=== PATIENT | female | born 1960 | race Caucasian/White ===

== ENCOUNTER → 2018-02-13 15:47 | Outpatient (CLI) | payer OTHER, SELFPAY ==
--- NOTE | 2018-02-13 15:49 | BI_ITS ---
MAMMOGRAPHY - BILATERAL SCREENING REASON FOR EXAM: Female, 57 years old. Routine annual screening examination. PERTINENT HISTORY: Non-contributory. TECHNIQUE: Digital bilateral breast emeka (3D mammographic acquisition) in the CC and MLO projections. 2-D mediolateral oblique (MLO) and craniocaudad (CC) views of both breasts were obtained. CAD: Full Field Digital Mammography with Computer Added Detection was performed. COMPARISON: Comparison is made with prior study dated November 03, 2015 and October 27, 2014. FINDINGS: Breast Composition: The breasts are heterogeneously dense, which may obscure small masses. There are no dominant masses or suspicious calcifications. No other significant abnormalities are identified. There has been no significant change since the prior study. BI/SCREENING MAMM (CAD), BILAT IMPRESSION: Stable bilateral screening mammogram. Yearly follow-up mammogram recommended. (A) ASSESSMENT CATEGORY: BIRADS Category 1: Negative. A letter regarding these results will be sent to the patient by the facility within 30 days. Approximately 10% of breast cancers are not detected by mammography. A normal mammogram should not delay biopsy of a clinically suspicious abnormality. [id number] Electronically Signed: Kevin Dacosta MD at 8:13 EDT Tel [phone], Service support ,
== END ==
PROVIDERS: Family Provider Family Medicine; PCP Family Medicine; Visit Provider Nurse Practitioner Family
DX: Z12.31 Encounter for screening mammogram for malignant neoplasm of breast (principal)
CPT/HCPCS: 77063; 77067

== ENCOUNTER → 2019-02-22 | Outpatient (CLI) | payer OTHER, SELFPAY ==
--- NOTE | 2019-02-22 16:36 | BI_ITS ---
MAMMOGRAPHY - BILATERAL SCREENING REASON FOR EXAM: Female, 58 years old. Routine annual screening examination. PERTINENT HISTORY: Non-contributory. TECHNIQUE: Digital bilateral breast alice (3D mammographic acquisition) in the CC and MLO projections. 2-D mediolateral oblique (MLO) and craniocaudad (CC) views of both breasts were obtained. CAD: Full Field Digital Mammography with Computer Added Detection was performed. COMPARISON: Comparison is made with prior study dated February 13, 2018 and November 03, 2015. FINDINGS: Breast Composition: The breasts are heterogeneously dense, which may obscure small masses. There are no dominant masses or suspicious calcifications. No other significant abnormalities are identified. There has been no significant change since the prior study. BI/SCREEN MAMM (CAD) W/ALICE BILAT IMPRESSION: Stable bilateral screening mammogram. Yearly follow-up mammogram recommended. (A) ASSESSMENT CATEGORY: BIRADS Category 1: Negative. A letter regarding these results will be sent to the patient by the facility within 30 days. Approximately 10% of breast cancers are not detected by mammography. A normal mammogram should not delay biopsy of a clinically suspicious abnormality. [id number] Electronically Signed: Kevin Dacosta, at 8:42 EDT , Service support ,
== END | disposition home or self-care (01) ==
LOC: OPBI 02-23 07:27
PROVIDERS: Family Provider Family Medicine; PCP Family Medicine; Referring Provider Nurse Practitioner Family; Visit Provider Nurse Practitioner Family
DX: Z12.31 Encounter for screening mammogram for malignant neoplasm of breast (principal)
CPT/HCPCS: 77063; 77067

== ENCOUNTER 2019-12-12 14:12 | Emergency (ER) | payer BC, SELFPAY ==
[2019-12-12 14:14] VITALS: BP 130/86; PULSE 70; RESP 15; TEMP 36.6; O2SAT 98; BMI 21.9
--- NOTE | 2019-12-12 14:28 | CT_ITS ---
STUDY: CT ABDOMEN AND PELVIS WITHOUT CONTRAST REASON FOR EXAM: Female, 59 years old. Right flank pain RADIATION DOSAGE (If Supplied By Facility): CTDIvol = ( 6.24 ) mGy, DLP = ( 263.34 ) mGycm TECHNIQUE: Transaxial images were obtained from the dome of the diaphragm to the symphysis pubis without oral contrast, and without intravenous contrast. Sagittal and coronal images were reconstructed. Individualized dose optimization techniques were used for this CT. COMPARISON: None. FINDINGS: Evaluation of the abdominal viscera is limited in the absence of intravenous contrast. The visualized lung bases are clear. The visualized portions of the heart and pericardium are within normal limits. There are no calcified gallstones present. There is a 5.4 x 5.3 x 4.0 cm cyst in the left lobe of the liver. This is a benign lesion and no further follow-up is recommended. The liver otherwise demonstrates an unremarkable unenhanced appearance. The spleen is normal in size. The pancreas demonstrates an unremarkable unenhanced appearance. The adrenal glands are within normal limits. There is a 5 mm stone at the right ureterovesicular junction with mild right hydroureteronephrosis. There are no additional renal or ureteral stones. There is no left hydronephrosis. Normal visualized stomach. There is no bowel obstruction or inflammation. The appendix is visualized and appears normal. The aorta is normal in caliber. There is no abdominal or pelvic free air, free fluid, fluid collection or lymphadenopathy. There are no destructive osseous lesions. CT/Abdomen/Pelvis without Cont IMPRESSION: 5 mm stone at the right ureterovesicular junction with mild right hydroureteronephrosis. Electronically Signed: Kranthi Almaguer, at 15:01 EDT Tel , Service support ,
[2019-12-12] MEDS: Ondansetron 4 MG/2 ML Vial IV (14:35)
[2019-12-12] MEDS: 0.9% Normal Saline 1,000 ML 125 ML IV (14:35)
[2019-12-12] MEDS: Ketorolac 30 MG/ML Syringe 15 MG IV (14:36)
[2019-12-12] MEDS: HYDROmorphone 1 MG/ML Syringe IV ×2 (14:39→15:44)
[2019-12-12 14:40] LABS: Bacteria 0 SEEN /hpf (None Seen); White Blood Cells 0 SEEN /hpf (0-5)
[2019-12-12 14:43] LABS: Absolute Lymphocyte Count 2.53 X10^3/uL (0.83-4.51); Absolute Neutrophil Count 3.7 X10^3/uL (2.0-7.7); Basophil# 0.04 X10^3/uL; Basophil% 0.5 % (0-1); Eosinophil# 0.55 X10^3/uL; Eosinophils% 7.3 % (0-5); Hematocrit 40.6 % (37-47); Hemoglobin 13.5 g/dL (12.0-15.0); Lymphocyte # 2.53 X10^3/ul (4.0); Lymphocyte % 33.7 % (19-41); Mean Corp Hgb Conc 33.3 g/dL (32-36); Mean Corpuscular Volume 93.3 fL (81-99); Mean Platelet Vol. 9.9 fl (6.2-12.0); Monocyte# 0.68 X10^3/uL; Monocyte% 9.1 % (0-10); NRBC Flagged by Analyzer 0 % (0-5); Neutrophil # 3.68 X10^3/uL (2.7-7.7); Neutrophil % 49.1 % (47-70); Platelet Count 254 K/mm3 (150-450); RBC Distribution Width CV 12.6 % (11.6-14.6); RBC Distribution Width SD 43.5 fl (35.1-43.9); Red Blood Count 4.35 M/mm3 (4.2-5.4); White Blood Count 7.5 K/mm3 (4.4-11.0)
[2019-12-12 14:55] LABS: Anion Gap 7 (5-15); BUN 22 mg/dL (7-18); BUN/Creat Ratio 17.3 RATIO (10-20); Calcium,Total 9.7 mg/dL (8.5-10.1); Chloride 110 mmol/L (98-107); Creatinine, Serum 1.27 mg/dL (0.55-1.02); EST Glomerular Filtration Rate 46 mL/min (>60); Est Glom Filt Rate - Afr Amer 56 mL/min (>60); Glucose 123 mg/dL (74-106); Potassium 3.5 mmol/L (3.5-5.1); Sodium Level 144 mmol/L (136-145)
[2019-12-12 15:11] LABS: Color, Urine Yellow (Yellow); Glucose, Dipstick Normal (Normal); Ketone-Dipstick 5 mg/dl (Negative); Leukocyte Esterase-Dipstick Negative /ul (Negative); Nitrite-Dipstick Negative (Negative); Occult Blood-Urine 250 /ul (Negative); Protein-Dipstick 30 mg/dl (Negative); Urine Bilirubin Dipstick Negative (Negative); Urine Clarity Sl. Cloudy (Clear); Urine Urobilinogen Normal (Normal)
[2019-12-12 15:16] LABS: Red Blood Cells-Urine 10-25 SEEN /hpf (0-5)
[2019-12-12 15:17] LABS: Mucous, Urine 1+ /hpf (<or=2+); Squamous Epithelial Cells - UA 0-5 SEEN /hpf (5-10)
--- NOTE | 2019-12-12 15:35 | ED.VISSUMM ---
- ER Visit Summary Date of Service: 12/12/19 Chief Complaint: [Right flank pain History of present illness: The patient is a 59-year-old female presents the emergency department complaint of right-sided flank pain that started suddenly about an hour prior to arrival in the emergency department. Patient rates the pain is a 10 out of 10. She is had nausea with it. No vomiting. Patient has a sensation like she needs to urinate but only getting small amounts of urine out. She denies any fevers. She is never had pain like this before. Patient has history of hypothyroidism and GERD.] Physical Examination: [HEENT-PERRLA, EOMI. Cranial nerves II through XII grossly intact. TMs clear. Mucous membranes moist. No adenopathy. She is slightly diaphoretic. Cardiovascular-regular rate and rhythm without murmur or ectopy Lungs-clear to auscultation, chest wall stable without crepitus or subcu emphysema Abdomen-normoactive bowel sounds, soft. Patient has tenderness palpation over right lower quadrant with some guarding. Patient has CVA tenderness on the right. There is no rebound, rigidity, or frail signs. Extremities-intact ?4, normal range of motion, normal pulses, atraumatic] Test Results: [CBC with differential obtained was normal. Chemistries unremarkable. Urinalysis showed 10-25 RBCs without signs of infection. CT flank showed a 5 mm stone at the right UVJ with mild hydro-.] Emergency Department Course and Treatment: [On arrival patient had an IV line established. She was medicated with Dilaudid, Zofran, and Toradol and had good pain relief with that. Patient's pain started to come back a little bit prior to discharge although when I tell her she told me it was a 2 out of 10. She was given a second dose of Dilaudid. Case was discussed with urology who asked that they call the office tomorrow to be seen tomorrow.] Treatment Plan: [She will be given urine strainers as well as a prescription for [employer] and naproxen. Patient will follow-up with urology tomorrow. Patient advised to return if worsening pain, fever, vomiting, or condition should worsen anyway.] Disposition: [Discharged home in stable condition] Impression: [Urolithiasis with colic] This note was generated with MedyMatchation software. It may contain incorrect words, spelling, and punctuation that were not noted in review of the chart prior to signing ED Disposition - Plan for ED Patient: Referrals: Miles Amato MD [Primary Care Provider] -
--- NOTE | 2019-12-12 15:38 | ED.DEP ---
ED Disposition - Plan for ED Patient: Instructions: ED Renal Stone w Colic Prescriptions: Naproxen [Naprosyn] 500 mg PO BID PRN #20 tab Prescription Printed Hydrocodone Bitart/Apap 5-325 [[place] 5MG-325MG] 1 tab PO Q4H PRN PRN 2 Days #14 tab PRN Reason: Pain Prescription Printed Ondansetron [Zofran Odt] 4 mg PO Q8H PRN PRN #10 tab PRN Reason: Nausea Prescription Printed Referrals: Miles Amato MD [Primary Care Provider] - Jp Hardy MD [STAFF PHYSICIAN] - 1 Day
[2019-12-12 16:05] VITALS: BP 141/77; PULSE 63; RESP 16; O2SAT 99
== END 2019-12-12 16:12 | disposition home or self-care (01) ==
LOC: ED 14:55
PROVIDERS: Emergency Provider Emergency Medicine; PCP Family Medicine
DX: N13.2 Hydronephrosis with renal and ureteral calculous obstruction (principal); E03.9 Hypothyroidism, unspecified; K21.9 Gastro-esophageal reflux disease without esophagitis; Z79.899 Other long term (current) drug therapy; Z72.0 Tobacco use
CPT/HCPCS: 74176; 80048; 81001; 85025; 96361; 96374; 96375; 96376; 99284; J7030; A4216; J2405

== ENCOUNTER 2019-12-15 12:13 | Day surgery (SDC) | payer BC, SELFPAY ==
[2019-12-15] MEDS: Lactated Ringers 1,000 ML 100 ML IV (12:35)
[2019-12-15 12:39] VITALS: BP 141/86; PULSE 63; RESP 15; TEMP 36.5; O2SAT 99; BMI 22.9
--- NOTE | 2019-12-15 12:52 | PCM.HP.STD ---
Problem List (1) Right ureteral calculus Status: Acute History of Present Illness Date of Admission: 12/15/19 Chief Complaint: Right ureteral obstructing calculi The patient is a 59 year old female who presents with an obstructing stone in the distal right ureter today we plan to proceed with treatment of the stone Past Medical History Allergies No Known Allergies Allergy (Verified 12/15/19 12:37) Home Medications: Ambulatory Orders Medication Instructions Recorded Levothyroxine [Synthroid] 88 mcg PO DAILY 04/05/16 Naproxen [Naprosyn] 500 mg PO BID PRN #20 tab 12/12/19 Ondansetron [Zofran Odt] 4 mg PO Q8H PRN PRN #10 tab 12/12/19 Cholecalciferol (VIT D3) [Vitamin 1,000 unit PO DAILY 12/14/19 D] Surgical History: no surgical history Smoking Status: Current every day smoker Tobacco Use: Cigarettes Review of Systems Constitutional: Denies: Chills, Fever, Weight Change HEENT: Denies: Head Aches, Sinus Congestion, Sinus Drainage Cardiovascular: Denies: Chest Pain, Palpitations Respiratory: Denies: Cough, Shortness of breath at rest, Sputum production Gastrointestinal: Denies: Abdominal Pain, Nausea, Vomiting Genitourinary: Denies: Dysuria Musculoskeletal: Denies: Joint Pain, Joint Tenderness Skin: Denies: Rash, Wounds Neurological: Denies: Numbness, Tingling, Focal weakness Psychiatric: Denies: Anxiety, Depression, Homicidal Ideations, Suicidal Ideations Hematologic/ Lymphatic: Denies: Easy Bruising, Easy Bleeding VTE Information - Inpt Only VTE Present on Admission: No VTE Mechan Device Prophylaxis: SCD's Patient Problems: Active and Suspected Problems Right ureteral calculus (Acute) - Physical Exam Vitals/I&O's: Vital Signs Temp Pulse Resp BP Pulse Ox 97.7 F L 63 15 141/86 H 99 12/15/19 12:39 12/15/19 12:39 12/15/19 12:39 12/15/19 12:39 12/15/19 12:39 Oxygen Delivery Method Room Air Weight: 60.7 kg Body Mass Index (BMI) 22.9 General: Alert, Oriented x3, Cooperative HEENT: Atraumatic, PERRLA, EOMI, Normocephalic Neck: Supple, No JVD, Negative Carotid Bruits Lungs: Clear to auscultation, Normal air movement Cardiovascular: Regular rate, No murmurs Abdomen: Bowel Sounds Present, Soft, Non Tender Extremities: No edema, Capillary Refill Less than 3 Seconds Skin: No rashes, No breakdown Musculoskeletal: No Tenderness to Palpation of Joints or Extremities Neurological: Cranial nerves II-XII grossly intact Psych/Mental Status: Normal Affect, Appropriate Laboratory Results 12/14/19 17:00: COVID-19 (RADHA) Negative Current Medications Lactated Ringer's () 1,000 mls @ 100 mls/hr IV .Q10H MARIE Last Admin: 12/15/19 12:35 Dose: 100 mls/hr Documented by: Assessment/Plan All Active Problems Right ureteral calculus (Acute) Plan for right ureteroscopy laser and stent.
--- NOTE | 2019-12-15 12:57 | DCINST_ITS ---
Discharge Diet: Light diet - advance as tolerated Discharge Activity: Return to Normal Activity, May not drive while taking narcotic pain medications. Call your doctor if your incision/area has: Sudden Increased Bleeding Call your doctor if you observe: Fever of 101 or Higher Suture Line Care: Avoid Pulling/Pushing, Avoid Pinching/Bending Allergies/Adverse Reactions: Allergies No Known Allergies Allergy (Verified 12/15/19 12:37) Medications to take at Discharge Levothyroxine [Synthroid] 88 mcg PO DAILY 04/05/16 Naproxen [Naprosyn] 500 mg PO BID PRN #20 tab 12/12/19 Ondansetron [Zofran Odt] 4 mg PO Q8H PRN PRN #10 tab 12/12/19 Cholecalciferol (VIT D3) [Vitamin D] 1,000 unit PO DAILY 12/14/19 Hydrocodone/Acetaminophen [[place] 5-325 Tablet] 1 each PO Q4H PRN PRN 5 Days #20 tablet 12/15/19 Smz/Tmp Ds [Bactrim Ds] 1 tab PO BID #14 tab 12/15/19 The following prescriptions were given: Smz/Tmp Ds [Bactrim Ds] 1 tab PO BID #14 tab [facility] Status: [facility] Hydrocodone/Acetaminophen [[place] 5-325 Tablet] 1 each PO Q4H PRN PRN 5 Days #20 tablet PRN Reason: Pain Score 1-10/10 Transmission Status: Sent to [facility] Primary Care Physician: Miles Amato MD [Primary Care Provider] - Test Results: Test results from this visit will be discussed in further detail at your follow- up appointment, if applicable. Please Follow Up With: Jp Hardy MD When: please call to make an appointment.
--- NOTE | 2019-12-15 13:20 | PCM.OPRPT ---
Problem List (1) Right ureteral calculus Status: Acute Report of Operation Date of Procedure: 12/15/19 Pre-Operative Diagnosis: Right ureteral calculi obstructing Post-Operative Diagnosis: Same Surgery/Procedure Performed:: Balloon dilation of the right ureter right ureteroscopy laser lithotripsy of stone and stent placement Description of Surgical Findings:: 59-year-old female taken back to the operating room after smooth induction of general anesthesia she was placed in dorsolithotomy position, the urethrovaginal area prepped and draped in usual sterile fashion, went into the bladder with a 21 Romansh rigid cystourethroscope, identified the right ureteral orifice cannulated with a wire advanced a wire past the stone I then advanced a balloon dilator just up to the stone but not beyond it balloon dilated the distal ureter with a 12 Romansh 10 cm balloon dilator, I then left the wire in place and next a wire went in with a offset Olympus SlimLine ureteroscope was able to get into the ureter and encountered the stone I then used a 200 ?m laser fiber and lasered the stone little tiny pieces. All the pieces then flushed into the bladder I then backloaded the stent over the wire and then advanced a stent up into the kidney once a stent was good position and pulled the wire of the kidney coiled in the kidney bladder good position left the string on the stent, and the patient anesthetic was reversed bladder was drained and will see her next week for stent removal. Drains: stent - Admit VTE Documentation VTE Present on Admission: No VTE Mechan Device Prophylaxis: SCD's
[2019-12-15 13:29] VITALS: BP 119/73; BP 141/86; PULSE 65; RESP 16; TEMP 36.6; O2SAT 97
[2019-12-15 13:44] VITALS: BP 139/65; BP 141/86; PULSE 61; RESP 17; O2SAT 97
[2019-12-15 13:57] VITALS: BP 141/86; BP 144/78; PULSE 50; RESP 16; TEMP 36.3; O2SAT 100
[2019-12-15] MEDS: Ketorolac 30 MG/ML Syringe IV (13:59)
[2019-12-15 14:55] VITALS: BP 141/77; BP 141/86; PULSE 53; RESP 16; TEMP 36.6; O2SAT 98
== END 2019-12-15 15:04 | disposition home or self-care (01) ==
LOC: SDC 12:14 → AC 12:16
PROVIDERS: Anesthesiology; PCP Family Medicine; Referring Provider Urology; Visit Provider Urology
PROC: 0TJ98ZZ Inspection of Ureter, Via Natural or Artificial Opening Endoscopic (ICD-10-PCS; CPT 52352; principal; 2019-12-15 14:15)
DX: N20.1 Calculus of ureter (principal); F17.210 Nicotine dependence, cigarettes, uncomplicated; E06.9 Thyroiditis, unspecified; Z11.59 Encounter for screening for other viral diseases; Z79.899 Other long term (current) drug therapy
CPT/HCPCS: 00918; 52356; 87635; G2023; J7120; C2617; J2405; U0003

== ENCOUNTER → 2024-02-04 | Outpatient (CLI) | payer BC, SELFPAY ==
[2024-02-04 08:58] LABS: Absolute Lymphocyte Count 1.47 X10^3/uL (0.83-4.51); Absolute Neutrophil Count 3.2 X10^3/uL (2.0-7.7); Basophil# 0.06 X10^3/uL; Basophil% 1.1 % (0-1); Eosinophils% 5.4 % (0-5); Hematocrit 42.6 % (37-47); Hemoglobin 14.7 g/dL (12.0-15.0); Lymphocyte # 1.47 X10^3/ul (0.83-4.51); Lymphocyte % 26.5 % (19-41); Mean Corp Hgb Conc 34.5 g/dL (32-36); Mean Corpuscular Hgb 32.2 pg (27.0-32.0); Mean Corpuscular Volume 93.4 fL (81-99); Mean Platelet Vol. 10.4 fl (6.2-12.0); NRBC Flagged by Analyzer 0 % (0-5); Neutrophil # 3.21 X10^3/uL (2.7-7.7); Neutrophil % 57.8 % (47-70); Platelet Count 298 K/mm3 (150-450); RBC Distribution Width SD 44.8 fl (35.1-43.9); Red Blood Count 4.56 M/mm3 (4.2-5.4); White Blood Count 5.6 K/mm3 (4.4-11.0)
[2024-02-04 09:39] LABS: ALB/GLOB Ratio 1.2 RATIO (0.9-2.4); AST(SGOT) 13 U/L (15-37); Alanine Aminotransfer ALT/SGPT 16 U/L (13-56); Alkaline Phosphatase 81 U/L (45-117); Anion Gap 7 (5-15); BUN 16 mg/dL (7-18); BUN/Creat Ratio 15.8 RATIO (10-20); Chloride 107 mmol/L (98-107); Creatinine, Serum 1.01 mg/dL (0.55-1.02); EST Glomerular Filtration Rate 59 mL/min (>60); Est Glom Filt Rate - Afr Amer 71 mL/min (>60); Globulin 3.4 g/dL (2.2-4.2); Glucose 102 mg/dL (74-106); Protein, Total 7.4 g/dL (6.4-8.2); Sodium Level 141 mmol/L (136-145)
== END | disposition home or self-care (01) ==
LOC: LAB 08:19
PROVIDERS: PCP Family Medicine; Referring Provider Student in an Organized Health Care Education/Training Program; Visit Provider Student in an Organized Health Care Education/Training Program
DX: K21.9 Gastro-esophageal reflux disease without esophagitis (principal); K76.89 Other specified diseases of liver
CPT/HCPCS: 36415; 80053; 85025

== ENCOUNTER → 2024-02-16 | Outpatient (CLI) | payer BC, SELFPAY ==
--- NOTE | 2024-02-16 07:51 | US_ITS ---
STUDY: ABDOMINAL ULTRASOUND - RIGHT UPPER QUADRANT REASON FOR VISIT: Female, 63 years old liver cyst TECHNIQUE: Ultrasound evaluation of the right upper quadrant was performed with real-time and static bowman-scale imaging. TECHNICAL QUALITY: Adequate. COMPARISON: None. FINDINGS: Liver: The liver measures 16.5 cm. There is normal echogenicity of the liver. The bile ducts are within normal limits. There is hepatic color flow. The direction of portal flow is hepatopetal. Multiple hepatic cysts are seen. The largest cyst is in the left lobe and measures 5.2 cm x 4.7 cm x 3.6 cm. Gallbladder: Normal distended gallbladder. The gallbladder wall measures 1.6 mm. There is a negative sonographic Loyola''s sign. There is no pericholecystic fluid. There are no gallstones. Common Bile Duct (C.B.D.): The common bile duct measures 3 mm. Pancreas: Normal size of the head, body and tail of the pancreas. There is increased echogenicity of the pancreas. There is no demonstrated pancreatic mass or cyst. Right Kidney: Normal size of the right kidney. The right kidney measures 9.5 cm x 4.7 cm x 3.5 cm. Normal renal cortex. The right cortex measures 1.0 cm. There is no demonstrated renal mass or cyst. There is no right hydronephrosis. Possible 2 cm x 2.2 cm x 1.3 cm right adrenal adenoma. US/Liver IMPRESSION: Multiple hepatic cysts. The largest cyst measures 5.2 cm x 4.7 cm x 3.6 cm. This is in the left lobe of the liver. Electronically Signed: Kevin Dacosta MD at 13:31 EDT ,
== END | disposition home or self-care (01) ==
LOC: US 07:48
PROVIDERS: PCP Family Medicine; Referring Provider Student in an Organized Health Care Education/Training Program; Visit Provider Student in an Organized Health Care Education/Training Program
DX: K76.89 Other specified diseases of liver (principal)
CPT/HCPCS: 76705

== ENCOUNTER 2024-03-08 05:25 | Day surgery (SDC) | payer BC, SELFPAY ==
[2024-03-08] VITALS (9 sets, daily range): BP systolic 65–130; BP diastolic 43–96; PULSE 74–86; RESP 14–18; TEMP 36.3–36.5; O2SAT 97–100; BMI 21.8
--- NOTE | 2024-03-08 06:30 | IMM_PTH ---
PATIENT: NASIM RODARTE LOC: EN U#:[id number] AGE/SX: 63/F ROOM: RE03/08/[address]: Dr. Vicente Lomas DO : 1960 BED: DIS: 03/08/2024 SPEC #: [id number] RECD: 03/08/24 13:51 STATUS: VERONICA REQ #: [id number] JOSE: 03/08/24 06:[address]: Vicente Lomas DEPT: IMMUNOHISTOCHEMISTRY RECD BY: Rickey Montoya ENTERED: 03/08/24 13:52 SP TYPE: IMMUNO OTHR DR: Dr. Miles Amato MD Tissues: A - Gastric mucous membrane Procedures: H Pylori (initial) PHYSICIAN & INSTITUTION [place] [id number] SPECIMEN INFORMATION: Tissue Source: A- Antrum biopsy Clinical Info: GERD Specimen Number: [id number] CPT code: 42722 METHODOLOGY: Deparaffinized sections of prefer/formalin-fixed tissue or PAP/DQ stained slides are incubated with monoclonal/polyclonal antibodies/oligonucleotide probes. Localization is made via biotin free immunoperoxidase method. Appropriate controls are performed and reacted as expected. Results on target cell population are indicated in the following table: RESULTS: ANTIBODY / CLONE RESULT Block A H Pylori (polyclonal) negative These tests were developed and their performance characteristics determined by [facility]. They may not have been cleared or approved by the U.S. Food and Drug Administration. The FDA has determined that such clearance or approval is not necessary. The above immunohistochemical/dualISH markers are ordered and reviewed by the Pathologist. INTERPRETATION: A. Antrum, biopsy: Negative for Helicobacter pylori organisms. AM 03/09/2024
--- NOTE | 2024-03-08 06:30 | EGD_PTH ---
PATIENT: NASIM RODARTE LOC: EN U#:[id number] AGE/SX: 63/F ROOM: RE03/08/[address]: Dr. Vicente Lomas DO : 1960 BED: DIS: 03/08/2024 SPEC #: [id number] RECD: 03/08/24 11:33 STATUS: VERONICA REAliyah #: [id number] JOSE: 03/08/24 06:[address]: Vicente Lomas DEPT: SURGICAL PATHOLOGY RECD BY: Zunilda Zhong ENTERED: 03/08/24 13:25 SP TYPE: EGD BIOPSY OT DR: Dr. Miles Amato MD Tissues: A - Gastric mucous membrane B - Duodenum, NOS C - Esophagus, NOS D - Sigmoid colon biopsy Procedures: Special Stain Group I Surgery Specimen Level IV Alcian Blue/PAS (control) HEADER OPERATION: Colonoscopy, EGD PRE-OP DIAGNOSIS: GERD TISSUE SUBMITTED: A- Antrum biopsy, B- Duodenal biopsy, C- Distal esophagus biopsy,D- Sigmoid colon polyp biopsy MICROSCOPIC DIAGNOSIS A. Gastric antrum, biopsy: Chronic gastritis. See comment. B. Duodenum, biopsy: No pathologic change. C. Distal esophagus, biopsy: Gastroesophageal junctional mucosa with mild chronic inflammation. Focal changes of reflux. 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 No evidence of dysplasia. See comment. D. Sigmoid colon polyp, biopsy: Polypoid lymphocytic colitis with hyperplastic change. . 03/09/2024 COMMENT A. The results of immunohistochemistry for Helicobacter pylori will be reported separately ([id number]). C. Alcian blue/PAS stain with matched control is used in the evaluation of the specimen. MICROSCOPIC DESCRIPTION Slides are reviewed. GROSS DESCRIPTION A. Received in fixative is one container labeled with the patient's name and designated Antrum biopsy. The specimen consists of two irregular fragments of light laurent soft tissue that in aggregate measure 0.6 x 0.3 x 0.1 cm. The specimen is totally submitted in one cassette. B. Received in fixative is one container labeled with the patient's name and designated Duodenal biopsy. The specimen consists of two irregular fragments of light laurent soft tissue that in aggregate measure 0.6 x 0.3 x 0.1 cm. The specimen is totally submitted in one cassette. C. Received in fixative is one container labeled with the patient's name and designated Distal esophagus biopsy. The specimen consists of multiple irregular fragments of light laurent soft tissue that in aggregate measure 1.0 x 0.4 x 0.1 cm. The specimen is totally submitted in one cassette. D. Received in fixative is one container labeled with the patient's name and designated Sigmoid colon polyp biopsy. The specimen consists of two irregular fragments of light laurent soft tissue that measures 0.5 x 0.3 x 0.1 cm. The specimen is totally submitted in one cassette. SJ 03/08/2024 TC:3 CPT:42160h6,51028
--- NOTE | 2024-03-08 06:36 | PRE.ANES_ITS ---
ASA Classification* ASA Classification ASA Classification: 2 Assessment & Plan Anesthesia* Anesthesia Assessment Anesthesia Assessment: Discussed sedation and/or anesthesia options, risks, benefits, and alternatives with patient/parents/legal guardian/POA. Questions invited. The patient/parents/legal guardian/POA seems to understand and agrees to proceed with anesthesia plan. Reviewed the physical assessment, medical history, allergy history and patient home medications list prior to surgery/procedure/anesthetic and documented any changes. Performed airway and anesthesia risk assessments. Anesthesia Type Anesthesia Type: MAC Anesthesia Focused Assessment* Temperature: 97.7 F Pulse Rate: 86 Blood Pressure: 130/96 Respiratory Rate: 18 Pulse Ox: 100 Airway Assessment Mouth opens: >3 cm Mallampati Score: II Focused Labs Anesthesia Preop lab: CBC WBC 5.6 K/mm3 (4.4-11.0) 02/04/24 08:26 RBC 4.56 M/mm3 (4.2-5.4) 02/04/24 08:26 Hgb 14.7 g/dL (12.0-15.0) 02/04/24 08:26 Hct 42.6 % (37-47) 02/04/24 08:26 Plt Count 298 K/mm3 (150-450) 02/04/24 08:26 CHEMISTRY Potassium 4.0 mmol/L (3.5-5.1) 02/04/24 08:26 Sodium 141 mmol/L (136-145) 02/04/24 08:26 BUN 16 mg/dL (7-18) 02/04/24 08:26 Creatinine 1.01 mg/dL (0.55-1.02) 02/04/24 08:26 Glucose 102 mg/dL (74-106) 02/04/24 08:26 TSH 11.70 uIU/mL (0.358-3.74) H 04/09/16 08:18 COAG Pre-Assessment Diagnosis/Proposed Procedure Planned Operative Procedure(s): EGD/CSCOPE Anesthesia History 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 When Was Last Pacemaker Check QUESTION #4 FULL TEXT: You/Your Family Experience fever (hyperthermia) with Anesthesia Last Oral Intake Last Oral intake: Last Oral Intake NPO since 04:05 03/08/24 05:54 Meds taken in AM with sips of water? Meds patient instructed to take am of surgery PONV PONV - enginehouse brakeman: PONV - enginehouse brakeman Female Yes 03/05/24 14:56 HX of Motion Sickness Yes 03/05/24 14:56 HX of N/V After Surgery No 03/05/24 14:56 Non-Smoker No 03/05/24 14:56 Duration of Surgery greater No 03/05/24 14:56 than 60 minutes Number of Risk Factors 2 03/05/24 14:56 PONV Score Moderate Risk 03/05/24 14:56 Height & Weight Height & Weight: Anesthesia: Height & Weight Height 5 ft 6 in 03/08/24 05:54 Weight: 61.4 kg 03/08/24 05:54 Body Mass Index (BMI) 21.8 03/08/24 05:54 Respiratory Assessment Respiratory Assessment - enginehouse brakeman: Respiratory Tract Infection Hx - enginehouse brakeman Hx Respiratory Tract Infection No 03/05/24 14:56 STOP Sleep Apnea STOP Sleep Apnea - enginehouse brakeman: STOP Sleep Apnea - enginehouse brakeman Hx Hypertension No 03/05/24 14:56 Hx Sleep Apnea No 03/05/24 14:56 CPAP BIPAP Do you snore loudly (louder No 03/05/24 14:56 than talking or can be heard Do you often feel tired/ Yes 03/05/24 14:56 fatigued/ sleepy during daytime? Has anyone observed you stop No 03/05/24 14:56 breathing during sleep? STOP Results Negative 03/05/24 14:56 QUESTION #5 FULL TEXT : Do you snore loudly (louder than talking or can be heard through closed doors)? 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 Specify any problems Hx of Preganancy in last 3 No 03/05/24 14:56 Months Nurse Filling Out Transfusion DSCHRIBER 03/05/24 14:56 & Questions: Date: 03/05/24 03/05/24 14:56 Time: 14:58 03/05/24 14:56 Patient unable to answer at this time (ie. confused, unrespo /Reproduction History /Reproductive History - enginehouse brakeman: /Reproductive Hx- enginehouse brakeman Hx Now No 03/05/24 14:56 Gestational Age (in weeks): EDC: Hx Hx Para Hx Section SAB No 03/05/24 14:56 PFSH Medical History (Updated 03/05/24 @ 15:03 by Sheila Villareal) Wears glasses Wears dentures Post-menopausal Thyroid disease History of diverticulitis Heartburn Shortness of breath on exertion Smoker History of edema Hx of fracture of leg Adrenal nodule Osteoporosis without pathological fracture GERD (gastroesophageal reflux disease) Hepatic cyst Home Medications ?Medication ?Instructions ?Recorded ?Last Taken ?Type cholecalciferol (vitamin D3) 25 1,000 unit PO DAILY 12/14/19 03/03/24 History mcg (1,000 unit) tablet clobetasol 0.05 % topical cream 1 applic topical DAILY PRN HANDS 08/01/23 Unknown History levothyroxine 100 mcg capsule 100 mcg PO DAILY 08/01/23 03/08/24 History omega-3 fatty acids 1,000 mg 1,000 mg PO QDAY 02/04/24 03/03/24 History capsule Allergy/AdvReac Type Severity Reaction Status Date / Time alendronate sodium (From AdvReac Intermediate Other Verified 03/08/24 05:52 Fosamax) Surgical History (Updated 03/05/24 @ 15:03 by Sheila Villareal) Hx of colonoscopy History of lithotripsy Social History Smoking Status: Current every day smoker tobacco type: cigarettes alcohol intake: never substance use type: does not use Review of Systems (Anesthesia) ROS Narrative System reviewed and no additional complaints, except as documented.
--- NOTE | 2024-03-08 06:41 | CON.PCM.GI_ITS ---
HPI Consult Data Date of Consult: 03/08/24 HPI Narrative Reason for Consultation: Heartburn HPI Narrative: NASIM RODARTE, is a 63 F who presents to the office today for establishment with [facility]. She has a medical hx of GERD, hepatic cyst, and nephrolithiasis. She was referred here by her primary care provider for the hepatic cyst which she has had since about 2011. She tells me she has had multiple images of the liver since then but no further work up. About 6 months ago she had RUQ pain that was constant and would not go away. It did however go away eventually without any treatment. She denied any other symptoms at that time. Our records show a CT from 2019 that showed the hepatic cyst and noted it was benign and no further work up was needed. She mentions she has some heartburn but nothing that she is not able to manage. She has been taking apple cider vinegar pills for this and she feels this is helpful. She denies dysphagia but she does note a 'weird' feeling in her esophagus and upper back after swallowing. She has never had an EGD. She has smoked cigarettes for years and is currently trying to quit. She has a family history of colon cancer. She has had multiple colonoscopies in the past with [facility] with polyps. Last one was few years ago. She has occasional constipation and diarrhea but nothing she is unable to manage. CT abdomen/pelvis 12.12.19; There is a 5.4 x 5.3 x 4.0 cm cyst in the left lobe o f the liver. This is a benign lesion and no further follow-up is recommended. The liver otherwise demonstrates an unremarkable unenhanced appearance Exam Const General: cooperative and comfortable Nutritional Appearance: average body habitus and well nourished [facility] Head: normal to inspection Ears: hearing grossly normal bilaterally Nose: external nose normal Face and sinus: normal facial exam Eyes General: appearance normal, both eyes and all related structures Neck Neck: normal visual inspection Chest Chest palpation & inspection: normal inspection of the chest Resp Effort & Inspection: normal respiratory effort and able to speak in complete sentences Cardio Palpation: normal PMI GI Inspection: normal to inspection Palpation: no hepatosplenomegaly Skin General: no rashes or lesions noted Neuro General: patient alert Extrem General: normal to inspection Psych Affect: normal affect Assessment and Plan Assessment and Plan (1) GERD (gastroesophageal reflux disease): Status: Acute Plan: Patient is here today for establishment with [facility]. She has a history of a hepatic cyst found in 2011. She has not had a liver biopsy but CT from 2019 noted that it was benign and needed no further work up. She went through a period of time 6 months ago with RUQ pain that eventually subsided. Since she was having pain she wanted to get the cyst looked at again. We will order liver US to monitor it and consider liver biopsy if indicated. Her liver enzymes have all been wnl according to our records. I will order CMP and CBC today to check in. She has a hx of GERD and discomfort in her upper back after swallowing. She denies taking medications for this besides apple cider vinegar pills. She denies ever having an EGD however she has had multiple colonoscopies as her father had colon cancer. SHe has had polyps in the past and last one was a few years ago at [facility]. I recommended she have an EGD since she is having these esophageal symptoms and a hx of smoking. I suggested she also get a colonoscopy then since she will be due for one soon as well. She is willing to do this she is just concerned insurance will not cover it -I ordered liver US -CBC and CMP -Scheduled for EGD and colonoscopy -She will f/u in 3 months (2) Hepatic cyst: Status: Acute Orders: Orders CBC W/Diff, Automated Today K21.9 - Gastro-esophageal reflux disease without esophagitis, K76.89 - Other specified diseases of liver Comprehensive Metabolic Profil Today K21.9 - Gastro-esophageal reflux disease without esophagitis, K76.89 - Other specified diseases of liver Liver Today K76.89 - Other specified diseases of liver I have examined the patient and the H&P has been reviewed. There are no clinical changes since date of exam. [facility] Medical History (Updated 03/05/24 @ 15:03 by Sheila Villareal) Wears glasses Wears dentures Post-menopausal Thyroid disease History of diverticulitis Heartburn Shortness of breath on exertion Smoker History of edema Hx of fracture of leg Adrenal nodule Osteoporosis without pathological fracture GERD (gastroesophageal reflux disease) Hepatic cyst Home Medications ?Medication ?Instructions ?Recorded ?Last Taken ?Type cholecalciferol (vitamin D3) 25 1,000 unit PO DAILY 12/14/19 03/03/24 History mcg (1,000 unit) tablet clobetasol 0.05 % topical cream 1 applic topical DAILY PRN HANDS 08/01/23 Unknown History levothyroxine 100 mcg capsule 100 mcg PO DAILY 08/01/23 03/08/24 History omega-3 fatty acids 1,000 mg 1,000 mg PO QDAY 02/04/24 03/03/24 History capsule Allergy/AdvReac Type Severity Reaction Status Date / Time alendronate sodium (From AdvReac Intermediate Other Verified 03/08/24 05:52 Fosamax) Surgical History (Updated 03/05/24 @ 15:03 by Sheila Villareal) Hx of colonoscopy History of lithotripsy Social History Smoking Status: Current every day smoker tobacco type: cigarettes alcohol intake: never substance use type: does not use
--- NOTE | 2024-03-08 07:17 | OP.EGD_ITS ---
Patient Name: Clarissa Mckeon Procedure Date: 03/08/2024 6:27 AM Date of : 1960 Age: 63 Procedure: Upper GI endoscopy Indications: Heartburn, Suspected esophageal reflux Providers: Vicente Lomas DO Medicines: Monitored Anesthesia Care Patient Profile: This is a 63 year old female. Refer to note in patient chart for documentation of history and physical. Patient has symptoms of chronic heartburn. Complications: No immediate complications. Procedure: Pre-Anesthesia Assessment: - Prior to the procedure, a History and Physical was performed, and patient medications and allergies were reviewed. The patient is competent. The risks and benefits of the procedure and the sedation options and risks were discussed with the patient. All questions were answered and informed consent was obtained. Patient identification and proposed procedure were verified by the physician in the pre-procedure area. Mental Status Examination: alert and oriented. Airway Examination: normal oropharyngeal airway and neck mobility. Respiratory Examination: clear to auscultation. CV Examination: normal. Prophylactic Antibiotics: The patient does not require prophylactic antibiotics. Prior Anticoagulants: The patient has taken no anticoagulant or antiplatelet agents except for NSAID medication. ASA Grade Assessment: II - A patient with mild systemic disease. After reviewing the risks and benefits, the patient was deemed in satisfactory condition to undergo the procedure. The anesthesia plan was to use monitored anesthesia care (MAC). Immediately prior to administration of medications, the patient was re-assessed for adequacy to receive sedatives. The heart rate, respiratory rate, oxygen saturations, blood pressure, adequacy of pulmonary ventilation, and response to care were monitored throughout the procedure. The physical status of the patient was re-assessed after the procedure. After obtaining informed consent, the endoscope was passed under direct vision. Throughout the procedure, the patient's blood pressure, pulse, and oxygen saturations were monitored continuously. The Colonoscope was introduced through the mouth, and advanced to the second part of duodenum. The upper GI endoscopy was accomplished without difficulty. The patient tolerated the procedure well. Scope In: 6:51:21 AM Scope Out: 6:55:53 AM Total Procedure Duration Time 0 hours 4 minutes 32 seconds Findings: There were esophageal mucosal changes suspicious for short-segment Cabral's esophagus present in the lower third of the esophagus. The maximum longitudinal extent of these mucosal changes was 2 cm in length. Mucosa was biopsied with a cold forceps for histology in a targeted manner at intervals of 1 cm in the lower third of the esophagus. One specimen bottle was sent to pathology. Verification of patient identification for the specimen was done. Estimated blood loss was minimal. LA Grade B (one or more mucosal breaks greater than 5 mm, not extending between the tops of two mucosal folds) esophagitis with no bleeding was found 35 to 38 cm from the incisors. A hiatal hernia was present. Bilious fluid was found in the gastric body. Patchy moderate inflammation characterized by erosions and erythema was found in the gastric antrum. Biopsies were taken with a cold forceps for histology. Verification of patient identification for the specimen was done. Estimated blood loss was minimal. Biopsies were taken with a cold forceps for Helicobacter pylori testing. Verification of patient identification for the specimen was done. Estimated blood loss was minimal. Patchy mild inflammation characterized by congestion (edema) and erythema was found in the duodenal bulb and in the first portion of the duodenum. Biopsies were taken with a cold forceps for histology. Verification of patient identification for the specimen was done. Estimated blood loss was minimal. Impression: - Esophageal mucosal changes suspicious for short-segment Cabral's esophagus. Biopsied. - LA Grade B reflux esophagitis with no bleeding. - Hiatal hernia. - Bilious gastric fluid. - Chronic gastritis. Biopsied. - Chronic duodenitis. Biopsied. Recommendation: - Discharge patient to home. - Resume previous diet. - Use Protonix (pantoprazole) 40 mg PO BID for 3 months. - Continue present medications. Procedure Code(s): --- Professional --- 43266, Esophagogastroduodenoscopy, flexible, transoral; with biopsy, single or multiple CPT copyright 2021 [employer]. All rights reserved. The codes documented in this report are preliminary and upon data coder operator review may be revised to meet current compliance requirements. Vicente Lomas DO 03/08/2024 7:16:01 AM This report has been signed electronically. Number of Addenda: 0 Note Initiated On: 03/08/2024 6:27 AM
--- NOTE | 2024-03-08 07:17 | OP.CCLET_ITS ---
03/08/2024 Miles Amato [address] [place] [address] Re : Upper GI endoscopy procedure for Clarissa Mckeon Dear Dr. Amato This procedure was performed on Friday, March 08, 2024. My impressions and recommendations are as follows: Impressions : - Esophageal mucosal changes suspicious for short-segment Cabral's esophagus. Biopsied. - LA Grade B reflux esophagitis with no bleeding. - Hiatal hernia. - Bilious gastric fluid. - Chronic gastritis. Biopsied. - Chronic duodenitis. Biopsied. Recommendations : - Discharge patient to home. - Resume previous diet. - Use Protonix (pantoprazole) 40 mg PO BID for 3 months. - Continue present medications. My findings are described in the full procedure note, which is enclosed. If I can be of further assistance, please feel free to contact me at . Sincerely, Vicente Lomas, 03/08/2024 7:16:01 AM This report has been signed electronically.
--- NOTE | 2024-03-08 07:18 | OP.CCLET_ITS ---
03/08/2024 Miles Amato [address] [place] [address] Re : Colonoscopy procedure for Clarissa Mckeon Dear Dr. Amato This procedure was performed on Friday, March 08, 2024. My impressions and recommendations are as follows: Impressions : - One 3 mm polyp in the sigmoid colon, removed with a jumbo cold forceps. Resected and retrieved. - Diverticulosis in the recto-sigmoid colon, in the sigmoid colon and in the descending colon. - The examination was otherwise normal on direct and retroflexion views. Recommendations : - Discharge patient to home. - Resume previous diet. - Continue present medications. - Await pathology results. - Repeat colonoscopy in 5 years for surveillance. My findings are described in the full procedure note, which is enclosed. If I can be of further assistance, please feel free to contact me at . Sincerely, Vicente Lomas, 03/08/2024 7:17:56 AM This report has been signed electronically.
--- NOTE | 2024-03-08 07:18 | OP.COLON_ITS ---
Patient Name: Clarissa Mckeon Procedure Date: 03/08/2024 6:56 AM Date of : 1960 Age: 63 Procedure: Colonoscopy Indications: Screening for colorectal malignant neoplasm Providers: Vicente Lomas DO Medicines: Monitored Anesthesia Care Patient Profile: This is a 63 year old female. Refer to note in patient chart for documentation of history and physical. Patient has symptoms of chronic heartburn. Last Colonoscopy: 10 years ago. Complications: No immediate complications. Procedure: Pre-Anesthesia Assessment: - Prior to the procedure, a History and Physical was performed, and patient medications and allergies were reviewed. The patient is competent. The risks and benefits of the procedure and the sedation options and risks were discussed with the patient. All questions were answered and informed consent was obtained. Patient identification and proposed procedure were verified by the physician in the pre-procedure area. Mental Status Examination: alert and oriented. Airway Examination: normal oropharyngeal airway and neck mobility. Respiratory Examination: clear to auscultation. CV Examination: normal. Prophylactic Antibiotics: The patient does not require prophylactic antibiotics. Prior Anticoagulants: The patient has taken no anticoagulant or antiplatelet agents except for NSAID medication. ASA Grade Assessment: II - A patient with mild systemic disease. After reviewing the risks and benefits, the patient was deemed in satisfactory condition to undergo the procedure. The anesthesia plan was to use monitored anesthesia care (MAC). Immediately prior to administration of medications, the patient was re-assessed for adequacy to receive sedatives. The heart rate, respiratory rate, oxygen saturations, blood pressure, adequacy of pulmonary ventilation, and response to care were monitored throughout the procedure. The physical status of the patient was re-assessed after the procedure. After I obtained informed consent, the scope was passed under direct vision. Throughout the procedure, the patient's blood pressure, pulse, and oxygen saturations were monitored continuously. The Colonoscope was introduced through the anus and advanced to the cecum, identified by appendiceal orifice and ileocecal valve. The colonoscopy was performed without difficulty. The patient tolerated the procedure well. The quality of the bowel preparation was adequate. The ileocecal valve, appendiceal orifice, and rectum were photographed. Scope In: 6:58:57 AM Scope Withdrawal Time 0 hours 6 minutes 46 seconds Scope Out: 7:10:03 AM Total Procedure Duration Time 0 hours 11 minutes 6 seconds Findings: The perianal and digital rectal examinations were normal. A 3 mm polyp was found in the sigmoid colon. The polyp was sessile. The polyp was removed with a jumbo cold forceps. Resection and retrieval were complete. Verification of patient identification for the specimen was done. Estimated blood loss was minimal. Multiple small and large-mouthed diverticula were found in the recto-sigmoid colon, sigmoid colon and descending colon. The exam was otherwise without abnormality on direct and retroflexion views. Impression: - One 3 mm polyp in the sigmoid colon, removed with a jumbo cold forceps. Resected and retrieved. - Diverticulosis in the recto-sigmoid colon, in the sigmoid colon and in the descending colon. - The examination was otherwise normal on direct and retroflexion views. Recommendation: - Discharge patient to home. - Resume previous diet. - Continue present medications. - Await pathology results. - Repeat colonoscopy in 5 years for surveillance. Procedure Code(s): --- Professional --- 29667, Colonoscopy, flexible; with biopsy, single or multiple CPT copyright 2021 [employer]. All rights reserved. The codes documented in this report are preliminary and upon school resource officer review may be revised to meet current compliance requirements. Vicente Lomas DO 03/08/2024 7:17:56 AM This report has been signed electronically. Number of Addenda: 0 Note Initiated On: 03/08/2024 6:56 AM
--- NOTE | 2024-03-08 07:20 | PCM.POST.ANE ---
Anesthesia: Postop Eval I Current Vital Signs Temperature: 97.3 F Pulse Rate: 82 Blood Pressure: 65/43 Respiratory Rate: 14 Pulse Ox: 98 Oxygen Delivery Method: Room Air Assessment Airway patent: Yes Spontaneous unlabored respirations: Yes Mental status: Awake and Calm nausea: No Vomiting: No Anesthesia Complication: No Fluid Hydration Crystalloid volume administer (ml): 30 Total IV fluid infused: 30 Progress Note Anesthesia document: Postop Eval 1 completed: Yes
--- NOTE | 2024-03-08 07:51 | PCM.POSTANE2 ---
Anesthesia Postop Eval I Sum Postop Eval Completion status Anesthesia document: Postop Eval 1 completed: Yes Anesthesia Postop Eval I Summary Anesthesia Postop Eval I Summary: Anesthesia Postop Eval I: Assessment Summary Airway patent Yes 03/08/24 07:21 [email or web address] Spontaneous unlabored Yes 03/08/24 07:21 [email or web address] respirations Mental status Awake,Calm 03/08/24 07:21 [email or web address] nausea No 03/08/24 07:21 [email or web address] Vomiting No 03/08/24 07:21 [email or web address] Anesthesia Postop Eval I: Fluid Summary Crystalloid volume administer 30 03/08/24 07:21 [email or web address] (ml) Colloids volume administered ( ml) Blood Product volume administered (ml) Total IV fluid infused 30 03/08/24 07:21 [email or web address] Anesthesia Postop Eval I: Summary Notes Anesthesia Complication No 03/08/24 07:21 [email or web address] Anesthesia Complication Comment: Post-operative progress note Anesthesia: Postop Eval II Evaluation Mental status: Awake Pain Level: 0 nausea: No Vomiting: No
== END 2024-03-08 07:50 | disposition home or self-care (01) ==
LOC: EN 05:27 → AC 05:27
PROVIDERS: PCP Family Medicine; Referring Provider Family Medicine; Visit Provider Internal Medicine Gastroenterology
PROC: 0DJD8ZZ Inspection of Lower Intestinal Tract, Via Natural or Artificial Opening Endoscopic (ICD-10-PCS; CPT 45378; principal; 2024-03-08 06:25)
DX: Z12.11 Encounter for screening for malignant neoplasm of colon (principal); K52.832 Lymphocytic colitis; K57.30 Diverticulosis of large intestine without perforation or abscess without bleeding; K21.00 Gastro-esophageal reflux disease with esophagitis, without bleeding; K29.50 Unspecified chronic gastritis without bleeding; K29.80 Duodenitis without bleeding; K22.70 Barrett's esophagus without dysplasia; K44.9 Diaphragmatic hernia without obstruction or gangrene; K76.89 Other specified diseases of liver; E07.9 Disorder of thyroid, unspecified; F17.210 Nicotine dependence, cigarettes, uncomplicated; Z79.890 Hormone replacement therapy; Z80.0 Family history of malignant neoplasm of digestive organs
CPT/HCPCS: 45380; 43239; 88305; 88312; 88342; A4216; J2405

== ENCOUNTER 2025-04-07 05:17 | Day surgery (SDC) | payer BC, SELFPAY ==
[2025-04-07] VITALS (11 sets, daily range): BP systolic 76–147; BP diastolic 52–82; PULSE 53–74; RESP 16; TEMP 36.2–36.6; O2SAT 95–100; BMI 23.1
--- OUTSIDE RECORDS SUMMARY | 2025-04-07 05:20 | XMS RPT_ITS | CCD ---
Author Organization [facility] Care Team Providers Care Degreasing Wheel Operator Name Role Phone Jamie Mckeon Unavailable Olga Amato MD Primary Care Provider Olga Amato MD Primary Care Provider Olga Amato MD Primary Care Provider Olga Amato MD Primary Care Provider ERICH MICHAEL Attending Unavailable ERICH MICHAEL Admitting Unavailable OLGA AMATO Primary Care Unavailable Olga Amato MD Primary Care Provider Daveyhorenita ACTIVITIES LEADER.Debby BENSON Unavailable Don ACTIVITIES LEADER.Mateo BENSON Unavailable KONSTANTIN SUERO Attending Unavailable OLGA AMATO Primary Care Unavailable KONSTANTIN SUERO Attending Unavailable OLGA AMATO Primary Care Unavailable T[place]hof ACTIVITIES LEADER.Debby BENSON Unavailable Dr. Olga Amato MD Primary Care Provider Dr. Olga Amato MD Referring Provider Bia Saucedo Attending Provider SALENA DIAZ Referring Unavailable OLGA AMATO Primary Care Unavailable MARISA SPENCER Referring Unavailable OLGA AMATO Primary Care Unavailable MARISA SPENCER Referring Unavailable OLGA AMATO Primary Care Unavailable KONSTANTIN SUREO Referring Unavailable OLGA AMATO Primary Care Unavailable OLGA AMATO Primary Care Unavailable PAPA US Attending Unavailable SALENA DIAZ Attending Unavailable OLGA AMATO Primary Care Unavailable SALENA DIAZ Referring Unavailable OLGA AMATO Primary Care Unavailable SALENA DIAZ Attending Unavailable OLGA AMATO Primary Care Unavailable Bia Flynn Attending Unavailable Olga Amato Referring Unavailable Olga Amato Primary Care Unavailable Bia Flynn Attending Unavailable Olga Amato Referring Unavailable Olga Amato Primary Care Unavailable Olga Amato Primary Care Unavailable Bia Flynn Attending Unavailable Olga Amato Referring Unavailable CesiliaVicente Attending Unavailable Emily DIMENSIONAL INSPECTORSalena Referring Unavailable Emily DIMENSIONAL INSPECTOR, Salena Primary Care Unavailable Allergies Allergy Classification Reported Allergen(s) Allergy Type Date of Onset Reaction(s) Facility Alendronate (2 sources) Alendronate Drug Allergy 12-08-2017 Intolerance [facility] (20 sources) Alendronate; Translations: [ALENDRONATE SODIUM] Drug Allergy 12-08-2017 Intolerance [facility] Comment on above: HEARTBURN (1 source) Alendronate Drug Allergy 04-06-2025 [facility] Repository Medications Current Medications Medication Drug Class(es) Dates Sig (Normalized) Sig (Original) carbamide peroxide 65 mg/ml otic solution (14 sources) Start: 11-12-2023 End: 11-11-2024 carbamide peroxide (DEBROX) 6.5 % otic solution Indications: Bilateral impacted cerumen Use 5 Drops in both ears two times a day. 15 mL 2 11/12/2023 11/11/2024 Active cholecalciferol 0.025 mg oral tablet (1 source) Vitamin D Start: 12-14-2019 take 1 tablet by mouth once daily Cholecalciferol (Vitamin D3) 1,000 UNIT tablet Active 1000 U PO DAILY December 14, 2019 12:00am CHOLECALCIFEROL, VITAMIN D3, ORAL (20 sources) CHOLECALCIFEROL, VITAMIN D3, ORAL Take by mouth. Taking daily. Pt unsure of dosage. Active CHOLECALCIFEROL, VITAMIN D3, ORAL Take by mouth. Taking daily. Pt unsure of dosage. 0 Active Comment on above: Take by mouth. Takin g daily. Pt unsure of dosage. clobetasol propionate 0.5 mg/ml topical cream (20 sources) Corticosteroid Start: 08-01-2023 Clobetasol 0.05 % cream Active 1 NMA TOPICAL DAILY as needed for HANDS August 01, 2023 1:00am Start: 11-21-2015 End: 11-11-2024 clobetasol (TEMOVATE) 0.05 % cream Indications: Contact dermatitis due to other chemical product, unspecified contact dermatitis type Apply 1 application to affected area two times a day. Apply to hands 60 g 5 11/12/2023 10/25/2024 Discontinued (Other) Comment on above: Apply 1 application to affected area twice daily. losartan potassium 25 mg oral tablet (3 sources) Angiotensin 2 Receptor Geetha Start: 5 take 1 tablet by mouth once daily losartan (COZAAR) 25 mg tablet Take 1 tablet by mouth once daily. 90 tablet 1 11/23/2024 Active [place]-3 Fatty Acids 1,000 mg capsule (1 source) Start: 4 take 1 capsule by mouth once daily [place]-3 Fatty Acids 1,000 mg capsule Active 1000 mg PO daily February 04, 2024 12:00am pantoprazole 40 mg delayed release oral tablet (7 sources) Proton Pump Inhibitor Start: take 1 tablet by mouth every twelve hours pantopraz[address] DR (PROTONIX) 40 mg tablet Take 1 tablet by mouth every 12 hours. 08/25/2024 Active Start: 03-08-2024 End: 05-04-2024 take 1 tablet by mouth twice daily Pantoprazole 40 mg tablet,delayed release (DR/EC) Active 40 mg PO TWICE A DAY 180 90 1 May 04, 2024 9:27am levothyroxine sodium 0.1 mg oral tablet (20 sources) l-Thyroxine Start: 01-17-2025 take 1 tablet by mouth once daily for thyroid dysfunction levothyroxine (LEVOXYL) 100 mcg tablet Indications: Acquired hypothyroidism Take 1 tablet by mouth once daily. Skip one day weekly. Take on empty stomach. For Thyroid. 30 tablet 11 01/17/2025 Active Start: 08-01-2023 take 1 capsule by [facility] once daily Levothyroxine 100 mcg capsule Active 100 ug PO DAILY August 01, 2023 1:00am Start: 03-25-2022 End: 01-16-2025 take 1 tablet by mouth once daily for thyroid dysfunction levothyroxine (LEVOXYL) 100 mcg tablet Indications: Acquired hypothyroidism Take 1 tablet by mouth once daily. Skip one day weekly. Take on empty stomach. For Thyroid. 30 tablet 11 01/27/2024 01/16/2025 Discontinued Start: 05-29-2021 End: 10-29-2021 take 1 tablet by mouth once daily for thyroid dysfunction levothyroxine (LEVOXYL) 100 mcg tablet Indications: Acquired hypothyroidism Take 1 tablet by mouth once daily. Skip one day weekly. Take on empty stomach. For Thyroid. 30 tablet 3 10/29/2021 Active Start: 04-05-2016 End: 08-01-2023 Levothyroxine 75 MCG tablet Discontinued 88 ug PO DAILY April 05, 2016 1:00am August 01, 2023 1:51pm Start: 04-03-2016 LEVOTHYROXINE SODIUM 75 MCG TABS LEVOTHYROXINE SODIUM [id number] Jamie Mckeon Comment on above: Take 1 tablet by carley th once daily. Skip one day weekly. Take on empty stomach. For Thyroid. Take 1 tablet by carley th once daily. One day a week; take only 1/2 pill. Take on empty stomach. For Thyroid. Completed/Discontinued Medications Medication Drug Class(es) Dates Sig (Normalized) Sig (Original) acetaminophen 325 mg / HYDROcodone bitartrate 5 mg oral tablet (2 sources) Opioid Agonist Start: 12-15-2019 End: 12-20-2019 Hydrocodone-Acetami nophen 1 EACH tablet Discontinued 1 NMA PO EVERY 4 HOURS NEEDED as needed for Pain Score 1-10/10 20 5 0 December 15, 2019 December 19, 2019 12:00am December 20, 2019 12:02am Personal history of urinary calculi Start: 12-12-2019 End: 12-14-2019 Hydrocodone-Acetaminophen 1 TABLET tablet Discontinued 1 {tbl} PO EVERY 4 HOURS NEEDED as needed for Pain 14 2 0 December 12, 2019 December 13, 2019 12:00am December 14, 2019 12:02am benzonatate 200 mg oral capsule (1 source) Non-narcotic Antitussive Start: 05-12-2023 End: 02-04-2024 take 1 capsule by mouth three times daily as needed for cough Benzonatate 200 mg capsule Discontinued 200 mg PO THREE TIMES A DAY as needed for cough 14 0 May 12, 2023 1:00am February 04, 2024 7:44am dexamethasone 1 mg oral tablet (2 sources) Corticosteroid Start: 07-15-2024 End: 07-15-2024 take 1 tablet by mouth once in the evening dexAMETHasone (DECADRON) 1 mg tablet Indications: Adrenal adenoma, unspecified laterality Take 1 tablet by mouth one time only for 1 dose. Take one tablet at 10 pm the evening prior to blood work. Get blood work first thing the next morning. 1 tablet 07/15/2024 07/15/2024 Start: 07-24-2022 End: 07-24-2022 take 1 tablet by mouth once dexAMETHasone (DECADRON) 1 mg tablet Indications: Adrenal adenoma, unspecified laterality Take 1 tablet by mouth one time only for 1 dose. 1 tablet 0 07/24/2022 07/24/2022 Comment on above: Take 1 tablet by carley th one time only for 1 dose. Glucosam-Sod Chondro-Vit C-Prema tablet (1 source) Start: 08-01-2023 End: 03-05-2024 Glucosam-Sod Chondro-Vit C-Prema tablet Discontinued {tbl} PO August 01, 2023 1:00am March 05, 2024 2:56pm glucosamine/chondroitn /Na/C/Se (JOINT FORMULA ORAL) (20 sources) End: 10-25-2024 glucosamine/chondroitn/Na/ C/Se (JOINT FORMULA ORAL) Take by mouth. 10/25/2024 Discontinued (Other) glucosamine/yon droitn/Na/C/Se (JOINT FORMULA ORAL) Take by mouth. Active glucosamine/yon droitn/Na/C/Se (JOINT FORMULA ORAL) Take by mouth. 0 Active Comment on above: Take by mouth. iv contrast (will be provided with radiology test) (16 sources) Start: 07-01-2023 End: 10-25-2024 iv contrast (will be provide d with radiology test) CT adrenal WO/W Inject, intravenously, once for 1 dose.No IV access, insert saline lock prior to the beginning of sedation, infusion, injection of imaging exam. Discontinue saline lock post exam. If Pt. has a central line or IVAD, may access for administration according to line specific nursing protocol. Once exam is complete flush line and de-access according to line specific nursing protocol in the CT contrast administration guidelines link. 1 Each 07/01/2023 10/25/2024 Discontinued Start: 07-01-2023 iv contrast (w ill be provided with radiology test) CT adrenal WO/W Inject, intravenously, once for 1 dose.No IV access, insert saline lock prior to the beginning of sedation, infusion, injection of imaging exam. Discontinue saline lock post exam. If Pt. has a central line or IVAD, may access for administration according to line specific nursing protocol. Once exam is complete flush line and de-access according to line specific nursing protocol in the CT contrast administration guidelines link. 1 Each 07/01/2023 Active Start: 07-01-2023 iv contrast (w ill be provided with radiology test) CT adrenal WO/W Inject, intravenously, once for 1 dose.No IV access, insert saline lock prior to the beginning of sedation, infusion, injection of imaging exam. Discontinue saline lock post exam. If Pt. has a central line or IVAD, may access for administration according to line specific nursing protocol. Once exam is complete flush line and de-access according to line specific nursing protocol in the CT contrast administration guidelines link. 1 Each 0 07/01/2023 Active Start: 07-04-2022 End: 07-05-2022 iv contrast (will be provide d with radiology test) Indications: Acquired cyst of kidney CT kidney wow Inject, intravenously, once for 1 dose.No IV access, insert saline lock prior to the beginning of sedation, infusion, injection of imaging exam. Discontinue saline lock post exam. If Pt. has a central line or IVAD, may access for administration according to line specific nursing protocol. Once exam is complete flush line and de-access according to line specific nursing protocol in the CT contrast administration guidelines link. 1 Each 0 07/04/2022 07/05/2022 Active Comment on above: CT kidney wow Inject , intravenously, once for 1 dose.No IV access, insert saline lock prior to the beginning of sedation, infusion, injection of imaging exam. Discontinue saline lock post exam. If Pt. has a central line or IVAD, may access for administration according to line specific nursing protocol. Once exam is complete flush line and de-access according to line specific nursing protocol in the CT contrast administration guidelines link. CT adrenal WO/W Inje ct, intravenously, once for 1 dose.No IV access, insert saline lock prior to the beginning of sedation, infusion, injection of imaging exam. Discontinue saline lock post exam. If Pt. has a central line or IVAD, may access for administration according to line specific nursing protocol. Once exam is complete flush line and de-access according to line specific nursing protocol in the CT contrast administration guidelines link. lisinopril 10 mg oral tablet (2 sources) Angiotensin Converting Enzyme Inhibitor Start: 2024 End: 2024 take 1 tablet by mouth once daily lisinopril (ZESTRIL) 10 mg tablet Indications: Hypertension, essential Take 1 tablet by mouth once daily. 30 tablet 1 10/25/2024 11/23/2024 Discontinued (Side Effects) methylPREDNISolone 4 mg oral tablet (1 source) Corticosteroid Start: 2022 End: 2023 take 1 tablet by mouth once Methylprednisolone (Medrol (Ever)) 4 mg tablets,dose pack Discontinued 0 PO per package directions 21 May 12, 2023 1:00am February 04, 2024 7:44am PO PER PKG DIR naproxen 500 mg oral tablet (1 source) Nonsteroidal Anti-inflammatory Drug Start: 2019 End: 2023 take 1 tablet by mouth twice daily as needed Naproxen 500 MG tablet Discontinued 500 mg PO TWICE DAILY NEEDED December 12, 2019 12:00am February 04, 2024 7:44am ondansetron 4 mg disintegrating oral tablet (1 source) Serotonin-3 Receptor Antagonist Start: 2019 End: 2023 take 1 tablet by mouth every eight hours as needed for nausea Ondansetron 4 MG tablet Discontinued 4 mg PO EVERY 8 HOURS NEEDED as needed for Nausea December 12, 2019 12:00am February 04, 2024 7:44am sulfacetamide sodium 100 mg/ml ophthalmic solution (1 source) Sulfonamide Antibacterial Start: 2021 End: 2021 Sulfacetamide Sodium (Bleph-10) 10 % drops Discontinued 1 NMA OPHTHALMIC Q3H 15 7 0 August 27, 2021 12:00am September 02, 2021 12:00am September 03, 2021 12:03am sulfamethoxazole 800 mg / trimethoprim 160 mg oral tablet (1 source) Dihydrofolate Reductase Inhibitor Antibacterial, Sulfonamide Antimicrobial Start: 2019 End: 2023 Sulfamethoxazole-Trimet hoprim 1 TABLET tablet Discontinued 1 {tbl} PO TWICE A DAY 14 0 December 15, 2019 12:00am February 04, 2024 7:44am Problems Active Problems Problem Classification Problem Date Documented Da te Episodic/Chronic Abdominal pain (3 sources) Right flank pain; Translations: [Unspecified abdominal pain] Episodic Allergic reactions (2 sources) Contact dermatitis caused by chemical; Translations: [Unspecified contact dermatitis due to other chemical products] 11-12-2023 Episodic Calculus of urinary tract (1 source) Ureteric stone; Translations: [Calculus of ureter] 12-15-2019 Episodic Digestive congenital anomalies (5 sources) Congenital cystic disease of liver; 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] Onset: 5 07-01-2023 Chronic Disorders of lipid metabolism (20 sources) Mixed hyperlipidemia; Translations: [Mixed hyperlipidemia] Onset: 7 Chronic Esophageal disorders (20 sources) Gastroesophageal reflux disease; Translations: [Gastro-esophageal reflux disease without esophagitis] Onset: 3 01-23-2023 Chronic Essential hypertension (3 sources) Essential hypertension; Translations: [Essential (primary) hypertension] Onset: 5 10-25-2024 Chronic Inflammation; infection of eye (except that caused by tuberculosis or sexually transmitteddisease) (1 source) Acute infectious conjunctivitis; Translations: [Unspecified acute conjunctivitis, unspecified eye] 08-27-2021 Episodic Nutritional deficiencies (1 source) Vitamin D deficiency; Translations: [Vitamin D deficiency, unspecified] Chronic Osteoporosis (20 sources) Osteoporosis; Translations: [Age-related osteoporosis without current pathological fracture] Onset: 7 02-03-2017 Chronic Other and unspecified benign neoplasm (7 sources) Adrenal adenoma; Translations: [Benign neoplasm of unspecified adrenal gland] Episodic Other and unspecified benign neoplasm (2 sources) Adenoma of right adrenal gland; Translations: [Benign neoplasm of right adrenal gland] Episodic Other and unspecified benign neoplasm (2 sources) Benign neoplasm of adrenal cortex; Translations: [Benign neoplasm of unspecified adrenal gland] Episodic Other and unspecified benign neoplasm (1 source) Lipoma of right upper limb; Translations: [Benign lipomatous neoplasm of skin and subcutaneous tissue of right arm] 12-26-2022 Episodic Other and unspecified benign neoplasm (3 sources) Lipoma of forearm; Translations: [Benign lipomatous neoplasm of skin and subcutaneous tissue of right arm] 01-10-2023 Episodic Other and unspecified benign neoplasm (1 source) Benign lipomatous neoplasm of skin and subcutaneous tissue of right arm; Translations: [Lipoma of right forearm] Onset: 3 Episodic Other connective tissue disease (2 sources) Pain of right upper arm; Translations: [Pain in right upper arm] Episodic Other connective tissue disease (2 sources) Pain of right forearm; Translations: [Pain in right forearm] Episodic Other diseases of kidney and ureters (2 sources) Acquired renal cystic disease; Translations: [Cyst of kidney, acquired] Episodic Other ear and sense organ disorders (2 sources) Impacted cerumen of bilateral ears; Translations: [Impacted cerumen, bilateral] 11-12-2023 Episodic Other endocrine disorders (20 sources) Adrenal mass; Translations: [Other specified disorders of adrenal gland] Onset: 3 Chronic Other gastrointestinal disorders (1 source) History of Cabral's esophagus; Translations: [Personal history of other diseases of the digestive system] 11-23-2024 Episodic Other gastrointestinal disorders (1 source) Constipation; Translations: [Constipation, unspecified] 05-04-2024 Episodic Other liver diseases (5 sources) Liver cyst; Translations: [Other specified diseases of liver] Chronic Other non-traumatic joint disorders (2 sources) Pain in right knee; Translations: [Pain in joint, lower leg] Episodic Other non-traumatic joint disorders (1 source) Swollen knee region; Translations: [Effusion, unspecified knee] 12-26-2022 Episodic Other nutritional; endocrine; and metabolic disorders (2 sources) Hypercalcemia; Translations: [Hypercalcemia] 11-26-2023 Chronic Other nutritional; endocrine; and metabolic disorders (1 source) Hypercalcemia; Translations: [Hypercalcemia] Onset: 5 Chronic Other skin disorders (1 source) Disorder of subcutaneous tissue; Translations: [Disorder of the skin and subcutaneous tissue, unspecified] Episodic Other skin disorders (2 sources) Disorder of right upper extremity; Translations: [Localized swelling, mass and lump, right upper limb] Episodic Other skin disorders (1 source) Soft tissue swelling; Translations: [Localized swelling, mass and lump, unspecified] 11-12-2023 Episodic Residual codes; unclassified (4 sources) Postmenopausal state; Translations: [Asymptomatic menopausal state] Episodic Residual codes; unclassified (20 sources) Family history of cancer of colon; Translations: [Family history of malignant neoplasm of digestive organs] Onset: 0 06-16-2009 Episodic Residual codes; unclassified (1 source) Asymptomatic menopausal state; Translations: [Asymptomatic postmenopausal status] Onset: 5 Episodic Substance-related disorders (20 sources) Tobacco user; Translations: [Nicotine dependence, unspecified, uncomplicated] Onset: 7 11-29-2016 Chronic Thyroid disorders (20 sources) Acquired hypothyroidism; Translations: [Hypothyroidism, unspecified] Onset: 6 Chronic Past or Other Problems Problem Classification Problem Date Documented Da te Episodic/Chronic Fracture of lower limb (2 sources) Displaced fracture of lateral condyle of right tibia, subsequent encounter for closed fracture with routine healing; Translations: [Displaced fracture of lateral condyle of right tibia, initial encounter for closed fracture] Onset: 04-03-2016 08-01-2016 Episodic Malaise and fatigue (3 sources) Fatigue; Translations: [Other fatigue] Onset: 10-25-2024 Episodic Menopausal disorders (18 sources) Menorrhagia; Translations: [Excessive bleeding in the premenopausal period] Onset: 06-10-2008 Resolved: 07-24-2011 07-24-2011 Chronic Other aftercare (1 source) Encounter for other specified surgical aftercare; Translations: [Encounter for other specified surgical aftercare] Onset: 04-22-2016 04-25-2016 Episodic Other and unspecified benign neoplasm (18 sources) History of polyp of colon; Translations: [Personal history of colonic polyps] Onset: 10-19-2020 Resolved: 10-19-2020 10-19-2020 Episodic Other and unspecified benign neoplasm (2 sources) Benign neoplasm of unspecified adrenal gland; Translations: [Adrenal adenoma, unspecified laterality] Onset: 07-05-2024 Episodic Other ear and sense organ disorders (1 source) Impacted cerumen, bilateral; Translations: [Bilateral impacted cerumen] Onset: 10-20-2024 Episodic Other gastrointestinal disorders (1 source) Personal history of other diseases of the digestive system; Translations: [History of Cabral's esophagus] Onset: 11-23-2024 Episodic Other non-traumatic joint disorders (1 source) Knee pain; Translations: [Pain in right knee] Onset: 04-03-2016 04-03-2016 Episodic Other screening for suspected conditions (not mental disorders or infectious disease) (20 sources) Patient encounter status; Translations: [Encounter for screening for malignant neoplasm of colon] Onset: 09-12-2011 09-12-2011 Episodic Results Test Name Value Interpretation Reference Range Facility BD DXA - AXIAL SKELETONon BD DXA - AXIAL SKELETON * * *Final Report* * * DATE OF EXAM: Apr 01 2025 3:34PM TOY [id number] - BD DXA - AXIAL SKELETON / PROCEDURE REASON: multiple diagnoses * * * * Physician Interpretation * * * * EXAMINATION: DXA BONE DENSITOMETRY BD DXA - AXIAL SKELETON, BD DXA TRABECLR BONE SCORE (TBS) PATIENT DEMOGRAPHICS: Age: 64 years, Gender: Female SCANNER INFORMATION: DXA Model: [id number].ai [id number] Date Scanned: 04/01/2025 3:34 PM CLINICAL HISTORY: DIAGNOSTIC Asymptomatic postmenopausal status Age-related osteoporosis without current pathological fracture . RISK FACTORS FOR OSTEOPOROSIS AND ASSOCIATED FRACTURES REPORTED BY THIS PATIENT: Please refer to Bone Health Questionnaire in the EMR CURRENT THERAPY: Please refer to Bone Health Questionnaire in the EMR TECHNICAL LIMITATIONS: None RESULTS: Lumbar spine (L1, L2, L3, L4): 0.743 g/cm2, T-score -2.8, Z-score -1.1 Lumbar spine: 2021: 0.706 g/cm2 Statistically significant increase Left Femoral Neck: 0.494 g/cm2, T-score -3.2, Z-score -1.8 Left Femoral Neck: 2021: 0.506 g/cm2 No statistically significant change Left Total Hip: 0.688 g/cm2, T-score -2.1, Z-score -0.9 Left Total Hip: 2021: 0.711 g/cm2 No statistically significant change CHANGE IS STATISTICALLY SIGNIFICANT IN THE SPINE OR HIP IF GREATER THAN OR EQUAL TO 0.04 g/cm2 VERTEBRAL FRACTURE ASSESSMENT Not performed. TRABECULAR BONE ASSESSMENT TBS score: 1.178 Bone micro-architecture: Degraded (< or = 1.230) IMPRESSION: THE LOWEST T-SCORE IS -3.2 IN THE LEFT HIP 1) DIAGNOSIS (based on BMD alone): OSTEOPOROSIS Caution: Medical conditions other than osteoporosis may cause low bone density, such as osteomalacia or renal osteodystrophy. Clinical correlation is necessary. 2) FRACTURE RISK (Based on TBS adjusted FRAX): 10-year absolute fracture risk: - major osteoporotic fracture = 31 % - hip fracture = 14 % - A diagnosis of Osteoporosis, a 10 year probability of hip fracture greater than or equal to 3% or a 10 year probability of any major osteoporosis-related fracture greater than or equal to 20% should be considered for treatment. - DXA scanner generated FRAX calculations may slightly differ from online FRAX calculations due to differences in software versions. - All recommendations and calculations are to be considered as guidelines and should not replace sound clinical judgement - Caution: Fracture risk may be increased independent of BMD in patients with corticosteroid use, age greater than 65 years, or a history of prior fragility fracture. RECOMMENDATIONS: Follow-up in 2 years or as clinically indicated. Patients that are taking corticosteroids, are transplant recipients or have hyperparathyroidism should have annual follow-up. Follow-up scans should always be done on the same machine for accurate comparison. FOR MORE INFORMATION ABOUT DIAGNOSIS AND TREATMENT: [facility]:? www.ccf.org/jerome s/osteo National Osteoporosis Foundation:? www.nof.org International Society of Clinical Densitometry www.iscd.org Biophysics Teacher: ROCCO Transcribe Date/Time: Apr 04 2025 2:16P Dictated by : JAVI AYALA MD This examination was interpreted and the report reviewed and electronically signed by: JAVI AYALA MD on Apr 04 2025 2:20PM EST [id number] CN -3.[address] [facility] BD DXA TRABECLR BONE SCORE ( TBS)on 04-01-2025 BD DXA TRABECLR BONE SCORE (TBS) * * *Final Report* * * DATE OF EXAM: Apr 01 2025 3:34PM TOY 0801 - BD DXA TRABECLR BONE SCORE (TBS) / PROCEDURE REASON: multiple diagnoses * * * * Physician Interpretation * * * * EXAMINATION: DXA BONE DENSITOMETRY BD DXA - AXIAL SKELETON, BD DXA TRABECLR BONE SCORE (TBS) PATIENT DEMOGRAPHICS: Age: 64 years, Gender: Female SCANNER INFORMATION: DXA Model: [employer] - Gynzy C [id number] Date Scanned: 04/01/2025 3:34 PM CLINICAL HISTORY: DIAGNOSTIC Asymptomatic postmenopausal status Age-related osteoporosis without current pathological fracture . RISK FACTORS FOR OSTEOPOROSIS AND ASSOCIATED FRACTURES REPORTED BY THIS PATIENT: Please refer to Bone Health Questionnaire in the EMR CURRENT THERAPY: Please refer to Bone Health Questionnaire in the EMR TECHNICAL LIMITATIONS: None RESULTS: Lumbar spine (L1, L2, L3, L4): 0.743 g/cm2, T-score -2.8, Z-score -1.1 Lumbar spine: 2021: 0.706 g/cm2 Statistically significant increase Left Femoral Neck: 0.494 g/cm2, T-score -3.2, Z-score -1.8 Left Femoral Neck: 2021: 0.506 g/cm2 No statistically significant change Left Total Hip: 0.688 g/cm2, T-score -2.1, Z-score -0.9 Left Total Hip: 2021: 0.711 g/cm2 No statistically significant change CHANGE IS STATISTICALLY SIGNIFICANT IN THE SPINE OR HIP IF GREATER THAN OR EQUAL TO 0.04 g/cm2 VERTEBRAL FRACTURE ASSESSMENT Not performed. TRABECULAR BONE ASSESSMENT TBS score: 1.178 Bone micro-architecture: Degraded (< or = 1.230) IMPRESSION: THE LOWEST T-SCORE IS -3.2 IN THE LEFT HIP 1) DIAGNOSIS (based on BMD alone): OSTEOPOROSIS Caution: Medical conditions other than osteoporosis may cause low bone density, such as osteomalacia or renal osteodystrophy. Clinical correlation is necessary. 2) FRACTURE RISK (Based on TBS adjusted FRAX): 10-year absolute fracture risk: - major osteoporotic fracture = 31 % - hip fracture = 14 % - A diagnosis of Osteoporosis, a 10 year probability of hip fracture greater than or equal to 3% or a 10 year probability of any major osteoporosis-related fracture greater than or equal to 20% should be considered for treatment. - DXA scanner generated FRAX calculations may slightly differ from online FRAX calculations due to differences in software versions. - All recommendations and calculations are to be considered as guidelines and should not replace sound clinical judgement - Caution: Fracture risk may be increased independent of BMD in patients with corticosteroid use, age greater than 65 years, or a history of prior fragility fracture. RECOMMENDATIONS: Follow-up in 2 years or as clinically indicated. Patients that are taking corticosteroids, are transplant recipients or have hyperparathyroidism should have annual follow-up. Follow-up scans should always be done on the same machine for accurate comparison. FOR MORE INFORMATION ABOUT DIAGNOSIS AND TREATMENT: [facility] Disease:? www.ccf.org/arthrialfa s/osteo National Osteoporosis Foundation:? www.nof.org International Society of Clinical Densitometry www.iscd.org Biophysics Teacher: ROCCO Transcribe Date/Time: Apr 04 2025 2:16P Dictated by : JAVI AYALA MD This examination was interpreted and the report reviewed and electronically signed by: JAVI AYALA MD on Apr 04 2025 2:20PM EST [id number] CN -3.[address] [facility] Gastroenterology Visit Repor ton 02-01-2025 Gastroenterology Visit Report [facility] [address] [place] [address] OFFICE VISIT Date of Service: 02/01/25 MR#: [id number] Acct: [id number] Name: NASIM RODARTE Rep #: [id number] : 1960 Provider: FAITH Lee Age/Sex: 64/F Location: [facility] Status: Signed Intake Vital Signs 03/08/24 05:54 Height 5 ft 6 in Intake Visit Reasons: 6 M FU Chief Complaint: f/u heartburn Allergies alendronate sodium (From Fosamax) Adverse Reaction (Intermediate, Verified 03/08/24 05:52) Other Medications ???Medication ???Instructions ???Recorded ???Confirmed ???Type cholecalciferol (vitamin D3) 25 1,000 unit PO DAILY 12/14/1902/01 History mcg (1,000 unit) tablet clobetasol 0.05 % topical cream 1 applic topical DAILY PRN HANDS 0 08/01/23 02/01/25 History levothyroxine 100 mcg capsule 100 mcg PO DAILY 08/01/23 02/01/25 History omega-3 fatty acids 1,000 mg 1,000 mg PO QDAY 02/04/24 02/01/25 History capsule pantoprazole 40 mg tablet,delayed 40 mg PO BID 3 months #180 tabs 1 07/05/23 02/01/25 Rx release Nurse's Note: Pt was scheduled for EGD on 03.10.25 at the end of their appt today. Reviewed prep instructions and which medications to hold prior to procedure with pt in office. A paper copy of EGD prep instructions were given to pt. Pt denies any questions or concerns at this time. [facility] Medical History (Updated 05/04/24 @ 08:42 by FAITH Lee) Wears glasses Wears dentures Post-menopausal Thyroid disease History of diverticulitis Heartburn Shortness of breath on exertion Smoker History of edema Hx of fracture of leg Adrenal nodule Osteoporosis without pathological fracture GERD (gastroesophageal reflux disease) Hepatic cyst Surgical History (Updated 03/05/24 @ 15:03 by Sheila Villareal) Hx of colonoscopy History of lithotripsy Social History Smoking Status: Current every day smoker tobacco type: cigarettes alcohol intake: never substance use type: does not use HPI HPI Chief Complaint: f/u heartburn Details: NASIM RODARTE, is a 64 F who presents to the office today for follow-up. BGI established 02.04.24 for heptaic cyst, heartburnand family hc of colon cnacer in her father. Pt taking apple cider vinegar for heartbrun. CT abdomen/pelvis 12.12.19; There is a 5.4 x 5.3 x 4.0 cm cyst in the left lobe of the liver. This is a benign lesion and no further follow-up is recommended. The liver otherwise demonstrates an unremarkable unenhanced appearance Colonoscopy; 03.08.24 One 3 mm polyp in the sigmoid colon, removed with a jumbo cold forceps. Resected and retrieved. - Diverticulosis in the recto-sigmoid colon, in the sigmoid colon and in the descending colon. - The examination was otherwise normal on direct and retroflexion view EGD 03.08.24; - Esophageal mucosal changes suspicious for short-segment Cabral's esophagus. Biopsied. - LA Grade B reflux esophagitis with no bleeding. - Hiatal hernia. - Bilious gastric fluid. - Chronic gastritis. Biopsied. - Chronic duodenitis. Biopsied. Liver US 02.16.24; Multiple hepatic cysts. The largest cyst measures 5.2 cm x 4.7 cm x 3.6 cm. This is in the left lobe of the liver. Last OV 05.04.24; Continues with heartburn and globus sensation. She feels being on PPI has worsened her symptoms. OV 08.03.24 Pt has been doing well. She started to have some heartburn yesterday. She took TUMs which helped. She continues with pantoprazole 40 mg twice a day. She does not endorse any diet changes or medication changes that could have resulted in this increase in pain. For three days now she has felt constipated with smaller stools. She is still going daily. She is trying to stop smoking and has been able to cut back to three a day. SHe does not smoke at work just when she gets home. OV 02.01.25 patient doing well today. She has some intermittent episodes of heartburn maybe once per week. It is not related to oral intake and happens on random occasions. Constipation is getting better with the bowel movement daily. She did not end up taking any MiraLAX. She continues with pantoprazole 40 mg daily. ROS Const Constitutional: No fatigue, fever(s) or weight change ENT ENT: No difficulty swallowing Gastro GI: No abdominal pain, belching, bloating, change in bowel habits, change in stool character, coffee ground emesis, constipation, cramping, diarrhea, heartburn, difficulty swallowing, feeling full early, excessive flatus, incontinent of stools, Vomiting blood/hematemesis, Blood in stool, loose stools, Black,tarry stools, nausea/dyspepsia, pain with swallowing, vomiting or other Musc Musculoskeletal: No joint pain Skin Skin: No yellowing of the eye or itchy eyes Psych Psychi (more content not included)... Normal [facility] CNOVon 11-23-2024 CNOV Office Visit (JASONPWS) FREEWALT,NASIM K ([id number]) 1960 F Date Time Provider Department 11/23/24 3:40 PM SALENA DIAZ During your visit today, we recorded the following information about you: Pulse Respiration Blood pressure Weight 69/minute 16/minute 118/80 65.3 kg Salena Diaz APRN.[employer] 11/23/2024 4:22 PM Addendum - Stop taking lisinopril and begin losartan. - Complete a DEXA scan (bone density test) as ordered. - If you choose to start biotin for hair and nail health, pause it for one week before any lab work to avoid skewing thyroid test results. - Arrange for the pneumococcal Prevnar 20 vaccine; check with your insurance about where to receive it. - Arrange a tetanus booster; verify insurance coverage and preferred location. - Consider the two-dose shingles vaccine series. - Plan to return in six months for a blood pressure check and to review your lab results. BONE MINERAL DENSITY PATIENT INSTRUCTIONS = Bone mineral density testing measures the amount of calcium in certain parts of your bones. This information determines how strong your bones are. The test is used to detect osteoporosis, a disease in which the bone's mineral content and density are low, increasing a person's risk of fractures. The lumbar spine (lower back) and the hip are the skeletal sites usually examined. For the test, remember that: 1. You cannot take this test if you are . 2. Eat a normal diet on the day of the test. 3. Take your medications as you normally would. 4. DO NOT take calcium supplements (such as Tums) for 24 hours before the test. 5. On the day of the test, leave valuables (jewelry or credit cards) at home. 6. The test should be performed prior to oral, rectal or IV contrast studies, or at least 7 days after any of these studies. For the test, you may be asked to wear a hospital gown. You will lie on your back, on a padded table, in a comfortable position. Generally, you can resume your usual activities immediately. Salena Diaz APRN.[employer] 11/23/2024 4:39 PM Signed This is a 64 year old female who presents today with: Nasim Mónica Rodarte is a 64-year-old female with a history of HTN, Cabral's esophagus, and hiatal hernia, presenting for a wellness exam.. HISTORY OF PRESENT ILLNESS: Hypertension: - Currently taking Lisinopril; experiencing occasional cough, particularly at night. - Keeps water by the bed to alleviate cough. - Denies dizziness. - Previously monitored BP at home, but stopped due to inconsistent readings compared to work measurements. - Denies chest pain, dyspnea, syncope, or edema in feet or ankles. Cabral's Esophagus: Follows with Dr. Lomas. - Diagnosed with Cabral's esophagus; reports inflammation noted during endoscopy. - Takes pantoprazole; inquires about potential renal side effects. - Follow-up with Dr. Lomas every 6 months; next endoscopy scheduled for February. - Reports hiatal hernia; questions if weight gain exacerbates symptoms. - Previously took apple cider vinegar pills; now eats an apple every morning, which she believes helps. - Denies dysphagia. Osteoporosis: - Last DEXA scan in December 2021. - Did not tolerate Fosamax well due to heartburn. - Lifts 10 lb weights every other day; walks extensively at work, sometimes up to 8 miles. - Inquires about Prolia. - Has not been taking vitamin D3 recently; spends more time outdoors. 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 - Undergoes annual testing for the tumor. PAST MEDICAL HISTORY: PAST MEDICAL HISTORY Diagnosis Date Generalized headaches Kidney stone 2019 lithotripsy Unspecified hypothyroidism PAST SURGICAL HISTORY Procedure Laterality Date COLONOSCOP W/ OR W/O BRSH SPEC 09/24/2011 Repeat in 5 years (-2016) COLONOSCOPY FLX DX W/COLLJ SPEC WHEN PFRMD 02/10/2017 repeat 5 yrs. COLONOSCOPY GEN ANES 10/19/2020 [facility] FRACTURE SURGERY LIPOMA (SMALL) Right 2022 forearm PAST SURGICAL HISTORY OF 2001 REMOVAL OF FATTY TUMOR LEFT ARM. PAST SURGICAL HISTORY OF Right 03/2016 ORIF tibia fx PAST SURGICAL HISTORY OF kidney stone removed TONSILLECTOMY HX TONSILLECTOMY PRIMARY/SECONDARY Tonsillectomy TUMOR REMOVAL (SPECIFY LOCATION) HX Right 2022 right forearm ALLERGIES Fosamax [Alendronate Sodium] MEDICATIONS Current Outpatient Medications Medication Sig losartan (COZAAR) 25 mg tablet Take 1 tablet by mouth once daily. pantoprazole DR (PROTONIX) 40 mg tablet Take 1 tablet by mouth every 12 hours. levothyroxine (LEVOXYL) 100 mcg tablet Take 1 tablet by mouth once daily. Skip one day weekly. Take on empty stomach. For Thyroid. CHOLECALCIFEROL, VITAMIN D3, ORAL Take by mouth. Taking daily. Pt unsure of dosage. No current facility-administere (more content not included)... Normal [facility] 25(OH)D3 [facility] 25-hydroxyvitamin D3 [Mass/Vol] 55.3 ng/mL Normal 31.0-80.0 [facility] Comment on above: Order Comment: Speci men Type: BLOOD SPECIMEN Ordering Facility: [facility] Address: [address] [place] [address] Performed By: #### 1 989-3 #### [facility] CLIA [id number] [address] [place] [address] [place] CBC W Auto Differential pane l (Bld)on 11-20-2024 Basophils (Bld) [#/Vol] 0.06 10*3/uL Normal <0.11 [facility] Comment on above: Order Comment: Diego coker Type: BLOOD SPECIMEN Ordering Facility: [facility] Address: [address] [place] [address] Performed By: #### 2 4321-2, 2142-10 #### [facility] CLIA [id number] [address] [place] [address] [place] Basophils/100 WBC (Bld) 1.2 % Normal [facility] Comment on above: Order Comment: Diego coker Type: BLOOD SPECIMEN Ordering Facility: [facility] Address: [address] [place] [address] Performed By: #### 2 4321-2, 2142-10 #### [facility] CLIA [id number] [address] [place] [address] [place] Differential cell count method Nom (Bld) Auto Normal [facility] Comment on above: Order Comment: Speci men Type: BLOOD SPECIMEN Ordering Facility: [facility] Address: [address] [place] [address] Performed By: #### 2 4322, 2142-10 #### [facility] CLIA [id number] [address] [place] [address] [place] Eosinophils (Bld) [#/Vol] 0.39 10*3/uL Normal <0.46 [facility] Comment on above: Order Comment: Speci men Type: BLOOD SPECIMEN Ordering Facility: [facility] Address: [address] [place] [address] Performed By: #### 2 43205-27, 2142-10 #### [facility] CLIA [id number] [address] [place] [address] [place] Eosinophils/100 WBC (Bld) 7.8 % Normal [facility] Comment on above: Order Comment: Speci men Type: BLOOD SPECIMEN Ordering Facility: [facility] Address: [address] [place] [address] Performed By: #### 2 4320-06, 2142-10 #### [facility] CLIA [id number] [address] [place] [address] [place] Erythrocyte distribution width (RBC) [Ratio] 13.2 % Normal 11.5-15.0 [facility] Comment on above: Order Comment: Speci men Type: BLOOD SPECIMEN Ordering Facility: [facility] Address: [address] [place], [place] [address] Performed By: #### 2 4320-06, 2142-10 #### [facility] CLIA [id number] [address] [place] [address] [place] Hematocrit (Bld) [Volume fraction] 39.3 % Normal 36.0-46.0 [facility] Comment on above: Order Comment: Speci men Type: BLOOD SPECIMEN Ordering Facility: [facility] Address: [address] [place] [address] Performed By: #### 2 432-2, 2142-10 #### [facility] CLIA [id number] [address] [place] [address] [place] Hemoglobin (Bld) [Mass/Vol] 12.8 g/dL Normal 11.5-15.5 [facility] Comment on above: Order Comment: Speci men Type: BLOOD SPECIMEN Ordering Facility: [facility] Address: [address] [place] [address] Performed By: #### 2 432-2, 2142-10 #### [facility] CLIA [id number] [address] [place] [address] [place] Immature granulocytes (Bld) [#/Vol] 10*3/uL Normal <0.10 [facility] Comment on above: Order Comment: Speci men Type: BLOOD SPECIMEN Ordering Facility: [facility] Address: [address] [place] [address] Performed By: #### 2 4322, 2142-10 #### [facility] CLIA [id number] [address] [place] [address] [place] Immature granulocytes/100 WBC (Bld) 0.2 % Normal [facility] Comment on above: Order Comment: Speci men Type: BLOOD SPECIMEN Ordering Facility: [facility] Address: [address] [place] [address] Performed By: #### 2 432-2, 2142-10 #### [facility] CLIA [id number] [address] [place] [address] [place] Lymphocytes (Bld) [#/Vol] 1.62 10*3/uL Normal 1.00-4.00 [facility] Comment on above: Order Comment: Speci men Type: BLOOD SPECIMEN Ordering Facility: [facility] Address: [address] [place], [place] [address] Performed By: #### 2 4320-06, 2142-10 #### [facility] CLIA [id number] [address] [place] [address] [place] Lymphocytes/100 WBC (Bld) 32.3 % Normal [facility] Comment on above: Order Comment: Speci men Type: BLOOD SPECIMEN Ordering Facility: [facility] Address: [address] [place] [address] Performed By: #### 2 4320-06, 2142-10 #### [facility] CLIA [id number] [address] [place] [address] [place] MCH (RBC) [Entitic mass] 30.5 pg Normal 26.0-34.0 [facility] Comment on above: Order Comment: Speci men Type: BLOOD SPECIMEN Ordering Facility: [facility] Address: [address] [place] [address] Performed By: #### 2 4320-06, 2142-10 #### [facility] CLIA [id number] [address] [place] [address] [place] MCHC (RBC) [Mass/Vol] 32.6 g/dL Normal 30.5-36.0 [facility] Comment on above: Order Comment: Speci men Type: BLOOD SPECIMEN Ordering Facility: [facility] Address: [address] [place] [address] Performed By: #### 2 4320-06, 2142-10 #### [facility] CLIA [id number] [address] [place] [address] [place] MCV (RBC) [Entitic vol] 93.6 fL Normal 80.0-100.0 [facility] Comment on above: Order Comment: Speci men Type: BLOOD SPECIMEN Ordering Facility: [facility] Address: [address] [place] [address] Performed By: #### 2 4320-06, 2142-10 #### [facility] CLIA [id number] [address] [place] [address] [place] Monocytes (Bld) [#/Vol] 0.49 10*3/uL Normal <0.87 [facility] Comment on above: Order Comment: Speci men Type: BLOOD SPECIMEN Ordering Facility: [facility] Address: [address] [place] [address] Performed By: #### 2 4320-06, 2142-10 #### [facility] CLIA [id number] [address] [place] [address] [place] Monocytes/100 WBC (Bld) 9.8 % Normal [facility] Comment on above: Order Comment: Speci men Type: BLOOD SPECIMEN Ordering Facility: [facility] Address: [address] [place] [address] Performed By: #### 2 43205-27, 2142-10 #### [facility] CLIA [id number] [address] [place] [address] [place] Neutrophils (Bld) [#/Vol] 2.45 10*3/uL Normal 1.45-7.50 [facility] Comment on above: Order Comment: Speci men Type: BLOOD SPECIMEN Ordering Facility: [facility] Address: [address] [place] [address] Performed By: #### 2 4320-06, 2142-10 #### [facility] CLIA [id number] [address] [place] [address] [place] Neutrophils/100 WBC (Bld) 48.7 % Normal [facility] Comment on above: Order Comment: Speci men Type: BLOOD SPECIMEN Ordering Facility: [facility] Address: [address] [place] [address] Performed By: #### 2 4320-06, 2142-10 #### [facility] CLIA [id number] [address] [place] [address] [place] Nucleated RBC (Bld) [#/Vol] 10*3/uL Normal <0.01 [facility] Comment on above: Order Comment: Speci men Type: BLOOD SPECIMEN Ordering Facility: [facility] Address: [address] [place] [address] Performed By: #### 2 4322, 2142-10 #### [facility] CLIA [id number] [address] [place] [address] [place] Nucleated RBC/100 WBC (Bld) [Ratio] 0.0 /[address] [facility] Comment on above: Order Comment: Speci men Type: BLOOD SPECIMEN Ordering Facility: [facility] Address: [address] [place] [address] Performed By: #### 2 4322, 2142-10 #### [facility] CLIA [id number] [address] [place] [address] [place] Platelet mean volume (Bld) [Entitic vol] 10.4 fL Normal 9.0-12.7 [facility] Comment on above: Order Comment: Speci men Type: BLOOD SPECIMEN Ordering Facility: [facility] Address: [address] [place] [address] Performed By: #### 2 4320-06, 2142-10 #### [facility] CLIA [id number] [address] [place] [address] [place] Platelets (Bld) [#/Vol] 262 10*3/uL Normal 150-400 [facility] Comment on above: Order Comment: Speci men Type: BLOOD SPECIMEN Ordering Facility: [facility] Address: [address] [place] [address] Performed By: #### 2 432-2, 2142-10 #### [facility] CLIA [id number] [address] [place], [place] [address] [place] RBC (Bld) [#/Vol] 4.20 10*6/uL Normal 3.90-5.20 [facility] Comment on above: Order Comment: Speci men Type: BLOOD SPECIMEN Ordering Facility: [facility] Address: [address] [place], [place] [address] Performed By: #### 2 4321-2, 2142-10 #### [facility] CLIA [id number] [address] [place] [address] [place] WBC (Bld) [#/Vol] 5.02 10*3/uL Normal 3.70-11.00 [facility] Comment on above: Order Comment: Speci men Type: BLOOD SPECIMEN Ordering Facility: [facility] Address: [address] [place] [address] Performed By: #### 2 4321-2, 2142-10 #### [facility] CLIA [id number] [address] [place] [address] [place] Comprehensive metabolic 2000 panelon 11-20-2024 Albumin [Mass/Vol] 4.2 g/dL Normal 3.9-4.9 [facility] Comment on above: Order Comment: Speci men Type: BLOOD SPECIMEN Ordering Facility: [facility] Address: [address] [place] [address] Performed By: #### 2 4321-2, 2142-10 #### [facility] CLIA [id number] [address] [place] [address] [place] ALP [Catalytic activity/Vol] 74 U/L Normal 34-123 [facility] Comment on above: Order Comment: Speci men Type: BLOOD SPECIMEN Ordering Facility: [facility] Address: [address] [place] [address] Performed By: #### 2 4321-2, 2142-10 #### [facility] CLIA [id number] [address] [place] [address] [place] ALT [Catalytic activity/Vol] 10 U/L Normal 7-38 [facility] Comment on above: Order Comment: Speci men Type: BLOOD SPECIMEN Ordering Facility: [facility] Address: [address] [place] [address] [place] [address] Performed By: #### 2 4320-2, 2142-10 #### [facility] CLIA [id number] [address] [place], [place] [id number] [place] Anion gap [Moles/Vol] 12 mmol/L Normal 8-15 [facility] Comment on above: Order Comment: Speci men Type: BLOOD SPECIMEN Ordering Facility: [facility] Address: [address] [place] [address] Performed By: #### 2 4320-06, 2142-10 #### [facility] CLIA [id number] [address] [place] [address] [place] AST [Catalytic activity/Vol] 17 U/L Normal 13-35 [facility] Comment on above: Order Comment: Speci men Type: BLOOD SPECIMEN Ordering Facility: [facility] Address: [address] [place] [address] Performed By: #### 2 4320-06, 2142-10 #### [facility] CLIA [id number] [address] [place], [place] [address] [place] Bilirubin [Mass/Vol] 0.4 mg/dL Normal 0.2-1.3 [facility] Comment on above: Order Comment: Speci men Type: BLOOD SPECIMEN Ordering Facility: [facility] Address: [address] [place], [place] [address] Performed By: #### 2 4320-06, 2142-10 #### [facility] CLIA [id number] [address] [place], [place] [address] [place] Calcium [Mass/Vol] 9.8 mg/dL Normal 8.5-10.2 [facility] Comment on above: Order Comment: Speci men Type: BLOOD SPECIMEN Ordering Facility: [facility] Address: [address] [place], [place] [address] Performed By: #### 2 4320-06, 2142-10 #### [facility] CLIA [id number] [address] [place] [address] [place] Chloride [Moles/Vol] 106 mmol/L Normal 98-107 [facility] Comment on above: Order Comment: Speci men Type: BLOOD SPECIMEN Ordering Facility: [facility] Address: [address] [place] [address] Performed By: #### 2 4321-2, 2142-10 #### [facility] CLIA [id number] [address] [place] [address] [place] CO2 [Moles/Vol] 24 mmol/L Normal 22-30 [facility] Comment on above: Order Comment: Speci men Type: BLOOD SPECIMEN Ordering Facility: [facility] Address: [address] [place] [address] Performed By: #### 2 4321-2, 2142-10 #### [facility] CLIA [id number] [address] [place] [address] [place] Creatinine [Mass/Vol] 1.10 mg/dL High 0.58-0.96 [facility] Comment on above: Order Comment: Speci men Type: BLOOD SPECIMEN Ordering Facility: [facility] Address: [address] [place] [address] Performed By: #### 2 4321-2, 2142-10 #### [facility] CLIA [id number] [address] [place] [address] [place] Creatinine and Glomerular filtration rate.predicted panel (S/P/Bld) 57 mL/min/1.73m??? Low >=60 [facility] Comment on above: Order Comment: Speci men Type: BLOOD SPECIMEN Ordering Facility: [facility] Address: [address] [place] [address] Result Comment: Margret mated Glomerular Filtration Rate (eGFR) is calculated using the 2020 CKD-EPI creatinine equation. This equation utilizes serum creatinine, sex, and age as parameters. The creatinine assay has traceable calibration to isotope dilution-mass spectrometry. Refer to KDIGO guidelines for clinical interpretation. In patients with unstable renal function, e.g. those with acute kidney injury, the eGFR may not accurately reflect actual GFR. Performed By: #### 2 4320-06, 2142-10 #### [facility] CLIA [id number] [address] [place] [address] [place] Glucose [Mass/Vol] 89 mg/dL Normal 74-99 [facility] Comment on above: Order Comment: Speci men Type: BLOOD SPECIMEN Ordering Facility: [facility] Address: [address] [place], [place] [address] Result Comment: The [place] Diabetes Association (ADA) provides guidance for cutoff values for fasting glucose and random glucose. The ADA defines fasting as no caloric intake for at least 8 hours. Fasting plasma glucose results between 100 to 125 mg/dL indicate increased risk for diabetes (prediabetes). Fasting plasma glucose results greater than or equal to 126 mg/dL meet the criteria for diagnosis of diabetes. In the absence of unequivocal hyperglycemia, results should be confirmed by repeat testing. In a patient with classic symptoms of hyperglycemia or hyperglycemic crisis, random plasma glucose results greater than or equal to 200 mg/dL meet the criteria for diagnosis of diabetes. Reference: Standards of Medical Care in Diabetes 2016, [place] Diabetes Association. Diabetes Care. 2016.39(Suppl 1). Performed By: #### 2 4320-06, 2142-10 #### [facility] CLIA [id number] [address] [place] [address] [place] Potassium [Moles/Vol] 4.6 mmol/L Normal 3.7-5.1 [facility] Comment on above: Order Comment: Ewai men Type: BLOOD SPECIMEN Ordering Facility: [facility] Address: [address] [place] [address] Performed By: #### 2 4320-06, 2142-10 #### [facility] CLIA [id number] [address] [place] [address] [place] Protein [Mass/Vol] 6.4 g/dL Normal 6.3-8.0 [facility] Comment on above: Order Comment: Speci men Type: BLOOD SPECIMEN Ordering Facility: [facility] Address: [address] [place] [address] Performed By: #### 2 4321-2, 2142-10 #### [facility] CLIA [id number] [address] [place] [address] [place] Sodium [Moles/Vol] 142 mmol/L Normal 136-144 [facility] Comment on above: Order Comment: Speci men Type: BLOOD SPECIMEN Ordering Facility: [facility] Address: [address] [place] [address] Performed By: #### 2 4321-2, 2142-10 #### [facility] CLIA [id number] [address] [place] [address] [place] Urea nitrogen [Mass/Vol] 17 mg/dL Normal 7-21 [facility] Comment on above: Order Comment: Speci men Type: BLOOD SPECIMEN Ordering Facility: [facility] Address: [address] [place] [address] Performed By: #### 2 4321-2, 2142-10 #### [facility] CLIA [id number] [address] [place] [address] [place] Ferritin SerPl-mCncon 2024 Ferritin [Mass/Vol] 89.3 ng/mL Normal 14.7-205.1 [facility] Comment on above: Order Comment: Speci men Type: BLOOD SPECIMEN Ordering Facility: [facility] Address: [address] [place] [address] Performed By: #### 1 9123-9, 3016-3, 2276-4, 2132-9 #### [facility] CLIA [id number] [address] [place] [address] [place] Iron and Iron binding capaci ty panelon 11-20-2024 Iron [Mass/Vol] 105 ug/dL Normal 41-186 [facility] Comment on above: Order Comment: Speci men Type: BLOOD SPECIMEN Ordering Facility: [facility] Address: [address] [place] [address] Performed By: #### 2 4321-2, 2142-10 #### [facility] CLIA [id number] [address] [place] [address] [place] Iron binding capacity [Mass/Vol] 342 ug/dL Normal 232-386 [facility] Comment on above: Order Comment: Speci men Type: BLOOD SPECIMEN Ordering Facility: [facility] Address: [address] [place] [address] Performed By: #### 2 4321-2, 2142-10 #### [facility] CLIA [id number] [address] [place] [address] [place] Iron/TIBC [Molar ratio] 30.7 % Normal 15.0-57.0 [facility] Comment on above: Order Comment: Speci men Type: BLOOD SPECIMEN Ordering Facility: [facility] Address: [address] [place] [address] Performed By: #### 2 4321-2, 2142-10 #### [facility] CLIA [id number] [address] [place] [address] [place] Lipid 1996 panelon 5 Cholesterol [Mass/Vol] 224 mg/dL High <200 [facility] Comment on above: Order Comment: Speci men Type: BLOOD SPECIMEN Ordering Facility: [facility] Address: [address] [place] [address] Result Comment: <200 mg/dL, Desirable 200-239 mg/dL, Borderline high >239 mg/dL, High Performed By: #### 2 4321-2, 2142-10 #### [facility] CLIA [id number] [address] [place] [address] [place] Cholesterol in HDL [Mass/Vol] 43 mg/dL Normal >39 [facility] Comment on above: Order Comment: Speci men Type: BLOOD SPECIMEN Ordering Facility: [facility] Address: [address] [place] [address] Result Comment: 40-5 9 mg/dL, Acceptable >59 mg/dL, High: Negative risk factor for coronary heart disease <40 mg/dL, Low: Positive risk factor for coronary heart disease Performed By: #### 2 4320-06, 2142-10 #### [facility] CLIA [id number] [address] [address] [place] Cholesterol in LDL [Mass/Vol] 159 mg/dL High <100 [facility] Comment on above: Order Comment: Speci men Type: BLOOD SPECIMEN Ordering Facility: [facility] Address: [address] [place] [address] Result Comment: <100 mg/dL, Optimal 100-129 mg/dL, Near optimal/above optimal 130-159 mg/dL, Borderline high 160-189 mg/dL, High >189 mg/dL, Very high Secondary prevention optimal LDL Cholesterol levels are recommended to be <70 mg/dL LDL cholesterol is calculated using the Gutiérrez-NIH equation. Performed By: #### 2 4320-06, 2142-10 #### [facility] CLIA [id number] [address] [place] [address] [place] Cholesterol in LDL/Cholesterol in HDL [Mass ratio] 3.70 {ratio} High <2.54 [facility] Comment on above: Order Comment: Ewai men Type: BLOOD SPECIMEN Ordering Facility: [facility] Address: [address] [place] [address] Result Comment: Refe rence: 1. National Cholesterol Education Program ATP III Guideline At-A-Glance Quick Desk Reference: National Heart, Lung, and Blood [place]. National Institutes of Health. 2001: NIH Publication No. 01-3305. 2. An International Atherosclerosis Society position paper: global recommendations for the management of dyslipidemia: executive summary, Atherosclerosis. 2014: 232(2):410-413. Performed By: #### 2 4320-06, 2142-10 #### [facility] CLIA [id number] [facility] [place] [id number] [place] Cholesterol in VLDL [Mass/Vol] 23 mg/dL Normal <30 [facility] Comment on above: Order Comment: Speci men Type: BLOOD SPECIMEN Ordering Facility: [facility] Address: [address] [place] [id number] Performed By: #### 2 4322, 2142-10 #### [facility] CLIA [id number] [address] [place], [place] [address] [place] Cholesterol non HDL [Mass/Vol] 181 mg/dL High <130 [facility] Comment on above: Order Comment: Speci men Type: BLOOD SPECIMEN Ordering Facility: [facility] Address: [address] [place] [address] Result Comment: <130 mg/dL, Optimal 130-159 mg/dL, Near optimal/above optimal 160-189 mg/dL, Borderline high 190-219 mg/dL, High >219 mg/dL, Very high Secondary prevention optimal non HDL Cholesterol levels are recommended to be <100 mg/dL Performed By: #### 2 4320-06, 2142-10 #### [facility] CLIA [id number] [address] [place], [place] [address] [place] Cholesterol.total/Ch olesterol in HDL [Mass ratio] 5.21 {ratio} High <5.10 [facility] Comment on above: Order Comment: Speci men Type: BLOOD SPECIMEN Ordering Facility: [facility] Address: [address] [place] [id number] Performed By: #### 2 43205-27, 2142-10 #### [facility] CLIA [id number] [address] [place], [place] [address] [place] FASTING TIME [address] [facility] Comment on above: Order Comment: Speci men Type: BLOOD SPECIMEN Ordering Facility: [facility] Address: [address] [place] [id number] Performed By: #### 2 43205-27, 2142-10 #### [facility] CLIA [id number] [address] [place], [place] [address] [place] Triglyceride [Mass/Vol] 122 mg/dL Normal <150 [facility] Comment on above: Order Comment: Speci men Type: BLOOD SPECIMEN Ordering Facility: [facility] Address: [address] [place] [address] Result Comment: <150 mg/dL, Normal 150-199 mg/dL, Borderline high 200-499 mg/dL, High >499 mg/dL, Very high Performed By: #### 2 4321-2, 2142-10 #### [facility] CLIA [id number] [address] [place] [address] [place] Magnesium SerPl-mCncon 11-20 Magnesium [Mass/Vol] 2.1 mg/dL Normal 1.7-2.3 [facility] Comment on above: Order Comment: Speci men Type: BLOOD SPECIMEN Ordering Facility: [facility] Address: [address] [place] [address] Performed By: #### 1 9123-9, 3016-3, 2276-4, 2132-9 #### [facility] CLIA [id number] [address] [place] [address] [place] T4 Free SerPl-mCncon 025 Free T4 [Mass/Vol] 1.5 ng/dL Normal 0.9-1.7 [facility] Comment on above: Order Comment: Speci men Type: BLOOD SPECIMEN Ordering Facility: [facility] Address: [address] [place] [address] Performed By: #### 2 4321-2, 2142-10 #### [facility] CLIA [id number] [address] [place] [address] [place] TSH SerPl-aCncon 11-20-2024 TSH Qn 0.349 m[IU]/L Normal 0.270-4.200 [facility] Comment on above: Order Comment: Speci men Type: BLOOD SPECIMEN Ordering Facility: [facility] Address: [address] [place] [address] Performed By: #### 1 9123-9, 3016-3, 2275-4, 2132-01 #### [facility] CLIA [id number] [address] [place] [address] [place] Vit B12 SerPl-mCncon 06-28-2 025 Cobalamin (Vitamin B12) [Mass/Vol] 333 pg/mL Normal 232-1245 [facility] Comment on above: Order Comment: Speci men Type: BLOOD SPECIMEN Ordering Facility: [facility] Address: [address] [place], [place] [address] [address] Performed By: #### 1 9123-9, 6-3, 2275-4, 2132-01 #### [facility] CLIA [id number] [address] [place] [address] [place] CNOVon 10-25-2024 CNOV Office Visit (JASONWS) NASIM RODARTE ([id number]) 1960 F Date Time Provider Department 10/25/24 8:00 AM [facility] During your visit today, we recorded the following information about you: Pulse Respiration Blood pressure Weight 64/minute 16/minute 148/92 64 kg Salena Diaz, CHUCK.[employer] 10/25/2024 8:24 AM Signed - Start lisinopril as prescribed; prescription has been sent to your [facility] pharmacy. If you develop a persistent dry cough, let us know so we can adjust your medication. Please fast for 10-12 hours beforehand; you may drink water or black coffee only. - Follow a low-sodium diet, maintain a healthy weight, and include regular exercise to help control your blood pressure. - Return in one month (November) for a blood pressure check and physical exam. How to limit salt (sodium) to avoid swelling and hypertension: Keep your daily sodium intake to 2 3 4 grams Keep your daily sodium intake to 2000 3000 4000 mg DO: Read labels Keep a food diary for the first week of restriction - must include snacks! Bake or broil your foods DO NOT DRINK: V8 juice Tomato juice Canned soups DO NOT EAT: Canned food Tomato Sauce Barbecue Sauce Soy Sauce Pickles Prepared meats such as salami, corned beef, etc. Fettuccine Marcell Bude con carne Beef burrito Potato salad Cottage cheese (both regular and low fat are high in sodium) [place] Two-egg omelet, ham and cheese Chop suey (not even homemade!) Macaroni and cheese (not even homemade!) Cheeseburger Fish Sticks TIPS: Plain [place] breast is OK as sandwich meat Look for low salt soups in the grocery store- usually a bit more expensive. Salena Diaz APRN.Salena Troy APRN.MARCELINO 10/25/2024 10:52 AM Signed This is a 64 year old female who presents today with: Nasim is a 64-year-old female with a history of hypothyroidism, presenting for follow-up after elevated blood pressure readings at urgent care. HISTORY OF PRESENT ILLNESS: Hypertension: - Elevated blood pressure readings at urgent care prompted follow-up. - No previous antihypertensive medication use. - Reports weight gain. - Previously took omega-3s with turmeric, believes it helped with blood pressure. - Denies following a special diet. - Denies chest pain, dizziness, or diaphoresis. - Occasional headaches; denies frequent episodes. - Denies edema in lower extremities. Palpitations: - Recurrent palpitations since starting thyroid medication. - Denies worsening of palpitations. - No associated symptoms. Hypothyroidism: - Taking thyroid medication. - Reports fatigue, hair loss, and cold intolerance. - Diagnosed with Bucky's thyroiditis. - Suspects hiatal hernia contributing to heartburn; taking pantoprazole. - Taking vitamin D supplement. Adrenal Gland Tumor: - Monitored annually; noted increase in size. - Liver lesion noted to have decreased in size. GERD: Taking pantoprazole. Endorses hiatal hernia. PAST MEDICAL HISTORY: PAST MEDICAL HISTORY Diagnosis Date Generalized headaches Kidney stone 2020 lithotripsy Unspecified hypothyroidism PAST SURGICAL HISTORY Procedure Laterality Date COLONOSCOP W/ OR W/O BRSH SPEC 09/24/2011 Repeat in 5 years (-2016) COLONOSCOPY FLX DX W/COLLJ SPEC WHEN PFRMD 02/10/2017 repeat 5 yrs. COLONOSCOPY GEN ANES 10/19/2020 FRACTURE SURGERY LIPOMA (SMALL) Right 2022 forearm PAST SURGICAL HISTORY OF 2001 REMOVAL OF FATTY TUMOR LEFT ARM. PAST SURGICAL HISTORY OF Right 03/2016 ORIF tibia fx PAST SURGICAL HISTORY OF kidney stone removed TONSILLECTOMY HX TONSILLECTOMY PRIMARY/SECONDARY Tonsillectomy TUMOR REMOVAL (SPECIFY LOCATION) HX Right 2022 right forearm ALLERGIES Fosamax [Alendronate Sodium] MEDICATIONS Current Outpatient Medications Medication Sig lisinopril (ZESTRIL) 10 mg tablet Take 1 tablet by mouth once daily. pantoprazole DR (PROTONIX) 40 mg tablet Take 1 tablet by mouth every 12 hours. levothyroxine (LEVOXYL) 100 mcg tablet Take 1 tablet by mouth once daily. Skip one day weekly. Take on empty stomach. For Thyroid. carbamide peroxide (DEBROX) 6.5 % otic solution Use 5 Drops in both ears two times a day. CHOLECALCIFEROL, VITAMIN D3, ORAL Take by mouth. Taking daily. Pt unsure of dosage. No current facility-administere d medications for this visit. FAMILY HISTORY Problem Relation Age of Onset Arthritis Mother Diabetes Mother Diabetes Father Hypertension Father Colon Cancer Father Age 73 Thyroid Father other (Alzheimers) Father other (Parkinsons Disease) Father Diabetes Sister Asthma Brother Diabetes Paternal Grandfather Cancer Maternal Grandmother Social History Tobacco Use Smoking status: Every Day Current packs/day: 0.50 Average packs/day: 0.5 packs/day for 21.0 years (10.5 ttl pk-yrs) Type (more content not included)... Normal [facility] CNOVon 10-20-2024 CNOV Office Visit (UCWSTR) NASIM RODARTE ([id number]) 1960 F Date Time Provider Department 10/20/24 3:00 PM PAPA US During your visit today, we recorded the following information about you: Temperature Pulse Respiration Blood pressure 97.1 degrees 71/minute 18/minute 152/95 Weight 65.7 kg Papa Us APRN.[employer] 10/20/2024 4:01 PM Signed [facility] Subjective HPI HPI Nasim Rodarte is a 64 year old female who presents today for CC of right ear clogged, seen by pcp, advised to use otc wax drops then have ear flushed.. This started few days ago. Symptoms are worsened by nothing. Risk factors hx of ear wax issues, has job that uses ear plugs. Denies uri s/s. .Patient presents with: Ear Problem: R ear clogged, intermittent pain PAST MEDICAL HISTORY Diagnosis Date Generalized headaches Kidney stone 2019 lithotripsy Unspecified hypothyroidism PAST SURGICAL HISTORY Procedure Laterality Date COLONOSCOP W/ OR W/O BRSH SPEC 09/24/2011 Repeat in 5 years (-2016) COLONOSCOPY FLX DX W/COLLJ SPEC WHEN PFRMD 02/10/2017 repeat 5 yrs. COLONOSCOPY GEN ANES 10/19/2020 FRACTURE SURGERY LIPOMA (SMALL) Right 2022 forearm PAST SURGICAL HISTORY OF 2001 REMOVAL OF FATTY TUMOR LEFT ARM. PAST SURGICAL HISTORY OF Right 03/2016 ORIF tibia fx PAST SURGICAL HISTORY OF kidney stone removed TONSILLECTOMY HX TONSILLECTOMY PRIMARY/SECONDARY Tonsillectomy TUMOR REMOVAL (SPECIFY LOCATION) HX Right 2022 right forearm ALLERGIES Fosamax [Alendronate Sodium] MEDICATIONS pantoprazole DR (PROTONIX) 40 mg tablet Take 1 tablet by mouth every 12 hours. levothyroxine (LEVOXYL) 100 mcg tablet Take 1 tablet by mouth once daily. Skip one day weekly. Take on empty stomach. For Thyroid. CHOLECALCIFEROL, VITAMIN D3, ORAL Take by mouth. Taking daily. Pt unsure of dosage. carbamide peroxide (DEBROX) 6.5 % otic solution Use 5 Drops in both ears two times a day. clobetasol (TEMOVATE) 0.05 % cream Apply 1 application to affected area two times a day. Apply to hands (Patient not taking: Reported on 10/20/2024) iv contrast (will be provided with radiology test) CT adrenal WO/W Inject, intravenously, once for 1 dose.No IV access, insert saline lock prior to the beginning of sedation, infusion, injection of imaging exam. Discontinue saline lock post exam. If Pt. has a central line or IVAD, may access for administration according to line specific nursing protocol. Once exam is complete flush line and de-access according to line specific nursing protocol in the CT contrast administration guidelines link. glucosamine/chondroi tn/Na/C/Se (JOINT FORMULA ORAL) Take by mouth. (Patient not taking: Reported on 07/01/2023) FAMILY HISTORY Problem Relation Age of Onset Arthritis Mother Diabetes Mother Diabetes Father Hypertension Father Colon Cancer Father Age 73 Thyroid Father other (Alzheimers) Father other (Parkinsons Disease) Father Diabetes Sister Asthma Brother Diabetes Paternal Grandfather Cancer Maternal Grandmother Social History Tobacco Use Smoking status: Every Day Current packs/day: 0.50 Average packs/day: 0.5 packs/day for 21.0 years (10.5 ttl pk-yrs) Types: Cigarettes Smokeless tobacco: Never Vaping Use Vaping status: Never Used Substance Use Topics Alcohol use: Never Comment: RARELY Drug use: No Review of Systems Objective BP 152/95 Pulse 71 Temp 36.2 ?C (97.1 ?F) Resp 18 Wt 65.7 kg (144 lb 13.5 oz) LMP 01/24/2013 SpO2 99% BMI 24.88 kg/m? Physical Exam Constitutional: General: She is not in acute distress. Appearance: She is not toxic-appearing or diaphoretic. HENT: Head: Normocephalic and atraumatic. Right Ear: Hearing and external ear normal. Left Ear: Hearing and external ear normal. Ears: Comments: Initially unable to see bilat tm d/t cerumen impaction. Procedure: Provider/curette Nurse/lavage After procedure right canal clear and right tm normal. Left cerumen impaction unable to be remove, procedure stopped d/t pain Pulmonary: Effort: Pulmonary effort is normal. No accessory muscle usage or respiratory distress. Neurological: Mental Status: She is alert and oriented to person, place, and time. {ASSESSMENT/PLAN: 1. Bilateral impacted cerumen - ICD9: 380.4, ICD10: H61.23 Successful removal of right ear canal cerumen impaction. Left impaction not removed d/t pain. Procedure via provider/curette and nurse lavage Papa Us APRN.[employer] History and Record Review External record(s) reviewed: prior outpatient record. Disposition The patient was discharged. OTC Medications were advised: Cerumen softener Procedures Allergies As of Date: 10/20/2024 Noted Allergy Reaction FOSAMAX (ALENDRONATE SODIUM) 12/08/2017 5 - Intolerance Comments: Heartburn, Acid reflux Date Reviewed: (more content not included)... Normal [facility] Gastroenterology Visit Repor ton 08-03-2024 Gastroenterology Visit Report [facility] [address] [place] [address] OFFICE VISIT Date of Service: 08/03/24 MR#: [id number] Acct: [id number] Name: NASIM RODARTE Rep #: [id number] : 1960 Provider: FAITH Lee Age/Sex: 64/F Location: [facility] Status: Signed Intake Vital Signs 03/08/24 05:54 Height 5 ft 6 in Intake Visit Reasons: 3 M FU Chief Complaint: f/u heartburn Allergies alendronate sodium (From Fosamax) Adverse Reaction (Intermediate, Verified 03/08/24 05:52) Other Patient : No Nurse's Note: OV 08.03.24 Pt here for f/u and reports heartburn, and constipation. Reports bm daily. Continues pantoprazole daily. PFS Medical History (Updated 05/04/24 @ 08:42 by FAITH Lee) Wears glasses Wears dentures Post-menopausal Thyroid disease History of diverticulitis Heartburn Shortness of breath on exertion Smoker History of edema Hx of fracture of leg Adrenal nodule Osteoporosis without pathological fracture GERD (gastroesophageal reflux disease) Hepatic cyst Surgical History (Updated 03/05/24 @ 15:03 by Sheila Villareal) Hx of colonoscopy History of lithotripsy Social History Smoking Status: Current every day smoker tobacco type: cigarettes alcohol intake: never substance use type: does not use HPI HPI Chief Complaint: f/u heartburn Details: NASIM FREEWALT, is a 64 F who presents to the office today for f/u. [facility] established 02.04.24 for hepatic cyst, heartburn and family hc of colon cancer in her father. Pt taking apple cider vinegar for heartburn. CT abdomen/pelvis 12.12.19; There is a 5.4 x 5.3 x 4.0 cm cyst in the left lobe of the liver. This is a benign lesion and no further follow-up is recommended. The liver otherwise demonstrates an unremarkable unenhanced appearance Colonoscopy; 03.08.24 One 3 mm polyp in the sigmoid colon, removed with a jumbo cold forceps. Resected and retrieved. - Diverticulosis in the recto-sigmoid colon, in the sigmoid colon and in the descending colon. - The examination was otherwise normal on direct and retroflexion view EGD 03.08.24; - Esophageal mucosal changes suspicious for short-segment Cabral's esophagus. Biopsied. - LA Grade B reflux esophagitis with no bleeding. - Hiatal hernia. - Bilious gastric fluid. - Chronic gastritis. Biopsied. - Chronic duodenitis. Biopsied. Liver US 02.16.24; Multiple hepatic cysts. The largest cyst measures 5.2 cm x 4.7 cm x 3.6 cm. This is in the left lobe of the liver. Last OV 05.04.24; Continues with heartburnBGI established 02.04.24 for heptaic cyst, heartburnand family hc of colon cnacer in her father. Pt taking apple cider vinegar for heartbrun. CT abdomen/pelvis 12.12.19; There is a 5.4 x 5.3 x 4.0 cm cyst in the left lobe of the liver. This is a benign lesion and no further follow-up is recommended. The liver otherwise demonstrates an unremarkable unenhanced appearance Colonoscopy; 03.08.24 One 3 mm polyp in the sigmoid colon, removed with a jumbo cold forceps. Resected and retrieved. - Diverticulosis in the recto-sigmoid colon, in the sigmoid colon and in the descending colon. - The examination was otherwise normal on direct and retroflexion view EGD 03.08.24; - Esophageal mucosal changes suspicious for short-segment Cabral's esophagus. Biopsied. - LA Grade B reflux esophagitis with no bleeding. - Hiatal hernia. - Bilious gastric fluid. - Chronic gastritis. Biopsied. - Chronic duodenitis. Biopsied. Liver US 02.16.24; Multiple hepatic cysts. The largest cyst measures 5.2 cm x 4.7 cm x 3.6 cm. This is in the left lobe of the liver. Last OV 05.04.24; Continues with heartburn and globus sensation. She feels being on PPI has worsened her symptoms. OV 08.03.24 Pt has been doing well. She started to have some heartburn yesterday. She took TUMs which helped. She continues with pantoprazole 40 mg twice a day. She does not endorse any diet changes or medication changes that could have resulted in this increase in pain. For three days now she has felt constipated with smaller stools. She is still going daily. She is trying to stop smoking and has been able to cut back to three a day. SHe does not smoke at work just when she gets home. ROS Const Constitutional: Positive for headache(s); No fatigue, fever(s) or weight change ENT ENT: Positive for headache(s); No difficulty swallowing Gastro GI: Positive for bloating, constipation, heartburn and excessive flatus; No abdominal pain, belching, change in bowel habits, change in stool character, coffee ground emesis, cramping, diarrhea, difficulty swallowing, feeling full early, incontinent of stools, Vomiting blood/hematemesis, Blood in stool, loose stools, Black,tarry s (more content not included)... Normal [facility] ALDOSTERONE/DIRECT RENIN RAT IOon 07-24-2024 JUAN PABLO RENIN RATIO 2.1 Normal <3.8 [facility] Comment on above: Order Comment: Speci men Type: BLOOD SPECIMEN Ordering Facility: [facility] Address: [address] [place] [address] Result Comment: A ra lilo of aldosterone in ng/dL to direct renin in pg/mL greater than or equal to 3.8 is a positive screening test result for primary aldosteronism, when aldosterone is greater than or equal to 15 ng/dL. Performed By: #### 2 4321-2, 2143-6 #### [facility] CLIA [id number] [address] [place], [place] [id number] [place] Aldosterone [Mass/Vol] 7.2 ng/dL Normal 0.0-<35.4 [facility] Comment on above: Order Comment: Diego coker Type: BLOOD SPECIMEN Ordering Facility: [facility] Address: [address] [place] [address] Result Comment: The reference interval for serum/plasma aldosterone is based on a normal sodium intake and upright position. High sodium intake may suppress aldosterone and low sodium intake may increase aldosterone. The supine reference interval is <23.7 ng/dL. A ratio of aldosterone in ng/dL to direct renin in pg/mL greater than or equal to 3.8 is a positive screening test result for primary aldosteronism, when aldosterone is greater than or equal to 15 ng/dL. Performed By: #### 2 432-, 2142-10 #### [facility] CLIA [id number] [address] [place] [address] [place] DIRECT RENIN 3.5 pg/mL Low 3.6-81.6 [facility] Comment on above: Order Comment: Diego coker Type: BLOOD SPECIMEN Ordering Facility: [facility] Address: [address] [place] [address] Result Comment: The reference interval for direct renin is based on an upright position. The supine reference intervals are: Age <41 years: 3.2-33.2 pg/mL Age >=41 years: 2.5-45.1 pg/mL A ratio of aldosterone in ng/dL to direct renin in pg/mL greater than or equal to 3.8 is a positive screening test result for primary aldosteronism, when aldosterone is greater than or equal to 15 ng/dL. Performed By: #### 2 432-2, 2142-10 #### [facility] CLIA [id number] [address] [place] [address] [place] PATIENT UPRIGHT OR SUPINE Upright Normal [facility] Comment on above: Order Comment: Diego coker Type: BLOOD SPECIMEN Ordering Facility: [facility] Address: [address] [place] [address] Performed By: #### 2 4320-2, 2142-10 #### [facility] CLIA [id number] [address] [place] [address] [place] Basic metabolic 2000 panelon 07-24-2024 Anion gap [Moles/Vol] 10 mmol/L Normal 8-15 [facility] Comment on above: Order Comment: Speci men Type: BLOOD SPECIMEN Ordering Facility: [facility] Address: [address] [place], [place] [id number] Performed By: #### 2 4320-06, 2142-10 #### [facility] CLIA [id number] [address] [place], [place] [id number] [place] Calcium [Mass/Vol] 10.3 mg/dL High 8.5-10.2 [facility] Comment on above: Order Comment: Speci men Type: BLOOD SPECIMEN Ordering Facility: [facility] Address: [address] [place] [address] Performed By: #### 2 4320-06, 2142-10 #### [facility] CLIA [id number] [address] [place], [place] [address] [place] Chloride [Moles/Vol] 104 mmol/L Normal 98-107 [facility] Comment on above: Order Comment: Speci men Type: BLOOD SPECIMEN Ordering Facility: [facility] Address: [address] [place], [place] [address] Performed By: #### 2 4320-06, 2142-10 #### [facility] CLIA [id number] [address] [place], [place] [address] [place] CO2 [Moles/Vol] 26 mmol/L Normal 22-30 [facility] Comment on above: Order Comment: Speci men Type: BLOOD SPECIMEN Ordering Facility: [facility] Address: [address] [place], [place] [address] Performed By: #### 2 4322, 2142-10 #### [facility] CLIA [id number] [address] [place] [address] [place] Creatinine [Mass/Vol] 1.03 mg/dL High 0.58-0.96 [facility] Comment on above: Order Comment: Diego coker Type: BLOOD SPECIMEN Ordering Facility: [facility] Address: [address] [place] [address] Performed By: #### 2 4321-2, 2142-10 #### [facility] CLIA [id number] [address] [place] [address] [place] [facility] Creatinine and Glomerular filtration rate.predicted panel (S/P/Bld) 61 mL/min/1.73m??? Normal >=60 [facility] Comment on above: Order Comment: Diego coker Type: BLOOD SPECIMEN Ordering Facility: [facility] Address: [address] [place] [address] Result Comment: Margret mated Glomerular Filtration Rate (eGFR) is calculated using the 2020 CKD-EPI creatinine equation. This equation utilizes serum creatinine, sex, and age as parameters. The creatinine assay has traceable calibration to isotope dilution-mass spectrometry. Refer to KDIGO guidelines for clinical interpretation. In patients with unstable renal function, e.g. those with acute kidney injury, the eGFR may not accurately reflect actual GFR. Performed By: #### 2 4321-2, 2142-10 #### [facility] CLIA [id number] [address] [place] [address] [place] Glucose [Mass/Vol] 101 mg/dL High 74-99 [facility] Comment on above: Order Comment: Diego coker Type: BLOOD SPECIMEN Ordering Facility: [facility] Address: [address] [place] [address] Result Comment: The [place] Diabetes Association (ADA) provides guidance for cutoff values for fasting glucose and random glucose. The ADA defines fasting as no caloric intake for at least 8 hours. Fasting plasma glucose results between 100 to 125 mg/dL indicate increased risk for diabetes (prediabetes). Fasting plasma glucose results greater than or equal to 126 mg/dL meet the criteria for diagnosis of diabetes. In the absence of unequivocal hyperglycemia, results should be confirmed by repeat testing. In a patient with classic symptoms of hyperglycemia or hyperglycemic crisis, random plasma glucose results greater than or equal to 200 mg/dL meet the criteria for diagnosis of diabetes. Reference: Standards of Medical Care in Diabetes 2016, [place] Diabetes Association. Diabetes Care. 2016.39(Suppl 1). Performed By: #### 2 2, 2142-10 #### [facility] CLIA [id number] [address] [place] [address] [place] Potassium [Moles/Vol] 4.3 mmol/L Normal 3.7-5.1 [facility] Comment on above: Order Comment: Speci men Type: BLOOD SPECIMEN Ordering Facility: [facility] Address: [address] [place] [address] Performed By: #### 2 4320-06, 2142-10 #### [facility] CLIA [id number] [address] [place] [address] [place] Sodium [Moles/Vol] 140 mmol/L Normal 136-144 [facility] Comment on above: Order Comment: Speci men Type: BLOOD SPECIMEN Ordering Facility: [facility] Address: [address] [place] [address] Performed By: #### 2 4320-06, 2142-10 #### [facility] CLIA [id number] [address] [place] [address] [place] Urea nitrogen [Mass/Vol] 20 mg/dL Normal 7-21 [facility] Comment on above: Order Comment: Speci men Type: BLOOD SPECIMEN Ordering Facility: [facility] Address: [address] [place], [place] [address] Performed By: #### 2 4320-06, 2142-10 #### [facility] CLIA [id number] [address] [place] [address] [place] Cortis SerPl-mCncon 07-25-19 25 Cortisol [Mass/Vol] 0.7 ug/dL Low 4.8-19.5 [facility] Comment on above: Order Comment: Speci men Type: BLOOD SPECIMEN Ordering Facility: [facility] Address: [address] [place] [address] Result Comment: Prov ided reference range is from 6-10 AM sample collection time. Cortisol Reference Range: 6-10 AM = 4.8-19.5 ug/dL, 4-8 PM = 2.5-11.9 ug/dL Performed By: #### 2 4321-2, 2143-6 #### [facility] CLIA [id number] [address] [place] [address] [place] METANEPHRINES, FREE PLASMAon 07-24-2024 METANEPHRINE, PLASMA 28 pg/mL Normal 12-67 [facility] Comment on above: Order Comment: Diego coker Type: BLOOD SPECIMEN Ordering Facility: [facility] Address: [address] [place] [address] Result Comment: Refe rence Ranges: Hypertensive adult > or = 18 yrs old: 12-72 pg/mL Normotensive adult > or = 18 yrs old: 12-67 pg/mL Normotensive children < 18 yrs old: 10-95 pg/mL Performed By: #### 1 989-3 #### [facility] CLIA [id number] [address] [place] [address] [place] NORMETANEPHRINE, PLASMA 121 pg/mL High 18-101 [facility] Comment on above: Order Comment: Diego coker Type: BLOOD SPECIMEN Ordering Facility: [facility] Address: [address] [place] [address] Result Comment: Refe rence Ranges: Hypertensive adult > or = 18 yrs old: 24-145 pg/mL Normotensive adult > or = 18 yrs old: 18-101 pg/mL Normotensive children < 18 yrs old: 22-83 pg/mL Methyldopa may cause false elevation of normetanephrine levels in this assay. If patient is on methyldopa, interpret results with caution. Performed By: #### 1 989-3 #### [facility] CLIA [id number] [address] [place] [address] [place] CT ADRENAL WO/W IVCONon 06-26 CT ADRENAL WO/W IVCON * * *Final Report* * * DATE OF EXAM: Jul 07 2024 11:04AM [facility] 0536 - CT ADRENAL WO/W IVCON / PROCEDURE REASON: Adrenal adenoma, unspecified laterality * * * * Physician Interpretation * * * * CT ABDOMEN / ADRENAL GLANDS WITHOUT IV CONTRAST CLINICAL HISTORY: Follow up adrenal adenoma TECHNIQUE: Thin section spiral imaging through the adrenal glands was performed without IV or oral contrast due to the clinical indication. This does limit the exam for some other diagnoses. Contrast: IV: None Oral: None CT Radiation dose: Integrated Dose-length product (DLP) for this visit = 222 mGy*cm. CT Dose Reduction Employed: Automated exposure control COMPARISON: CT abdomen dated 07/19/2022 RESULT: Adrenal glands: Right adrenal gland: 1.3 x 2 cm right adrenal adenoma present which can be characterized as such as it measures -11 Hounsfield units. This previously measured approximately 1.0 x 1.7 cm. Left adrenal gland: No nodules, masses or thickening. Abdomen Liver: A few hepatic cysts measuring up to approximately 4.5 cm in size in the left lobe of the liver as characterized on prior contrast enhanced study. A few additional subcentimeter hypodense too small to characterize hepatic lesions Biliary sytem: Gallbladder present without evidence of radiopaque stones or wall thickening. Spleen: Not enlarged. Stable subcentimeter hypodense too small to characterize splenic lesion. Pancreas: No pancreatic duct dilation. Otherwise unremarkable unenhanced appearance. Kidneys: No stones or hydronephrosis. Lymph nodes: No abdominal lymphadenopathy. Mesentery/Peritoneum : No ascites or mass. Bowel: Small hiatal hernia. Imaged segments are otherwise unremarkable. Vasculature: Arterial atherosclerotic calcifications. No abdominal aortic aneurysm. Otherwise unable to assess without IV contrast.. Bones/Soft Tissues: Mild degenerative changes Lower thorax: Small volume pericardial fluid. Minimal dependent atelectasis. Localizer images: No additional findings. IMPRESSION: Right adrenal adenoma, slightly increased in size since 2022. Additional incidental findings as described. Biophysics Teacher: ROCCO Transcribe Date/Time: Jul 07 2024 11:01A Dictated by : JAVI AYALA MD This examination was interpreted and the report reviewed and electronically signed by: JAVI AYALA MD on Jul 07 2024 11:07AM EST [id number] Normal [facility] CT Adrenal gland WO and W co ntrast Gibran 07-07-2024 IMPRESSION: Right adrenal adenoma, slightly increased in size since 2022. Additional incidental findings as described. Biophysics Teacher: ROCCO Transcribe Date/Time: Jul 07 2024 11:01A Dictated by : JAVI AYALA MD This examination was interpreted and the report reviewed and electronically signed by: JAVI AYALA MD on Jul 07 2024 11:07AM EST DIVISION OF RADIOLOGY * * *Final Report* * * DATE OF EXAM: Jul 07 2024 11:04AM [facility] 0536 - CT ADRENAL WO/W IVCON / PROCEDURE REASON: Adrenal adenoma, unspecified laterality * * * * Physician Interpretation * * * * CT ABDOMEN / ADRENAL GLANDS WITHOUT IV CONTRAST CLINICAL HISTORY: Follow up adrenal adenoma TECHNIQUE: Thin section spiral imaging through the adrenal glands was performed without IV or oral contrast due to the clinical indication. This does limit the exam for some other diagnoses. Contrast: IV: None Oral: None CT Radiation dose: Integrated Dose-length product (DLP) for this visit = 222 mGy*cm. CT Dose Reduction Employed: Automated exposure control COMPARISON: CT abdomen dated 07/19/2022 RESULT: Adrenal glands: Right adrenal gland: 1.3 x 2 cm right adrenal adenoma present which can be characterized as such as it measures -11 Hounsfield units. This previously measured approximately 1.0 x 1.7 cm. Left adrenal gland: No nodules, masses or thickening. Abdomen Liver: A few hepatic cysts measuring up to approximately 4.5 cm in size in the left lobe of the liver as characterized on prior contrast enhanced study. A few additional subcentimeter hypodense too small to characterize hepatic lesions Biliary sytem: Gallbladder present without evidence of radiopaque stones or wall thickening. Spleen: Not enlarged. Stable subcentimeter hypodense too small to characterize splenic lesion. Pancreas: No pancreatic duct dilation. Otherwise unremarkable unenhanced appearance. Kidneys: No stones or hydronephrosis. Lymph nodes: No abdominal lymphadenopathy. Mesentery/Peritoneum : No ascites or mass. Bowel: Small hiatal hernia. Imaged segments are otherwise unremarkable. Vasculature: Arterial atherosclerotic calcifications. No abdominal aortic aneurysm. Otherwise unable to assess without IV contrast.. Bones/Soft Tissues: Mild degenerative changes Lower thorax: Small volume pericardial fluid. Minimal dependent atelectasis. Localizer images: No additional findings. DIVISION OF RADIOLOGY Provider, [facility] [place] - 07/07/2024 * * *Final Report* * * DATE OF EXAM: Jul 07 2024 11:04AM [facility] 0536 - CT ADRENAL WO/W IVCON / PROCEDURE REASON: Adrenal adenoma, unspecified laterality * * * * Physician Interpretation * * * * CT ABDOMEN / ADRENAL GLANDS WITHOUT IV CONTRAST CLINICAL HISTORY: Follow up adrenal adenoma TECHNIQUE: Thin section spiral imaging through the adrenal glands was performed without IV or oral contrast due to the clinical indication. This does limit the exam for some other diagnoses. Contrast: IV: None Oral: None CT Radiation dose: Integrated Dose-length product (DLP) for this visit = 222 mGy*cm. CT Dose Reduction Employed: Automated exposure control COMPARISON: CT abdomen dated 07/19/2022 RESULT: Adrenal glands: Right adrenal gland: 1.3 x 2 cm right adrenal adenoma present which can be characterized as such as it measures -11 Hounsfield units. This previously measured approximately 1.0 x 1.7 cm. Left adrenal gland: No nodules, masses or thickening. Abdomen Liver: A few hepatic cysts measuring up to approximately 4.5 cm in size in the left lobe of the liver as characterized on prior contrast enhanced study. A few additional subcentimeter hypodense too small to characterize hepatic lesions Biliary sytem: Gallbladder present without evidence of radiopaque stones or wall thickening. Spleen: Not enlarged. Stable subcentimeter hypodense too small to characterize splenic lesion. Pancreas: No pancreatic duct dilation. Otherwise unremarkable unenhanced appearance. Kidneys: No stones or hydronephrosis. Lymph nodes: No abdominal lymphadenopathy. Mesentery/Peritoneum : No ascites or mass. Bowel: Small hiatal hernia. Imaged segments are otherwise unremarkable. Vasculature: Arterial atherosclerotic calcifications. No abdominal aortic aneurysm. Otherwise unable to assess without IV contrast.. Bones/Soft Tissues: Mild degenerative changes Lower thorax: Small volume pericardial fluid. Minimal dependent atelectasis. Localizer images: No additional findings. IMPRESSION IMPRESSION: Right adrenal adenoma, slightly increased in size since 2022. Additional incidental findings as described. Biophysics Teacher: PSCB Transcribe Date/Time: Jul 07 2024 11:01A Dictated by : JAVI AYALA MD This examination was interpreted and the report reviewed and electronically signed by: JAVI AYALA MD on Jul 07 2024 11:07AM EST [facility] Radiology Study observation (narrative) [facility] CT Adrenal gland WO and W co ntrast IVOrdered By: [facility] Provider on 07-07-2024 [facility] CREATININE BLDon 07-05-2024 Creatinine [Mass/Vol] 1.01 mg/dL High 0.58-0.96 [facility] Comment on above: Order Comment: Spe[place] coker Type: BLOOD SPECIMEN Ordering Facility: [facility] Address: [address] [place] [address] Performed By: #### C RET1 #### [facility] CLIA [id number] [address] [place] [address] Creatinine and Glomerular filtration rate.predicted panel (S/P/Bld) 63 mL/min/1.73m??? Normal >=60 [facility] Comment on above: Order Comment: Diego coker Type: BLOOD SPECIMEN Ordering Facility: [facility] Address: [address] [place] [address] Result Comment: Margret mated Glomerular Filtration Rate (eGFR) is calculated using the 2020 CKD-EPI creatinine equation. This equation utilizes serum creatinine, sex, and age as parameters. The creatinine assay has traceable calibration to isotope dilution-mass spectrometry. Refer to KDIGO guidelines for clinical interpretation. In patients with unstable renal function, e.g. those with acute kidney injury, the eGFR may not accurately reflect actual GFR. Performed By: #### C RET1 #### [facility] CLIA [id number] [address] [place] [address] [place] Hansa 05-24-2024 CHET Telephone ([id number]) NASIM RODARTE ([id number]) 1960 F Date Time Provider Department 05/24/24 MARISA SPENCER During your visit today, we recorded the following information about you: Brianne Garay LPN 05/24/2024 1:58 PM Signed Called patient, no answer, left VM to call office to go over CT scan appointment and schedule follow up. Brianne Desir LPN, LPN 05/24/2024 2:39 PM Signed Patient called into office. Notified of appointment information and scheduled follow up. Meena HAND Allergies As of Date: 05/24/2024 Noted Allergy Reaction FOSAMAX (ALENDRONATE SODIUM) 12/08/2017 5 - Intolerance Comments: Heartburn, Acid reflux Date Reviewed: 11/12/2023 Reviewed by: Talia Corona LPN - Fully Assessed Reason for Visit: Appointment [[id number]] Prescriptions as of 05/24/2024 - levothyroxine (LEVOXYL) 100 mcg tablet Take 1 tablet by mouth once daily. Skip one day weekly. Take on empty stomach. For Thyroid. - carbamide peroxide (DEBROX) 6.5 % otic solution Use 5 Drops in both ears two times a day. - clobetasol (TEMOVATE) 0.05 % cream Apply 1 application to affected area two times a day. Apply to hands - iv contrast (will be provided with radiology test) CT adrenal WO/W Inject, intravenously, once for 1 dose.No IV access, insert saline lock prior to the beginning of sedation, infusion, injection of imaging exam. Discontinue saline lock post exam. If Pt. has a central line or IVAD, may access for administration according to line specific nursing protocol. Once exam is complete flush line and de-access according to line specific nursing protocol in the CT contrast administration guidelines link. - glucosamine/chondroi tn/Na/C/Se (JOINT FORMULA ORAL) Take by mouth. - CHOLECALCIFEROL, VITAMIN D3, ORAL Take by mouth. Taking daily. Pt unsure of dosage. Problem List As Of Date 05/24/2024 Noted Resolved Hypothyroidism [E03.9] 10/07/2005 Premenopausal menorrhagia [N92.4] 06/10/2008 07/24/2011 Family History of Colon Cancer [Z80.0] 06/16/2009 Screen for colon cancer [Z12.11] 09/12/2011 Hyperlipidemia, mixed [E78.2] 11/29/2016 Tobacco use disorder [F17.200] 11/29/2016 Osteoporosis without current pathological fract*12/26/2016 History of colonic polyps [Z86.0100] 10/19/2020 10/19/2020 Adrenal nodule (HCC) [E27.9] 09/05/2022 GERD (gastroesophageal reflux disease) [K21.9] 01/23/2023 Encounter Status:Closed by BRIANNE GARAY on 05/24/24 Normal [facility] Gastroenterology Visit Repor ton 05-04-2024 Gastroenterology Visit Report [facility] Gastroenterology [address] [place] [address] OFFICE VISIT Date of Service: 05/04/24 MR#: [id number] Acct: [id number] Name: NASIM RODARTE Rep #: [id number] : 1960 Provider: FAITH Lee Age/Sex: 63/F Location: [facility] Status: Signed Intake Vital Signs 08/27/21 06:56 03/08/24 05:54 Height 5 ft 6 in 5 ft 6 in Intake Visit Reasons: 3 M FU Chief Complaint: f/u Allergies alendronate sodium (From Fosamax) Adverse Reaction (Intermediate, Verified 03/08/24 05:52) Other Nurse's Note: OV 05.04.24 Pt here for f/u. Pt reports BM daily but feels constipated. Denies bloody stools, N/V/D. Pt states she has had occasional abdominal pain since her recent colonoscopy. Pt reports she feels like something is stuck in her throat occasionally but denies having trouble swallowing. Continues pantoprazole daily. [facility] Medical History (Updated 05/04/24 @ 08:42 by FAITH Lee) Wears glasses Wears dentures Post-menopausal Thyroid disease History of diverticulitis Heartburn Shortness of breath on exertion Smoker History of edema Hx of fracture of leg Adrenal nodule Osteoporosis without pathological fracture GERD (gastroesophageal reflux disease) Hepatic cyst Surgical History (Updated 03/05/24 @ 15:03 by Sheila Villareal) Hx of colonoscopy History of lithotripsy Social History Smoking Status: Current every day smoker tobacco type: cigarettes alcohol intake: never substance use type: does not use HPI HPI Chief Complaint: f/u Details: NASIM RODARTE, is a 63 F who presents to the office today for f/u. [facility] established 02.04.24 for hepatic cysts, heartburn and family hx of colon cancer in her father. Pt taking apple cider vinegar for heartburn and seems to help. Pt has colonoscopy every 3-[address] abdomen/pelvis 12.12.19; There is a 5.4 x 5.3 x 4.0 cm cyst in the left lobe of the liver. This is a benign lesion and no further follow-up is recommended. The liver otherwise demonstrates an unremarkable unenhanced appearance OV 05.04.24 Pt continues to have heartburn and feelings of food stuck in her throat. She is unable to tell me how often. She feels the heartburn has worsened since her scope and being on PPI therapy. She has constipation but has not tired anything for this. She has a daily bm that is small and does not feel complete. Colonoscopy; 03.08.24 One 3 mm polyp in the sigmoid colon, removed with a jumbo cold forceps. Resected and retrieved. - Diverticulosis in the recto-sigmoid colon, in the sigmoid colon and in the descending colon. - The examination was otherwise normal on direct and retroflexion view EGD 03.08.24; - Esophageal mucosal changes suspicious for short-segment Cabral's esophagus. Biopsied. - LA Grade B reflux esophagitis with no bleeding. - Hiatal hernia. - Bilious gastric fluid. - Chronic gastritis. Biopsied. - Chronic duodenitis. Biopsied. Liver US 02.16.24; Multiple hepatic cysts. The largest cyst measures 5.2 cm x 4.7 cm x 3.6 cm. This is in the left lobe of the liver. ROS Const Constitutional: No anorexia, fatigue, fever(s), weight change or sleep problems Eyes Eyes: No change in vision ENT ENT: No abnormal hearing, difficulty swallowing, mouth lesions, tongue swelling or throat swelling Resp Respiratory: No cough or shortness of breath Cardio Cardiology: No chest pain at rest, chest pain with exertion, shortness of breath or dyspnea on exertion Gastro GI: Positive for abdominal pain, constipation and heartburn; No difficulty swallowing Genitourinary-Female : No difficulty urinating or burning urination Musc Musculoskeletal: No joint pain, joint swelling, muscle weakness or decreased muscle mass Skin Skin: No hair loss in leg, yellowing of the eye, itchy eyes, rash, skin ulcer or skin swelling Neuro Neurology: No abnormal hearing, abnormal movements, confusion, unsteady gait/balance or memory loss Psych Psychiatric: No anxiety, No confusion and No memory loss Endo Endocrine: No fatigue or weight change Aller/Imm Allergy/Immunologic: No itchy eyes, throat swelling or tongue swelling Tee/Lymp Hematologic/Lymphati c: No easy bleeding, easy bruising or enlarged lymph nodes Exam Const General: cooperative and comfortable Nutritional Appearance: average body habitus and well nourished HENMT Head: normal to inspection Ears: hearing grossly normal bilaterally Nose: external nose normal Face and sinus: normal facial exam Eyes General: appearance normal, both eyes and all related structures Neck Neck: normal visual inspection Chest Chest palpation inspection: normal inspection of the chest and normal palpation of entire chest wall Resp Effort Insp (more content not included)... 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 Post Anesthesia Patient Status Patient Evaluation: PACU. PACU/ICU Patient Condition: stable. Anticipated Disposition: phase 2 then home. Neurological Status: aware and responsive. Pulmonary Status: breathing comfortably on room air Airway Control: returned to baseline unsupported. Cardiovascular Status: stable. Pain Management: clinically adequate - multimodal analgesia pain management approach Postoperative Hydration: acceptable. Intraoperative Events: no significant anesthesia events Post Operative Nausea/Vomiting Status: no significant post operative nausea or vomiting Recommendation: continue current plan of care. Anesthesia Observations No Documentation SIGNATURE: Gleins Luz MD PATIENT NAME: Nasim Rodarte DATE: January 31, 2023 TIME: 3:54 PM CSN: [id number] [facility] ANES PRE-OPon 01-31-2023 ANES PRE-OP HNO ID: [id number] Author: Aries Zavala MD Service: Anesthesiology Author Type: Physician Type: Anesthesia Preprocedure Evaluation Filed: 01/31/2023 12:20 PM Note Text: ANESTHESIOLOGY DAY OF SURGERY NOTE : 1960 Procedure Information Date/Time: 01/31/23 1240 Procedure: EXCISION SOFT TISSUE TUMOR SUB-Q OF FOREARM = / > 3CM (Right: Arm lower) Location: SD OR05 / SD OR Surgeons: Erich Michael MD Estimated body mass index is 24.89 kg/m? as calculated from the following: Height as of this encounter: 162.6 cm (5' 4"). Weight as of this encounter: 65.8 kg (145 lb). Most recent hematocrit and potassium results: Hematocrit 41.4 11/16/2022 Potassium 4.3 11/16/2022 Relevant Problems ENDO (+) Hypothyroidism GI (+) GERD (gastroesophageal reflux disease) I - PHYSICAL EVALUATION AIRWAY Patient intubated: No. Tracheostomy tube not present Mallampati: II. TM distance: >3 FB. Neck ROM: full ROM without neurological symptoms. Mouth opening: adequate. Short neck: no. Thick neck: no DENTAL Normal dental observations. Dental findings: teeth intact. Additional exam findings: no II - ANESTHESIA PLAN ASA Score: 3 Anesthetic Plan: MAC NPO Status: adequate Beta Geetha Monitoring Plan Monitoring plan: Standard ASA. Post Procedure Analgesic Plan Postoperative analgesic plan: parenteral or oral opioids and multimodal analgesia. Informed Consent Anesthetic risks, benefits, alternatives, personnel and consent discussed: yes. Patient / Responsible Democrat agrees to proceed: yes Patient / Surrogate agrees to blood products: blood products not planned DNR status not reviewed with patient and/or family prior to surgery. Significant changes in the patient condition since the History and Physical, not otherwise documented in primary service progress note: no. Potential Anesthesia issues that may suggest increased risk of complications or contraindication to planned procedure: none. Vitals Value Taken Time BP 170/75 01/31/23 1112 Pulse 78 01/31/23 1112 Resp 16 01/31/23 1112 Temp 36.7 ?C (98.1 ?F) 01/31/23 1112 SpO2 98 % 01/31/23 1112 Facility-Administere d Medications as of 01/31/2023 Medication Dose Route Frequency - lidocaine (PF) 10 mg/mL (1 %) 1-2 mg injection (XYLOCAINE) 0.1-0.2 mL INTRADERMAL PRN - lactated ringers iv infusion 5-30 mL/hr INTRAVENOUS CONTINUOUS - NaCl 0.9% iv flush bag 20 mL INTRAVENOUS PRN - ceFAZolin iv piggyback 2 g in D5W (iso-osmotic) 100 mL (ANCEF) 2 g INTRAVENOUS Pre-Op Once Outpatient Medications as of 01/31/2023 Medication Sig - levothyroxine (LEVOXYL) 100 mcg tablet Take 1 tablet by mouth once daily. Skip one day weekly. Take on empty stomach. For Thyroid. - clobetasol (TEMOVATE) 0.05 % cream Apply 1 application to affected area twice daily. (Patient taking differently: Apply 1 application to affected area as needed.) - CHOLECALCIFEROL, VITAMIN D3, ORAL Take by mouth. Taking daily. Pt unsure of dosage. I have interviewed and examined the patient. I have reviewed the medical record and/or the pre-anesthesia evaluation, pertinent labs, and test results. This contains updated information obtained within 48 hours of Surgery/Procedure. SIGNATURE: Aries Gretter, MD PATIENT NAME: Nasim Rodarte DATE: January 31, 2023 TIME: 12:19 PM CSN: [id number] [facility] OPERATIVE NOon 01-31-2023 OPERATIVE NO HNO ID: [id number] Author: Erich Michael MD Service: Orthopaedic Surgery Author Type: Physician Type: Operative Report Filed: 02/04/2023 9:32 AM Note Text: OPERATIVE/PROCEDURE REPORT LOG ID: [id number] SURGERY/PROCEDURE DATE: 01/31/2023 INCISION/PROCEDURE START TIME: 1:19 PM INCISION CLOSE/PROCEDURE END TIME: 1:31 PM SURGEON(S)/PROCEDURA LIST(S) AND ADULT PROTECTIVE CASEWORKER(S): Surgeon(s) and Role: * Erich Michael MD - Primary Physician Locomotive Firer: Anny Lloyd PA-C SURGERY/PROCEDURE(S) : Right forearm, soft tissue mass excision. 3 cm x 2 cm x 2 cm ANESTHESIA: Monitored Anesthesia Care with local SURGERY/PROCEDURE DETAILS: This is a pleasant, 62-year-old female who has had a longstanding soft tissue mass on the right forearm consistent with a superficial lipoma. It had bothered her both on occasion from a pain standpoint as well as cosmetically. I discussed with her the operative and nonoperative treatment treatment options. She wished to pursue surgical excision. On 01/31/2023, the patient was clearly identified in the preoperative area marked accordingly on the right forearm by myself. She received 2 g of Ancef in the IV within 1 hour of incision or tourniquet. She was taken the operative suite and placed in a supine position with an armboard on the right. Anesthesia assumed care of the head neck for the remainder of the case. All other bony landmarks were properly padded in standard fashion. The right upper extremity was then sterilely prepped and draped in standard fashion. A well-padded upper brachium tourniquet was applied as well. An appropriate timeout was conducted and all in the room were in agreement, signed consent form was on the chart, images were available for viewing. Local anesthetic was provided with 1% lidocaine with 1-200,000 epinephrine for total of 4 cc. The upper extremity was elevated for exsanguination and the tourniquet was applied at 250 mmHg. A longitudinal incision was made superficially through the dermis which readily identified a fatty soft tissue mass below. I bluntly dissected around its borders with Littler scissors and it was free from any adhesions. It did not breach the fascia of the forearm muscle. It was removed in its entirety and measured to be approximately 3 x 2 x 2 cm. The wound was copiously irrigated and the tourniquet was taken down. Bipolar electrocautery was used for hemostasis. 4-0 interrupted Monocryl sutures to closely approximate the skin in a running subcuticular weave with tails and Steri-Strips. Sterile Xeroform gauze and 4 x 4's, a light cotton wrap and Zion bandage was used for final bandage. She was safely awoken and transferred to the postanesthetic care unit in stable condition. PRE-OP/PRE-PROCEDURE DIAGNOSIS: Right forearm soft tissue mass POST-OP/POST-PROCEDU RE DIAGNOSIS: Same as Preop ESTIMATED BLOOD LOSS: 0 ml SPECIMENS: Sent IMPLANTABLE DEVICES: NONE DRAINS: None COMPLICATIONS: None CLOSURE TECHNIQUE: Primary PARTICIPATION IN SURGERY/PROCEDURE: I/primary surgeon/proceduralis t performed the entire procedure. SIGNATURE: Erich Michael MD PATIENT NAME: Nasim Rodarte DATE: February 04, 2023 TIME: 9:13 AM Normal [facility] SURGICAL PATHOLOGYon 023 CASE REPORT Normal [facility] Comment on above: Order Comment: Speci john paul Type: TISSUE SPECIMEN Ordering Facility: [facility] Address: [address] [place] [address] Result Comment: Surg [facility] Pathology Report Case: [id number] Authorizing Provider: Erich Michael MD Collected: 01/31/2023 01:26 PM Ordering Location: [facility] Surgery Received: 01/31/2023 01:53 PM Pathologist: Dax Domínguez MD Specimen: SOFT TISSUE MASS RESECTION, right arm soft tissue mass Performed By: #### S #### [facility] CLIA [id number] [address] [place] [address] [place] CLINICAL HISTORY Normal [facility] ospital Comment on above: Order Comment: Speci men Type: TISSUE SPECIMEN Ordering Facility: [facility] Address: [address] [place] [address] Result Comment: Pre- op diagnosis: Lipoma of right forearm [D17.21] Performed By: #### S #### [facility] CLIA [id number] [address] [place] [address] FINAL DIAGNOSIS Normal [facility] spital Comment on above: Order Comment: Speci men Type: TISSUE SPECIMEN Ordering Facility: [facility] Address: [address] [place] [address] Result Comment: Soft tissue, right forearm, excision: - Angiolipoma. Performed By: #### S #### [facility] CLIA [id number] [address] [place] [address] [facility] FINAL PERFORMING LAB Normal [facility] Comment on above: Order Comment: Speci men Type: TISSUE SPECIMEN Ordering Facility: [facility] Address: [address] [place] [address] Result Comment: Diag nostic interpretation performed at [facility], [address] [place] [address] CLIA# [id number] Digital Analytics Manager: Reji Shultz M.D. Performed By: #### S #### [facility] CLIA [id number] [address] [place] [address] [facility] GROSS DESCRIPTION Normal [facility] Comment on above: Order Comment: Speci men Type: TISSUE SPECIMEN Ordering Facility: [facility] Address: [address] [place] [address] Result Comment: A. S OFT TISSUE MASS RESECTION Received in formalin labeled as "soft tissue mass resection" is a piece of kerr-yellow tissue measuring 3.0 x 2.5 x 0.8 cm. Sectioning reveals kerr-yellow homogenous cut surfaces. Carpet Cleaner sections are submitted in 1 cassette. MLG February 01, 2023 2:07 PM Gross examination performed at [facility], [address] [place] [address] Performed By: #### S #### [facility] CLIA [id number] [address] [place] [address] [place] STEFAN SCREENING W TOMOon 01-10 [facility] CT KIDNEY WO/W IVCONon 07-19 [facility] US KIDNEY/BLADDERon 07-04-19 23 Radiology Result ACTIONABLE Abnormal [facility] UA DIP, URINE (POC)on 2022 BILIRUBIN UA (POCT) Negative Negative [facility] CLARITY UA (POCT) Clear [facility] COLOR UA (POCT) Yellow [facility] GLUCOSE UA (POCT) Negative Negative mg/dL [facility] HEMOGLOBIN/BLOOD UA (POCT) Small Abnormal Negative [facility] KETONE UA (POCT) Negative Negative mg/dL [facility] LEUKOCYTES UA (POCT) Negative Negative [facility] NITRITE UA (POCT) Negative [facility] PH UA (POCT) 7.0 4.5 - 8.0 [facility] Protein Ql (U) Negative Negative mg/dL [facility] SPECIFIC GRAVITY UA (POCT) 1.020 1.005 - 1.030 [facility] UROBILINOGEN UA (POCT) 0.2 E.U./dL Normal E.U./dL [facility] XR Knee - right 4 Viewson IMPRESSION: No acute bony finding. No appreciable arthropathy Biophysics Teacher: ROCCO Transcribe Date/Time: Apr 30 2022 2:01P Dictated by : OLGA DONNELLY MD This examination was interpreted and the report reviewed and electronically signed by: OLGA DONNELLY MD on Apr 30 2022 2:47PM [facility] DIVISION OF RADIOLOGY * * *Final Report* * * DATE OF EXAM: Apr 29 2022 8:26AM WOX 5203 - XR KNEE 4V AP/PA BOTH+LAT/SKYLA RT / PROCEDURE REASON: Acute pain of right knee * * * * Physician Interpretation * * * * Right knee HISTORY: 61 years old Clinical information: Acute pain of right knee Hx of prior surgery. Lateral right knee pain x 5 days without injury TECHNIQUE: Images: XR KNEE 4V AP/PA BOTH+LAT/SKYLA RT Comparison: None. RESULT: Findings: Plate-screw fixation of the tibial plateau with fixation plate along the lateral proximal tibia. No depression. No joint space narrowing or effusion. 2 x 4 mm dystrophic calcification anterior to the patellar tendon. DIVISION OF RADIOLOGY Provider, [facility] [place] - 04/30/2022 * * *Final Report* * * DATE OF EXAM: Apr 29 2022 8:26AM WOX 5203 - XR KNEE 4V AP/PA BOTH+LAT/SKYLA RT / PROCEDURE REASON: Acute pain of right knee * * * * Physician Interpretation * * * * Right knee HISTORY: 61 years old Clinical information: Acute pain of right knee Hx of prior surgery. Lateral right knee pain x 5 days without injury TECHNIQUE: Images: XR KNEE 4V AP/PA BOTH+LAT/SKYLA RT Comparison: None. RESULT: Findings: Plate-screw fixation of the tibial plateau with fixation plate along the lateral proximal tibia. No depression. No joint space narrowing or effusion. 2 x 4 mm dystrophic calcification anterior to the patellar tendon. IMPRESSION IMPRESSION: No acute bony finding. No appreciable arthropathy Biophysics Teacher: [facility] Transcribe Date/Time: Apr 30 2022 2:01P Dictated by : OLGA DONNELLY MD This examination was interpreted and the report reviewed and electronically signed by: OLGA DONNELLY MD on Apr 30 2022 2:47PM EST [facility] XR Knee - right 4 ViewsOrder ed By: [facility] Provider on 04-30-2022 [facility] XR Knee - right 4 Viewson Radiology Study observation (narrative) [facility] MRI LOWER ARM WO IVCON RTon 03-28-2022 [facility] No Panel Informationon 02-16 [facility] DXA-AXIAL SKELETONon 022 [facility] Office Visiton 10-23-2016 Documentation of current medications (procedure) Done Invalid Interpretation Code [facility] Work Phone: Smoking cessation education (procedure) yes Invalid Interpretation Code [facility] Work Phone: Tobacco use [facility] Current every day smoker Invalid Interpretation Code [facility] Work Phone: Vital Signs Date Time Vital Sign Value Performing Clinician Facility 11-23-2024 15:30-0400 Body mass index (BMI) [Ratio] 24.74 kg/m2 Salena Haagen [employer]IVIT[employer] LEADER[employer] Work Phone: [facility] 11-23-2024 15:30-0400 Body weight 65.32 kg Salena Haagen [employer]IVITIES LEADER[employer] Work Phone: [facility] 11-23-2024 15:30-0400 Diastolic blood pressure 80 mm[Hg] Salena Haagen ACTIVITIES LEADER[employer] Work Phone: [facility] 11-23-2024 15:30-0400 Heart rate 69 /min Salena Haagen [employer]IVIT[employer] LEAD[employer] Work Phone: [facility] 11-23-2024 15:30-0400 Respiratory rate 16 /min Salena Haagen [employer]IVITIES LEADER[employer] Work Phone: [facility] 11-23-2024 15:30-0400 SaO2% (BldA) [Mass fraction] 98 % Salena Haagen [employer]IVIT[employer] LEADER[employer] Work Phone: [facility] 11-23-2024 15:30-0400 Systolic blood pressure 118 mm[Hg] Salena Haagen ACTIVITIES LEADER[employer] Work Phone: [facility] 10-25-2024 07:51-0400 Body mass index (BMI) [Ratio] 24.22 kg/m2 Salena Haagen [employer]IVITIES LEADER[employer] Work Phone: [facility] 10-25-2024 07:51-0400 Body weight 63.96 kg Salena Haagen [employer]IVITIES LEADER[employer] Work Phone: [facility] 10-25-2024 07:51-0400 Diastolic blood pressure 92 mm[Hg] Salena Haagen [employer]IVITIES LEADER[employer] Work Phone: [facility] 10-25-2024 07:51-0400 Heart rate 64 /min Salena Haagen ACTIVITIES LEADER[employer] Work Phone: [facility] 10-25-2024 07:51-0400 Respiratory rate 16 /min Salena Haagen ACTIVITIES LEADER[employer] Work Phone: [facility] 10-25-2024 07:51-0400 SaO2% (BldA) [Mass fraction] 98 % Salena Diaz ACTIVITIES LEADER[employer] Work Phone: [facility] 10-25-2024 07:51-0400 Systolic blood pressure 148 mm[Hg] Salena Diaz ACTIVITIES LEADER[employer] Work Phone: [facility] 10-20-2024 15:04-0400 Body mass index (BMI) [Ratio] 24.88 kg/m2 Papa Us ACTIVITIES LEADER[employer] Work Phone: [facility] 10-20-2024 15:04-0400 Body temperature 97.11 [degF] Papa Us [employer]IVITIES LEADER[employer] Work Phone: [facility] 10-20-2024 15:04-0400 Body weight 65.7 kg Papa Us ACTIVIT[employer] LEAD[employer] Work Phone: [facility] 10-20-2024 15:04-0400 Diastolic blood pressure 95 mm[Hg] Papa Us ACTIVITIES LEAD[employer] Work Phone: [facility] 10-20-2024 15:04-0400 Heart rate 71 /min Papa Us [employer]IVITIES LEAD[employer] Work Phone: [facility] 10-20-2024 15:04-0400 Respiratory rate 18 /min Papa Us ACTIVITIES LEADER[employer] Work Phone: [facility] 10-20-2024 15:04-0400 SaO2% (BldA) [Mass fraction] 99 % Papa Us ACTIVITIES LEADER[employer] Work Phone: [facility] 10-20-2024 15:04-0400 Systolic blood pressure 152 mm[Hg] Papa Us ACTIVITIES LEADER.[employer] Work Phone: [facility] 11-12-2023 07:28-0400 Body height 162.5 cm Debby Olivera ACTIVITIES LEADER.[employer] Work Phone: [facility] 11-12-2023 07:28-0400 Body mass index (BMI) [Ratio] 25.25 kg/m2 Debby Olivera [employer]IVITIES LEADER[employer] Work Phone: [facility] 11-12-2023 07:28-0400 Body weight 66.68 kg Debby Tannhof [employer]IVITIES LEADER[employer] Work Phone: [facility] 11-12-2023 07:28-0400 Diastolic blood pressure 90 mm[Hg] Debby Tannhof ACTIVITIES LEADER.[employer] Work Phone: [facility] 11-12-2023 07:28-0400 Heart rate 73 /min Debby Tannhof [employer]IVITIES LEADER[employer] Work Phone: [facility] 11-12-2023 07:28-0400 Respiratory rate 16 /min Debby Tannhof [employer]IVITIES LEADER[employer] Work Phone: [facility] 11-12-2023 07:28-0400 SaO2% (BldA) [Mass fraction] 98 % Debby Tannhof [employer]IVITIES LEADER[employer] Work Phone: [facility] 11-12-2023 07:28-0400 Systolic blood pressure 146 mm[Hg] Debby Tannhof [employer]IVITIES LEADER[employer] Work Phone: [facility] 07-01-2023 10:14-0500 Body height 162.6 cm Marisa Spencer MD Work Phone: [facility] 07-01-2023 10:14-0500 Body weight 66.68 kg Marisa Spencer MD Work Phone: [facility] 07-01-2023 10:14-0500 Diastolic blood pressure 88 mm[Hg] Marisa Spencer MD Work Phone: [facility] 07-01-2023 10:14-0500 Heart rate 84 /min Marisa Spencer MD Work Phone: [facility] 07-01-2023 10:14-0500 SaO2% (BldA) [Mass fraction] 99 % Marisa Spencer MD Work Phone: [facility] 07-01-2023 10:14-0500 Systolic blood pressure 144 mm[Hg] Marisa Spencer MD Work Phone: [facility] 03-26-2023 [id number] Body height 162.6 cm Josefina Monahan MD Work Phone: [facility] 03-26-2023 13:10-0400 Body weight 66.68 kg Josefina Monahan MD Work Phone: [facility] 03-26-2023 13:10-0400 Diastolic blood pressure 70 mm[Hg] Josefina Monahan MD Work Phone: [facility] 03-26-2023 13:10-0400 Systolic blood pressure 126 mm[Hg] Josefina Monahan MD Work Phone: [facility] 01-20-2023 15:30-0400 Body height 162.6 cm Pacc 1 Work Phone: [facility] 01-20-2023 15:30-0400 Body temperature 97.59 [degF] Pacc 1 Work Phone: [facility] 01-20-2023 15:30-0400 Body weight 65.77 kg Pacc 1 Work Phone: [facility] 01-20-2023 15:30-0400 Diastolic blood pressure 86 mm[Hg] Pacc 1 Work Phone: [facility] 01-20-2023 15:30-0400 Heart rate 74 /min Pacc 1 Work Phone: [facility] 01-20-2023 15:30-0400 Respiratory rate 14 /min Pacc 1 Work Phone: [facility] 01-20-2023 15:30-0400 SaO2% (BldA) [Mass fraction] 97 % Pacc 1 Work Phone: [facility] 01-20-2023 15:30-0400 Systolic blood pressure 144 mm[Hg] Pacc 1 Work Phone: [facility] 11-11-2022 07:46-0400 Body height 162.5 cm Debby Tannhof ACTIVITIES LEADER.[employer] Work Phone: [facility] 11-11-2022 07:46-0400 Body weight 64.59 kg Debby Tannhof ACTIVITIES LEADER.[employer] Work Phone: [facility] 11-11-2022 07:46-0400 Diastolic blood pressure 84 mm[Hg] Debby Tannhof ACTIVITIES LEADER.[employer] Work Phone: [facility] 11-11-2022 07:46-0400 Heart rate 78 /min Debby Tannhof ACTIVITIES LEADER.[employer] Work Phone: [facility] 11-11-2022 07:46-0400 Respiratory rate 16 /min Debby Tannhof ACTIVITIES LEADER.[employer] Work Phone: [facility] 11-11-2022 07:46-0400 SaO2% (BldA) [Mass fraction] 100 % Debby Tannhof ACTIVITIES LEADER.[employer] Work Phone: [facility] 11-11-2022 07:46-0400 Systolic blood pressure 132 mm[Hg] Debby Tannhof ACTIVITIES LEADER.[employer] Work Phone: [facility] 07-31-2022 17:05-0500 Body weight 64.86 kg Debby Tannhof ACTIVITIES LEADER.[employer] Work Phone: [facility] 07-31-2022 17:05-0500 Diastolic blood pressure 88 mm[Hg] Debby Tannhof ACTIVITIES LEADER.[employer] Work Phone: [facility] 07-31-2022 17:05-0500 Heart rate 76 /min Debby Tannhof ACTIVITIES LEADER.[employer] Work Phone: [facility] 07-31-2022 17:05-0500 Respiratory rate 16 /min Debby Tannhof ACTIVITIES LEADER.[employer] Work Phone: [facility] 07-31-2022 17:05-0500 SaO2% (BldA) [Mass fraction] 99 % Debby Tannhof ACTIVITIES LEADER.[employer] Work Phone: [facility] 07-31-2022 17:05-0500 Systolic blood pressure 140 mm[Hg] Debby Tannhof ACTIVITIES LEADER.[employer] Work Phone: [facility] 07-03-2022 17:01-0500 Body weight 66.68 kg Debby Mariscalhof ACTIVITIES LEADER.[employer] Work Phone: [facility] 07-03-2022 17:01-0500 Diastolic blood pressure 80 mm[Hg] Debby Tannhof ACTIVITIES LEADER.[employer] Work Phone: [facility] 07-03-2022 17:01-0500 Heart rate 80 /min Debby Tannhof ACTIVITIES LEADER.[employer] Work Phone: [facility] 07-03-2022 17:01-0500 Respiratory rate 16 /min Debby Tannhof ACTIVITIES LEADER[employer] Work Phone: [facility] 07-03-2022 17:01-0500 SaO2% (BldA) [Mass fraction] 97 % Debby Mariscalhof ACTIVITIES LEADER.[employer] Work Phone: [facility] 07-03-2022 17:01-0500 Systolic blood pressure 152 mm[Hg] Debby Tannhof ACTIVITIES LEADER.[employer] Work Phone: [facility] 04-29-2022 07:47-0500 Body weight 65.32 kg Salena Haagen ACTIVITIES LEADER.[employer] Work Phone: [facility] 04-29-2022 07:47-0500 Diastolic blood pressure 86 mm[Hg] Salena Haagen ACTIVITIES LEADER.[employer] Work Phone: [facility] 04-29-2022 07:47-0500 Heart rate 74 /min Salena Haagen ACTIVITIES LEADER.[employer] Work Phone: [facility] 04-29-2022 07:47-0500 Respiratory rate 16 /min Salena Haagen ACTIVITIES LEADER.[employer] Work Phone: [facility] 04-29-2022 07:47-0500 SaO2% (BldA) [Mass fraction] 99 % Salena Haagen ACTIVITIES LEADER.[employer] Work Phone: [facility] 04-29-2022 07:47-0500 Systolic blood pressure 140 mm[Hg] Salena Haagen ACTIVITIES LEADER.[employer] Work Phone: [facility] 02-04-2022 15:23-0400 Body height 162.6 cm Andrea Garnett MD Work Phone: [facility] 02-04-2022 15:23-0400 Body temperature 97.5 [degF] Andrea Garnett MD Work Phone: [facility] 02-04-2022 15:23-0400 Body weight 64.41 kg Andrea Garnett MD Work Phone: [facility] 02-04-2022 15:23-0400 Diastolic blood pressure 82 mm[Hg] Andrea Garnett MD Work Phone: [facility] 02-04-2022 15:23-0400 Heart rate 95 /min Andrea Garnett MD Work Phone: [facility] 02-04-2022 15:23-0400 SaO2% (BldA) [Mass fraction] 100 % Andrea Garnett MD Work Phone: [facility] 02-04-2022 15:23-0400 Systolic blood pressure 148 mm[Hg] Andrea Garnett MD Work Phone: [facility] 09-25-2021 15:13-0400 Body height 165 cm Salena Haagen ACTIVITIES LEADER.[employer] Work Phone: [facility] 09-25-2021 15:13-0400 Body weight 63.5 kg Salena Haagen ACTIVITIES LEADER.[employer] Work Phone: [facility] 09-25-2021 15:13-0400 Diastolic blood pressure 86 mm[Hg] Salena Haagen ACTIVITIES LEADER.[employer] Work Phone: [facility] 09-25-2021 15:13-0400 Heart rate 77 /min Salena Haagen ACTIVITIES LEADER.[employer] Work Phone: [facility] 09-25-2021 15:13-0400 Respiratory rate 18 /min Salena Haagen ACTIVITIES LEADER.[employer] Work Phone: [facility] 09-25-2021 15:13-0400 SaO2% (BldA) [Mass fraction] 98 % Salena Diaz APRN.[employer]ACH Work Phone: [facility] 09-25-2021 15:130400 Systolic blood pressure 138 mm[Hg] Salena Diaz APRN.[employer] Work Phone: [facility] 04-03-2016 11:54-0500 BMI (Body Mass Index) 24.56 kg/m2 [facility] Work Phone: 04-03-2016 11:54-0500 Height 154.94 cm [facility] Work Phone: 04-03-2016 11:54-0500 Weight 58.97 kg [facility] Work Phone: Encounters Encounter Date Encounter Type Care Provider Facility Start: 04-07-2025 ambulatory Vicente Lomas Facility :[facility] Start: 04-01-2025 ambulatory SALENA DIAZ Facility :[facility] Start: 02-01-2025 End: 02-01-2025 Patient encounter procedure Bia CUEVAS -[facility] Work Phone: Start: 02-01-2025 End: 02-01-[address] Olga Amato MD Work Phone: -[facility] Start: 01-16-2025 End: 01-17-2025 Refill Mateo Ochoa APRN.[employer] Work Phone: [facility] Comment on above: Refill Request Start: 11-24-2024 End: 01-24-2025 Follow-up encounter Salena Diaz APRN.[employer] Work Phone: [facility] Start: 11-23-2024 End: 11-23-2024 Patient encounter procedure Salena Diaz APRN.CNP Work Phone: [facility] Comment on above: Wellness examination (Primary Dx); Asymptomatic postmenopausal status; Age-related osteoporosis without current pathological fracture; History of Cabral's esophagus; Hypertension, essential; Hyperlipidemia, mixed Start: 11-23-2024 End: 11-23-2024 Patient encounter status Salena Diaz APRN.CNP Work Phone: [facility] Start: 11-23-2024 End: 11-23-2024 ambulatory [facility] Facility:[facility] Start: 11-23-2024 Encounter for genera l adult medical examination without abnormal findings SALENA DIAZ [facility] Start: 11-20-2024 End: 11-20-2024 ambulatory [facility] Facility:[facility] Start: 10-25-2024 End: 10-25-2024 Office outpatient visit 25 minutes Salena Diaz APRN.CNP Work Phone: [facility] [place] Comment on above: Hypertension, essent ial (Primary Dx); Acquired hypothyroidism; Hypercalcemia; Hyperlipidemia, mixed; Fatigue, unspecified type; Gastroesophageal reflux disease, unspecified whether esophagitis present Start: 10-25-2024 End: 10-25-2024 ambulatory [facility] Facility:[facility] Start: 10-20-2024 End: 10-20-2024 Patient encounter procedure Papa Us APRN.CNP Work Phone: [facility] Comment on above: Bilateral impacted c erumen (Primary Dx) Start: 10-20-2024 End: 10-20-2024 ambulatory OLGA AMATO Facility:[facility] Start: 08-05-2024 End: 08-05-2024 ambulatory KONSTANTIN SUERO Facility:[facility] Start: 08-05-2024 End: 08-05-2024 Admission to same day surgery center Konstantin Suero PA-C Work Phone: [facility] Comment on above: Adrenal adenoma, uns pecified laterality (Primary Dx) Start: 08-05-2024 End: 08-05-2024 Telemedicine consultation with patient Konstantin Suero PA-C Work Phone: [facility] Start: 08-03-2024 End: 08-03-2024 ambulatory Bia Flynn Facility:[facility] Start: 07-28-2024 End: 09-27-2024 Follow-up encounter Konstantin Suero VICENTE Work Phone: [facility] Start: 07-24-2024 End: 07-24-2024 ambulatory KONSTANTIN SUERO Facility:[facility] Start: 07-15-2024 End: 07-15-2024 Admission to same day surgery center Konstantin Suero VICENTE Work Phone: [facility] Comment on above: Adrenal adenoma, uns pecified laterality (Primary Dx); Congenital cystic disease of liver Start: 07-15-2024 End: 07-15-2024 Telemedicine consultation with patient Konstantin Suero VICENTE Work Phone: [facility] Start: 07-15-2024 End: 07-15-2024 ambulatory KONSTANTIN SUERO Facility:[facility] Start: 07-07-2024 End: 07-07-2024 ambulatory MARISA SPENCER Facility:[facility] Start: 07-07-2024 End: 07-07-2024 Subsequent hospital visit by physician [facility] (I-Stat) Work Phone: [facility] Comment on above: Adrenal adenoma, uns pecified laterality [D35.00] Start: 07-05-2024 End: 07-05-2024 Orders Only Marisa Spencer MD Work Phone: [facility] Comment on above: Adrenal adenoma, uns pecified laterality (Primary Dx); Congenital cystic disease of liver Start: 05-24-2024 End: 05-24-2024 Telephone encounter Marisa Spencer MD Work Phone: [facility] Comment on above: Appointment Start: 05-04-2024 End: 05-04-2024 ambulatory Bia Flynn Facility:[facility] Start: 03-16-2024 End: 03-16-2024 Subsequent hospital visit by physician [facility] Comment on above: Encounter for screen ing mammogram for breast cancer [Z12.31] Start: 01-27-2024 End: 01-27-2024 Refill Olga Amato MD Work Phone: [facility] [place] Comment on above: Refill Request Start: 12-04-2023 Telephone encounter Debby fajardoof ACTIVITIES LEADER.[employer] Work Phone: [facility] [place] Comment on above: Results (Labs ) Start: 11-26-2023 Telephone encounter Debby Kerr nhof ACTIVITIES LEADER.[employer] Work Phone: [facility] [place] Comment on above: Results (Labs ) Start: 11-12-2023 Telephone encounter Debby fajardoof ACTIVITIES LEADER.[employer] Work Phone: [facility] [place] Comment on above: need more informatio n on rx Start: 11-12-2023 End: 11-12-2023 Patient encounter procedure Debby Olivera APRN.[employer] Work Phone: [facility] [place] Comment on above: Wellness examination (Primary Dx); Benign neoplasm of adrenal cortex, unspecified laterality; Acquired hypothyroidism; Hyperlipidemia, mixed; Contact dermatitis due to other chemical product, unspecified contact dermatitis type; Bilateral impacted cerumen; Soft tissue swelling; Screening for diabetes mellitus Start: 11-12-2023 End: 11-12-2023 Patient encounter status Debby Olivera ACTIVITIES LEADER.[employer] Work Phone: [facility] Work Phone: Start: 07-01-2023 End: 07-01-2023 Office outpatient new 45 minutes Marisa Spencer MD Work Phone: [facility] Comment on above: Adrenal adenoma, uns pecified laterality (Primary Dx); Congenital cystic disease of liver Start: 05-02-2023 E-mail encounter fro m caregiver Camille Todd PA-C Work Phone: [facility] Start: 05-02-2023 Follow-up encounter Camille Todd PA-C Work Phone: [facility] [place] Comment on above: Liver cyst follow up Start: 03-26-2023 End: 03-26-2023 Patient encounter procedure Josefina Monahan MD Work Phone: OB/Gynecology Comment on above: Encounter for gyneco logical examination (general) (routine) without abnormal findings (Primary Dx); Encounter for screening mammogram for breast cancer Start: 03-26-2023 End: 03-26-2023 Patient encounter status Josefina Monahan MD Work Phone: [facility] Start: 03-17-2023 End: 03-17-2023 Patient encounter procedure Erich Michael MD Work Phone: Orthopaedics Comment on above: Lipoma of right fore arm (Primary Dx) Start: 02-19-2023 Telephone encounter Debby Kerr nhof ACTIVITIES LEADER.[employer] Work Phone: [facility] [place] Comment on above: Results (RUQ US) Start: 02-14-2023 End: 02-14-2023 Patient encounter procedure Anny Lloyd PA-C Work Phone: Orthopaedics Comment on above: Lipoma of right fore arm (Primary Dx) Start: 02-14-2023 End: 02-14-2023 Subsequent hospital visit by physician [facility] Work Phone: Radiology Comment on above: Hepatic cyst [K76.89 ] Start: 01-31-2023 End: 01-31-2023 ambulatory ERICH MICHAEL Facility[facility] Start: 01-20-2023 End: 01-20-2023 PAT [facility] [place] 1 Work Phone: Pre Anesthesia Comment on above: Pre-operative examin ation (Primary Dx); Adrenal nodule (HCC); Osteoporosis without current pathological fracture, unspecified osteoporosis type; Hyperlipidemia, mixed; Acquired hypothyroidism; Tobacco use disorder; Gastroesophageal reflux disease, unspecified whether esophagitis present Start: 01-20-2023 End: 01-20-2023 Preprocedural examination done [facility] [place] 1 Work Phone: [facility] Work Phone: Start: 01-13-2023 Documentation procedure Mammog vitor Coordinator [facility] Start: 01-13-2023 Letter encounter Mammography Coordinator [facility] Department Start: 01-10-2023 Telephone encounter Erich hobbs MD Work Phone: Orthopaedics Comment on above: Schedule Surgery Start: 01-10-2023 End: 01-10-2023 Subsequent hospital visit by physician Screen [facility]amm[facility] Comment on above: Encounter for screen ing mammogram for malignant neoplasm of breast [Z12.31] Start: 01-01-2023 Refill Mateo QUIÑONEZ RN.[employer] Work Phone: [facility] [place] Comment on above: Refill Request Start: 12-26-2022 End: 12-26-2022 Patient encounter procedure Erich Michael MD Work Phone: Orthopaedics Comment on above: Lipoma of right uppe r extremity (Primary Dx); Knee swelling Start: 11-18-2022 Telephone encounter Debby gonzalez ACTIVITIES LEADER.[employer] Work Phone: [facility] [place] Comment on above: Results (Labs ) Start: 11-11-2022 Telephone encounter Debby gonzalez ACTIVITIES LEADER.[employer] Work Phone: [facility] [place] Comment on above: Consult Start: 11-11-2022 End: 11-11-2022 Patient encounter procedure Debby Olivera APRN.[employer] Work Phone: [facility] [place] Comment on above: Wellness examination (Primary Dx); Acquired hypothyroidism; Benign neoplasm of adrenal cortex, unspecified laterality; Hepatic cyst; Hyperlipidemia, mixed; Screening for diabetes mellitus Start: 11-11-2022 End: 11-11-2022 Patient encounter status Debby Olivera APRN.[employer] Work Phone: [facility] [place] Start: 09-05-2022 End: 09-05-2022 ambulatory Jade Chandra MD Work Phone: Endocrinology Comment on above: Adrenal nodule (HCC) (Primary Dx) Start: 09-05-2022 End: 09-05-2022 Telemedicine consultation with patient Jade Chandra MD Work Phone: [facility] Start: 08-19-2022 Refill Debby Olivera APRN.[employer] Work Phone: [facility] [place] Comment on above: Refill Request Start: 08-01-2022 Telephone encounter Debby gonzalez ACTIVITIES LEADER.[employer] Work Phone: [facility] [place] Comment on above: Results (Dexamethaso ne suppression test) Start: 07-31-2022 End: 07-31-2022 Patient encounter procedure Debby Olivera APRN.[employer] Work Phone: [facility] [place] Comment on above: Adenoma of right adr enal gland (Primary Dx) Start: 07-24-2022 Telephone encounter Olga condon MD Work Phone: [facility] [place] Comment on above: results Start: 07-19-2022 End: 07-19-2022 [facility] Work Phone: Cat Scan Comment on above: Acquired cyst of kid dinah [N28.1] Start: 07-04-2022 Telephone encounter Debby gonzalez ACTIVITIES LEADER.[employer] Work Phone: [facility] [place] Comment on above: Results; Orders (Ult rasound Kidney ) Start: 07-04-2022 End: 07-04-2022 Subsequent hospital visit by physician Us [facility] Work Phone: Radiology Comment on above: Right flank pain [R1 0.9] Start: 07-03-2022 End: 07-03-2022 Patient encounter procedure Debby Olivera APRN.[employer] Work Phone: [facility] [place] Comment on above: Right flank pain (Pr imary Dx) Start: 04-29-2022 End: 04-29-2022 Subsequent hospital visit by physician Xr [facility] [place] Work Phone: Radiology Comment on above: Acute pain of right knee [M25.561] Start: 04-29-2022 End: 04-29-2022 Office outpatient visit 15 minutes Salena Diaz APRN.[employer] Work Phone: [facility] [place] Comment on above: Acute pain of right knee (Primary Dx) Start: 04-22-2022 End: 04-22-2022 Patient encounter procedure Erich Michael MD Work Phone: Orthopaedics Comment on above: Localized swelling, mass, or lump of right upper extremity (Primary Dx) Start: 03-28-2022 End: 03-28-2022 Subsequent hospital visit by physician [employer] [facility] (I-Stat/1.5t) Work Phone: Radiology Comment on above: Pain of right upper arm [M79.621] Start: 02-25-2022 End: 02-25-2022 Orders Only Erich Michael MD Work Phone: Orthopaedics Comment on above: Pain of right forear m (Primary Dx) Localized swelling, mass, or lump of right upper extremity (Primary Dx); Pain of right upper arm Pain of right forear m [M79.631] Start: 02-04-2022 End: 02-04-2022 Patient encounter procedure Andrea Garnett MD Work Phone: General Surgery Comment on above: Lesion of subcutaneo us tissue (Primary Dx); Pain of right upper arm Start: 01-23-2022 End: 01-23-2022 Subsequent hospital visit by physician Bone Density [facility] Work Phone: Radiology Comment on above: Asymptomatic postmen opausal status [Z78.0] Start: 09-27-2021 Refill Olga leone MD Work Phone: [facility] [place] Comment on above: Refill Request; Refi ll Request Start: 09-25-2021 End: 09-25-2021 Patient encounter procedure Salena Diaz APRN.[employer] Work Phone: [facility] [place] Comment on above: Wellness examination (Primary Dx); Acquired hypothyroidism; Hyperlipidemia, mixed; Vitamin D deficiency; Fatigue, unspecified type; Asymptomatic postmenopausal status Start: 09-25-2021 End: 09-25-2021 Patient encounter status Salena Diaz APRN.[employer] Work Phone: [facility] [place] Start: 09-18-2021 Telephone encounter Josefina Monahan MD Work Phone: OB/Gynecology Comment on above: Orders Procedures Date Procedure Procedure Detail Performing Clinician Start: 11-20-2024 Lipid 1995 panel - S jihan or Plasma Salena Diaz APRN.[employer] Work Phone: Start: 07-07-2024 Ct abdomen w/o & w/c ontrast material Marisa Spencer MD Work Phone: Start: 11-15-2023 Lipid 1995 panel - S jihan or Plasma Debby Olivera ACTIVITIES LEADER.[employer] Work Phone: Start: 11-12-2023 Adult depression scr eening assessment Olga Amato MD Work Phone: Start: 02-14-2023 Us abdominal real ti me w/image limited Debby Olivera ACTIVITIES LEADER.[employer] Work Phone: Start: 01-10-2023 End: 01-10-2023 Mammography Josefina eisenberg MD Work Phone: Start: 11-16-2022 Lipid 1995 panel - S jihan or Plasma Anny Lloyd PA-C Work Phone: Start: 07-19-2022 Ct abdomen w/o & w/c ontrast material Debby Olivera ACTIVITIES LEADER.[facility] Work Phone: Start: 07-04-2022 Us retroperitoneal r eal time w/image complete Debby Olivera ACTIVITIES LEADER.[facility] Work Phone: Start: 07-03-2022 Urnls dip stick/tabl et rgnt auto w/o microscopy Debby Olivera [employer]IVITIES LEADER.[employer] Work Phone: Start: 04-29-2022 Radiologic exam knee complete 4/more views Salena Diaz APRN.[employer] Work Phone: Start: 03-28-2022 Mri upper extremity oth than jt w/o contr matrl Erich Michael MD Work Phone: Start: 02-25-2022 Radex forearm 2 views B gwyn Michael MD Work Phone: Start: 01-23-2022 Dxa bone density eduardo dy 1/> sites axial skel Salena Haagen ACTIVITIES LEADER.[employer] Work Phone: Start: 11-01-2021 Mammography Bone Wstr Work Phone: Start: 09-25-2021 Adult depression scr eening assessment Salena Diaz ACTIVITIES LEADER.[employer] Work Phone: Start: 10-19-2020 Colonoscopy Salena rendon ACTIVITIES LEADER.[employer] Work Phone: Start: 09-07-2020 Mammography Salena rendon ACTIVITIES LEADER.[employer] Work Phone: Plan of Treatment Date Care Activity Detail Author Start: 2036 RSV Vaccine (1 - 1-dose 75+ series) RSV Vaccine (1 - 1-dose 75+ series) [facility] Start: 11-20-2029 Lipid panel Lipid Screening [facility] Start: 03-08-2029 Screening for malignant neoplasm of colon [facility] Start: 11-14-2028 Lipid panel Lipid Screening [facility] Start: 11-21-2027 Diabetes Screening Diabetes Screening [facility] Start: 11-17-2027 Lipid 1996 panel - Serum or Plasma Lipid Screening [facility] Start: 11-17-2027 Lipid panel Lipid Screening [facility] Start: 11-17-2027 LIPID SCREEN LIPID SCREEN [facility] Start: 07-25-2027 Diabetes Screening Diabetes Screening [facility] Start: 11-14-2026 Diabetes Screening Diabetes Screening [facility] Start: 09-25-2026 LIPID SCREEN LIPID SCREEN [facility] Start: 11-23-2025 Annual PCP Team Chronic Disease Visit Annual PCP Team Chronic Disease Visit [facility] Start: 11-23-2025 Anxiety Screening Anxiety Screening [facility] Comment on above: Postponed from 11/11/2024 (Declined at t his time) Start: 11-23-2025 Pneumococcal Vaccine: 50+ (2 of 2 - PCV) Pneumococcal Vaccine: 50+ (2 of 2 - PCV) [facility] Comment on above: Postponed from 11/29/2017 (Declined at t his time) Start: 11-23-2025 Shingrix Vaccine (1 of 2) Shingrix Vaccine (1 of 2) [facility] Comment on above: Postponed from 2011 (Declined at t his time) Start: 11-23-2025 Urine microalbumin profile DTaP,Tdap,Td Vaccine (2 - Td or Tdap) [facility] Comment on above: Postponed from 06/16/2019 (Declined at t his time) Start: 11-16-2025 DIABETES SCREEN DIABETES SCREEN [facility] Start: 11-16-2025 Diabetes Screening Diabetes Screening [facility] Start: 10-25-2025 Annual PCP Team Chronic Disease Visit Annual PCP Team Chronic Disease Visit [facility] Start: 10-19-2025 Colonoscopy COLONOSCOPY [facility] Start: 10-19-2025 COLORECTAL CANCER SCREENING COLORECTAL CANCER SCREENING [facility] Start: 10-19-2025 Screening for malignant neoplasm of colon [facility] Start: 09-11-2025 DIABETES SCREEN DIABETES SCREEN [facility] Start: 09-07-2025 HPV TESTING HPV TESTING [facility] Start: 09-07-2025 PAP TESTING PAP TESTING [facility] Start: 09-07-2025 Screening for malignant neoplasm of cervix [facility] Start: 08-29-2025 LIPID SCREEN LIPID SCREEN [facility] Start: 08-05-2025 End: 11-04-2025 ALDOSTERONE/DIRECT RENIN RATIO ALDOSTERONE/DIRECT RENIN RATIO Lab Routine Adrenal adenoma, unspecified laterality Expected: 08/05/2025, Expires: 11/04/2025 [facility] Comment on above: Expected: 08/05/2025, Expires: Start: 08-05-2025 End: 11-04-2025 Basic metabolic 2000 panel - Serum or Plasma BASIC METABOLIC PANEL Lab Routine Adrenal adenoma, unspecified laterality Expected: 08/05/2025, Expires: 11/04/2025 [facility] Work Phone: Comment on above: Expected: 08/05/2025, Expires: Start: 08-05-2025 End: 11-04-2025 Cortisol [Mass/volume] in Serum or Plasma CORTISOL, SERUM Lab Routine Adrenal adenoma, unspecified laterality Expected: 08/05/2025, Expires: 11/04/2025 [facility] Comment on above: Expected: 08/05/2025, Expires: Start: 08-05-2025 End: 11-04-2025 METANEPHRINES, FREE PLASMA METANEPHRINES, FREE PLASMA Lab Routine Adrenal adenoma, unspecified laterality Expected: 08/05/2025, Expires: 11/04/2025 [facility] Comment on above: Expected: 08/05/2025, Expires: Start: 05-30-2025 End: 05-30-2025 Patient encounter procedure 05/30/2025 3:20 PM EST Office Visit [facility] [place] [place] [address] Salena Diaz APRN.[employer] [address] [place] [address] bp check in 6m [facility] Comment on above: bp check in 6m Start: 05-26-2025 End: 08-25-2025 Comprehensive metabolic 2000 panel - Serum or Plasma COMPREHENSIVE METABOLIC PANEL Lab Routine Hyperlipidemia, mixed Expected: 05/26/2025, Expires: 08/25/2025 [facility] Comment on above: Expected: 05/26/2025, Expires: Start: 05-26-2025 End: 08-25-2025 Lipid 1996 panel - Serum or Plasma LIPID PANEL, FASTING Lab Routine Hyperlipidemia, mixed Expected: 05/26/2025, Expires: 08/25/2025 [facility] Comment on above: Expected: 05/26/2025, Expires: Start: 04-01-2025 End: 04-01-2025 Patient encounter procedure 04/01/2025 3:25 PM EST Appointment Radiology [address] [place] [id number] Asymptomatic postmenopausal status [Z78.0]; Age-related osteoporosis without current pathological fracture [M81.0] Radiology Comment on above: Asymptomatic postmenopausal status [Z78. 0]; Age-related osteoporosis without current pathological fracture [M81.0] Start: 03-16-2025 Screening for malignant neoplasm of breast Mammogram Screening [facility] Start: 02-25-2025 End: 02-25-2025 Patient encounter procedure 02/25/2025 3:25 PM EDT Appointment Radiology [address] [place] [id number] Asymptomatic postmenopausal status [Z78.0]; Age-related osteoporosis without current pathological fracture [M81.0] Radiology Comment on above: Asymptomatic postmenopausal status [Z78. 0]; Age-related osteoporosis without current pathological fracture [M81.0] Start: 01-24-2025 Influenza vaccination [facility] Start: 11-23-2024 End: 11-23-2024 Patient encounter procedure 11/23/2024 3:40 PM EDT Office Visit [facility] [place] [address] [place], [place] [phone] Salena Diaz APRN.[employer] [address] [place] [address] 1 month follow up/ANNUAL [facility] [place] Comment on above: 1 month follow up/ANNUAL Start: 11-23-2024 Depression Screening Depression Screening [facility] Comment on above: Postponed from 11/11/2024 (Declined at t his time) Start: 11-11-2024 Annual PCP Team Chronic Disease Visit Annual PCP Team Chronic Disease Visit [facility] Start: 11-11-2024 Anxiety Screening Anxiety Screening [facility] Start: 11-11-2024 Depression Screening Depression Screening [facility] Start: 10-25-2024 End: 01-24-2025 25-hydroxyvitamin D3 [Mass/volume] in Serum or Plasma VITAMIN D 25 HYDROXY Lab Routine Fatigue, unspecified type Expected: 10/25/2024, Expires: 01/24/2025 [facility] Comment on above: Expected: 10/25/2024, Expires: Start: 10-25-2024 End: 01-24-2025 CBC W Auto Differential panel - Blood COMPLETE BLOOD COUNT AND DIFFERENTIAL Lab Routine Fatigue, unspecified type Expected: 10/25/2024, Expires: 01/24/2025 [facility] Comment on above: Expected: 10/25/2024, Expires: Start: 10-25-2024 End: 01-24-2025 Cobalamin (Vitamin B12) [Mass/volume] in Serum or Plasma VITAMIN B12 Lab Routine Fatigue, unspecified type Expected: 10/25/2024, Expires: 01/24/2025 [facility] Comment on above: Expected: 10/25/2024, Expires: Start: 10-25-2024 End: 01-24-2025 Comprehensive metabolic 2000 panel - Serum or Plasma COMPREHENSIVE METABOLIC PANEL Lab Routine Hypertension, essential Fatigue, unspecified type Expected: 10/25/2024, Expires: 01/24/2025 [facility] Comment on above: Expected: 10/25/2024, Expires: Start: 10-25-2024 End: 01-24-2025 Ferritin [Mass/volume] in Serum or Plasma FERRITIN Lab Routine Fatigue, unspecified type Expected: 10/25/2024, Expires: 01/24/2025 [facility] Comment on above: Expected: 10/25/2024, Expires: Start: 10-25-2024 End: 01-24-2025 Iron and Iron binding capacity panel - Serum or Plasma IRON AND TIBC Lab Routine Fatigue, unspecified type Expected: 10/25/2024, Expires: 01/24/2025 [facility] Comment on above: Expected: 10/25/2024, Expires: Start: 10-25-2024 End: 01-24-2025 Lipid 1996 panel - Serum or Plasma LIPID PANEL, FASTING Lab Routine Hyperlipidemia, mixed Expected: 10/25/2024, Expires: 01/24/2025 [facility] Work Phone: Comment on above: Expected: 10/25/2024, Expires: Start: 10-25-2024 End: 01-24-2025 Magnesium [Mass/volume] in Serum or Plasma MAGNESIUM Lab Routine Gastroesophageal reflux disease, unspecified whether esophagitis present Expected: 10/25/2024, Expires: 01/24/2025 [facility] Comment on above: Expected: 10/25/2024, Expires: Start: 10-25-2024 End: 01-24-2025 Thyrotropin [Units/volume] in Serum or Plasma THYROID STIMULATING HORMONE Lab Routine Acquired hypothyroidism Fatigue, unspecified type Expected: 10/25/2024, Expires: 01/24/2025 [facility] Comment on above: Expected: 10/25/2024, Expires: Start: 10-25-2024 End: 01-24-2025 Thyroxine (T4) free [Mass/volume] in Serum or Plasma T4 FREE/FREE THYROXINE Lab Routine Acquired hypothyroidism Fatigue, unspecified type Expected: 10/25/2024, Expires: 01/24/2025 [facility] Comment on above: Expected: 10/25/2024, Expires: Start: 10-25-2024 End: 10-25-2024 Patient encounter procedure 10/25/2024 8:00 AM EDT Office Visit [facility] [place] [address] [facility], [place] [id number] Salena Diaz APRN.[employer] [address] [facility], [place] [phone] Urgent care follow up for BP (10/20/2024) [facility] [place] Comment on above: Urgent care follow up for BP (10/20/2024 ) Start: 09-25-2024 DIABETES SCREEN DIABETES SCREEN [facility] Start: 08-12-2024 End: 11-11-2024 ALDOSTERONE/DIRECT RENIN RATIO ALDOSTERONE/DIRECT RENIN RATIO Lab Routine Adrenal adenoma, unspecified laterality Expected: 08/12/2024, Expires: 11/11/2024 [facility] Comment on above: Expected: 08/12/2024, Expires: Start: 08-12-2024 End: 11-11-2024 Basic metabolic 2000 panel - Serum or Plasma BASIC METABOLIC PANEL Lab Routine Adrenal adenoma, unspecified laterality Expected: 08/12/2024, Expires: 11/11/2024 [facility] Work Phone: Comment on above: Expected: 08/12/2024, Expires: Start: 08-12-2024 End: 11-11-2024 Cortisol [Mass/volume] in Serum or Plasma CORTISOL, SERUM Lab Routine Adrenal adenoma, unspecified laterality Expected: 08/12/2024, Expires: 11/11/2024 [facility] Comment on above: Expected: 08/12/2024, Expires: Start: 08-12-2024 End: 11-11-2024 METANEPHRINES, FREE PLASMA METANEPHRINES, FREE PLASMA Lab Routine Adrenal adenoma, unspecified laterality Expected: 08/12/2024, Expires: 11/11/2024 [facility] Comment on above: Expected: 08/12/2024, Expires: Start: 07-15-2024 End: 07-15-2024 Admission to same day surgery center 07/15/2024 3:30 PM EST [facility] [address] [phone] Konstantin Suero PA-C [address] [place], [place] [phone] (Fax) f/u ct (07/07) [facility] Comment on above: f/u ct (07/07) Start: 07-08-2024 End: 07-08-2024 Admission to same day surgery [place] 07/08/2024 3:00 PM EST [facility] [address] [phone] Konstantin Suero PA-C [address] [place], [place] [phone] f/u ct (06/29) [facility] Comment on above: f/u ct (06/29) Start: 07-07-2024 End: 07-07-2024 Patient encounter procedure 07/07/2024 10:40 AM EST Appointment Cat Scan [address] [place] [address] Adrenal adenoma, unspecified laterality [D35.00] Cat Scan Comment on above: Adrenal adenoma, unspecified laterality [D35.00] Start: 07-05-2024 End: 10-04-2024 CREATININE BLD [facility] Work Phone: Comment on above: Expected: 07/05/2024, Expires: Start: 06-29-2024 End: 06-29-2024 Patient encounter procedure 06/29/2024 10:20 AM EST Appointment Cat Scan [address] [place] [address] Adrenal adenoma, unspecified laterality [D35.00] Cat Scan Comment on above: Adrenal adenoma, unspecified laterality [D35.00] Start: 04-28-2024 End: 04-28-2024 Patient encounter procedure 04/28/2024 1:20 PM EST Office Visit OB/Gynecology [address] [place] [address] Josefina Fernandez MD [address] [place] [address] Annual Exam OB/Gynecology Comment on above: Annual Exam Start: 03-31-2024 End: 03-31-2024 Patient encounter procedure 03/31/2024 1:20 PM EST Office Visit OB/Gynecology [address] [place] [address] Josefina Fernandez MD [address] [place] [address] Annual Exam OB/Gynecology Comment on above: Annual Exam Start: 03-16-2024 End: 03-16-2024 Patient encounter procedure 03/16/2024 3:40 PM EDT Appointment Mammogram [address] [place] [address] Mammogram Start: 02-23-2024 End: 02-23-2024 Patient encounter procedure 02/23/2024 8:10 AM EDT Appointment Mammogram [address] [place] [address] Mammogram Start: 01-25-2024 Covid-19 Vaccine ( season) Covid-19 Vaccine () [facility] Start: 01-25-2024 Covid-19 Vaccine ( season) Covid-19 Vaccine ( season) [facility] Start: 01-25-2024 Influenza vaccination [facility] Start: 01-11-2024 Mammography [facility] Start: 01-11-2024 Screening for malignant neoplasm of breast Mammogram Screening [facility] Start: 11-26-2023 End: 02-25-2024 25-hydroxyvitamin D3 [Mass/volume] in Serum or Plasma VITAMIN D 25 HYDROXY Lab Routine Hypercalcemia Expected: 11/26/2023, Expires: 02/25/2024 [facility] Comment on above: Expected: 11/26/2023, Expires: Start: 11-26-2023 End: 02-25-2024 Calcium.ionized [Moles/volume] in Blood CALCIUM, IONIZED Lab Routine Hypercalcemia Expected: 11/26/2023, Expires: 02/25/2024 [facility] Work Phone: Comment on above: Expected: 11/26/2023, Expires: Start: 11-26-2023 End: 02-25-2024 Parathyrin.intact [Mass/volume] in Serum or Plasma PTH INTACT Lab Routine Hypercalcemia Expected: 11/26/2023, Expires: 02/25/2024 [facility] Comment on above: Expected: 11/26/2023, Expires: Start: 11-12-2023 ANNUAL PCP TEAM CHRONIC DISEASE VISIT ANNUAL PCP TEAM CHRONIC DISEASE VISIT [facility] Start: 11-12-2023 End: 02-11-2024 Comprehensive metabolic 2000 panel - Serum or Plasma COMPREHENSIVE METABOLIC PANEL Lab Routine Hyperlipidemia, mixed Expected: 11/12/2023, Expires: 02/11/2024 [facility] Work Phone: Comment on above: Expected: 11/12/2023, Expires: Start: 11-12-2023 COVID-19 VACCINE (#1) COVID-19 VACCINE (#1) [facility] Comment on above: Postponed from 1961 (Declined at t his time) Start: 11-12-2023 End: 02-11-2024 Hemoglobin A1c in Blood HEMOGLOBIN A1C Lab Routine Screening for diabetes mellitus Expected: 11/12/2023, Expires: 02/11/2024 [facility] Comment on above: Expected: 11/12/2023, Expires: Start: 11-12-2023 HIV SCREENING HIV SCREENING [facility] Comment on above: Postponed from 1979 (Declined at t his time) Start: 11-12-2023 HIV screening HIV Screening [facility] Comment on above: Postponed from 1979 (Declined at t his time) Start: 11-12-2023 End: 02-11-2024 Lipid 1996 panel - Serum or Plasma LIPID PANEL BASIC Lab Routine Hyperlipidemia, mixed Expected: 11/12/2023, Expires: 02/11/2024 [facility] Comment on above: Expected: 11/12/2023, Expires: Start: 11-12-2023 PNEUMOCOCCAL (2 - PCV) PNEUMOCOCCAL (2 - PCV) [facility] Comment on above: Postponed from 11/29/2017 (Declined at t his time) Start: 11-12-2023 Pneumococcal vaccination [facility] Comment on above: Postponed from 11/29/2017 (Declined at t his time) Start: 11-12-2023 SHINGRIX VACCINE (1 of 2) SHINGRIX VACCINE (1 of 2) [facility] Comment on above: Postponed from 2011 (Declined at t his time) Start: 11-12-2023 End: 02-11-2024 THYROGLOBULIN ANTIBODY THYROGLOBULIN ANTIBODY Lab Routine Acquired hypothyroidism Expected: 11/12/2023, Expires: 02/11/2024 [facility] Comment on above: Expected: 11/12/2023, Expires: Start: 11-12-2023 End: 02-11-2024 THYROID PEROXIDASE ANTIBODY THYROID PEROXIDASE ANTIBODY Lab Routine Acquired hypothyroidism Expected: 11/12/2023, Expires: 02/11/2024 [facility] Comment on above: Expected: 11/12/2023, Expires: Start: 11-12-2023 End: 02-11-2024 Thyrotropin [Units/volume] in Serum or Plasma THYROID STIMULATING HORMONE Lab Routine Acquired hypothyroidism Expected: 11/12/2023, Expires: 02/11/2024 [facility] Comment on above: Expected: 11/12/2023, Expires: Start: 11-12-2023 End: 02-11-2024 Thyroxine (T4) free [Mass/volume] in Serum or Plasma T4 FREE/FREE THYROXINE Lab Routine Acquired hypothyroidism Expected: 11/12/2023, Expires: 02/11/2024 [facility] Comment on above: Expected: 11/12/2023, Expires: 4 Start: 11-12-2023 End: 02-11-2024 Triiodothyronine (T3) [Mass/volume] in Serum or Plasma T3 Lab Routine Acquired hypothyroidism Expected: 11/12/2023, Expires: 02/11/2024 [facility] Comment on above: Expected: 11/12/2023, Expires: 4 Start: 11-12-2023 Urine microalbumin profile [facility] Comment on above: Postponed from 06/16/2019 (Declined at t his time) Start: 08-30-2023 DIABETES SCREEN DIABETES SCREEN [facility] Start: 08-01-2023 ANNUAL PCP TEAM CHRONIC DISEASE VISIT ANNUAL PCP TEAM CHRONIC DISEASE VISIT [facility] Start: 07-03-2023 ANNUAL PCP TEAM CHRONIC DISEASE VISIT ANNUAL PCP TEAM CHRONIC DISEASE VISIT [facility] Start: 07-01-2023 End: 09-30-2023 CREATININE BLD CREATININE BLD Lab Routine Adrenal adenoma, unspecified laterality Expected: 07/01/2023, Expires: 09/30/2023 [facility] Work Phone: Comment on above: Expected: 07/01/2023, Expires: 4 Start: 05-26-2023 Depression Assessment Depression Assessment [facility] Start: 04-29-2023 ANNUAL PCP TEAM CHRONIC DISEASE VISIT ANNUAL PCP TEAM CHRONIC DISEASE VISIT [facility] Start: 01-24-2023 Covid-19 Vaccine ( season) Covid-19 Vaccine () [facility] Start: 01-24-2023 Influenza vaccination [facility] Start: 01-24-2023 End: 08-23-2023 Us abdominal real time w/image limited US ABD RT UPPER QUADRANT Radiology Routine Hepatic cyst Expected: 01/24/2023, Expires: 08/23/2023 [facility] Work Phone: Comment on above: Expected: 01/24/2023, Expires: 4 Start: 11-22-2022 Influenza vaccination INFLUENZA (#1) [facility] Comment on above: Postponed from 01/24/2022 (Declined at t his time) Start: 11-11-2022 End: 01-11-2023 CBC W Auto Differential panel - Blood CBC + DIFF Lab Routine Wellness examination Expected: 11/11/2022, Expires: 01/11/2023 [facility] Work Phone: Comment on above: Expected: 11/11/2022, Expires: 3 Start: 11-11-2022 End: 01-11-2023 Comprehensive metabolic 2000 panel - Serum or Plasma COMP METABOLIC PANEL Lab Routine Wellness examination Expected: 11/11/2022, Expires: 01/11/2023 [facility] Work Phone: Comment on above: Expected: 11/11/2022, Expires: 3 Start: 11-11-2022 End: 01-11-2023 Hemoglobin A1c in Blood HGB A1C Lab Routine Screening for diabetes mellitus Expected: 11/11/2022, Expires: 01/11/2023 [facility] Work Phone: Comment on above: Expected: 11/11/2022, Expires: 3 Start: 11-11-2022 End: 01-11-2023 Lipid 1996 panel - Serum or Plasma LIPID PANEL BASIC Lab Routine Hyperlipidemia, mixed Expected: 11/11/2022, Expires: 01/11/2023 [facility] Work Phone: Comment on above: Expected: 11/11/2022, Expires: 3 Start: 11-11-2022 End: 01-11-2023 Thyrotropin [Units/volume] in Serum or Plasma TSH BLD Lab Routine Acquired hypothyroidism Expected: 11/11/2022, Expires: 01/11/2023 [facility] Work Phone: Comment on above: Expected: 11/11/2022, Expires: 3 Start: 11-11-2022 End: 01-11-2023 Thyroxine (T4) free [Mass/volume] in Serum or Plasma T4 FREE/FREE THYROX Lab Routine Acquired hypothyroidism Expected: 11/11/2022, Expires: 01/11/2023 [facility] Work Phone: Comment on above: Expected: 11/11/2022, Expires: 3 Start: 11-01-2022 Mammography MAMMOGRAM [facility] Start: 09-25-2022 Adult depression screening assessment DEPRESSION SCREENING [facility] Start: 09-25-2022 ANNUAL PCP TEAM CHRONIC DISEASE VISIT ANNUAL PCP TEAM CHRONIC DISEASE VISIT [facility] Start: 09-25-2022 COVID-19 VACCINE (#1) COVID-19 VACCINE (#1) [facility] Comment on above: Postponed from 1966 (Declined at t his time) Postponed from 12/02 (Declined at this time) Start: 09-25-2022 COVID-19 VACCINE (1) COVID-19 VACCINE (1) [facility] Comment on above: Postponed from 1966 (Declined at t his time) Start: 09-25-2022 HIV SCREENING HIV SCREENING [facility] Comment on above: Postponed from 1979 (Declined at t his time) Start: 09-05-2022 End: 11-05-2022 Aldosterone [Mass/volume] in Serum or Plasma ALDOSTERONE BLD Lab Routine Adrenal nodule (HCC) Expected: 09/05/2022, Expires: 11/05/2022 [facility] Work Phone: Comment on above: Expected: 09/05/2022, Expires: 3 Start: 09-05-2022 End: 11-05-2022 Basic metabolic 2000 panel - Serum or Plasma BASIC METABOLIC PNL Lab Routine Adrenal nodule (HCC) Expected: 09/05/2022, Expires: 11/05/2022 [facility] Work Phone: Comment on above: Expected: 09/05/2022, Expires: 3 Start: 09-05-2022 End: 11-05-2022 Corticotropin [Mass/volume] in Plasma ACTH BLD Lab Routine Adrenal nodule (HCC) Expected: 09/05/2022, Expires: 11/05/2022 [facility] Work Phone: Comment on above: Expected: 09/05/2022, Expires: 3 Start: 09-05-2022 End: 11-05-2022 Cortisol [Mass/volume] in Serum or Plasma CORTISOL BLD Lab Routine Adrenal nodule (HCC) Expected: 09/05/2022, Expires: 11/05/2022 [facility] Work Phone: Comment on above: Expected: 09/05/2022, Expires: 3 Start: 09-05-2022 End: 11-05-2022 DHEA-S BLD DHEA-S BLD Lab Routine Adrenal nodule (HCC) Expected: 09/05/2022, Expires: 11/05/2022 [facility] Work Phone: Comment on above: Expected: 09/05/2022, Expires: 3 Start: 09-05-2022 End: 11-05-2022 DIRECT RENIN PLASMA DIRECT RENIN PLASMA Lab Routine Adrenal nodule (HCC) Expected: 09/05/2022, Expires: 11/05/2022 [facility] Work Phone: Comment on above: Expected: 09/05/2022, Expires: 3 Start: 07-24-2022 End: 09-23-2022 Cortisol [Mass/volume] in Serum or Plasma CORTISOL BLD Lab Routine Adrenal adenoma, unspecified laterality Expected: 07/24/2022, Expires: 09/23/2022 [facility] Work Phone: Comment on above: Expected: 07/24/2022, Expires: 3 Start: 07-24-2022 End: 09-23-2022 DEXAMETHASONE DEXAMETHASONE Lab Routine Adrenal adenoma, unspecified laterality Expected: 07/24/2022, Expires: 09/23/2022 [facility] Work Phone: Comment on above: Expected: 07/24/2022, Expires: 3 Start: 07-04-2022 End: 09-03-2022 CREATININE BLD [facility] Work Phone: Comment on above: Expected: 07/04/2022, Expires: 3 Start: 05-26-2022 DEPRESSION ASSESSMENT DEPRESSION ASSESSMENT [facility] Start: 01-24-2022 Influenza vaccination [facility] Start: 09-25-2021 End: 11-25-2021 CBC W Auto Differential panel - Blood [facility] Work Phone: Comment on above: Expected: 09/25/2021, Expires: 2 Start: 09-25-2021 End: 11-25-2021 Comprehensive metabolic 2000 panel - Serum or Plasma [facility] Work Phone: Comment on above: Expected: 09/25/2021, Expires: 2 Start: 09-25-2021 End: 11-25-2021 LIPID PANEL, NONFASTING [facility] Work Phone: Comment on above: Expected: 09/25/2021, Expires: 2 Start: 09-25-2021 End: 11-25-2021 T4 FREE/FREE THYROX [facility] Work Phone: Comment on above: Expected: 09/25/2021, Expires: 2 Start: 09-25-2021 End: 11-25-2021 Thyrotropin [Units/volume] in Serum or Plasma [facility] Work Phone: Comment on above: Expected: 09/25/2021, Expires: 2 Start: 09-25-2021 End: 11-25-2021 VITAMIN D 25 HYDROXY [facility] Work Phone: Comment on above: Expected: 09/25/2021, Expires: 2 Start: 09-07-2021 Mammography MAMMOGRAM [facility] Start: 2021 RSV Vaccine (1 - 1-dose 60+ series) RSV Vaccine (1 - 1-dose 60+ series) [facility] Start: 05-26-2021 DEPRESSION ASSESSMENT DEPRESSION ASSESSMENT [facility] Start: 06-16-2019 Urine microalbumin profile [facility] Start: 11-29-2017 PNEUMOCOCCAL (2 - PCV) PNEUMOCOCCAL (2 - PCV) [facility] Start: 11-29-2017 Pneumococcal vaccination Pneumococcal Vaccine (2 of 2 - PCV) [facility] Start: 11-29-2017 Pneumococcal Vaccine: 50+ (2 of 2 - PCV) Pneumococcal Vaccine: 50+ (2 of 2 - PCV) [facility] Start: 06-10-2016 End: 06-10-2016 X-ray exam, knee, 4 or more X-Ray, Knee [facility] Work Phone: Start: 05-22-2016 End: 05-22-2016 X-ray exam, knee, 4 or more X-Ray, Knee [facility] Work Phone: Start: 2011 SHINGRIX VACCINE (1 of 2) SHINGRIX VACCINE (1 of 2) [facility] Start: 2006 COLOGUARD (FIT-DNA) COLOGUARD (FIT-DNA) [facility] Start: [address] COLONOGRAPHY [facility] Start: 2006 FECAL OCCULT BLOOD FECAL OCCULT BLOOD [facility] Start: 2006 Screening for malignant neoplasm of colon [facility] Start: 2006 SIGMOIDOSCOPY SIGMOIDOSCOPY [facility] Start: 1979 HIV screening HIV Screening [facility] Bacteria identified in Urine by Culture URINE CULTURE Microbiology Routine Right flank pain 07/03/2022 5:22 PM EST [facility] Work Phone: End: 12-23-2025 BD DXA TRABECULAR BONE SCORE (TBS) BD DXA TRABECULAR BONE SCORE (TBS) Radiology Routine Asymptomatic postmenopausal status Age-related osteoporosis without current pathological fracture 1 Occurrences starting 11/23/2024 until 12/23/2025 [facility] Comment on above: 1 Occurrences starting 11/23/2024 until 12/23/2025 End: 08-03-2023 Ct abdomen w/o & w/contrast material CT KIDNEY WO/W IVCON Radiology Routine Acquired cyst of kidney 1 Occurrences starting 07/04/2022 until 08/03/2023 [facility] Work Phone: Comment on above: 1 Occurrences starting 07/04/2022 until 08/03/2023 End: 07-29-2024 CT Adrenal gland WO and W contrast IV CT ADRENAL WO/W IVCON Radiology Routine Adrenal adenoma, unspecified laterality 1 Occurrences starting 07/01/2023 until 07/29/2024 [facility] Work Phone: Comment on above: 1 Occurrences starting 07/01/2023 until 07/29/2024 DBT Breast - bilater al screening STEFAN SCREENING W DALE Radiology Routine Encounter for screening mammogram for breast cancer 03/16/2024 3:36 PM EDT [facility] Work Phone: End: 10-25-2022 Dxa bone density study 1/> sites axial skel DXA-AXIAL SKELETON Radiology Routine Asymptomatic postmenopausal status 1 Occurrences starting 09/25/2021 until 10/25/2022 [facility] Work Phone: Comment on above: 1 Occurrences starting 09/25/2021 until 10/25/2022 End: 12-23-2025 DXA Skeletal system.axial Views for bone density DXA-AXIAL SKELETON Radiology Routine Asymptomatic postmenopausal status Age-related osteoporosis without current pathological fracture 1 Occurrences starting 11/23/2024 until 12/23/2025 [facility] Work Phone: Comment on above: 1 Occurrences starting 11/23/2024 until 12/23/2025 End: 10-18-2022 STEFAN SCREENING W DALE STEFAN SCREENING W DALE Radiology Routine Encounter for screening mammogram for malignant neoplasm of breast 1 Occurrences starting 09/18/2021 until 10/18/2022 [facility] Work Phone: Comment on above: 1 Occurrences starting 09/18/2021 until 10/18/2022 End: 04-24-2024 STEFAN SCREENING W DALE STEFAN SCREENING W DALE Radiology Routine Encounter for screening mammogram for breast cancer 1 Occurrences starting 03/26/2023 until 04/24/2024 [facility] Work Phone: Comment on above: 1 Occurrences starting 03/26/2023 until 04/24/2024 Mri upper extremity oth than jt w/o contr matrl MRI LOWER ARM WO IVCON RT Radiology Routine Pain of right upper arm Localized swelling, mass, or lump of right upper extremity Ordered: 02/25/2022 [facility] Work Phone: Comment on above: Ordered: 02/25/2022 Patient Education KNEE%20PAIN [facility] Work Phone: Urinalysis complete panel - Urine URINALYSIS, WITH MICROSCOPIC Lab Routine Right flank pain 07/03/2022 5:22 PM EST [facility] Work Phone: End: 08-02-2023 US KIDNEY/BLADDER US KIDNEY/BLADDER Radiology STAT Right flank pain 1 Occurrences starting 07/03/2022 until 08/02/2023 [facility] Work Phone: Comment on above: 1 Occurrences starting 07/03/2022 until 08/02/2023 End: 05-29-2023 XR KNEE GENERAL 4V AP BOTH/PA BOTH/LAT/MERC RIGHT XR KNEE GENERAL 4V AP BOTH/PA BOTH/LAT/MERC RIGHT Radiology Routine Acute pain of right knee 1 Occurrences starting 04/29/2022 until 05/29/2023 [facility] Work Phone: Comment on above: 1 Occurrences starting 04/29/2022 until 05/29/2023 XR KNEE GENERAL 4V A P BOTH/PA BOTH/LAT/MERC RIGHT XR KNEE GENERAL 4V AP BOTH/PA BOTH/LAT/MERC RIGHT Radiology Routine Acute pain of right knee 04/29/2022 8:26 AM EST [facility] Work Phone: [facility] Immunizations Immunization Date Immunization Notes Care Provider Aries alvarado 07-21-2017 influenza virus vacc ine, unspecified formulation Anny Lloyd PA-C Work Phone: [facility] 11-29-2016 pneumococcal polysaccharide vaccine, 23 valent Salena Diaz [employer] Work Phone: [facility] 06-16-2009 tetanus toxoid, redu allen diphtheria toxoid, and acellular pertussis vaccine, adsorbed Salena Diaz [employer] Work Phone: [facility] Payers Date Payer Category Payer Self-pay 2019 [employer] BLUE CARD PPO OOS [id number] 2019 Unknown ANTHEM BLUE CARD PPO OOS [id number] 2019-Present [phone] [place] [address] PPO [id number] 2019 Unknown [employer]M BLUE CARD PPO OOS [id number] 2019-Present [phone] [place] [address] PPO [id number] 2019 Unknown [id number] Unknown [id number] Unknown [id number] Unknown [id number] Unknown [id number] Social History Date Type Detail Facility Start: 12-08-2017 End: 03-05-2024 Tobacco smoking status NJIS Smokes tobacco daily [facility] History of tobacco use Cigarette Smoker [facility] Work Phone: Start: 09-25-2021 End: 11-23-2024 Alcohol intake Lifetime non-drinker (finding) [facility] Start: 10-19-2020 History SDOH Alcohol Frequency 1 [facility] Start: 1960 Sex Assigned At Not on file [facility] Start: 09-08-2021 End: 04-29-2022 Exposure to SARS-CoV-2 (event) Not sure [facility] Work Phone: Start: 12-08-2017 End: 11-11-2022 Cigarettes smoked current (pack per day) - Reported 0.5 [facility] Start: 12-08-2017 End: 10-20-2024 Tobacco use and exposure Smokeless tobacco non-user [facility] Start: 11-11-2022 End: 12-26-2022 Tobacco use panel [facility] Start: 04-26-2012 Adult Depression Screening Assessment 0 [facility] Has the [employer], or [employer] threatened to shut off services in your home in past 12Mo No [facility] Are you now , , , , never or living with a partner? [facility] How often to you hav e a drink containing alcohol? Never [facility] Do you feel stress - tense, restless, nervous, or anxious, or unable to sleep at night because your mind is troubled all the time - these days [OSQ] To some extent [facility] (I/We) worried wheth er (my/our) food would run out before (I/we) got money to buy more. Never true [facility] Do you feel stress - tense, restless, nervous, or anxious, or unable to sleep at night because your mind is troubled all the time - these days [OSQ] Only a little [facility] Start: 12-14-2019 Tobacco Use Tobacco Use [facility] Start: 1960 Sex Assigned At Female W [facility] Medical Equipment Procedure Code Equipment Code Equipment Origin al Text Equipment Identifier Dates STENT,URETERAL 6 FR PIG [id number] FDA Start: 12-15-2019 Functional Status Date Assessment Result Facility 11-07-2014 Are you deaf, or do you have serious difficulty hearing No 11/07/2014 2:58 PM EDT Mecca Rae No [facility] 11-07-2014 Are you blind, or do you have serious difficulty seeing, even when wearing glasses No 11/07/2014 2:58 PM EDT Mecca Rae No [facility] 11-07-2014 Do you have serious difficulty walking or climbing stairs No 11/07/2014 2:58 PM EDT [place] No [facility] 11-07-2014 Do you have difficul ty dressing or bathing No 11/07/2014 2:58 PM EDT [place] No [facility] 11-07-2014 Because of a physica l, mental, or emotional condition, do you have difficulty doing errands alone such as visiting a physician's office or shopping No 11/07/2014 2:58 PM EDT [place] No [facility] Mental Status Date Assessment Result Facility 11-07-2014 Because of a physica l, mental, or emotional condition, do you have serious difficulty concentrating, remembering, or making decisions No 11/07/2014 2:58 PM EDT KyraMartinen No [facility] Clinical Notes 10-19-2020 to 04-01-2025 Telephone Encounter - Mateo Ochoa APRN.[facility] - 01/17/2025 9:18 AM EDTTelephone Encounter - Mateo Ochoa APRN.[facility] - 01/17/2025 9:18 AM Salena Bean APRN.[facility] - 11/23/2024 4:30 PM EDT Note Date & Type Note Facility 04-01-2025 Note HNO ID: [id number] Author: JAMES ROCHA RT(R) Service: ? Author Type: Technologist Type: Progress Notes Filed: 04/01/2025 15:25 Note Text: Radiology Service Progress Note PATIENT NAME: Nasim Rodarte DATE OF SERVICE: April 01, 2025 TIME: 3:24 PM PATIENT IDENTITY VERIFICATION COMPLETED USING TWO (2) IDENTIFIERS: Name and Date of confirmed by patient verbally. FALL SCREENING: Has the patient had 2 falls in the last year or 1 fall with injury or currently using an Ambulatory Assistive Device (Walker, Cane, Wheelchair, Crutches, etc.)? No PATIENT GENDER DATA: Assigned female at . status: : No status: NO. PATIENT RELEVANT IMPLANT DATA REVIEWED: Not Applicable PATIENT PRESENTS WITH AN IMPLANTABLE OR ATTACHED MEDICAL RECORDS ASSISTANT: No RADIOLOGY DEPARTMENT: Bone Density PERIPHERAL IV DATA: Not applicable SIGNED BY: RT Dontae(R) April 01, 2025 3:[address] [facility] 01-17-2025 Telephone encounter Note The following approved medication requests have been transmitted electronically. Requested Prescriptions Pending Prescriptions Disp Refills levothyroxine (LEVOXYL) 100 mcg tablet 30 tablet 11 Sig: Take 1 tablet by mouth once daily. Skip one day weekly. Take on empty stomach. For Thyroid. Mateo Ochoa APRN.CNP [facility] 01-17-2025 Miscellaneous Notes The following approved medication requests have been transmitted electronically. Requested Prescriptions Pending Prescriptions Disp Refills levothyroxine (LEVOXYL) 100 mcg tablet 30 tablet 11 Sig: Take 1 tablet by mouth once daily. Skip one day weekly. Take on empty stomach. For Thyroid. Mateo Ochoa APRN.CNP The patient has been identified by name and date of : Yes Caregiver verified no other encounters exist for this prescription request: Yes Caregiver confirmed with patient/requestor that no other refills are due, in the near future, with this provider at this time: No The last office visit in the department: 11/23/2024 Does the patient have a future office visit with this provider/department: Yes 05/30/2025 Requested Prescriptions Pending Prescriptions Disp Refills levothyroxine (LEVOXYL) 100 mcg tablet 30 tablet 11 Sig: Take 1 tablet by mouth once daily. Skip one day weekly. Take on empty stomach. For Thyroid. Marisa Moore MA January 17, 2025 9:06 AM documented in this encounter [facility] 01-17-2025 Telephone encounter Note The patient has been identified by name and date of : Yes Caregiver verified no other encounters exist for this prescription request: Yes Caregiver confirmed with patient/requestor that no other refills are due, in the near future, with this provider at this time: No The last office visit in the department: 11/23/2024 Does the patient have a future office visit with this provider/department: Yes 05/30/2025 Requested Prescriptions Pending Prescriptions Disp Refills levothyroxine (LEVOXYL) 100 mcg tablet 30 tablet 11 Sig: Take 1 tablet by mouth once daily. Skip one day weekly. Take on empty stomach. For Thyroid. Marisa Moore MA January 17, 2025 9:06 AM [facility] 11-23-2024 Note HNO ID: [id number] Author: SALENA DIAZ APRN.[employer] Service: ? Author Type: Nurse Practitioner Type: Progress Notes Filed: 11/23/2024 16:39 Note Text: This is a 64 year old female who presents today with: Nasim Sales Aster is a 64-year-old female with a history of HTN, Cabral's esophagus, and hiatal hernia, presenting for a wellness exam.. HISTORY OF PRESENT ILLNESS: Hypertension: - Currently taking Lisinopril; experiencing occasional cough, particularly at night. - Keeps water by the bed to alleviate cough. - Denies dizziness. - Previously monitored BP at home, but stopped due to inconsistent readings compared to work measurements. - Denies chest pain, dyspnea, syncope, or edema in feet or ankles. Cabral's Esophagus: Follows with Dr. Lomas. - Diagnosed with Cabral's esophagus; reports inflammation noted during endoscopy. - Takes pantoprazole; inquires about potential renal side effects. - Follow-up with Dr. Lomas every 6 months; next endoscopy scheduled for February. - Reports hiatal hernia; questions if weight gain exacerbates symptoms. - Previously took apple cider vinegar pills; now eats an apple every morning, which she believes helps. - Denies dysphagia. Osteoporosis: - Last DEXA scan in December 2021. - Did not tolerate Fosamax well due to heartburn. - Lifts 10 lb weights every other day; walks extensively at work, sometimes up to 8 miles. - Inquires about Prolia. - Has not been taking vitamin D3 recently; spends more time outdoors. 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 - Undergoes annual testing for the tumor. PAST MEDICAL HISTORY: PAST MEDICAL HISTORY Diagnosis Date Generalized headaches Kidney stone 2019 lithotripsy Unspecified hypothyroidism PAST SURGICAL HISTORY Procedure Laterality Date COLONOSCOP W/ OR W/O [facility] SPEC 09/24/2011 Repeat in 5 years (-2016) COLONOSCOPY FLX DX W/COLLJ SPEC WHEN PFRMD 02/10/2017 repeat 5 yrs. COLONOSCOPY GEN ANES 10/19/2020 FRACTURE SURGERY LIPOMA (SMALL) Right 2022 forearm PAST SURGICAL HISTORY OF 2001 REMOVAL OF FATTY TUMOR LEFT ARM. PAST SURGICAL HISTORY OF Right 03/2016 ORIF tibia fx PAST SURGICAL HISTORY OF kidney stone removed TONSILLECTOMY HX TONSILLECTOMY PRIMARY/SECONDARY Tonsillectomy TUMOR REMOVAL (SPECIFY LOCATION) HX Right 2022 right forearm ALLERGIES Fosamax [Alendronate Sodium] MEDICATIONS Current Outpatient Medications Medication Sig losartan (COZAAR) 25 mg tablet Take 1 tablet by mouth once daily. pantoprazole DR (PROTONIX) 40 mg tablet Take 1 tablet by mouth every 12 hours. levothyroxine (LEVOXYL) 100 mcg tablet Take 1 tablet by mouth once daily. Skip one day weekly. Take on empty stomach. For Thyroid. CHOLECALCIFEROL, VITAMIN D3, ORAL Take by mouth. Taking daily. Pt unsure of dosage. No current facility-administered medications for this visit. FAMILY HISTORY Problem Relation Age of Onset Arthritis Mother Diabetes Mother Diabetes Father Hypertension Father Colon Cancer Father Age 73 Thyroid Father other (Alzheimers) Father other (Parkinsons Disease) Father Diabetes Sister Asthma Brother Diabetes Paternal Grandfather Cancer Maternal Grandmother Social History Tobacco Use Smoking status: Every Day Current packs/day: 0.50 Average packs/day: 0.5 packs/day for 21.0 years (10.5 ttl pk-yrs) Types: Cigarettes Smokeless tobacco: Never Vaping Use Vaping status: Never Used Substance Use Topics Alcohol use: Never Comment: RARELY Drug use: No REVIEW OF SYSTEMS Constitutional: (+) fatigue, (+) insomnia Head: (-) headaches Neck: (-) neck mass Respiratory: (+) cough Gastrointestinal: (+) heartburn - controlled w/ PPI Skin: (+) hair loss noted in the temporal region. Neurological: (-) dizziness Endocrine: (+) cold intolerance Hematologic/Lymphatic: (+) easy bruising EXAM: BP 118/80 Pulse 69 Resp 16 Wt 65.3 kg (144 lb) LMP 01/24/2013 SpO2 98% BMI 24.74 kg/m? PHYSICAL EXAM: General Appearance: Well appearing, alert, in no acute distress, well-hydrated, well nourished.. Skin: Skin color, texture, turgor normal, no suspicious rashes or lesions. Head: Normocephalic, no masses, lesions, tenderness or abnormalities. Eyes: Anicteric sclera. Pupils are equally round and reactive to light. Extraocular movements are intact. . Ears: External ears normal, canals clear, Positive findings: R TM: normal, L TM: obscured by cerumen Moderate. Oropharynx: Lips, mucosa, and tongue normal, teeth and gums normal, oropharynx normal. Neck: Supple, no adenopathy; thyroid symmetric, normal size, no bruits. Lungs: Lungs clear to auscultation. No wheezing, rhonchi, rales.. Heart: RRR without murmur, gallop, or rubs. No ectopy. Abdomen: Abdomen soft, non-tender. Bowel sounds normal. No masses, organomegaly. Extremities: No deformities, edema, (more content not included)... [facility] 11-23-2024 History of Presen t illness Narrative This is a 64 year old female who presents today with: Nasim Mónica Rodarte is a 64-year-old female with a history of HTN, Cabral's esophagus, and hiatal hernia, presenting for a wellness exam.. HISTORY OF PRESENT ILLNESS: Hypertension: - Currently taking Lisinopril; experiencing occasional cough, particularly at night. - Keeps water by the bed to alleviate cough. - Denies dizziness. - Previously monitored BP at home, but stopped due to inconsistent readings compared to work measurements. - Denies chest pain, dyspnea, syncope, or edema in feet or ankles. Cabral's Esophagus: Follows with Dr. Lomas. - Diagnosed with Cabral's esophagus; reports inflammation noted during endoscopy. - Takes pantoprazole; inquires about potential renal side effects. - Follow-up with Dr. Lomas every 6 months; next endoscopy scheduled for February. - Reports hiatal hernia; questions if weight gain exacerbates symptoms. - Previously took apple cider vinegar pills; now eats an apple every morning, which she believes helps. - Denies dysphagia. Osteoporosis: - Last DEXA scan in December 2021. - Did not tolerate Fosamax well due to heartburn. - Lifts 10 lb weights every other day; walks extensively at work, sometimes up to 8 miles. - Inquires about Prolia. - Has not been taking vitamin D3 recently; spends more time outdoors. 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 - Undergoes annual testing for the tumor. PAST MEDICAL HISTORY: PAST MEDICAL HISTORY Diagnosis Date Generalized headaches Kidney stone 2019 lithotripsy Unspecified hypothyroidism PAST SURGICAL HISTORY Procedure Laterality Date COLONOSCOP W/ OR W/O [facility] SPEC 09/24/2011 Repeat in 5 years (-2016) COLONOSCOPY FLX DX W/COLLJ SPEC WHEN PFRMD 02/10/2017 repeat 5 yrs. COLONOSCOPY GEN ANES 10/19/2020 FRACTURE SURGERY LIPOMA (SMALL) Right 2022 forearm PAST SURGICAL HISTORY OF 2001 REMOVAL OF FATTY TUMOR LEFT ARM. PAST SURGICAL HISTORY OF Right 03/2016 ORIF tibia fx PAST SURGICAL HISTORY OF kidney stone removed TONSILLECTOMY HX TONSILLECTOMY PRIMARY/SECONDARY <AGE 13 Tonsillectomy TUMOR REMOVAL (SPECIFY LOCATION) HX Right 2022 right forearm ALLERGIES Fosamax [Alendronate Sodium] MEDICATIONS Current Outpatient Medications Medication Sig losartan (COZAAR) 25 mg tablet Take 1 tablet by mouth once daily. pantoprazole DR (PROTONIX) 40 mg tablet Take 1 tablet by mouth every 12 hours. levothyroxine (LEVOXYL) 100 mcg tablet Take 1 tablet by mouth once daily. Skip one day weekly. Take on empty stomach. For Thyroid. CHOLECALCIFEROL, VITAMIN D3, ORAL Take by mouth. Taking daily. Pt unsure of dosage. No current facility-administered medications for this visit. FAMILY HISTORY Problem Relation Age of Onset Arthritis Mother Diabetes Mother Diabetes Father Hypertension Father Colon Cancer Father Age 73 Thyroid Father other (Alzheimers) Father other (Parkinsons Disease) Father Diabetes Sister Asthma Brother Diabetes Paternal Grandfather Cancer Maternal Grandmother Social History Tobacco Use Smoking status: Every Day Current packs/day: 0.50 Average packs/day: 0.5 packs/day for 21.0 years (10.5 ttl pk-yrs) Types: Cigarettes Smokeless tobacco: Never Vaping Use Vaping status: Never Used Substance Use Topics Alcohol use: Never Comment: RARELY Drug use: No REVIEW OF SYSTEMS Constitutional: (+) fatigue, (+) insomnia Head: (-) headaches Neck: (-) neck mass Respiratory: (+) cough Gastrointestinal: (+) heartburn - controlled w/ PPI Skin: (+) hair loss noted in the temporal region. Neurological: (-) dizziness Endocrine: (+) cold intolerance Hematologic/Lymphatic: (+) easy bruising EXAM: BP 118/80 Pulse 69 Resp 16 Wt 65.3 kg (144 lb) LMP 01/24/2013 SpO2 98% BMI 24.74 kg/m PHYSICAL EXAM: General Appearance: Well appearing, alert, in no acute distress, well-hydrated, well nourished.. Skin: Skin color, texture, turgor normal, no suspicious rashes or lesions. Head: Normocephalic, no masses, lesions, tenderness or abnormalities. Eyes: Anicteric sclera. Pupils are equally round and reactive to light. Extraocular movements are intact. . Ears: External ears normal, canals clear, Positive findings: R TM: normal, L TM: obscured by cerumen Moderate. Oropharynx: Lips, mucosa, and tongue normal, teeth and gums normal, oropharynx normal. Neck: Supple, no adenopathy; thyroid symmetric, normal size, no bruits. Lungs: Lungs clear to auscultation. No wheezing, rhonchi, rales.. Heart: RRR without murmur, gallop, or rubs. No ectopy. Abdomen: Abdomen soft, non-tender. Bowel sounds normal. No masses, organomegaly. Extremities: No deformities, edema, skin discoloration, clubbing or cyanosis. Good capillary refill. . Neurologic: Gait normal. ASSESSMENT/PLAN 1. Wellness examination (Z00.00) - Conducted comprehensive physical examination; no acute abnormalities noted. - Ordered DEXA scan to assess bone density. - declined tetanus vaccine; patient declined shingles vaccine. - Discussed benefits of Shingrix vaccine; advised patient to verify insurance coverage. - Recommended Prevnar 20 vaccine to complete pneumococcal vaccination series - declines today. - Advised follow-up in 6 months for blood pressure monitoring and lab re-evaluation. Health Promotion: - Eat healthy -- go to [employer] to get started - Have a yearly physical - Mammogram yearly after age 40 - Get at least 30 minutes of physical activity daily - Get at least 7 to 8 hours of sleep each night - Reach and maintain a healthy weight - Get help to quit or don't start smoking - Limit alcohol use to one drink or less - Do not use illegal drugs or misuse prescription drugs - Wear a helmet when riding a bike and wear protective gear for sports - Wear a seatbelt in cars and not text and drive - Wear sunscreen 2. Asymptomatic postmenopausal status (Z78.0) Due for dexa scan. 3. Age-related osteoporosis without current pathological fracture (M81.0) - Previous intolerance to Fosamax noted. - Discussed Prolia as a treatment option; informed patient of the necessity for long-term adherence to prevent rapid bone density loss and increased fracture risk. - Discussed Reclast as an alternative treatment; once-yearly IV infusion. - Recommended weight-bearing exercises to maintain bone strength. - Await results of DEXA scan before initiating new treatment. 4. 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 - Educated patient on the pathophysiology of Cabral's esophagus and the importance of monitoring for dysplastic changes. - Discussed potential contribution of hiatal hernia to acid reflux symptoms. - Advised continuation of current medication regimen for acid suppression. 5. Hypertension, essential (I10) - Current treatment with lisinopril associated with intermittent cough. - Discontinued lisinopril; initiated losartan. - Informed patient that cough may persist for several weeks post-discontinuation. - Advised resumption of home blood pressure monitoring; ensure accuracy of device. - Discussed renal protective benefits of losartan. 6. Hyperlipidemia, mixed (E78.2) - Recent lab results show improvement in lipid profile. - Emphasized importance of dietary modifications and regular exercise to further manage cholesterol levels. - Ordered follow-up lipid panel in 6 months to assess progress. Discussed treatment plan and patient voices understanding. Patient's questions answered appropriately. Medications and potential side effects were discussed and patient voices understanding. Return to the office as scheduled or as needed for worsening/no improvement. Salena Diaz APRN.MARCELINO Recording using [employer] software for draft documentation of the visit was discussed with the patient/authorized paper sales representative; all questions welcomed and answered. Patient/authorized paper sales representative agreed to proceed documented in this encounter [facility] 11-23-2024 Instructions Salena Diaz APRN.MARCELINO - 11/23/2024 4:02 PM EDT - Stop taking lisinopril and begin losartan. - Complete a DEXA scan (bone density test) as ordered. - If you choose to start biotin for hair and nail health, pause it for one week before any lab work to avoid skewing thyroid test results. - Arrange for the pneumococcal Prevnar 20 vaccine; check with your insurance about where to receive it. - Arrange a tetanus booster; verify insurance coverage and preferred location. - Consider the two-dose shingles vaccine series. - Plan to return in six months for a blood pressure check and to review your lab results. BONE MINERAL DENSITY PATIENT INSTRUCTIONS ========= Bone mineral density testing measures the amount of calcium in certain parts of your bones. This information determines how strong your bones are. The test is used to detect osteoporosis, a disease in which the bone's mineral content and density are low, increasing a person's risk of fractures. The lumbar spine (lower back) and the hip are the skeletal sites usually examined. For the test, remember that: 1. You cannot take this test if you are . 2. Eat a normal diet on the day of the test. 3. Take your medications as you normally would. 4. DO NOT take calcium supplements (such as Tums) for 24 hours before the test. 5. On the day of the test, leave valuables (jewelry or credit cards) at home. 6. The test should be performed prior to oral, rectal or IV contrast studies, or at least 7 days after any of these studies. For the test, you may be asked to wear a hospital gown. You will lie on your back, on a padded table, in a comfortable position. Generally, you can resume your usual activities immediately. documented in this encounter [facility] 10-25-2024 Note HNO ID: [id number] Author: SALENA DIAZ APRN.MARCELINO Service: ? Author Type: Nurse Practitioner Type: Progress Notes Filed: 10/25/2024 10:52 Note Text: This is a 64 year old female who presents today with: Nasim is a 64-year-old female with a history of hypothyroidism, presenting for follow-up after elevated blood pressure readings at urgent care. HISTORY OF PRESENT ILLNESS: Hypertension: - Elevated blood pressure readings at urgent care prompted follow-up. - No previous antihypertensive medication use. - Reports weight gain. - Previously took omega-3s with turmeric, believes it helped with blood pressure. - Denies following a special diet. - Denies chest pain, dizziness, or diaphoresis. - Occasional headaches; denies frequent episodes. - Denies edema in lower extremities. Palpitations: - Recurrent palpitations since starting thyroid medication. - Denies worsening of palpitations. - No associated symptoms. Hypothyroidism: - Taking thyroid medication. - Reports fatigue, hair loss, and cold intolerance. - Diagnosed with Bucky's thyroiditis. - Suspects hiatal hernia contributing to heartburn; taking pantoprazole. - Taking vitamin D supplement. Adrenal Gland Tumor: - Monitored annually; noted increase in size. - Liver lesion noted to have decreased in size. GERD: Taking pantoprazole. Endorses hiatal hernia. PAST MEDICAL HISTORY: PAST MEDICAL HISTORY Diagnosis Date Generalized headaches Kidney stone 2020 lithotripsy Unspecified hypothyroidism PAST SURGICAL HISTORY Procedure Laterality Date COLONOSCOP W/ OR W/O BRSH SPEC 09/24/2011 Repeat in 5 years (-2016) COLONOSCOPY FLX DX W/COLLJ SPEC WHEN PFRMD 02/10/2017 repeat 5 yrs. COLONOSCOPY GEN ANES 10/19/2020 FRACTURE SURGERY LIPOMA (SMALL) Right 2022 forearm PAST SURGICAL HISTORY OF 2001 REMOVAL OF FATTY TUMOR LEFT ARM. PAST SURGICAL HISTORY OF Right 03/2016 ORIF tibia fx PAST SURGICAL HISTORY OF kidney stone removed TONSILLECTOMY HX TONSILLECTOMY PRIMARY/SECONDARY Tonsillectomy TUMOR REMOVAL (SPECIFY LOCATION) HX Right 2022 right forearm ALLERGIES Fosamax [Alendronate Sodium] MEDICATIONS Current Outpatient Medications Medication Sig lisinopril (ZESTRIL) 10 mg tablet Take 1 tablet by mouth once daily. pantoprazole DR (PROTONIX) 40 mg tablet Take 1 tablet by mouth every 12 hours. levothyroxine (LEVOXYL) 100 mcg tablet Take 1 tablet by mouth once daily. Skip one day weekly. Take on empty stomach. For Thyroid. carbamide peroxide (DEBROX) 6.5 % otic solution Use 5 Drops in both ears two times a day. CHOLECALCIFEROL, VITAMIN D3, ORAL Take by mouth. Taking daily. Pt unsure of dosage. No current facility-administered medications for this visit. FAMILY HISTORY Problem Relation Age of Onset Arthritis Mother Diabetes Mother Diabetes Father Hypertension Father Colon Cancer Father Age 73 Thyroid Father other (Alzheimers) Father other (Parkinsons Disease) Father Diabetes Sister Asthma Brother Diabetes Paternal Grandfather Cancer Maternal Grandmother Social History Tobacco Use Smoking status: Every Day Current packs/day: 0.50 Average packs/day: 0.5 packs/day for 21.0 years (10.5 ttl pk-yrs) Types: Cigarettes Smokeless tobacco: Never Vaping Use Vaping status: Never Used Substance Use Topics Alcohol use: Never Comment: RARELY Drug use: No REVIEW OF SYSTEMS Constitutional: (+) weight gain, (+) fatigue Head: (+) headaches Ears/Nose/Mouth/Throat: (-) ear discomfort Cardiovascular: (+) palpitations, (-) chest pain Gastrointestinal: (+) constipation, (+) diarrhea Skin: (+) hair loss, (-) diaphoresis Neurological: (-) dizziness, (-) syncope Endocrine: (+) cold intolerance EXAM: BP 148/92 Pulse 64 Resp 16 Wt 64 kg (141 lb) LMP 01/24/2013 SpO2 98% BMI 24.22 kg/m? PHYSICAL EXAM: General Appearance: Well appearing, alert, in no acute distress, well-hydrated, well nourished.. Skin: Skin color, texture, turgor normal, no suspicious rashes or lesions. Head: Normocephalic, no masses, lesions, tenderness or abnormalities. Eyes: Anicteric sclera. Pupils are equally round and reactive to light. Extraocular movements are intact. . Ears: External ears normal, canals clear, Positive findings: R TM: normal, L TM: obscured by cerumen Moderate. Neck: Supple, no adenopathy; thyroid symmetric, normal size, no bruits. Lungs: Lungs clear to auscultation. No wheezing, rhonchi, rales.. Heart: RRR without murmur, gallop, or rubs. No ectopy. Extremities: No deformities, edema, skin discoloration, clubbing or cyanosis. Good capillary refill. . Neurologic: Gait normal. ASSESSMENT/PLAN 1. Hypertension, essential (I10) - Blood pressure readings consistently elevated at urgent care and today's visit. - Initiated lisinopril, an ZION inhibitor. - Discussed potential side effects, including development of a dry cough (more content not included)... [facility] 10-25-2024 History of Presen t illness Narrative This is a 64 year old female who presents today with: Nasim is a 64-year-old female with a history of hypothyroidism, presenting for follow-up after elevated blood pressure readings at urgent care. HISTORY OF PRESENT ILLNESS: Hypertension: - Elevated blood pressure readings at urgent care prompted follow-up. - No previous antihypertensive medication use. - Reports weight gain. - Previously took omega-3s with turmeric, believes it helped with blood pressure. - Denies following a special diet. - Denies chest pain, dizziness, or diaphoresis. - Occasional headaches; denies frequent episodes. - Denies edema in lower extremities. Palpitations: - Recurrent palpitations since starting thyroid medication. - Denies worsening of palpitations. - No associated symptoms. Hypothyroidism: - Taking thyroid medication. - Reports fatigue, hair loss, and cold intolerance. - Diagnosed with Bucky's thyroiditis. - Suspects hiatal hernia contributing to heartburn; taking pantoprazole. - Taking vitamin D supplement. Adrenal Gland Tumor: - Monitored annually; noted increase in size. - Liver lesion noted to have decreased in size. GERD: Taking pantoprazole. Endorses hiatal hernia. PAST MEDICAL HISTORY: PAST MEDICAL HISTORY Diagnosis Date Generalized headaches Kidney stone 2019 lithotripsy Unspecified hypothyroidism PAST SURGICAL HISTORY Procedure Laterality Date COLONOSCOP W/ OR W/O BRSH SPEC 09/24/2011 Repeat in 5 years (-2016) COLONOSCOPY FLX DX W/COLLJ SPEC WHEN PFRMD 02/10/2017 repeat 5 yrs. COLONOSCOPY GEN ANES 10/19/2020 FRACTURE SURGERY LIPOMA (SMALL) Right 2022 forearm PAST SURGICAL HISTORY OF 2001 REMOVAL OF FATTY TUMOR LEFT ARM. PAST SURGICAL HISTORY OF Right 03/2016 ORIF tibia fx PAST SURGICAL HISTORY OF kidney stone removed TONSILLECTOMY HX TONSILLECTOMY PRIMARY/SECONDARY <AGE 13 Tonsillectomy TUMOR REMOVAL (SPECIFY LOCATION) HX Right 2022 right forearm ALLERGIES Fosamax [Alendronate Sodium] MEDICATIONS Current Outpatient Medications Medication Sig lisinopril (ZESTRIL) 10 mg tablet Take 1 tablet by mouth once daily. pantoprazole DR (PROTONIX) 40 mg tablet Take 1 tablet by mouth every 12 hours. levothyroxine (LEVOXYL) 100 mcg tablet Take 1 tablet by mouth once daily. Skip one day weekly. Take on empty stomach. For Thyroid. carbamide peroxide (DEBROX) 6.5 % otic solution Use 5 Drops in both ears two times a day. CHOLECALCIFEROL, VITAMIN D3, ORAL Take by mouth. Taking daily. Pt unsure of dosage. No current facility-administered medications for this visit. FAMILY HISTORY Problem Relation Age of Onset Arthritis Mother Diabetes Mother Diabetes Father Hypertension Father Colon Cancer Father Age 73 Thyroid Father other (Alzheimers) Father other (Parkinsons Disease) Father Diabetes Sister Asthma Brother Diabetes Paternal Grandfather Cancer Maternal Grandmother Social History Tobacco Use Smoking status: Every Day Current packs/day: 0.50 Average packs/day: 0.5 packs/day for 21.0 years (10.5 ttl pk-yrs) Types: Cigarettes Smokeless tobacco: Never Vaping Use Vaping status: Never Used Substance Use Topics Alcohol use: Never Comment: RARELY Drug use: No REVIEW OF SYSTEMS Constitutional: (+) weight gain, (+) fatigue Head: (+) headaches Ears/Nose/Mouth/Throat: (-) ear discomfort Cardiovascular: (+) palpitations, (-) chest pain Gastrointestinal: (+) constipation, (+) diarrhea Skin: (+) hair loss, (-) diaphoresis Neurological: (-) dizziness, (-) syncope Endocrine: (+) cold intolerance EXAM: BP 148/92 Pulse 64 Resp 16 Wt 64 kg (141 lb) LMP 01/24/2013 SpO2 98% BMI 24.22 kg/m PHYSICAL EXAM: General Appearance: Well appearing, alert, in no acute distress, well-hydrated, well nourished.. Skin: Skin color, texture, turgor normal, no suspicious rashes or lesions. Head: Normocephalic, no masses, lesions, tenderness or abnormalities. Eyes: Anicteric sclera. Pupils are equally round and reactive to light. Extraocular movements are intact. . Ears: External ears normal, canals clear, Positive findings: R TM: normal, L TM: obscured by cerumen Moderate. Neck: Supple, no adenopathy; thyroid symmetric, normal size, no bruits. Lungs: Lungs clear to auscultation. No wheezing, rhonchi, rales.. Heart: RRR without murmur, gallop, or rubs. No ectopy. Extremities: No deformities, edema, skin discoloration, clubbing or cyanosis. Good capillary refill. . Neurologic: Gait normal. ASSESSMENT/PLAN 1. Hypertension, essential (I10) - Blood pressure readings consistently elevated at urgent care and today's visit. - Initiated lisinopril, an ZION inhibitor. - Discussed potential side effects, including development of a dry cough; advised to report if it occurs. - Ordered follow-up appointment in one month for blood pressure recheck and physical examination. - Patient to monitor blood pressure at home. 2. Acquired hypothyroidism (E03.9) - Currently managed with thyroid medication. - Ordered thyroid function tests to assess current status. - Discussed Bucky's thyroiditis as the underlying cause. 3. Hypercalcemia (E83.52) Check CMP 4. Hyperlipidemia, mixed (E78.2) - Ordered lipid panel; advised patient to fast for 10-12 hours prior to blood draw. 5. Fatigue, unspecified type (R53.83) - Ordered CBC, CMP, iron studies (ferritin and iron levels), B12, and vitamin D levels to investigate potential causes. - Discussed potential contribution of hypothyroidism to fatigue. 6. Gastroesophageal reflux disease, unspecified whether esophagitis present (K21.9) - Managed with pantoprazole. - Ordered magnesium level due to potential depletion from PPI use. - Discussed possible contribution of hiatal hernia to symptoms. Discussed treatment plan and patient voices understanding. Patient's questions answered appropriately. Medications and potential side effects were discussed and patient voices understanding. Return to the office as scheduled or as needed for worsening/no improvement. Salena Diaz APRN.[employer] Recording using [employer] software for draft documentation of the visit was discussed with the patient/authorized paper sales representative; all questions welcomed and answered. Patient/authorized paper sales representative agreed to proceed documented in this encounter [facility] 10-25-2024 Instructions Salena Diaz APRN.MARCELINO - 10/25/2024 8:24 AM EDT - Start lisinopril as prescribed; prescription has been sent to your [facility] pharmacy. If you develop a persistent dry cough, let us know so we can adjust your medication. Please fast for 10-12 hours beforehand; you may drink water or black coffee only. - Follow a low-sodium diet, maintain a healthy weight, and include regular exercise to help control your blood pressure. - Return in one month (November) for a blood pressure check and physical exam. How to limit salt (sodium) to avoid swelling and hypertension: Keep your daily sodium intake to 2 3 4 grams Keep your daily sodium intake to 2000 3000 4000 mg DO: Read labels Keep a food diary for the first week of restriction - must include snacks! Bake or broil your foods DO NOT DRINK: V8 juice Tomato juice Canned soups DO NOT EAT: Canned food Tomato Sauce Barbecue Sauce Soy Sauce Pickles Prepared meats such as salami, corned beef, etc. Fettuccine Marcell Bude con carne Beef burrito Potato salad Cottage cheese (both regular and low fat are high in sodium) [place] Two-egg omelet, ham and cheese Chop suey (not even homemade!) Macaroni and cheese (not even homemade!) Cheeseburger Fish Sticks TIPS: Plain [place] breast is OK as sandwich meat Look for low salt soups in the grocery store- usually a bit more expensive. Salena Diaz APRN.[employer] documented in this encounter [facility] 10-20-2024 Note HNO ID: [id number] Author: PAPA US APRN.MARCELINO Service: ? Author Type: Nurse Practitioner Type: Progress Notes Filed: 10/20/2024 16:01 Note Text: [facility] Subjective HPI HPI Nasim Rodarte is a 64 year old female who presents today for CC of right ear clogged, seen by pcp, advised to use otc wax drops then have ear flushed.. This started few days ago. Symptoms are worsened by nothing. Risk factors hx of ear wax issues, has job that uses ear plugs. Denies uri s/s. .Patient presents with: Ear Problem: R ear clogged, intermittent pain PAST MEDICAL HISTORY Diagnosis Date Generalized headaches Kidney stone 2019 lithotripsy Unspecified hypothyroidism PAST SURGICAL HISTORY Procedure Laterality Date COLONOSCOP W/ OR W/O BRSH SPEC 09/24/2011 Repeat in 5 years (-2016) COLONOSCOPY FLX DX W/COLLJ SPEC WHEN PFRMD 02/10/2017 repeat 5 yrs. COLONOSCOPY GEN ANES 10/19/2020 FRACTURE SURGERY LIPOMA (SMALL) Right 2022 forearm PAST SURGICAL HISTORY OF 2001 REMOVAL OF FATTY TUMOR LEFT ARM. PAST SURGICAL HISTORY OF Right 03/2016 ORIF tibia fx PAST SURGICAL HISTORY OF kidney stone removed TONSILLECTOMY HX TONSILLECTOMY PRIMARY/SECONDARY Tonsillectomy TUMOR REMOVAL (SPECIFY LOCATION) HX Right 2022 right forearm ALLERGIES Fosamax [Alendronate Sodium] MEDICATIONS pantoprazole DR (PROTONIX) 40 mg tablet Take 1 tablet by mouth every 12 hours. levothyroxine (LEVOXYL) 100 mcg tablet Take 1 tablet by mouth once daily. Skip one day weekly. Take on empty stomach. For Thyroid. CHOLECALCIFEROL, VITAMIN D3, ORAL Take by mouth. Taking daily. Pt unsure of dosage. carbamide peroxide (DEBROX) 6.5 % otic solution Use 5 Drops in both ears two times a day. clobetasol (TEMOVATE) 0.05 % cream Apply 1 application to affected area two times a day. Apply to hands (Patient not taking: Reported on 10/20/2024) iv contrast (will be provided with radiology test) CT adrenal WO/W Inject, intravenously, once for 1 dose.No IV access, insert saline lock prior to the beginning of sedation, infusion, injection of imaging exam. Discontinue saline lock post exam. If Pt. has a central line or IVAD, may access for administration according to line specific nursing protocol. Once exam is complete flush line and de-access according to line specific nursing protocol in the CT contrast administration guidelines link. glucosamine/chondroitn/Na/C/Se (JOINT FORMULA ORAL) Take by mouth. (Patient not taking: Reported on 07/01/2023) FAMILY HISTORY Problem Relation Age of Onset Arthritis Mother Diabetes Mother Diabetes Father Hypertension Father Colon Cancer Father Age 73 Thyroid Father other (Alzheimers) Father other (Parkinsons Disease) Father Diabetes Sister Asthma Brother Diabetes Paternal Grandfather Cancer Maternal Grandmother Social History Tobacco Use Smoking status: Every Day Current packs/day: 0.50 Average packs/day: 0.5 packs/day for 21.0 years (10.5 ttl pk-yrs) Types: Cigarettes Smokeless tobacco: Never Vaping Use Vaping status: Never Used Substance Use Topics Alcohol use: Never Comment: RARELY Drug use: No Review of Systems Objective BP 152/95 Pulse 71 Temp 36.2 ?C (97.1 ?F) Resp 18 Wt 65.7 kg (144 lb 13.5 oz) LMP 01/24/2013 SpO2 99% BMI 24.88 kg/m? Physical Exam Constitutional: General: She is not in acute distress. Appearance: She is not toxic-appearing or diaphoretic. HENT: Head: Normocephalic and atraumatic. Right Ear: Hearing and external ear normal. Left Ear: Hearing and external ear normal. Ears: Comments: Initially unable to see bilat tm d/t cerumen impaction. Procedure: Provider/curette Nurse/lavage After procedure right canal clear and right tm normal. Left cerumen impaction unable to be remove, procedure stopped d/t pain Pulmonary: Effort: Pulmonary effort is normal. No accessory muscle usage or respiratory distress. Neurological: Mental Status: She is alert and oriented to person, place, and time. {ASSESSMENT/PLAN: 1. Bilateral impacted cerumen - ICD9: 380.4, ICD10: H61.23 Successful removal of right ear canal cerumen impaction. Left impaction not removed d/t pain. Procedure via provider/curette and nurse lavage Papa Us APRN.[employer] History and Record Review External record(s) reviewed: prior outpatient record. Disposition The patient was discharged. OTC Medications were advised: Cerumen softener Procedures [facility] 10-20-2024 History of Presen t illness Narrative [facility] Subjective HPI HPI Nasim Rodarte is a 64 year old female who presents today for CC of right ear clogged, seen by pcp, advised to use otc wax drops then have ear flushed.. This started few days ago. Symptoms are worsened by nothing. Risk factors hx of ear wax issues, has job that uses ear plugs. Denies uri s/s. .Patient presents with: Ear Problem: R ear clogged, intermittent pain PAST MEDICAL HISTORY Diagnosis Date Generalized headaches Kidney stone 2019 lithotripsy Unspecified hypothyroidism PAST SURGICAL HISTORY Procedure Laterality Date COLONOSCOP W/ OR W/O BRSH SPEC 09/24/2011 Repeat in 5 years (-2016) COLONOSCOPY FLX DX W/COLLJ SPEC WHEN PFRMD 02/10/2017 repeat 5 yrs. COLONOSCOPY GEN ANES 10/19/2020 FRACTURE SURGERY LIPOMA (SMALL) Right 2022 forearm PAST SURGICAL HISTORY OF 2001 REMOVAL OF FATTY TUMOR LEFT ARM. PAST SURGICAL HISTORY OF Right 03/2016 ORIF tibia fx PAST SURGICAL HISTORY OF kidney stone removed TONSILLECTOMY HX TONSILLECTOMY PRIMARY/SECONDARY <AGE 13 Tonsillectomy TUMOR REMOVAL (SPECIFY LOCATION) HX Right 2022 right forearm ALLERGIES Fosamax [Alendronate Sodium] MEDICATIONS pantoprazole DR (PROTONIX) 40 mg tablet Take 1 tablet by mouth every 12 hours. levothyroxine (LEVOXYL) 100 mcg tablet Take 1 tablet by mouth once daily. Skip one day weekly. Take on empty stomach. For Thyroid. CHOLECALCIFEROL, VITAMIN D3, ORAL Take by mouth. Taking daily. Pt unsure of dosage. carbamide peroxide (DEBROX) 6.5 % otic solution Use 5 Drops in both ears two times a day. clobetasol (TEMOVATE) 0.05 % cream Apply 1 application to affected area two times a day. Apply to hands (Patient not taking: Reported on 10/20/2024) iv contrast (will be provided with radiology test) CT adrenal WO/W Inject, intravenously, once for 1 dose.No IV access, insert saline lock prior to the beginning of sedation, infusion, injection of imaging exam. Discontinue saline lock post exam. If Pt. has a central line or IVAD, may access for administration according to line specific nursing protocol. Once exam is complete flush line and de-access according to line specific nursing protocol in the CT contrast administration guidelines link. glucosamine/chondroitn/Na/C/Se (JOINT FORMULA ORAL) Take by mouth. (Patient not taking: Reported on 07/01/2023) FAMILY HISTORY Problem Relation Age of Onset Arthritis Mother Diabetes Mother Diabetes Father Hypertension Father Colon Cancer Father Age 73 Thyroid Father other (Alzheimers) Father other (Parkinsons Disease) Father Diabetes Sister Asthma Brother Diabetes Paternal Grandfather Cancer Maternal Grandmother Social History Tobacco Use Smoking status: Every Day Current packs/day: 0.50 Average packs/day: 0.5 packs/day for 21.0 years (10.5 ttl pk-yrs) Types: Cigarettes Smokeless tobacco: Never Vaping Use Vaping status: Never Used Substance Use Topics Alcohol use: Never Comment: RARELY Drug use: No Review of Systems Objective BP 152/95 Pulse 71 Temp 36.2 C (97.1 F) Resp 18 Wt 65.7 kg (144 lb 13.5 oz) LMP 01/24/2013 SpO2 99% BMI 24.88 kg/m Physical Exam Constitutional: General: She is not in acute distress. Appearance: She is not toxic-appearing or diaphoretic. HENT: Head: Normocephalic and atraumatic. Right Ear: Hearing and external ear normal. Left Ear: Hearing and external ear normal. Ears: Comments: Initially unable to see bilat tm d/t cerumen impaction. Procedure: Provider/curette Nurse/lavage After procedure right canal clear and right tm normal. Left cerumen impaction unable to be remove, procedure stopped d/t pain Pulmonary: Effort: Pulmonary effort is normal. No accessory muscle usage or respiratory distress. Neurological: Mental Status: She is alert and oriented to person, place, and time. {ASSESSMENT/PLAN: 1. Bilateral impacted cerumen - ICD9: 380.4, ICD10: H61.23 Successful removal of right ear canal cerumen impaction. Left impaction not removed d/t pain. Procedure via provider/curette and nurse lavage Papa Us APRN.CNP History and Record Review External record(s) reviewed: prior outpatient record. Disposition The patient was discharged. OTC Medications were advised: Cerumen softener Procedures documented in this encounter [facility] 08-05-2024 Note HNO ID: [id number] Author: KONSTANTIN SUERO PA-C Service: ? Author Type: Physician Locomotive Firer Type: Progress Notes Filed: 08/05/2024 13:39 Note Text: Konstantin Suero PA-C Surgical Oncology [address] [facility], [address] [place] [id number] VIRTUAL VISIT PROGRESS NOTE This is a virtual visit using Audio Only Visit. It required patient-provider interaction for the medical decision making as documented below. I have communicated my name and active licensure. The patient's identity and physical location were verified at the time of this visit. Either the patient or their legal paper sales representative has been informed of the risks and benefits of -- and alternatives to -- treatment through a remote evaluation and consents to proceed with the evaluation remotely. Nasim Rodarte is a 64 year old female on the phone to review her recent lab work. The patient was recently seen for liver cyst and adrenal adenoma on 07/15/2024. She has no changes since her visit. She does report intermittent high blood pressure readings at home, but it has not been consistent. PAST MEDICAL HISTORY Diagnosis Date Generalized headaches Kidney stone 2019 lithotripsy Unspecified hypothyroidism PAST SURGICAL HISTORY Procedure Laterality Date COLONOSCOP W/ OR W/O BRSH SPEC 09/24/2011 Repeat in 5 years (-2016) COLONOSCOPY FLX DX W/COLLJ SPEC WHEN PFRMD 02/10/2017 repeat 5 yrs. COLONOSCOPY GEN ANES 10/19/2020 FRACTURE SURGERY LIPOMA (SMALL) Right 2022 forearm PAST SURGICAL HISTORY OF 2001 REMOVAL OF FATTY TUMOR LEFT ARM. PAST SURGICAL HISTORY OF Right 03/2016 ORIF tibia fx PAST SURGICAL HISTORY OF kidney stone removed TONSILLECTOMY HX TONSILLECTOMY PRIMARY/SECONDARY Tonsillectomy TUMOR REMOVAL (SPECIFY LOCATION) HX Right 2022 right forearm Social History Tobacco Use Smoking status: Every Day Current packs/day: 0.50 Average packs/day: 0.5 packs/day for 21.0 years (10.5 ttl pk-yrs) Types: Cigarettes Smokeless tobacco: Never Vaping Use Vaping status: Never Used Substance Use Topics Alcohol use: Never Comment: RARELY Drug use: No FAMILY HISTORY Problem Relation Age of Onset Arthritis Mother Diabetes Mother Diabetes Father Hypertension Father Colon Cancer Father Age 73 Thyroid Father other (Alzheimers) Father other (Parkinsons Disease) Father Diabetes Sister Asthma Brother Diabetes Paternal Grandfather Cancer Maternal Grandmother The ROS, medical, surgical, family, and social history were reviewed by Konstantin Suero PA-C ALLERGIES Allergen Reactions Fosamax [Alendronat* Intolerance Heartburn, Acid reflux Current Outpatient Medications Medication Sig levothyroxine (LEVOXYL) 100 mcg tablet Take 1 tablet by mouth once daily. Skip one day weekly. Take on empty stomach. For Thyroid. carbamide peroxide (DEBROX) 6.5 % otic solution Use 5 Drops in both ears two times a day. clobetasol (TEMOVATE) 0.05 % cream Apply 1 application to affected area two times a day. Apply to hands iv contrast (will be provided with radiology test) CT adrenal WO/W Inject, intravenously, once for 1 dose.No IV access, insert saline lock prior to the beginning of sedation, infusion, injection of imaging exam. Discontinue saline lock post exam. If Pt. has a central line or IVAD, may access for administration according to line specific nursing protocol. Once exam is complete flush line and de-access according to line specific nursing protocol in the CT contrast administration guidelines link. glucosamine/chondroitn/Na/C/Se (JOINT FORMULA ORAL) Take by mouth. (Patient not taking: Reported on 07/01/2023) CHOLECALCIFEROL, VITAMIN D3, ORAL Take by mouth. Taking daily. Pt unsure of dosage. No current facility-administered medications for this visit. OBJECTIVE VIDEO EXAM: (if completed, performed via video enabled technology) No exam performed ASSESSMENT AND PLAN Plan Adrenal Adenoma - reviewed blood work results with patient, cortisol was suppressed as expected post dexamethasone - normetanephrine was mildly elevated, but no consistent hypertension noted, recommended keeping a log of blood pressure readings at home to bring to PCP - repeat blood work in 1 year, no need for further imaging I spent a total of 20 minutes on the date of the service which included preparing to see the patient, [id number] patient care, completing clinical documentation, counseling and educating the patient/family/caregiver, ordering medications, tests, or procedures, independently interpreting results (not separately reported), and communicating results to the patient/family/caregiver Konstantin Suero PA-C [facility] 08-05-2024 History of Presen t illness Narrative Images from the original note were not included. Konstantin Suero PA-C Surgical Oncology [address] [facility], [address] [place] [phone] VIRTUAL VISIT PROGRESS NOTE This is a virtual visit using Audio Only Visit. It required patient-provider interaction for the medical decision making as documented below. I have communicated my name and active licensure. The patient's identity and physical location were verified at the time of this visit. Either the patient or their legal paper sales representative has been informed of the risks and benefits of -- and alternatives to -- treatment through a remote evaluation and consents to proceed with the evaluation remotely. Nasim Rodarte is a 64 year old female on the phone to review her recent lab work. The patient was recently seen for liver cyst and adrenal adenoma on 07/15/2024. She has no changes since her visit. She does report intermittent high blood pressure readings at home, but it has not been consistent. PAST MEDICAL HISTORY Diagnosis Date Generalized headaches Kidney stone 2019 lithotripsy Unspecified hypothyroidism PAST SURGICAL HISTORY Procedure Laterality Date COLONOSCOP W/ OR W/O BRSH SPEC 09/24/2011 Repeat in 5 years (-2016) COLONOSCOPY FLX DX W/COLLJ SPEC WHEN PFRMD 02/10/2017 repeat 5 yrs. COLONOSCOPY GEN ANES 10/19/2020 FRACTURE SURGERY LIPOMA (SMALL) Right 2022 forearm PAST SURGICAL HISTORY OF 2001 REMOVAL OF FATTY TUMOR LEFT ARM. PAST SURGICAL HISTORY OF Right 03/2016 ORIF tibia fx PAST SURGICAL HISTORY OF kidney stone removed TONSILLECTOMY HX TONSILLECTOMY PRIMARY/SECONDARY <AGE 13 Tonsillectomy TUMOR REMOVAL (SPECIFY LOCATION) HX Right 2022 right forearm Social History Tobacco Use Smoking status: Every Day Current packs/day: 0.50 Average packs/day: 0.5 packs/day for 21.0 years (10.5 ttl pk-yrs) Types: Cigarettes Smokeless tobacco: Never Vaping Use Vaping status: Never Used Substance Use Topics Alcohol use: Never Comment: RARELY Drug use: No FAMILY HISTORY Problem Relation Age of Onset Arthritis Mother Diabetes Mother Diabetes Father Hypertension Father Colon Cancer Father Age 73 Thyroid Father other (Alzheimers) Father other (Parkinsons Disease) Father Diabetes Sister Asthma Brother Diabetes Paternal Grandfather Cancer Maternal Grandmother The ROS, medical, surgical, family, and social history were reviewed by Konstantin Suero PA-C ALLERGIES Allergen Reactions Fosamax [Alendronat* Intolerance Heartburn, Acid reflux Current Outpatient Medications Medication Sig levothyroxine (LEVOXYL) 100 mcg tablet Take 1 tablet by mouth once daily. Skip one day weekly. Take on empty stomach. For Thyroid. carbamide peroxide (DEBROX) 6.5 % otic solution Use 5 Drops in both ears two times a day. clobetasol (TEMOVATE) 0.05 % cream Apply 1 application to affected area two times a day. Apply to hands iv contrast (will be provided with radiology test) CT adrenal WO/W Inject, intravenously, once for 1 dose.No IV access, insert saline lock prior to the beginning of sedation, infusion, injection of imaging exam. Discontinue saline lock post exam. If Pt. has a central line or IVAD, may access for administration according to line specific nursing protocol. Once exam is complete flush line and de-access according to line specific nursing protocol in the CT contrast administration guidelines link. glucosamine/chondroitn/Na/C/Se (JOINT FORMULA ORAL) Take by mouth. (Patient not taking: Reported on 07/01/2023) CHOLECALCIFEROL, VITAMIN D3, ORAL Take by mouth. Taking daily. Pt unsure of dosage. No current facility-administered medications for this visit. OBJECTIVE VIDEO EXAM: (if completed, performed via video enabled technology) No exam performed ASSESSMENT AND PLAN Plan Adrenal Adenoma - reviewed blood work results with patient, cortisol was suppressed as expected post dexamethasone - normetanephrine was mildly elevated, but no consistent hypertension noted, recommended keeping a log of blood pressure readings at home to bring to PCP - repeat blood work in 1 year, no need for further imaging I spent a total of 20 minutes on the date of the service which included preparing to see the patient, [id number] patient care, completing clinical documentation, counseling and educating the patient/family/caregiver, ordering medications, tests, or procedures, independently interpreting results (not separately reported), and communicating results to the patient/family/caregiver Konstantin Suero PA-C documented in this encounter [facility] 07-15-2024 Note HNO ID: [id number] Author: KONSTANTIN SUERO PA-C Service: ? Author Type: Physician Locomotive Firer Type: Progress Notes Filed: 07/19/2024 11:13 Note Text: Konstantin Suero PA-C Surgical Oncology [address] [facility], [address] [place] [phone] VIRTUAL VISIT PROGRESS NOTE This is a virtual visit using Audio Only Visit. It required patient-provider interaction for the medical decision making as documented below. I have communicated my name and active licensure. The patient's identity and physical location were verified at the time of this visit. Either the patient or their legal paper sales representative has been informed of the risks and benefits of -- and alternatives to -- treatment through a remote evaluation and consents to proceed with the evaluation remotely. Nasim Rodarte is a 64 year old female on the phone for a 1 year follow up. The patient previously saw Dr. Spencer for liver cyst and adrenal adenoma. Since last year, she has no significant changes in medical history. She does still have intermittent low lateral pain around her rib cage. No jaundice. No fever/chills. No high blood pressure. PAST MEDICAL HISTORY Diagnosis Date Generalized headaches Kidney stone 2019 lithotripsy Unspecified hypothyroidism PAST SURGICAL HISTORY Procedure Laterality Date COLONOSCOP W/ OR W/O BRSH SPEC 09/24/2011 Repeat in 5 years (-2016) COLONOSCOPY FLX DX W/COLLJ SPEC WHEN PFRMD 02/10/2017 repeat 5 yrs. COLONOSCOPY GEN ANES 10/19/2020 FRACTURE SURGERY LIPOMA (SMALL) Right 2022 forearm PAST SURGICAL HISTORY OF 2001 REMOVAL OF FATTY TUMOR LEFT ARM. PAST SURGICAL HISTORY OF Right 03/2016 ORIF tibia fx PAST SURGICAL HISTORY OF kidney stone removed TONSILLECTOMY HX TONSILLECTOMY PRIMARY/SECONDARY Tonsillectomy TUMOR REMOVAL (SPECIFY LOCATION) HX Right 2022 right forearm Social History Tobacco Use Smoking status: Every Day Current packs/day: 0.50 Average packs/day: 0.5 packs/day for 21.0 years (10.5 ttl pk-yrs) Types: Cigarettes Smokeless tobacco: Never Vaping Use Vaping status: Never Used Substance Use Topics Alcohol use: Never Comment: RARELY Drug use: No FAMILY HISTORY Problem Relation Age of Onset Arthritis Mother Diabetes Mother Diabetes Father Hypertension Father Colon Cancer Father Age 73 Thyroid Father other (Alzheimers) Father other (Parkinsons Disease) Father Diabetes Sister Asthma Brother Diabetes Paternal Grandfather Cancer Maternal Grandmother The ROS, medical, surgical, family, and social history were reviewed by Konstantin Suero PA-C ALLERGIES Allergen Reactions Fosamax [Alendronat* Intolerance Heartburn, Acid reflux Current Outpatient Medications Medication Sig levothyroxine (LEVOXYL) 100 mcg tablet Take 1 tablet by mouth once daily. Skip one day weekly. Take on empty stomach. For Thyroid. carbamide peroxide (DEBROX) 6.5 % otic solution Use 5 Drops in both ears two times a day. clobetasol (TEMOVATE) 0.05 % cream Apply 1 application to affected area two times a day. Apply to hands iv contrast (will be provided with radiology test) CT adrenal WO/W Inject, intravenously, once for 1 dose.No IV access, insert saline lock prior to the beginning of sedation, infusion, injection of imaging exam. Discontinue saline lock post exam. If Pt. has a central line or IVAD, may access for administration according to line specific nursing protocol. Once exam is complete flush line and de-access according to line specific nursing protocol in the CT contrast administration guidelines link. glucosamine/chondroitn/Na/C/Se (JOINT FORMULA ORAL) Take by mouth. (Patient not taking: Reported on 07/01/2023) CHOLECALCIFEROL, VITAMIN D3, ORAL Take by mouth. Taking daily. Pt unsure of dosage. No current facility-administered medications for this visit. OBJECTIVE VIDEO EXAM: (if completed, performed via video enabled technology) No exam performed DATA: Impression IMPRESSION: Right adrenal adenoma, slightly increased in size since 2022. Additional incidental findings as described. ASSESSMENT AND PLAN Plan Liver cyst Adrenal adenoma - reviewed CT findings with patient, stable liver cyst with slight increase in size of adrenal adenoma - discussed with patient adrenal guidelines which recommend following with imaging for 2 years and blood work for 5 years - recommend obtaining bloodwork for adrenal adenoma - no surgical intervention planned at this time I spent a total of 20 minutes on the date of the service which included preparing to see the patient, [id number] patient care, completing clinical documentation, counseling and educating the patient/family/caregiver, ordering medications, tests, or procedures, independently interpreting results (not separately reported), and communicating results to the patient/family/caregiver Konstantin Suero PA-C [facility] 07-15-2024 History of Presen t illness Narrative Images from the original note were not included. Konstantin Suero PA-C Surgical Oncology [address] [facility], [address] [place] [phone] VIRTUAL VISIT PROGRESS NOTE This is a virtual visit using Audio Only Visit. It required patient-provider interaction for the medical decision making as documented below. I have communicated my name and active licensure. The patient's identity and physical location were verified at the time of this visit. Either the patient or their legal paper sales representative has been informed of the risks and benefits of -- and alternatives to -- treatment through a remote evaluation and consents to proceed with the evaluation remotely. Nasim Rodarte is a 64 year old female on the phone for a 1 year follow up. The patient previously saw Dr. Spencer for liver cyst and adrenal adenoma. Since last year, she has no significant changes in medical history. She does still have intermittent low lateral pain around her rib cage. No jaundice. No fever/chills. No high blood pressure. PAST MEDICAL HISTORY Diagnosis Date Generalized headaches Kidney stone 2019 lithotripsy Unspecified hypothyroidism PAST SURGICAL HISTORY Procedure Laterality Date COLONOSCOP W/ OR W/O BRSH SPEC 09/24/2011 Repeat in 5 years (-2016) COLONOSCOPY FLX DX W/COLLJ SPEC WHEN PFRMD 02/10/2017 repeat 5 yrs. COLONOSCOPY GEN ANES 10/19/2020 FRACTURE SURGERY LIPOMA (SMALL) Right 2022 forearm PAST SURGICAL HISTORY OF 2001 REMOVAL OF FATTY TUMOR LEFT ARM. PAST SURGICAL HISTORY OF Right 03/2016 ORIF tibia fx PAST SURGICAL HISTORY OF kidney stone removed TONSILLECTOMY HX TONSILLECTOMY PRIMARY/SECONDARY <AGE 13 Tonsillectomy TUMOR REMOVAL (SPECIFY LOCATION) HX Right 2022 right forearm Social History Tobacco Use Smoking status: Every Day Current packs/day: 0.50 Average packs/day: 0.5 packs/day for 21.0 years (10.5 ttl pk-yrs) Types: Cigarettes Smokeless tobacco: Never Vaping Use Vaping status: Never Used Substance Use Topics Alcohol use: Never Comment: RARELY Drug use: No FAMILY HISTORY Problem Relation Age of Onset Arthritis Mother Diabetes Mother Diabetes Father Hypertension Father Colon Cancer Father Age 73 Thyroid Father other (Alzheimers) Father other (Parkinsons Disease) Father Diabetes Sister Asthma Brother Diabetes Paternal Grandfather Cancer Maternal Grandmother The ROS, medical, surgical, family, and social history were reviewed by Konstantin Suero PA-C ALLERGIES Allergen Reactions Fosamax [Alendronat* Intolerance Heartburn, Acid reflux Current Outpatient Medications Medication Sig levothyroxine (LEVOXYL) 100 mcg tablet Take 1 tablet by mouth once daily. Skip one day weekly. Take on empty stomach. For Thyroid. carbamide peroxide (DEBROX) 6.5 % otic solution Use 5 Drops in both ears two times a day. clobetasol (TEMOVATE) 0.05 % cream Apply 1 application to affected area two times a day. Apply to hands iv contrast (will be provided with radiology test) CT adrenal WO/W Inject, intravenously, once for 1 dose.No IV access, insert saline lock prior to the beginning of sedation, infusion, injection of imaging exam. Discontinue saline lock post exam. If Pt. has a central line or IVAD, may access for administration according to line specific nursing protocol. Once exam is complete flush line and de-access according to line specific nursing protocol in the CT contrast administration guidelines link. glucosamine/chondroitn/Na/C/Se (JOINT FORMULA ORAL) Take by mouth. (Patient not taking: Reported on 07/01/2023) CHOLECALCIFEROL, VITAMIN D3, ORAL Take by mouth. Taking daily. Pt unsure of dosage. No current facility-administered medications for this visit. OBJECTIVE VIDEO EXAM: (if completed, performed via video enabled technology) No exam performed DATA: Impression IMPRESSION: Right adrenal adenoma, slightly increased in size since 2022. Additional incidental findings as described. ASSESSMENT AND PLAN Plan Liver cyst Adrenal adenoma - reviewed CT findings with patient, stable liver cyst with slight increase in size of adrenal adenoma - discussed with patient adrenal guidelines which recommend following with imaging for 2 years and blood work for 5 years - recommend obtaining bloodwork for adrenal adenoma - no surgical intervention planned at this time I spent a total of 20 minutes on the date of the service which included preparing to see the patient, [id number] patient care, completing clinical documentation, counseling and educating the patient/family/caregiver, ordering medications, tests, or procedures, independently interpreting results (not separately reported), and communicating results to the patient/family/caregiver Konsatntin Suero PA-C documented in this encounter [facility] 07-07-2024 History of Presen t illness Narrative Radiology Service Progress Note PATIENT NAME: Nasim Rodarte DATE OF SERVICE: July 07, 2024 TIME: 1:24 PM PATIENT IDENTITY VERIFICATION COMPLETED USING TWO (2) IDENTIFIERS: Name and Date of confirmed by patient verbally. FALL SCREENING: Has the patient had 2 falls in the last year or 1 fall with injury or currently using an Ambulatory Assistive Device (Walker, Cane, Wheelchair, Crutches, etc.)? No PATIENT GENDER DATA: Assigned female at . status: : No status: NO. PATIENT RELEVANT IMPLANT DATA REVIEWED: Yes PATIENT PRESENTS WITH AN IMPLANTABLE OR ATTACHED MEDICAL RECORDS ASSISTANT: No RADIOLOGY DEPARTMENT: CT; Exam(s) Completed: Adrenal PERIPHERAL IV DATA: Not applicable SIGNED BY: RT Get(R) July 07, 2024 1:24 PM documented in this encounter [facility] 07-07-2024 Note HNO ID: [id number] Author: ENID BRO RT(R) Service: ? Author Type: Wood Lathe Operator Type: Progress Notes Filed: 07/07/2024 13:24 Note Text: Radiology Service Progress Note PATIENT NAME: Nasim Rodarte DATE OF SERVICE: July 07, 2024 TIME: 1:24 PM PATIENT IDENTITY VERIFICATION COMPLETED USING TWO (2) IDENTIFIERS: Name and Date of confirmed by patient verbally. FALL SCREENING: Has the patient had 2 falls in the last year or 1 fall with injury or currently using an Ambulatory Assistive Device (Walker, Cane, Wheelchair, Crutches, etc.)? No PATIENT GENDER DATA: Assigned female at . status: : No status: NO. PATIENT RELEVANT IMPLANT DATA REVIEWED: Yes PATIENT PRESENTS WITH AN IMPLANTABLE OR ATTACHED MEDICAL RECORDS ASSISTANT: No RADIOLOGY DEPARTMENT: CT; Exam(s) Completed: Adrenal PERIPHERAL IV DATA: Not applicable SIGNED BY: RT Get(R) July 07, 2024 1:[address] [facility] 05-24-2024 Telephone encounter Note Patient called into office. Notified of appointment information and scheduled follow up. Meena HAND [facility] 05-24-2024 Miscellaneous Notes Patient called into office. Notified of appointment information and scheduled follow up. Meena HAND Called patient, no answer, left VM to call office to go over CT scan appointment and schedule follow up. Meena HAND documented in this encounter [facility] 05-24-2024 Telephone encounter Note Called patient, no answer, left VM to call office to go over CT scan appointment and schedule follow up. Meena HAND [facility] 03-16-2024 History of Presen t illness Narrative Radiology Service Progress Note PATIENT NAME: Nasim Rodarte DATE OF SERVICE: March 16, 2024 TIME: 3:11 PM PATIENT IDENTITY VERIFICATION COMPLETED USING TWO (2) IDENTIFIERS: Name and Date of confirmed by patient verbally. FALL SCREENING: Has the patient had 2 falls in the last year or 1 fall with injury or currently using an Ambulatory Assistive Device (Walker, Cane, Wheelchair, Crutches, etc.)? No PATIENT GENDER DATA: Female. status: : No status: NO. PATIENT RELEVANT IMPLANT DATA REVIEWED: Not Applicable PATIENT PRESENTS WITH AN IMPLANTABLE OR ATTACHED MEDICAL RECORDS ASSISTANT: No RADIOLOGY DEPARTMENT: Mammography PERIPHERAL IV DATA: Not applicable SIGNED BY: RT Roseann(R) March 16, 2024 3:11 PM documented in this encounter [facility] 01-27-2024 Telephone encounter Note The following approved medication requests have been transmitted electronically. Requested Prescriptions Pending Prescriptions Disp Refills levothyroxine (LEVOXYL) 100 mcg tablet 30 tablet 11 Sig: Take 1 tablet by mouth once daily. Skip one day weekly. Take on empty stomach. For Thyroid. Mateo Ochoa APRN.CNP [facility] 01-27-2024 Miscellaneous Notes The following approved medication requests have been transmitted electronically. Requested Prescriptions Pending Prescriptions Disp Refills levothyroxine (LEVOXYL) 100 mcg tablet 30 tablet 11 Sig: Take 1 tablet by mouth once daily. Skip one day weekly. Take on empty stomach. For Thyroid. Mateo Ochoa APRN.CNP Prescription Refill Information The patient has been identified by name and date of :yes Caregiver verified no other encounters exist for this prescription request: Yes Caregiver confirmed with patient/requestor that no other refills are due, in the near future, with this provider at this time: Yes The last office visit in the department: 11/12/23 Does the patient have a future office visit with this provider/department: No Requested Prescriptions Pending Prescriptions Disp Refills levothyroxine (LEVOXYL) 100 mcg tablet 30 tablet 11 Sig: Take 1 tablet by mouth once daily. Skip one day weekly. Take on empty stomach. For Thyroid. Talia Corona LPN January 27, 2024 9:46 AM documented in this encounter [facility] 01-27-2024 Telephone encounter Note Prescription Refill Information The patient has been identified by name and date of :yes Caregiver verified no other encounters exist for this prescription request: Yes Caregiver confirmed with patient/requestor that no other refills are due, in the near future, with this provider at this time: Yes The last office visit in the department: 11/12/23 Does the patient have a future office visit with this provider/department: No Requested Prescriptions Pending Prescriptions Disp Refills levothyroxine (LEVOXYL) 100 mcg tablet 30 tablet 11 Sig: Take 1 tablet by mouth once daily. Skip one day weekly. Take on empty stomach. For Thyroid. Talia Corona LPN January 27, 2024 9:46 AM [facility] 12-04-2023 Telephone encounter Note Phoned patient left detailed message with results, notes from Debby Olivera NP on patient voicemail. [facility] 12-04-2023 Miscellaneous Notes Phoned patient left detailed message with results, notes from Debby Olivera NP on patient voicemail. Can you please call the patient and let her know that I reviewed her lab results. Vitamin D was normal, she may continue with [id number] vitamin D3. Repeat labs to evaluate elevated calcium were normal. Ionized calcium and PTH were normal. No further testing needed at this time. Thank you. Debby Olivera APRN.CNP documented in this encounter [facility] 12-04-2023 Telephone encounter Note Can you please call the patient and let her know that I reviewed her lab results. Vitamin D was normal, she may continue with [id number] vitamin D3. Repeat labs to evaluate elevated calcium were normal. Ionized calcium and PTH were normal. No further testing needed at this time. Thank you. Debby Olivera APRN.MARCELINO [facility] 11-26-2023 Telephone encounter Note Vitamin D lab has been placed. Thank you. eDbby Olivera APRN.CNP [facility] 11-26-2023 Miscellaneous Notes Vitamin D lab has been placed. Thank you. Debby Olivera APRN.CNP Patient notified of results, verbalizes understanding of instructions. Pt stated to hold off on the cholesteral medication. Will try to work on life style changes. Please add a Vit. D to her labs. Talia Corona LPN Can you please call the patient and let her know I reviewed her lab results. A1c was 5.5, no signs of diabetes. Thyroid functioning was normal, Bucky marker was positive, looks like this was positive in the past as well. LDL cholesterol was elevated. I would recommend that she work on lifestyle changes at home to help improve this, decrease processed foods in the diet, increase lean protein, vegetables, get some form exercise. Her cardiac risk score is 12.6% of having a cardiac event in the next 10 years. Or she may consider starting a cholesterol lowering medication. Her calcium was elevated as well, I would like to get some additional labs to further evaluate this. She can come in anytime to complete this. Please let me know what she prefers in regard to cholesterol medication. Thank you. Debby Olivera APRN.MARCELINO documented in this encounter [facility] 11-26-2023 Telephone encounter Note Patient notified of results, verbalizes understanding of instructions. Pt stated to hold off on the cholesteral medication. Will try to work on life style changes. Please add a Vit. D to her labs. Talia Corona LPN [facility] 11-26-2023 Telephone encounter Note Can you please call the patient and let her know I reviewed her lab results. A1c was 5.5, no signs of diabetes. Thyroid functioning was normal, Bucky marker was positive, looks like this was positive in the past as well. LDL cholesterol was elevated. I would recommend that she work on lifestyle changes at home to help improve this, decrease processed foods in the diet, increase lean protein, vegetables, get some form exercise. Her cardiac risk score is 12.6% of having a cardiac event in the next 10 years. Or she may consider starting a cholesterol lowering medication. Her calcium was elevated as well, I would like to get some additional labs to further evaluate this. She can come in anytime to complete this. Please let me know what she prefers in regard to cholesterol medication. Thank you. Debby Olivera APRN.CNP [facility] 11-12-2023 Telephone encounter Note RX resent. Debby Olivera APRN.MARCELINO [facility] 11-12-2023 Miscellaneous Notes RX resent. Debby Olivera APRN.MARCELINO Melyssa pharmacist from [facility] calling patient insurance is asking on the Clobetasol cream rx, how many grams being used per application and to area cream is being applied and for how many days. Please advise documented in this encounter [facility] 11-12-2023 Telephone encounter Note Melyssa pharmacist from [facility] calling patient insurance is asking on the Clobetasol cream rx, how many grams being used per application and to area cream is being applied and for how many days. Please advise [facility] 11-12-2023 Instructions Debby Olivera APRN.CNP - 11/12/2023 7:53 AM EDT Get fasting labs completed Elevate knee in the evenings, may try a knee sleeve for extra support Continue to take all medications as prescribed Mammogram due this year Follow up in 1 year or sooner pending test results Health Promotion: - Eat healthy -- go to [employer] to get started - Have a yearly physical - Mammogram yearly after age 40 - Get at least 30 minutes of physical activity daily - Get at least 7 to 8 hours of sleep each night - Reach and maintain a healthy weight - Get help to quit or don't start smoking - Limit alcohol use to one drink or less - Do not use illegal drugs or misuse prescription drugs - Wear a helmet when riding a bike and wear protective gear for sports - Wear a seatbelt in cars and not text and drive - Wear sunscreen documented in this encounter [facility] 11-12-2023 History of Presen t illness Narrative This is a 63 year old female who presents today with: Patient presents with: Wellness HISTORY OF PRESENT ILLNESS: Nasim Rodarte is a 63 year old female. Patient presents with: Wellness Wellness Exam Diet: tries to eat a well balanced diet. Exercise: Reports she walks 6-10 miles a day at work. Vision: Hasn't been for a long time. Dental: 1x yearly Sleep: getting approx 6 hours a night, sometimes not going into a deep sleep. Mood: Denies anxiety and depression. Denies SI/HI. Nonfunctioning adrenal tumor: Was evaluated by endocrinology, tumor was determined to be nonfunctioning therefore no treatment was necessary. Follow-up as needed. Hypothyroidism: Taking levothyroxine 100 mcg daily. Denies any difficulty swallowing, palpitations, or cold/heat intolerances. Has noticed some swelling on the top and below the bilateral knees, mentioned it to Dr. Caruso orthopedics, he was not concerned at that time. Denies any pain to the area. Does wear compression socks at work. On feet for prolonged periods of time. Mammogram: Mammogram with Dale completed in October 2021, normal. Due at this time. Colonoscopy: September 2020, polyp removed. Repeat screening due in 5 years, 2025. Vaccines: Denies wanting any vaccines PAST MEDICAL HISTORY: PAST MEDICAL HISTORY Diagnosis Date Generalized headaches Kidney stone 2019 lithotripsy Unspecified hypothyroidism PAST SURGICAL HISTORY Procedure Laterality Date COLONOSCOP W/ OR W/O BRSH SPEC 09/24/2011 Repeat in 5 years (-2016) COLONOSCOPY FLX DX W/COLLJ SPEC WHEN PFRMD 02/10/2017 repeat 5 yrs. COLONOSCOPY GEN ANES 10/19/2020 FRACTURE SURGERY LIPOMA (SMALL) Right 2022 forearm PAST SURGICAL HISTORY OF 2001 REMOVAL OF FATTY TUMOR LEFT ARM. PAST SURGICAL HISTORY OF Right 03/2016 ORIF tibia fx PAST SURGICAL HISTORY OF kidney stone removed TONSILLECTOMY HX TONSILLECTOMY PRIMARY/SECONDARY <AGE 13 Tonsillectomy TUMOR REMOVAL (SPECIFY LOCATION) HX Right 2022 right forearm ALLERGIES Fosamax [Alendronate Sodium] MEDICATIONS Current Outpatient Medications Medication Sig iv contrast (will be provided with radiology test) CT adrenal WO/W Inject, intravenously, once for 1 dose.No IV access, insert saline lock prior to the beginning of sedation, infusion, injection of imaging exam. Discontinue saline lock post exam. If Pt. has a central line or IVAD, may access for administration according to line specific nursing protocol. Once exam is complete flush line and de-access according to line specific nursing protocol in the CT contrast administration guidelines link. glucosamine/chondroitn/Na/C/Se (JOINT FORMULA ORAL) Take by mouth. (Patient not taking: Reported on 07/01/2023) levothyroxine (LEVOXYL) 100 mcg tablet Take 1 tablet by mouth once daily. Skip one day weekly. Take on empty stomach. For Thyroid. CHOLECALCIFEROL, VITAMIN D3, ORAL Take by mouth. Taking daily. Pt unsure of dosage. clobetasol (TEMOVATE) 0.05 % cream Apply 1 application to affected area twice daily. No current facility-administered medications for this visit. FAMILY HISTORY Problem Relation Age of Onset Arthritis Mother Diabetes Mother Diabetes Father Hypertension Father Colon Cancer Father Age 73 Thyroid Father other (Alzheimers) Father other (Parkinsons Disease) Father Diabetes Sister Asthma Brother Diabetes Paternal Grandfather Cancer Maternal Grandmother Social History Tobacco Use Smoking status: Every Day Packs/day: 0.50 Years: 21.00 Additional pack years: 0.00 Total pack years: 10.50 Types: Cigarettes Smokeless tobacco: Never Vaping Use Vaping Use: Never used Substance Use Topics Alcohol use: Never Comment: RARELY Drug use: No REVIEW OF SYSTEMS GENERAL: No weight loss, malaise or fevers/chills HEENT: Negative for frequent or significant headaches, No changes in hearing or vision. NECK: Negative for lumps, goiter, pain and significant neck swelling RESPIRATORY: Negative for cough, hemoptysis, wheezing, dyspnea or shortness of breath CARDIOVASCULAR: Negative for chest pain, leg swelling, orthopnea, or palpitations GI: No nausea, vomiting, or diarrhea/constipation. No hematochezia/melena. No heartburn or reflux symptoms. : No history of dysuria, frequency or incontinence MUSCULOSKELETAL: + Swelling bilateral knees SKIN: Negative for lesions, rash, and itching ENDOCRINE: Negative for cold or heat intolerance, polyuria, polydipsia and goiter NEURO: No history of headaches, syncope, paralysis, seizures or tremors MOOD: Negative for depression, anxiety, or suicidal ideation. EXAM: BP 146/90 Pulse 73 Resp 16 Ht 162.5 cm (5' 3.98") Wt 66.7 kg (147 lb) LMP 01/24/2013 SpO2 98% BMI 25.25 kg/m PHYSICAL EXAM: General Appearance: Well appearing, alert, in no acute distress, well-hydrated, well nourished. Skin: Skin color, texture, turgor normal, no suspicious rashes or lesions. Head: Normocephalic, no masses, lesions, tenderness or abnormalities. Eyes: Anicteric sclera. Pupils are equally round and reactive to light. Extraocular movements are intact. Ears: Bilateral cerumen impaction noted, unable to remove with curette. Unable to visualize TMs. Neck: Supple, no adenopathy; thyroid symmetric, normal size, no bruits. Lungs: Lungs clear to auscultation. No wheezing, rhonchi, rales.. Heart: RRR without murmur, gallop, or rubs. No ectopy. Abdomen: Normal abdominal exam, Abdomen soft, non-tender. Bowel sounds normal. No masses, organomegaly, Negative CVA tenderness. Extremities: No deformities, edema, skin discoloration, clubbing or cyanosis. Good capillary refill. Musculoskeletal: No deformity, or tenderness. Mild soft tissue swelling noted below the right knee/medial aspect. Nontender no mass palpable, no color change noted. Peripheral Pulses: Normal, Capillary refill <2secs, strong peripheral pulses, Pulses palpable. Neurologic: Gait normal. Reflexes normal and symmetric. Sensation grossly intact. Mood: Pleasant, engaged, good eye contact. ASSESSMENT/PLAN: 1. Wellness examination - ICD9: V70.0, ICD10: Z00.00 (primary diagnosis) - Counseled on healthy diet and regular exercise - Recommend vitamin containing 0.4 mg of folic acid - Mammogram ordered - exam recommended once yearly - Follow up for annual exam in one year 2. Benign neoplasm of adrenal cortex, unspecified laterality - ICD9: 227.0, ICD10: D35.00 - Stable 3. Acquired hypothyroidism - ICD9: 244.9, ICD10: E03.9 - Instructed patient on importance of taking on an empty stomach either first thing in the morning or at bedtime. - THYROID STIMULATING HORMONE - T4 FREE/FREE THYROXINE - THYROID PEROXIDASE ANTIBODY - THYROGLOBULIN ANTIBODY - T3 4. Hyperlipidemia, mixed - ICD9: 272.2, ICD10: E78.2 - Control undetermined, due for labs - Counseled on healthy diet and regular exercise - COMPREHENSIVE METABOLIC PANEL - LIPID PANEL BASIC 5. Contact dermatitis due to other chemical product, unspecified contact dermatitis type - ICD9: 692.4, ICD10: L25.3 - Stable, refill provided - CLOBETASOL 0.05 % TOPICAL CREAM 6. Bilateral impacted cerumen - ICD9: 380.4, ICD10: H61.23 - Instructed to use Debrox eardrops into bilateral ears, may return to the office for ear lavage as needed. - DEBROX 6.5 % EAR DROPS 7. Soft tissue swelling - ICD9: 782.2, ICD10: R22.9 - Exam relatively normal, concern for possible soft tissue swelling due to increased activity at work. Discussed doing a soft tissue ultrasound to evaluate for any fluid, patient denies wanting this at this time. - May try a knee sleeve for extra support, elevate the legs when possible. Follow-up with orthopedics with any worsening symptoms. 8. Screening for diabetes mellitus - ICD9: V77.1, ICD10: Z13.1 - HEMOGLOBIN A1C Follow-up in 1 year or sooner pending test results. Discussed treatment plan and patient voices understanding. Patient's questions answered appropriately. Medications and potential side effects were discussed and patient voices understanding. Debby Olivera APRN.MARCELINO This note was partially generated using [employer] voice recognition system. Note was reviewed for accuracy. There may be minor misspellings or grammar miscues with [employer] voice recognition. documented in this encounter [facility] 07-01-2023 History and physical note [facility] SURGERY H&P Subjective CHIEF COMPLAINT: Liver cyst HISTORY OF PRESENT ILLNESS: Ms. Rodarte is a 63 year old female who presents for liver cyst. She has some intermittent low level lateral R sided pain around her rib cage, but no intraabdominal pain that would correlate with a symptomatic cyst. She denies any other symptoms. She has no underlying liver disease. No family history of liver cancers. PAST MEDICAL HISTORY Diagnosis Date Generalized headaches Kidney stone 2019 lithotripsy Unspecified hypothyroidism PAST SURGICAL HISTORY Procedure Laterality Date COLONOSCOP W/ OR W/O BRSH SPEC 09/24/2011 Repeat in 5 years (-2016) COLONOSCOPY FLX DX W/COLLJ SPEC WHEN PFRMD 02/10/2017 repeat 5 yrs. COLONOSCOPY GEN ANES 10/19/2020 FRACTURE SURGERY LIPOMA (SMALL) Right 2022 forearm PAST SURGICAL HISTORY OF 2001 REMOVAL OF FATTY TUMOR LEFT ARM. PAST SURGICAL HISTORY OF Right 03/2016 ORIF tibia fx PAST SURGICAL HISTORY OF kidney stone removed TONSILLECTOMY HX TONSILLECTOMY PRIMARY/SECONDARY <AGE 13 Tonsillectomy TUMOR REMOVAL (SPECIFY LOCATION) HX Right 2022 right forearm Current Outpatient Medications on File Prior to Visit Medication Sig glucosamine/chondroitn/Na/C/Se (JOINT FORMULA ORAL) Take by mouth. levothyroxine (LEVOXYL) 100 mcg tablet Take 1 tablet by mouth once daily. Skip one day weekly. Take on empty stomach. For Thyroid. CHOLECALCIFEROL, VITAMIN D3, ORAL Take by mouth. Taking daily. Pt unsure of dosage. clobetasol (TEMOVATE) 0.05 % cream Apply 1 application to affected area twice daily. No current facility-administered medications on file prior to visit. ALLERGIES Allergen Reactions Fosamax [Alendronat* Intolerance Heartburn, Acid reflux FAMILY HISTORY Problem Relation Age of Onset Arthritis Mother Diabetes Mother Diabetes Father Hypertension Father Colon Cancer Father Age 73 Thyroid Father other (Alzheimers) Father other (Parkinsons Disease) Father Diabetes Sister Asthma Brother Diabetes Paternal Grandfather Cancer Maternal Grandmother Social History Tobacco Use Smoking status: Every Day Packs/day: 0.50 Years: 21.00 Additional pack years: 0.00 Total pack years: 10.50 Types: Cigarettes Smokeless tobacco: Never Vaping Use Vaping Use: Never used Substance Use Topics Alcohol use: Never Comment: RARELY Drug use: No Objective PHYSICAL EXAM: BP 144/88 Pulse 84 Ht 5' 4" (1.63m) Wt 147 lb (66.7kg) SpO2 99% LMP 01/24/2013 BMI 25.22 kg/(m^2). Physical Exam Performed GENERAL: Alert, no distress, cooperative LUNGS: No respiratory distress ABDOMEN: Soft, nontender The remainder of the physical exam is noncontributory. DATA: Diagnostic tests reviewed for today's visit: Most recent labs and imaging results. RUQ US 02/14/23: --Benign-appearing hepatic cysts (6.3 cm at largest) and right adrenal nodule (2.1 cm) Assessment/Plan 63F with 6.3 cm liver cyst (among others) and 2.1 cm nonfunctional adrenal nodule. --CT adrenal in 1 year for adrenal adenoma surveillance --No need for liver cyst surveillance --Follow-up with me after Betty Spencer MD [facility] Surgeon documented in this encounter [facility] 05-02-2023 Miscellaneous Notes General surgery referral placed. documented in this encounter [facility] 03-26-2023 History of Presen t illness Narrative Sulphate Tester offered: Patient declines. Nasim is a 62 year old who presents for an annual gynecologic exam without complaints. doing well with Prostate cancer and son doing well s/p throat cancer s/p radiation. Postmenopausal: Yes HRT use: No. Last Pap: 09/12/2020 normal HPV: 09/11/2020 negative History of abnormal pap: No Last mammogram: 2022 normal History of abnormal mammogram: No Sexually active: Yes History of STDS: None Patient concerns for STD exposure: No. Hot flashes: occasional Night sweats: No Vaginal dryness: No Exercise: active OB History T0 L3 SAB0 IAB0 Ectopic0 Multiple1 Live Births0 Comment: 2 pregnancies (3 kids) --- twins Internal Controls Analyst History LMP: 01/24/2013, Postmenopausal Age at Menarche: Age at First : Age at Menopause: Internal Controls Analyst History Comments: Sexual Activity: Not Currently; Male; prostate cancer Contraception: Condom PAST MEDICAL HISTORY Diagnosis Date Generalized headaches Kidney stone 2020 lithotripsy Unspecified hypothyroidism PAST SURGICAL HISTORY Procedure Laterality Date COLONOSCOP W/ OR W/O BRSH SPEC 09/24/2011 Repeat in 5 years (-2016) COLONOSCOPY FLX DX W/COLLJ SPEC WHEN PFRMD 02/10/2017 repeat 5 yrs. COLONOSCOPY GEN ANES 10/19/2020 FRACTURE SURGERY LIPOMA (SMALL) Right 2022 forearm PAST SURGICAL HISTORY OF 2001 REMOVAL OF FATTY TUMOR LEFT ARM. PAST SURGICAL HISTORY OF Right 03/2016 ORIF tibia fx PAST SURGICAL HISTORY OF kidney stone removed TONSILLECTOMY HX TONSILLECTOMY PRIMARY/SECONDARY <AGE 13 Tonsillectomy TUMOR REMOVAL (SPECIFY LOCATION) HX Right 2022 right forearm FAMILY HISTORY Problem Relation Age of Onset Arthritis Mother Diabetes Mother Diabetes Father Hypertension Father Colon Cancer Father Age 73 Thyroid Father other (Alzheimers) Father other (Parkinsons Disease) Father Diabetes Sister Asthma Brother Diabetes Paternal Grandfather Cancer Maternal Grandmother SOCIAL HISTORY Social History Tobacco Use Smoking status: Every Day Packs/day: 0.50 Years: 21.00 Additional pack years: 0.00 Total pack years: 10.50 Types: Cigarettes Smokeless tobacco: Never Vaping Use Vaping Use: Never used Substance Use Topics Alcohol use: Never Comment: RARELY Drug use: No REVIEW OF SYSTEMS Abdomen: No abdominal pain, nausea, vomiting, diarrhea, or constipation. No bloating, early satiety, indigestion, or increased flatulence. Bladder: No dysuria, gross hematuria, urinary frequency, urinary urgency, or incontinence Breast: No breast lumps, nipple d/c, overlying skin changes, redness or skin retraction Allergies and current medication updated:Yes EXAM: BP 126/70 Ht 5' 4" (1.63m) Wt 147 lb (66.7kg) LMP 01/24/2013 BMI 25.22 kg/(m^2). GENERAL: pleasant, female in no apparent distress HEENT: Normocephalic, atraumatic, mucus membranes moist, and no lesions NECK: Supple, full range of motion, no adenopathy, and thyroid normal DERMATOLOGY: Normal, without lesions, non-icteric, and non-hirsute BREAST: soft, non-tender, symmetric, no dominant mass, normal nipple-areolar complex, no lymphadenopathy, and no nipple discharge ABDOMEN: soft, non-tender, and no masses PELVIC: external genitalia normal, normal Bartholin's glands, urethra, [place]f's glands, no vulvar lesions, no cervical lesions, good vaginal support, physiologic discharge present, normal appearing perineal body and perianal region BIMANUAL: uterus normal size, shape and consistency, no adnexal masses, and non-tender RECTOVAGINAL: deferred. NEURO: alert and oriented x3,exam grossly non-focal EXTREMITIES: normal ASSESSMENT/PLAN: 1) Health maintenance: Pap/HPV up to date. Mammogram ordered Mammogram up to date Nutrition, exercise and routine health maintenance exams reviewed. Colon cancer screening: up to date with screening BMD: up to date- reviewed PROLIA- recommend discussing with PCP- did not tolerate PO well 2) Follow up one year or sooner as needed Josefina Reich MD documented in this encounter [facility] 03-17-2023 History of Presen t illness Narrative Erich Michael MD Department of Orthopaedics Orthopaedics [address] [facility] [address] Dept: [phone] Dept March 17, 2023 CHIEF COMPLAINT: Post Op of the Right Forearm. HPI AMB ROOMING INTAKE FLOWSHEET DATA Patient presents with: Right Forearm - Post Op 6 weeks 3 days post op excision lipoma of right forearm. Denies complaints or pain. ASSESSMENT: D17.21 Lipoma of right forearm (primary encounter diagnosis) SUMMARY/PLAN: Surgical site looks excellent. Healed nicely. No seroma. Excellent results thus far. Exam: Above Supporting Information Below: Medications: Current Outpatient Medications Medication Sig glucosamine/chondroitn/Na/C/Se (JOINT FORMULA ORAL) Take by mouth. levothyroxine (LEVOXYL) 100 mcg tablet Take 1 tablet by mouth once daily. Skip one day weekly. Take on empty stomach. For Thyroid. CHOLECALCIFEROL, VITAMIN D3, ORAL Take by mouth. Taking daily. Pt unsure of dosage. clobetasol (TEMOVATE) 0.05 % cream Apply 1 application to affected area twice daily. (Patient taking differently: Apply 1 application to affected area as needed.) No current facility-administered medications for this visit. Allergies: Fosamax [Alendronate Sodium] Erich Michael MD documented in this encounter [facility] 02-19-2023 Miscellaneous Notes Called and left a detailed voicemail notifying patient of providers message. Hospital phone number was left for patient to call back and schedule. Pau Moses RN Can you please call the patient and let her know I reviewed her ultrasound results. Ultrasound shows some benign-appearing hepatic cysts. I would still recommend that she follow-up with gastroenterology as discussed during office visit. She can schedule this at any time. Let me know if she has any questions. Thank you. Debby Olivera APRN.[employer] B[employer]BALL COACH documented in this encounter [facility] 02-14-2023 History of Presen t illness Narrative Anny Lloyd PA-C Department of Orthopaedics Orthopaedics [address] [facility] [address] Dept: [phone] Dept February 14, 2023 CHIEF COMPLAINT: Established Patient and Follow Up of the Right Arm (2 week post op right forearm soft tissue mass excision). ASSESSMENT: D17.21 Lipoma of right forearm (primary encounter diagnosis) SUMMARY/PLAN: Patient presents 2 weeks status post excision of right forearm lipoma. She is doing very well, having some 2 out of 10 numbness over the incision site. Has been keeping the incision covered while at work but otherwise is leaving it open to air. We discussed some scar massage to help with the overall appearance and numbness at the incision site. Exam: Right forearm incision site is well approximated without erythema or drainage. Patient has full and active range of motion in the right forearm with some subjective numbness to light touch over the incision site. Imaging: Deferred today. Ms. Nasim Rodarte was advised as to contrast therapies and/or to take analgesics/anti-inflammatories as needed and all contraindications were reviewed. Supporting Information Below: Medications: Current Outpatient Medications Medication Sig glucosamine/chondroitn/Na/C/Se (JOINT FORMULA ORAL) Take by mouth. levothyroxine (LEVOXYL) 100 mcg tablet Take 1 tablet by mouth once daily. Skip one day weekly. Take on empty stomach. For Thyroid. CHOLECALCIFEROL, VITAMIN D3, ORAL Take by mouth. Taking daily. Pt unsure of dosage. clobetasol (TEMOVATE) 0.05 % cream Apply 1 application to affected area twice daily. (Patient taking differently: Apply 1 application to affected area as needed.) No current facility-administered medications for this visit. Allergies: Fosamax [Alendronate Sodium] This note was partially generated using [employer] voice recognition system, and there may be some incorrect words, spellings, and punctuation that were not noted in checking the note before saving. Anny Lloyd PA-C Patient presents with: Right Arm - Established Patient, Follow Up: 2 week post op right forearm soft tissue mass excision Patient states pain has been well controlled since the excision. No longer taking oral pain medication. Patient states she covers the incision during work since her work environment can be dirty and she works with her hands. The incision is open to air otherwise. AMB ROOMING INTAKE FLOWSHEET DATA Pain Pain Level: 2 Pain Location: Arm-Forearm Right Description: Dull Duration Amount of Time: 2 Duration Units: Weeks Frequency: Intermittent Intervention/Comfort measure: Relaxation, Reposition documented in this encounter [facility] 02-14-2023 History of Presen t illness Narrative Radiology Service Progress Note PATIENT NAME: Nasim Rodarte DATE OF SERVICE: February 14, 2023 TIME: 8:16 AM PATIENT IDENTITY VERIFICATION COMPLETED USING TWO (2) IDENTIFIERS: Name and Date of confirmed by patient verbally. FALL SCREENING: Has the patient had 2 falls in the last year or 1 fall with injury or currently using an Ambulatory Assistive Device (Walker, Cane, Wheelchair, Crutches, etc.)? No PATIENT GENDER DATA: Female. status: : No status: NO. PATIENT RELEVANT IMPLANT DATA REVIEWED: Not Applicable RADIOLOGY DEPARTMENT: Ultrasound PERIPHERAL IV DATA: Not applicable SIGNED BY: Hilda Brothers RDMS February 14, 2023 8:16 AM documented in this encounter [facility] 01-20-2023 Instructions Yina Beltran APRN.[employer] COACH - 01/20/2023 3:46 PM EDT PATIENT PREOPERATIVE INSTRUCTIONS Erich Michael MD has scheduled you for your procedure at this surgery center: [facility]: [phone] -- [address] [facility] [address]. Please read below carefully for your personalized instructions. Dietary Restrictions: - No solid food after midnight. - You may have 12 ounces of clear liquids (water, clear juices such as apple juice or gatorade, carbonated beverages, clear tea, black coffee, jello) until 2 hours before scheduled arrival at facility. No red/purple coloring and no creamer/sugar Medications: Unless instructed differently below, stay on all of your medications until your surgery. Approved medications to take the morning of surgery with a sip of water: levothyroxine (SYNTHROID) If you start any new medications after today's visit, please contact the surgeon's office. Blood Thinning Medications: - Stop NSAIDS (Ibuprofen, Advil, Aleve, Motrin, Celebrex, Mobic, etc.) 7 days before surgery, as directed by your surgeon. - Stop Aspirin 7 days before surgery, as directed by your surgeon. - Stop Vitamin E, ALL multi-vitamins, herbals and dietary supplements 7 days before surgery. - You may take Tylenol (Acetaminophen) or any of your pain medications that do not contain aspirin or NSAIDS as needed. Important Reminders: - Candy, mints, gum and tobacco products are NOT permitted the morning of surgery. - Hearing aids, dentures and glasses may be worn the morning of surgery. - NO jewelry, body piercings, makeup, hairpins or contacts are to be worn the day of surgery. If you develop symptoms such as a fever, cold, or flu, or have other changes to your health within TWO DAYS of scheduled surgery or the morning of surgery, please contact the surgery center above. Personal Belongings: -Please have photo ID and insurance cards. -If you do not have a copy of advance directives on file with us, please bring a copy with you on the day of surgery. - Leave ALL valuables and money at home or with family members. For Outpatient Procedures: - YOU MUST HAVE A RESPONSIBLE FOUNTAIN WAITRESS/WAITER TAKE YOU HOME. A MINE SAFETY MANAGER OR TRANSMITTER CHIEF CANNOT BE MADE A RESPONSIBLE FOUNTAIN WAITRESS/WAITER. - We recommend that a responsible person stays with you overnight to take care of you. - You cannot stay in a hotel alone after outpatient surgery. You will not be permitted to have your surgery, if you do not have someone to take care of you. Arrival Time for Surgery: - The Surgery Center or hospital where you are having surgery will call the afternoon before surgery (or Friday for Friday surgery) with a scheduled arrival time. - If you have not heard by 4 pm, please contact the surgery center above. Please be aware that emergency situations arise, which may delay or change your surgical time. If this happens, we will notify you as soon as possible and regret any inconvenience. If you already have an Advance Directive, please fax a copy to [phone] or email to for it to be added to your chart. If you do not have an Advance Directive, you can find the appropriate form and more information at [email or web address]. We recommend that you complete the Advance Directive form found on the website and bring it with you the day of your surgery. It can be witnessed and scanned into your chart that day. Yina Beltran APRN.CNP documented in this encounter [facility] 01-20-2023 History and physical note HISTORY AND PHYSICAL EXAMINATION SERVICE DATE: 01/20/2023 SERVICE TIME: 1:38 AM PRIMARY CARE PHYSICIAN: Olga Amato MD REASON FOR VISIT: Nasim Rodarte is a 62 year old female who is scheduled for Procedure(s): EXCISION SOFT TISSUE TUMOR SUB-Q OF FOREARM = / > 3CM (Right) at the request of Dr. Erich Michael for consultation. My final recommendation will be communicated back to the requesting physician by way of shared medical record or letter. Subjective The patient has the following: ACTIVE PROBLEM LIST Hypothyroidism Family History of Colon Cancer Screen for Colon Cancer Hyperlipidemia, Mixed Tobacco Use Disorder Osteoporosis Without Current Pathological Fracture Adrenal Nodule (Hcc) Gerd (Gastroesophageal Reflux Disease) COVID-19 Immunization Status Postponed - COVID-19 VACCINE (1) Postponed until 11/12/2023 11/11/2022 Postponed until 11/12/2023 by Cassie Zuniga (Declined at this time) 09/25/2021 Postponed until 09/25/2022 by Salena Diaz APRN.CNP (Declined at this time) CHIEF COMPLAINT: Pre-op exam HPI: Nasim Rodarte is a 62 year old seen for PAC due to scheduled above surgery because of a lipoma right forearm. 12/26/2022, Dr. Michael CHIEF COMPLAINT: Established Patient and Knee Pain of the Right Knee and Last seen 04/22/22 mass right upper arm HPI Patient here for evaluation right knee pain. Patient states in April last year she was unable to walk due to the pain in her knee. Patient feels she is having some swelling in her knee. No specific injury but she did fracture her tibia when she had a fall in [address] Mckeon did her surgery at [facility] [place]. Patient also states she also has a history of varicose veins. 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 Denies any pain today. X-rays done on 04/29/22. REVIEW OF SYSTEMS: General: No weight loss, malaise or fevers. Neurological: No history of TIA's, stroke, SPEECH LANG PATH tumor, impaired sensorium, hemiplegia, paraplegia or quadraplegia. No neurological symptoms or problems. Respiratory: Positive for: tobacco use. Negative for: asthma, COPD, pneumonia within 6 weeks, URI < 2 weeks and obstructive sleep apnea. Cardiovascular: No history of HTN requiring medication, no history of angina, CHF, NC, cardiac surgery or stents. Denies rest pain, gangrene or revascularization/amputation for PVD. No history of cardiovascular symptoms or problems. GI: Positive for: GERD (otc rx as needed) Negative for: abdominal pain, dysphagia, hepatitis, irritable bowel syndrome, inflammatory bowel disease, liver disease, nausea, pancreatitis, history of polyps and ETOH >2 drinks/day. : Positive for: nephrolithiasis (remote hx). Negative for: renal failure and urinary tract infection. PHYSICAL BIOCHEMIST: Negative for abnormal vaginal bleeding, abnormal vaginal discharge. Endocrine: +adrenal nodule, under surveillance Positive for: hypothyroidism (on rx). Negative for: diabetes mellitus. Hematology: No history of bleeding or clotting disorder. Patient is not taking anti-coagulation or platelet medications. No history of hematological symptoms or problems. Oncology: No history of CA metastasis, chemo within 30 days, or radiotherapy within 90 days. No history of oncological symptoms or problems. Psych: No history of psychiatric symptoms or problems. Musculoskeletal: +osteoporosis, taking vitamins Skin: Negative for lesions, rash and itching. PAST MEDICAL HISTORY Diagnosis Date Generalized headaches Kidney stone 2019 lithotripsy Unspecified hypothyroidism PAST SURGICAL HISTORY Procedure Laterality Date COLONOSCOP W/ OR W/O BRSH SPEC 09/24/2011 Repeat in 5 years (-2016) COLONOSCOPY FLX DX W/COLLJ SPEC WHEN PFRMD 02/10/2017 repeat 5 yrs. COLONOSCOPY GEN ANES 10/19/2020 FRACTURE SURGERY PAST SURGICAL HISTORY OF 2001 REMOVAL OF FATTY TUMOR LEFT ARM. PAST SURGICAL HISTORY OF Right 03/2016 ORIF tibia fx PAST SURGICAL HISTORY OF kidney stone removed TONSILLECTOMY HX TONSILLECTOMY PRIMARY/SECONDARY <AGE 12 Tonsillectomy FAMILY HISTORY Problem Relation Age of Onset Arthritis Mother Diabetes Mother Diabetes Father Hypertension Father Colon Cancer Father Age 73 Thyroid Father other (Alzheimers) Father other (Parkinsons Disease) Father Diabetes Sister Asthma Brother Diabetes Paternal Grandfather Cancer Maternal Grandmother Social History Tobacco Use Smoking status: Every Day Packs/day: 0.50 Years: 21.00 Additional pack years: 0.00 Total pack years: 10.50 Types: Cigarettes Smokeless tobacco: Never Vaping Use Vaping Use: Never used Substance Use Topics Alcohol use: Never Comment: RARELY Drug use: No Prior to Admission medications as of 01/20/23 1547 Medication Sig Last Dose Taking glucosamine/chondroitn/Na/C/Se (JOINT FORMULA ORAL) Take by mouth. Taking Yes levothyroxine (LEVOXYL) 100 mcg tablet Take 1 tablet by mouth once daily. Skip one day weekly. Take on empty stomach. For Thyroid. Taking Yes CHOLECALCIFEROL, VITAMIN D3, ORAL Take by mouth. Taking daily. Pt unsure of dosage. Taking Yes clobetasol (TEMOVATE) 0.05 % cream Apply 1 application to affected area twice daily. Patient taking differently: Apply 1 application to affected area as needed. No medication comments found. ALLERGIES Allergen Reactions Fosamax [Alendronat* Intolerance Heartburn, Acid reflux Objective PHYSICAL EXAM: General: alert and oriented (x3) and healthy appearance. Pertinent negatives noted - not distressed. Skin: normal color, no rash or lesions. HEENT: EOM intact and pupils equal round. Pertinent negatives noted - no carotid bruit. Cardiovascular: regular rate and rhythm, normal S1 and S2, no rub, murmurs, or gallop. Respiratory: normal breath sounds, no wheezes or crackles. No chest wall deformity or tenderness. Abdomen: soft. Pertinent negatives noted - not tender. Extremities: no deformity, no edema or tenderness, no joint swelling or clubbing. Neurological: normal cognition and motor skills. Gait normal. No weakness or sensory deficit. PAIN ASSESSMENT: VITALS: BP 144/86 Pulse 74 Temp (Src) 97.6 (Temporal) Resp 14 Ht 5' 4" (1.63m) Wt 145 lb (65.8kg) SpO2 97% LMP 01/24/2013 BMI 24.88 kg/(m^2). Diagnostic tests reviewed for today's visit: Lab Value Units Date High Low HB 13.5 g/dL 11/16/2022 15.5 11.5 HCT 41.4 % 11/16/2022 46.0 36.0 WBC 5.87 k/uL 11/16/2022 11.00 3.70 PLT 256 k/uL 11/16/2022 400 150 NA 141 mmol/L 11/16/2022 144 136 K 4.3 mmol/L 11/16/2022 5.1 3.7 GLUC 77 mg/dL 11/16/2022 99 74 BUN 20 mg/dL 11/16/2022 21 7 CREAT 1.06 mg/dL 11/16/2022 0.96 0.58 PTSEC No results within date range. INR No results within date range. APTT No results within date range. ALT 10 U/L 11/16/2022 38 7 AST 17 U/L 11/16/2022 35 13 TBILI 0.4 mg/dL 11/16/2022 1.3 0.2 TSH 0.374 mIU/L 11/16/2022 4.200 0.270 Lab Value Units Date High Low HCGQT No results within date range. UHCG No results within date range. HCG, BODY* No results within date range. Lab Value Units Date High Low ABORHD No results within date range. ABSCREEN No results within date range. Hemoglobin A1C (%) Date Value 11/16/2022 5.5 No results found for this or any previous visit (from the past 8760 hour(s)). No results found for this or any previous visit (from the past 02200 hour(s)). Assessment Patient has the following medical conditions which may affect lorraine-operative course: Adrenal nodule (HCC) Assessment: under surveillance 09/05/2022 Dr. Chandra, Endocrinology [facility] (E27.8) Adrenal nodule (HCC) (primary encounter diagnosis) I reviewed CT scan images with her. Right adrenal adenoma is not the cause of her right upper quadrant pain. No evidence of cortisol excess. Given the lipid rich nature, no need to check plasma metanephrines. Considering borderline hypertension with 1 episode of hypokalemia, it is reasonable to check aldosterone excess. We will get a baseline aldosterone, plasma renin concentration, ACTH, a.m. cortisol and DHEA-sulfate. Follow-up: As needed Contact us sooner than recommended follow-up if with issues/concerns. Follow-up with primary care provider and other specialists for issues not explained by the condition that the patient is seeing me for. Osteoporosis without current pathological fracture Assessment: taking supplement Hyperlipidemia, mixed Assessment: diet controlled Hypothyroidism Assessment: stable on rx Tobacco use disorder Assessment: 0.5ppd, denies asthma or COPD GERD (gastroesophageal reflux disease) Assessment: otc rx as needed Henderson Activity Status Index: METS: Climb a flight of stairs or walk up a hill (5.50 METs) DASI Score: 5.5 Patient denies any chest pain or undue shortness of breath with the above physical activity. Clinical Frailty Scale: 3. Well, with treated comorbid disease STOP-Bang Score: Patient over 50 years old Denies snoring loudly Denies feeling tired, fatigued, or sleepy during the daytime Has not been observed to stop breathing or choking/gasping during sleep Denies having high blood pressure BMI less than or equal to 35 kg/m^2 Does not have a large neck Non-male patient STOP-Bang Score: 1 [id number] Score: Age: <65 Sex: female CHF history: No Hypertension history: No Stroke/TIA/thromboembolism history: No Vascular disease history: No Diabetes history: No [id number] Score: 1 ARISCAT Score: Age: 51-80 Preoperative SpO2: >=96% Respiratory infection in the last month: No Preoperative anemia: Yes Surgical incision: peripheral Duration of surgery: 2-3 hrs Emergency procedure: No ARISCAT Score: 30 ANESTHESIA FINDINGS: Intubation History: No history of difficult intubation Significant Anesthesia Considerations: none Airway History: No history of difficult airway I - PHYSICAL EVALUATION AIRWAY Patient intubated: No. Tracheostomy tube not present Mallampati: II. TM distance: >3 FB. Neck ROM: full ROM without neurological symptoms. Mouth opening: adequate. Short neck: no. Thick neck: no Peck present: no Lip Bite Test: II Microretrognathia/Micronagthia/R ecessed Chin: No DENTAL Dental findings: teeth intact. Dentures, upper: complete. II - ANESTHESIA PLAN Anesthetic Plan: other Anesthetic plan additional comments: *PACC/TCI - anesthesia choice. Beta Geetha Monitoring Plan Post Procedure Analgesic Plan Informed Consent Anesthetic risks, benefits, alternatives, personnel and consent discussed: yes. Patient / Responsible Democrat agrees to proceed: yes Patient / Surrogate agrees to blood products: blood products not planned Discussed the possibility of lip / dental damage: yes Prepared for Surgery: optimally prepared for surgery. CONSULTS: Patient does not require consults for optimization at this time Planned Anesthetic: other anesthesia choice The Following Tests/Procedures Have Been Initiated: Orders Placed This Encounter glucosamine/chondroitn/Na/C/Se (JOINT FORMULA ORAL) Sig: Take by mouth. Instructions Given to Patient: Instructions located in the after visit summary. Patient given verbal and written preop instructions and voices comprehension and compliance. SIGNATURE: Yina Beltran APRN.CNP PATIENT NAME: Nasim Rodarte DATE: January 20, 2023 TIME: 3:36 PM PAGER/CONTACT #: documented in this encounter [facility] 01-13-2023 Miscellaneous Notes January 13, 2023 PID: [id number] Nasim Rodarte [address] [place] [address] Dear Ms. Rodarte, We are pleased to inform you that the results of your recent breast imaging exam on 01/10/2023 are normal. Your mammogram demonstrates that you have dense breast tissue, which could hide abnormalities. Dense breast tissue, in and of itself, is a relatively common condition. Therefore, this information is not provided to cause undue concern; rather, it is to raise your awareness and promote discussion with your health care provider regarding the presence of dense breast tissue in addition to other risk factors. Early detection of cancer is very important. We also understand recommendations regarding breast cancer screening are controversial. Please discuss with your primary care provider which strategy is best for you and whether a mammogram is right for you. Your imaging studies and report will be kept on file at [facility] as part of your permanent medical record and are available for your continuing care. Thank you for allowing us to help in meeting your health care needs. Sincerely, Dr. Sotelo Interpreting Radiologist [facility] (Normal over 40) documented in this encounter [facility] 01-10-2023 Miscellaneous Notes Surgery has been scheduled as requested. Surgical request completed for right forearm excision of lipoma/soft tissue mass at [facility] on 01/31/2023. Post op appointments have been scheduled and mailed to the patient. documented in this encounter [facility] 01-10-2023 History of Presen t illness Narrative Radiology Service Progress Note PATIENT NAME: Nasim Rodarte DATE OF SERVICE: January 10, 2023 TIME: 7:49 AM PATIENT IDENTITY VERIFICATION COMPLETED USING TWO (2) IDENTIFIERS: Name and Date of confirmed by patient verbally. FALL SCREENING: Has the patient had 2 falls in the last year or 1 fall with injury or currently using an Ambulatory Assistive Device (Walker, Cane, Wheelchair, Crutches, etc.)? No PATIENT GENDER DATA: Female. status: : No status: NO. PATIENT RELEVANT IMPLANT DATA REVIEWED: Yes RADIOLOGY DEPARTMENT: Mammography PERIPHERAL IV DATA: Not applicable SIGNED BY: RT Shannen(R) January 10, 2023 7:49 AM documented in this encounter [facility] 01-02-2023 Miscellaneous Notes OK to refill as ordered Olga Amato MD Patient phones requesting refills as follows: Requested Prescriptions Pending Prescriptions Disp Refills levothyroxine (LEVOXYL) 100 mcg tablet 30 tablet 3 Sig: Take 1 tablet by mouth once daily. Skip one day weekly. Take on empty stomach. For Thyroid. MONA-11/11/22 Labs-11/16/22 NOV-11/12/23 Please review and advise. Talia Corona LPN documented in this encounter [facility] 12-26-2022 History of Presen t illness Narrative Erich Michael MD Department of Orthopaedics Orthopaedics [address] [facility] [address] Dept: [phone] Dept December 26, 2022 CHIEF COMPLAINT: Established Patient and Knee Pain of the Right Knee and Last seen 04/22/22 mass right upper arm HPI Patient here for evaluation right knee pain. Patient states in April last year she was unable to walk due to the pain in her knee. Patient feels she is having some swelling in her knee. No specific injury but she did fracture her tibia when she had a fall in [address] Mckeon did her surgery at [facility] [place]. Patient also states she also has a history of varicose veins. 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 Denies any pain today. X-rays done on 04/29/22. ASSESSMENT: D17.21 Lipoma of right upper extremity (primary encounter diagnosis) M25.469 Knee swelling PLAN: Reviewing her knee, it just looks like she has a little bit of a fatty presents on the anteromedial thigh near the knee. It does not appear to be anything concerning at this time. Secondarily, she is interested in getting the well-documented lipoma off of her forearm. We reviewed the risks, benefits, alternatives and potential complications with both operative and nonoperative treatment. She would like to pursue excision with a MAC anesthesia. We will get her scheduled at her convenience. OBJECTIVE: Ms. Nasim Rodarte is a pleasant 62 year old in no apparent distress. Gen:LMP 01/24/2013 nl development, thin-appearing , no deformities ENT: Normocephalic, normal hearing, moist mucosa CV: Pulses:DP/PT= 2+ and symmetric, capillary refill < 2 secs, no peripheral edema/varicosities Skin: no rash, bruising or lesions. Good turgor. Psych: cooperative and appropriate, alert and oriented x 3, good mood and affect. Musculoskeletal: Focal area of soft tissue swelling consistent with the lipomatous mass on the right forearm approximately 3 x 2 cm. The right knee when she is standing has just a bit of prominence over the medial inner thigh near the knee. It does appear to be fatty tissue though maybe not necessarily circumscribed like a consolidated lipoma. She has no tenderness around the knee. Performer surgical scars noted on the lateral side without any issues there is some very minor prominence of the plate which she states does not bother her nearly all of the time. Imaging: IMPRESSION: No acute bony finding. No appreciable arthropathy Biophysics Teacher: ROCCO Transcribe Date/Time: Apr 30 2022 2:01P Dictated by : OLGA DONNELLY MD This examination was interpreted and the report reviewed and electronically signed by: OLGA DONNELLY MD on Apr 30 2022 2:47PM EST Results-Findings * * *Final Report* * * DATE OF EXAM: Apr 29 2022 8:26AM WOX [id number] - XR KNEE 4V AP/PA BOTH+LAT/SKYLA RT / PROCEDURE REASON: Acute pain of right knee * * * * Physician Interpretation * * * * Right knee HISTORY: 61 years old Clinical information: Acute pain of right knee Hx of prior surgery. Lateral right knee pain x 5 days without injury TECHNIQUE: Images: XR KNEE 4V AP/PA BOTH+LAT/SKYLA RT Comparison: None. RESULT: Findings: Plate-screw fixation of the tibial plateau with fixation plate along the lateral proximal tibia. No depression. No joint space narrowing or effusion. 2 x 4 mm dystrophic calcification anterior to the patellar tendon. Supporting Subjective Information Below: Past Surgical History: PAST SURGICAL HISTORY Procedure Laterality Date COLONOSCOP W/ OR W/O [facility] SPEC 09/24/2011 Repeat in 5 years (-2016) COLONOSCOPY FLX DX W/COLLJ SPEC WHEN PFRMD 02/10/2017 repeat 5 yrs. COLONOSCOPY GEN ANES 10/19/2020 FRACTURE SURGERY PAST SURGICAL HISTORY OF 2001 REMOVAL OF FATTY TUMOR LEFT ARM. PAST SURGICAL HISTORY OF Right 03/2016 ORIF tibia fx PAST SURGICAL HISTORY OF kidney stone removed TONSILLECTOMY HX TONSILLECTOMY PRIMARY/SECONDARY <AGE 13 Tonsillectomy Medications: Current Outpatient Medications Medication Sig levothyroxine (LEVOXYL) 100 mcg tablet Take 1 tablet by mouth once daily. Skip one day weekly. Take on empty stomach. For Thyroid. CHOLECALCIFEROL, VITAMIN D3, ORAL Take by mouth. Taking daily. Pt unsure of dosage. clobetasol (TEMOVATE) 0.05 % cream Apply 1 application to affected area twice daily. (Patient taking differently: Apply 1 application to affected area as needed.) No current facility-administered medications for this visit. Allergies: Fosamax [Alendronate Sodium] ROS: General (negative for fatigue, malaise, weight loss/gain) HEENT (negative for headache, earache, recent vision changes, sinus pain, sore throat) Respiratory (no recent shortness of breath, hemoptysis) CV (negative for chest tightness, palpitations) Musculoskeletal (see HPI) Psych (no depression, anxiety) Erich Michael MD documented in this encounter [facility] 11-18-2022 Miscellaneous Notes All About Baby[employer]t message sent to pt notifying her of Providers response and recommendation. If questions to notify office. Jessica Swanson Ma Can you please call the patient and let her know that I reviewed her lab results. Thyroid labs were normal. A1c was 5.5, no signs of diabetes. I would recommend that she stay well-hydrated throughout the day. LDL cholesterol was elevated. I would recommend lifestyle changes at home to help improve this. Try to decrease any processed foods/sugary drinks in the diet. Try to increase lean protein, vegetables, and get some form of exercise. Please let me know if she has any questions. Thank you. Debby Olivera APRN.MARCELINO documented in this encounter [facility] 11-11-2022 Miscellaneous Notes Consult for GI as well as OV notes and demographics faxed to Dr. Sandoval office at [facility] [place]. YRIS Hopper documented in this encounter [facility] 11-11-2022 Instructions Cassie Zuniga - 11/11/2022 8:03 AM EDT Get fasting labs completed, no food 10-12 hours prior. May have black coffee and water. Schedule appointments for Orthopedics and Gastroenterology. Continue to eat a well balanced diet, stay well hydrated. Due for mammogram Follow up in 1 year or sooner pending test results. documented in this encounter [facility] 11-11-2022 History of Presen t illness Narrative This is a 62 year old female who presents today with: Patient presents with: Physical HISTORY OF PRESENT ILLNESS: Nasim Rodarte is a 62 year old female. Patient presents with: Physical Here in the office for wellness exam. Diet: eating well balanced diet, good water intake Exercise: lots of walking at work Vision: due for exam- wearing readers as needed Dental: last exam 6 months ago Sleep: getting 7 hours of sleep- difficulty staying asleep Mood: no si/hi, no increased sadness Nonfunctioning adrenal tumor: Was evaluated by endocrinology, tumor was determined to be nonfunctioning therefore no treatment was necessary. Follow-up as needed. Hypothyroidism: Taking levothyroxine 100 mcg daily. Denies any difficulty swallowing, palpitations, or cold/heat intolerances. +difficulty staying asleep- states "this happens when her tyroid levels are elevated" Mammogram: Mammogram with Dale completed in October 2021, normal. Colonoscopy: September 2020, polyp removed. Repeat screening due in 5 years, 2025. Vaccines: Denies wanting any vaccines Right knee: c/o increased intermittent swelling and pain on medial upper knee. Denies leg weakness or redness. PAST MEDICAL HISTORY: PAST MEDICAL HISTORY Diagnosis Date Generalized headaches Kidney stone 2020 lithotripsy Unspecified hypothyroidism PAST SURGICAL HISTORY Procedure Laterality Date COLONOSCOP W/ OR W/O [facility] SPEC 09/24/2011 Repeat in 5 years (-2016) COLONOSCOPY FLX DX W/COLLJ SPEC WHEN PFRMD 02/10/2017 repeat 5 yrs. COLONOSCOPY GEN ANES 10/19/2020 FRACTURE SURGERY PAST SURGICAL HISTORY OF 2001 REMOVAL OF FATTY TUMOR LEFT ARM. PAST SURGICAL HISTORY OF Right 03/2016 ORIF tibia fx PAST SURGICAL HISTORY OF kidney stone removed TONSILLECTOMY HX TONSILLECTOMY PRIMARY/SECONDARY <AGE 13 Tonsillectomy ALLERGIES Fosamax [Alendronate Sodium] MEDICATIONS Current Outpatient Medications Medication Sig levothyroxine (LEVOXYL) 100 mcg tablet Take 1 tablet by mouth once daily. Skip one day weekly. Take on empty stomach. For Thyroid. CHOLECALCIFEROL, VITAMIN D3, ORAL Take by mouth. Taking daily. Pt unsure of dosage. clobetasol (TEMOVATE) 0.05 % cream Apply 1 application to affected area twice daily. (Patient taking differently: Apply 1 application to affected area as needed.) No current facility-administered medications for this visit. FAMILY HISTORY Problem Relation Age of Onset Arthritis Mother Diabetes Mother Diabetes Father Hypertension Father Colon Cancer Father Age 73 Thyroid Father other (Alzheimers) Father other (Parkinsons Disease) Father Diabetes Sister Asthma Brother Diabetes Paternal Grandfather Cancer Maternal Grandmother Social History Tobacco Use Smoking status: Every Day Packs/day: 0.50 Years: 21.00 Pack years: 10.50 Types: Cigarettes Smokeless tobacco: Never Vaping Use Vaping Use: Never used Substance Use Topics Alcohol use: Never Comment: RARELY Drug use: No REVIEW OF SYSTEMS GENERAL: No weight loss, malaise or fevers/chills HEENT: Negative for frequent or significant headaches, No changes in hearing or vision. NECK: Negative for lumps, goiter, pain and significant neck swelling RESPIRATORY: Negative for cough, hemoptysis, wheezing, dyspnea or shortness of breath CARDIOVASCULAR: Negative for chest pain, leg swelling, orthopnea, or palpitations GI: No nausea, vomiting, or diarrhea/constipation. No hematochezia/melena. No heartburn or reflux symptoms. : No history of dysuria, frequency or incontinence MUSCULOSKELETAL: + Right Knee Pain SKIN: Negative for lesions, rash, and itching ENDOCRINE: Negative for cold or heat intolerance, polyuria, polydipsia and goiter NEURO: No history of headaches, syncope, paralysis, seizures or tremors MOOD: Negative for depression, anxiety, or suicidal ideation. EXAM: BP 132/84 Pulse 78 Resp 16 Ht 162.5 cm (5' 3.98") Wt 64.6 kg (142 lb 6.4 oz) LMP 01/24/2013 SpO2 100% BMI 24.46 kg/m PHYSICAL EXAM: General Appearance: Well appearing, alert, in no acute distress, well-hydrated, well nourished. Skin: Skin color, texture, turgor normal, no suspicious rashes or lesions. Head: Normocephalic, no masses, lesions, tenderness or abnormalities. Eyes: Anicteric sclera. Pupils are equally round and reactive to light. Extraocular movements are intact. Ears: External ears normal, canals clear, Negative findings: Left tympanic color is beck, Right tympanic color is beck. Nose/Sinuses: Nares normal, septum midline, mucosa normal, no drainage or sinus tenderness. Oropharynx: Lips, mucosa, and tongue normal, teeth and gums normal, oropharynx normal. Neck: Supple, no adenopathy; thyroid symmetric, normal size Lungs: Lungs clear to auscultation. No wheezing, rhonchi, rales. Heart: RRR without murmur, gallop, or rubs. No ectopy. Abdomen: Normal abdominal exam, Abdomen soft, non-tender. Bowel sounds normal. No masses, organomegaly. Extremities: No deformities, edema, skin discoloration, clubbing or cyanosis. Good capillary refill. Musculoskeletal: Right knee: No crepitus, ROM within normal limits, negative valgus/varus, negative posterior drawers test. Mild edema noted on the medial aspect of the knee Peripheral Pulses: Normal, Capillary refill <2secs, strong peripheral pulses, Pulses palpable. Neurologic: Gait normal. ASSESSMENT/PLAN: 1. Wellness examination - ICD9: V70.0, ICD10: Z00.00 (primary diagnosis) - Counseled on healthy diet and regular exercise - Calcium intake with supplements or by diet of 1000 mg/day for under 50, 6838-9100 mg/day for 50+ - Follow up for annual exam in one year - COMP METABOLIC PANEL - CBC + DIFF 2. Acquired hypothyroidism - ICD9: 244.9, ICD10: E03.9 - Instructed patient on importance of taking on an empty stomach either first thing in the morning or at bedtime. - check TSH, free T4, and T3 today Stable - Continue current medications- awaiting lab results - TSH BLD - T4 FREE/FREE THYROX 3. Benign neoplasm of adrenal cortex, unspecified laterality - ICD9: 227.0, ICD10: D35.00 - Follow up with endocrinology as needed 4. 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 Hyperlipidemia, mixed - ICD9: 272.2, ICD10: E78.2 - Controlled - Counseled on healthy diet and regular exercise - LIPID PANEL BASIC 6. Screening for diabetes mellitus - ICD9: V77.1, ICD10: Z13.1 - HGB A1C Return in one year or sooner as needed Discussed treatment plan and patient voices understanding. Patient's questions answered appropriately. Medications and potential side effects were discussed and patient voices understanding. Debby Olivera APRN.[employer]ACH This note was partially generated using [employer] recognition system. Note was reviewed for accuracy. There may be minor misspellings or grammar miscues with Dragon voice recognition. documented in this encounter [facility] 09-05-2022 History of Presen t illness Narrative Images from the original note were not included. [facility] - NEW VISIT (VIRTUAL) I have communicated my name and active licensure. The patient's identity and physical location were verified at the time of this visit. Either the patient or their legal paper sales representative has been informed of the risks and benefits of -- and alternatives to -- treatment through a remote evaluation and consents to proceed with the evaluation remotely. REASON FOR CONSULTATION: Right-sided adrenal adenoma REFERRING PHYSICIAN: Debby Mccloud PCP. My recommendations will be sent to the referring physician/provider either by letter or shared electronic medical record. HISTORY Ms. Nasim Rodarte is a 62 year old very pleasant female with a pertinent PMH of nephrolithiasis, primary hypothyroidism, who presents for evaluation of right-sided adrenal adenoma. #1 1.7 cm lipid rich right-sided adrenal adenoma with Hounsfield units of -12 Mode of discovery: Incidentally discovered by abdominal cross-sectional imaging obtained to look for recurrent renal stones Abdominal imaging: She had a CT without contrast on July 19, 2022 that the demonstrated a 1.7 x 1.0 cm lipid rich adrenal adenoma on the right adrenal gland. Looking back in her CT scan in 2013, the adenoma was there but slightly smaller with similar characteristics. Symptoms of cortisol excess: No Symptoms of aldosterone excess: No prior history of hypertension but did not notice that recently her blood pressure has been running close to 140/90 mgHg at home. She is not on any BP medications. Although she does not remember, there was a 1 potassium level of 3.6 a few years ago. Symptoms of catecholamine excess: No Hormonal workup so far: - 1 mg DST: 8 AM cortisol after 1 mg dexamethasone suppression was 1.1 on July 26, 2022 - PAC: NA , PRA/PRC: NA - plasma metanephrines/24h urine catacholamines and metaneprhines: NA PAST MEDICAL HISTORY Diagnosis Date Generalized headaches Kidney stone 2020 lithotripsy Unspecified hypothyroidism PAST SURGICAL HISTORY Procedure Laterality Date COLONOSCOP W/ OR W/O [facility] SPEC 09/24/2011 Repeat in 5 years (-2016) COLONOSCOPY FLX DX W/COLLJ SPEC WHEN PFRMD 02/10/2017 repeat 5 yrs. COLONOSCOPY GEN ANES 10/19/2020 FRACTURE SURGERY PAST SURGICAL HISTORY OF 2001 REMOVAL OF FATTY TUMOR LEFT ARM. PAST SURGICAL HISTORY OF Right 03/2016 ORIF tibia fx PAST SURGICAL HISTORY OF kidney stone removed TONSILLECTOMY HX TONSILLECTOMY PRIMARY/SECONDARY <AGE 13 Tonsillectomy Social History Tobacco Use Smoking status: Every Day Packs/day: 0.50 Years: 21.00 Pack years: 10.50 Types: Cigarettes Smokeless tobacco: Never Vaping Use Vaping Use: Never used Substance Use Topics Alcohol use: Never Comment: RARELY Drug use: No FAMILY HISTORY Problem Relation Age of Onset Arthritis Mother Diabetes Mother Diabetes Father Hypertension Father Colon Cancer Father Age 73 Thyroid Father other (Alzheimers) Father other (Parkinsons Disease) Father Diabetes Sister Asthma Brother Diabetes Paternal Grandfather Cancer Maternal Grandmother Current Outpatient Medications Medication Sig levothyroxine (LEVOXYL) 100 mcg tablet Take 1 tablet by mouth once daily. Skip one day weekly. Take on empty stomach. For Thyroid. CHOLECALCIFEROL, VITAMIN D3, ORAL Take by mouth. Taking daily. Pt unsure of dosage. clobetasol (TEMOVATE) 0.05 % cream Apply 1 application to affected area twice daily. (Patient taking differently: Apply 1 application to affected area as needed.) No current facility-administered medications for this visit. ALLERGIES Allergen Reactions Fosamax [Alendronat* Intolerance Heartburn, Acid reflux REVIEW OF SYSTEMS: Negative except as above. PHYSICAL EXAMINATION by video GENERAL: not in distress, well-appearing HEENT: anicteric sclerae, non-injected conjunctivae NECK: able to move easily, no obvious goiter NEUROLOGIC: alert, oriented LAB TEST Reviewed IMAGING Reviewed PATHOLOGY Reviewed ASSESSMENT/PLAN (E27.8) Adrenal nodule (HCC) (primary encounter diagnosis) I reviewed CT scan images with her. Right adrenal adenoma is not the cause of her right upper quadrant pain. No evidence of cortisol excess. Given the lipid rich nature, no need to check plasma metanephrines. Considering borderline hypertension with 1 episode of hypokalemia, it is reasonable to check aldosterone excess. We will get a baseline aldosterone, plasma renin concentration, ACTH, a.m. cortisol and DHEA-sulfate. Follow-up: As needed Contact us sooner than recommended follow-up if with issues/concerns. Follow-up with primary care provider and other specialists for issues not explained by the condition that the patient is seeing me for. Orders Placed This Encounter Aldosterone Standing Status: Future Standing Expiration Date: 11/05/2022 Basic Metabolic Panel Standing Status: Future Standing Expiration Date: 11/05/2022 Direct Renin Plasma Standing Status: Future Standing Expiration Date: 11/05/2022 Scheduling Instructions: In preparation for this test, do not take multivitamins or dietary supplements containing biotin (vitamin B7) for at least 12 hours. Biotin is commonly found in hair, skin, and nail supplements and multivitamins. Tell your doctor if you take supplements containing biotin as part of your medication history. Adrenocorticotropic Hormone Standing Status: Future Standing Expiration Date: 11/05/2022 Cortisol, Serum Standing Status: Future Standing Expiration Date: 11/05/2022 Scheduling Instructions: In preparation for this test, do not take multivitamins or dietary supplements containing biotin (vitamin B7) for at least 12 hours. Biotin is commonly found in hair, skin, and nail supplements and multivitamins. Tell your doctor if you take supplements containing biotin as part of your medication history. DHEA-S BLD Standing Status: Future Standing Expiration Date: 11/05/2022 Scheduling Instructions: In preparation for this test, do not take multivitamins or dietary supplements containing biotin (vitamin B7) for at least 12 hours. Biotin is commonly found in hair, skin, and nail supplements and multivitamins. Tell your doctor if you take supplements containing biotin as part of your medication history. I spent a total of 30 minutes on the date of the service which included preparing to see the patient, [id number] patient care, completing clinical documentation, obtaining and/or reviewing separately obtained history, performing a medically appropriate examination, counseling and educating the patient/family/caregiver, ordering medications, tests, or procedures. This note was dictated using [employer] speech recognition software and may contain some errors that were a result of the program not accurately transcribing what was dictated. Jade Chandra M.D., M.Sc. Attending [employer]ene[employer] Cli[employer] Helper [facility] [place], [facility] Office: Appointments: documented in this encounter [facility] 08-19-2022 Miscellaneous Notes The following approved medication requests have been transmitted electronically. Requested Prescriptions Pending Prescriptions Disp Refills levothyroxine (LEVOXYL) 100 mcg tablet 30 tablet 3 Sig: Take 1 tablet by mouth once daily. Skip one day weekly. Take on empty stomach. For Thyroid. Mateo Ochoa APRN.MARCELINO Patient phones requesting refills as follows: Requested Prescriptions Pending Prescriptions Disp Refills levothyroxine (LEVOXYL) 100 mcg tablet 30 tablet 3 Sig: Take 1 tablet by mouth once daily. Skip one day weekly. Take on empty stomach. For Thyroid. MONA-07/31/22 Labs-07/26/22 NOV-none med filled 03/25/22 Please review and advise. Talia Corona LPN documented in this encounter [facility] 08-01-2022 Miscellaneous Notes Patient notified of results, verbalizes understanding of instructions. aTlia Corona LPN Can you please call the patient and let her know that I reviewed her test results. The dexamethasone suppression test was normal. This means that the growth on the adrenal gland is a benign growth that is not secreting any hormones. However because she is still having ongoing pain I did place a consult for endocrine surgery for further evaluation if pain does not improve. Please let me know if she has any questions. Thank you. Debby Olivera APRN.MARCELINO documented in this encounter [facility] 07-31-2022 Instructions Debby Olivera APRN.MARCELINO - 07/31/2022 5:26 PM EST Test results should be resulted by Friday. Continue supportive care at home. May use heat and NSAIDS as needed. Office will call you once results are reviewed and discuss plan of care. documented in this encounter [facility] 07-31-2022 History of Presen t illness Narrative This is a 62 year old female who presents today with: Patient presents with: Follow Up HISTORY OF PRESENT ILLNESS: Nasim Rodarte is a 62 year old female. Patient presents with: Follow Up In the office for ongoing flank pain. CT scan showed a right adrenal adenoma. Dexamethasone suppression test was ordered, results still pending at this time. Still having intermitent right flank with certain movement. Dull pain. Rest improves pain. Urinating without any difficulty. BP mildly elevated at this appointment. No history of HTN. PAST MEDICAL HISTORY: PAST MEDICAL HISTORY Diagnosis Date Generalized headaches Kidney stone 2020 lithotripsy Unspecified hypothyroidism PAST SURGICAL HISTORY Procedure Laterality Date COLONOSCOP W/ OR W/O [facility] SPEC 09/24/2011 Repeat in 5 years (-2016) COLONOSCOPY FLX DX W/COLLJ SPEC WHEN PFRMD 02/10/2017 repeat 5 yrs. COLONOSCOPY GEN ANES 10/19/2020 FRACTURE SURGERY PAST SURGICAL HISTORY OF 2001 REMOVAL OF FATTY TUMOR LEFT ARM. PAST SURGICAL HISTORY OF Right 03/2016 ORIF tibia fx PAST SURGICAL HISTORY OF kidney stone removed TONSILLECTOMY HX TONSILLECTOMY PRIMARY/SECONDARY <AGE 13 Tonsillectomy ALLERGIES Fosamax [Alendronate Sodium] MEDICATIONS Current Outpatient Medications Medication Sig levothyroxine (LEVOXYL) 100 mcg tablet Take 1 tablet by mouth once daily. Skip one day weekly. Take on empty stomach. For Thyroid. CHOLECALCIFEROL, VITAMIN D3, ORAL Take by mouth. Taking daily. Pt unsure of dosage. clobetasol (TEMOVATE) 0.05 % cream Apply 1 application to affected area twice daily. (Patient taking differently: Apply 1 application to affected area as needed.) No current facility-administered medications for this visit. FAMILY HISTORY Problem Relation Age of Onset Arthritis Mother Diabetes Mother Diabetes Father Hypertension Father Colon Cancer Father Age 73 Thyroid Father other (Alzheimers) Father other (Parkinsons Disease) Father Diabetes Sister Asthma Brother Diabetes Paternal Grandfather Cancer Maternal Grandmother Social History Tobacco Use Smoking status: Every Day Packs/day: 0.50 Years: 21.00 Pack years: 10.50 Types: Cigarettes Smokeless tobacco: Never Vaping Use Vaping Use: Never used Substance Use Topics Alcohol use: Never Comment: RARELY Drug use: No REVIEW OF SYSTEMS GENERAL: No weight loss, malaise or fevers/chills HEENT: Negative for frequent or significant headaches, No changes in hearing or vision. NECK: Negative for lumps, goiter, pain and significant neck swelling RESPIRATORY: Negative for cough, hemoptysis, wheezing, dyspnea or shortness of breath CARDIOVASCULAR: Negative for chest pain, leg swelling, orthopnea, or palpitations GI: + Right flank Pain : No history of dysuria, frequency or incontinence MUSCULOSKELETAL: Negative for joint pain or swelling. SKIN: Negative for lesions, rash, and itching ENDOCRINE: Negative for cold or heat intolerance, polyuria, polydipsia and goiter NEURO: No history of headaches, syncope, paralysis, seizures or tremors MOOD: Negative for depression, anxiety, or suicidal ideation. EXAM: BP 140/88 Pulse 76 Resp 16 Wt 64.9 kg (143 lb) LMP 01/24/2013 SpO2 99% BMI 24.55 kg/m PHYSICAL EXAM: General Appearance: Well appearing, alert, in no acute distress, well-hydrated, well nourished. Skin: Skin color, texture, turgor normal, no suspicious rashes or lesions. Head: Normocephalic, no masses, lesions, tenderness or abnormalities. Eyes: Anicteric sclera. Extraocular movements are intact. Lungs: Lungs clear to auscultation. No wheezing, rhonchi, rales. Heart: RRR without murmur, gallop, or rubs. No ectopy. Abdomen: Right CVA tenderness with palpation. Extremities: No deformities, edema, skin discoloration, clubbing or cyanosis. Good capillary refill. Peripheral Pulses: Normal, Capillary refill <2secs, strong peripheral pulses, Pulses palpable. Neurologic: Gait normal. Reflexes normal and symmetric. Sensation grossly intact. ASSESSMENT/PLAN: 1. Adenoma of right adrenal gland - ICD9: 227.0, ICD10: D35.01 - Discussed adenoma in great detail. - Will discuss further plan of care once results are reviewed - Continue supportive care at home, may use heat and anti-inflammatories as needed for flank pain. Follow-up pending test results. Discussed treatment plan and patient voices understanding. Patient's questions answered appropriately. Medications and potential side effects were discussed and patient voices understanding. Debby Olivera APRN.MARCELINO This note was partially generated using [employer] voice recognition system. Note was reviewed for accuracy. There may be minor misspellings or grammar miscues with [employer] voice recognition. documented in this encounter [facility] 07-24-2022 Miscellaneous Notes Noted, thank you. Debby Olivera APRN.MARCELINO Instructions sent via My Chart as Pt. requested. Talia Corona LPN Spoke with patient. Given message from provider's office. Patient verbalizes understanding. Patient asking for Dexamethasone suppression test instructions be sent to My Chart. Allie Camara RN TC to ptJose Roberto LM to call office, ask for triage nurse to get results. Talia Corona LPN Can you please call the patient and let her know that I reviewed her CT scan results. CT showed no renal mass however it does show a right adrenal adenoma. These are normally benign however I would like to get some further lab testing to further evaluate this. A test called a dexamethasone suppression test is completed, you take dexamethasone 1 mg between 11 PM and 12 AM, have labs completed the following morning at 8 AM. Small hepatic cyst were noted as well as some splenic lesions. I would like to get an ultrasound in 6 months for surveillance. Orders have been placed. I sent the dexamethasone to [facility] pharmacy here in [place]. Please let me know if she has any questions. Thank you. Debby Olivera APRN.CNP The following approved medication requests have been transmitted electronically. Requested Prescriptions Signed Prescriptions Disp Refills dexAMETHasone (DECADRON) 1 mg tablet 1 tablet 0 Sig: Take 1 tablet by mouth one time only for 1 dose. Authorizing Provider: DEBBY OLIVERA APRN.CNP Pt calling for results on her CT done on 07-19-22. Please advise pt. Josefina Fenton LPN documented in this encounter [facility] 07-19-2022 History of Presen t illness Narrative Radiology Service Progress Note DATE OF SERVICE: July 19, 2022 TIME: 3:14 PM PATIENT IDENTITY VERIFICATION COMPLETED USING TWO (2) STANDARD IDENTIFIERS: Name and Date of confirmed by patient verbally. FALL SCREENING: Has the patient had 2 falls in the last year or 1 fall with injury or currently using an Ambulatory Assistive Device (Walker, Cane, Wheelchair, Crutches, etc.)? No PATIENT GENDER DATA: Female. status: : No status: NO. PATIENT RELEVANT IMPLANT DATA REVIEWED: Yes ALLERGIES: Reviewed and unchanged CONTRAST ALLERGY: NO. EXAM: CT -CONTRAST INDUCED NEPHROPATHY RISK FACTORS: Patient age > 60 years CREATININE: Creatinine Date Value Ref Range Status 07/04/2022 0.97 (H) 0.58 - 0.96 mg/dL Final 09/25/2021 0.95 0.58 - 0.96 mg/dL Final 08/29/2020 0.95 0.58 - 0.96 mg/dL Final Estimated Glomerular Filtration Rate Date Value Ref Range Status 07/04/2022 67 >=60 mL/min/1.73m Final Comment: Estimated Glomerular Filtration Rate (eGFR) is calculated using the 2020 CKD-EPI creatinine equation. This equation utilizes serum creatinine, sex, and age as parameters. The creatinine assay has traceable calibration to isotope dilution-mass spectrometry. Refer to KDIGO guidelines for clinical interpretation. In patients with unstable renal function, e.g. those with acute kidney injury, the eGFR may not accurately reflect actual GFR. eGFR- Date Value Ref Range Status 08/29/2020 >60 Final P.O.C.T. RESULTS: POC done: Yes, See Lab Tab July 19, 2022 TREATMENT: N/A PERIPHERAL IV DATA: Ambulatory: A peripheral IV was started in the Left antecubital site with a Angio cath: 18 gauge. RADIOLOGY DEPARTMENT: CT; Exam(s) Completed: Kidney SIGNATURE: RT Get(R) PATIENT NAME: Nasim Rodarte DATE: July 19, 2022 TIME: 3:14 PM documented in this encounter [facility] 07-04-2022 Miscellaneous Notes Patient notified of results, verbalizes understanding of instructions. Talia Corona LPN Can you please call the patient and let her know that I reviewed her ultrasound results. Ultrasound showed a possible cyst or nodule in the left kidney. Per radiology recommendation I have ordered a CT scan of her kidney for further evaluation. I will need her to get a lab test prior to having this test completed to check kidney function. She can call anytime to schedule the CT scan. I will call her once I am able to review results. Please let me know if she has any questions. Thank you Debby Olivera APRN.MARCELINO documented in this encounter [facility] 07-04-2022 History of Presen t illness Narrative Radiology Service Progress Note PATIENT NAME: Nasim Rodarte DATE OF SERVICE: July 04, 2022 TIME: 12:15 PM PATIENT IDENTITY VERIFICATION COMPLETED USING TWO (2) IDENTIFIERS: Name and Date of confirmed by patient verbally. FALL SCREENING: Has the patient had 2 falls in the last year or 1 fall with injury or currently using an Ambulatory Assistive Device (Walker, Cane, Wheelchair, Crutches, etc.)? No PATIENT GENDER DATA: Female. status: : No status: NO. PATIENT RELEVANT IMPLANT DATA REVIEWED: Not Applicable RADIOLOGY DEPARTMENT: Ultrasound PERIPHERAL IV DATA: Not applicable SIGNED BY: Hilda Brothers RDMS July 04, 2022 12:15 PM documented in this encounter [facility] 07-03-2022 Instructions Debby Olivera APRN.MARCELINO - 07/03/2022 5:15 PM EST Schedule appointment for ultrasound. Urine will be sent off Stay well hydrated. Red flag symptoms go to ER. Follow up pending test results or sooner as needed. documented in this encounter [facility] 07-03-2022 History of Presen t illness Narrative This is a 62 year old female who presents today with: Patient presents with: Acute Visit: Left flank pain HISTORY OF PRESENT ILLNESS: Nasim Rodarte is a 62 year old female. Patient presents with: Acute Visit: Left flank pain Here in the office for right flank pain. Started about 2 weeks ago. Pain with activity or touching. No urinary symptoms. History of kidney stones in the past. No fever or chills. Urination and BM's WNL. PAST MEDICAL HISTORY: PAST MEDICAL HISTORY Diagnosis Date Generalized headaches Kidney stone 2020 lithotripsy Unspecified hypothyroidism PAST SURGICAL HISTORY Procedure Laterality Date COLONOSCOP W/ OR W/O BRSH SPEC 09/24/2011 Repeat in 5 years (-2016) COLONOSCOPY FLX DX W/COLLJ SPEC WHEN PFRMD 02/10/2017 repeat 5 yrs. COLONOSCOPY GEN ANES 10/19/2020 [place] FRACTURE SURGERY PAST SURGICAL HISTORY OF 2002 REMOVAL OF FATTY TUMOR LEFT ARM. PAST SURGICAL HISTORY OF Right 03/2016 ORIF tibia fx PAST SURGICAL HISTORY OF kidney stone removed TONSILLECTOMY HX TONSILLECTOMY PRIMARY/SECONDARY <AGE 13 Tonsillectomy ALLERGIES Fosamax [Alendronate Sodium] MEDICATIONS Current Outpatient Medications Medication Sig levothyroxine (LEVOXYL) 100 mcg tablet Take 1 tablet by mouth once daily. Skip one day weekly. Take on empty stomach. For Thyroid. CHOLECALCIFEROL, VITAMIN D3, ORAL Take by mouth. Taking daily. Pt unsure of dosage. clobetasol (TEMOVATE) 0.05 % cream Apply 1 application to affected area twice daily. (Patient taking differently: Apply 1 application to affected area as needed.) No current facility-administered medications for this visit. FAMILY HISTORY Problem Relation Age of Onset Arthritis Mother Diabetes Mother Diabetes Father Hypertension Father Colon Cancer Father Age 73 Thyroid Father other (Alzheimers) Father other (Parkinsons Disease) Father Diabetes Sister Asthma Brother Diabetes Paternal Grandfather Cancer Maternal Grandmother Social History Tobacco Use Smoking status: Every Day Packs/day: 0.50 Years: 21.00 Pack years: 10.50 Types: Cigarettes Smokeless tobacco: Never Vaping Use Vaping Use: Never used Substance Use Topics Alcohol use: Never Comment: RARELY Drug use: No REVIEW OF SYSTEMS GENERAL: No weight loss, malaise or fevers/chills HEENT: Negative for frequent or significant headaches, No changes in hearing or vision. NECK: Negative for lumps, goiter, pain and significant neck swelling RESPIRATORY: Negative for cough, hemoptysis, wheezing, dyspnea or shortness of breath CARDIOVASCULAR: Negative for chest pain, leg swelling, orthopnea, or palpitations GI: + Right Flank Pain : No history of dysuria, frequency or incontinence MUSCULOSKELETAL: Negative for joint pain or swelling. SKIN: Negative for lesions, rash, and itching ENDOCRINE: Negative for cold or heat intolerance, polyuria, polydipsia and goiter NEURO: No history of headaches, syncope, paralysis, seizures or tremors MOOD: Negative for depression, anxiety, or suicidal ideation. EXAM: BP 152/80 Pulse 80 Resp 16 Wt 66.7 kg (147 lb) LMP 01/24/2013 SpO2 97% BMI 25.23 kg/m PHYSICAL EXAM: General Appearance: Well appearing, alert, in no acute distress, well-hydrated, well nourished. Skin: Skin color, texture, turgor normal, no suspicious rashes or lesions. Head: Normocephalic, no masses, lesions, tenderness or abnormalities. Eyes: Anicteric sclera. Extraocular movements are intact. Lungs: Lungs clear to auscultation. No wheezing, rhonchi, rales. Heart: RRR without murmur, gallop, or rubs. No ectopy. Abdomen: Abdomen soft, non-tender. Bowel sounds normal. No masses, organomegaly, + Right CVA tenderness. Extremities: No deformities, edema, skin discoloration, clubbing or cyanosis. Good capillary refill. . Peripheral Pulses: Normal, Capillary refill <2secs, strong peripheral pulses, Pulses palpable. Neurologic: Gait normal. Sensation grossly intact. UA: Small Blood ASSESSMENT/PLAN: 1. Right flank pain - ICD9: 789.09, ICD10: R10.9 - Get ultrasound completed - Urine will be sent off for further analysis. - Denied wanting any labs completed at this time, would like to wait for current test results. - Red flag symptoms given to patient, she verbalizes understanding when to seek care. - URINE CULTURE - URINALYSIS, WITH MICROSCOPIC - US KIDNEY/BLADDER Follow-up pending test results or sooner as needed. Discussed treatment plan and patient voices understanding. Patient's questions answered appropriately. Medications and potential side effects were discussed and patient voices understanding. Debby Olivera APRN.CNP This note was partially generated using [employer] voice recognition system. Note was reviewed for accuracy. There may be minor misspellings or grammar miscues with [employer] voice recognition. documented in this encounter [facility] 04-29-2022 History of Presen t illness Narrative Radiology Service Progress Note PATIENT NAME: Nasim Rodarte DATE OF SERVICE: April 29, 2022 TIME: 8:12 AM PATIENT IDENTITY VERIFICATION COMPLETED USING TWO (2) IDENTIFIERS: Name and Date of confirmed by patient verbally. FALL SCREENING: Has the patient had 2 falls in the last year or 1 fall with injury or currently using an Ambulatory Assistive Device (Walker, Cane, Wheelchair, Crutches, etc.)? No PATIENT GENDER DATA: Female. status: : No status: NO. PATIENT RELEVANT IMPLANT DATA REVIEWED: Yes RADIOLOGY DEPARTMENT: General X-ray: Exam(s) Completed: Lower Extremity X-Ray(s): Knee, AP / Lat / Tunne / Merchant Right and Wt. Bearing PERIPHERAL IV DATA: Not applicable SIGNED BY: RT Haley(R) April 29, 2022 8:12 AM documented in this encounter [facility] 04-29-2022 Instructions Salena Diaz APRN.MARCELINO - 04/29/2022 8:04 AM EST Get the knee xray. You can try some ibuprofen if needed for continued improvement. If pain reoccurs, let us know. documented in this encounter [facility] 04-29-2022 History of Presen t illness Narrative This is a 61 year old female who presents today with: Patient presents with: Acute Visit: right knee pain HISTORY OF PRESENT ILLNESS: Nasim Rodarte is a 61 year old female. Patient presents with: Acute Visit: right knee pain Pt presents today with complaint of right knee pain. Refers that it started hurting on Friday and lasted until Friday. Refers it hurt so bad that she could hardly walk. Refers that she has a hx of plates in screws in the knee in 2016 d/t fx at the top of tibia. No injuries to the knee. She thinks that it was swelled up some. No injury. No popping/cracking in the knees. Would feel like knee would give out. Didn't take anything for pain. Did apply biofreeze. Wears compression on the legs for her veins. She can feel a little bit of a pain in the right lateral knee, but not bad. PAST MEDICAL HISTORY: PAST MEDICAL HISTORY Diagnosis Date Generalized headaches Kidney stone 2019 lithotripsy Unspecified hypothyroidism PAST SURGICAL HISTORY Procedure Laterality Date COLONOSCOP W/ OR W/O [facility] SPEC 09/24/2011 Repeat in 5 years (-2016) COLONOSCOPY FLX DX W/COLLJ SPEC WHEN PFRMD 02/10/2017 repeat 5 yrs. COLONOSCOPY GEN ANES 10/19/2020 FRACTURE SURGERY PAST SURGICAL HISTORY OF 2001 REMOVAL OF FATTY TUMOR LEFT ARM. PAST SURGICAL HISTORY OF Right 03/2016 ORIF tibia fx PAST SURGICAL HISTORY OF kidney stone removed TONSILLECTOMY HX TONSILLECTOMY PRIMARY/SECONDARY <AGE 13 Tonsillectomy ALLERGIES Fosamax [Alendronate Sodium] MEDICATIONS Current Outpatient Medications Medication Sig levothyroxine (LEVOXYL) 100 mcg tablet Take 1 tablet by mouth once daily. Skip one day weekly. Take on empty stomach. For Thyroid. CHOLECALCIFEROL, VITAMIN D3, ORAL Take by mouth. Taking daily. Pt unsure of dosage. clobetasol (TEMOVATE) 0.05 % cream Apply 1 application to affected area twice daily. (Patient taking differently: Apply 1 application to affected area as needed.) No current facility-administered medications for this visit. FAMILY HISTORY Problem Relation Age of Onset Arthritis Mother Diabetes Mother Diabetes Father Hypertension Father Colon Cancer Father Age 73 Thyroid Father other (Alzheimers) Father other (Parkinsons Disease) Father Diabetes Sister Asthma Brother Diabetes Paternal Grandfather Cancer Maternal Grandmother Social History Tobacco Use Smoking status: Every Day Packs/day: 0.50 Years: 21.00 Pack years: 10.50 Types: Cigarettes Smokeless tobacco: Never Vaping Use Vaping Use: Never used Substance Use Topics Alcohol use: Never Comment: RARELY Drug use: No EXAM: BP 140/86 Pulse 74 Resp 16 Wt 65.3 kg (144 lb) LMP 01/24/2013 SpO2 99% BMI 24.72 kg/m PHYSICAL EXAM: General Appearance: Well appearing, alert, in no acute distress, well-hydrated, well nourished.. Skin: Skin color, texture, turgor normal, no suspicious rashes or lesions. Head: Normocephalic, no masses, lesions, tenderness or abnormalities. Eyes: Anicteric sclera. Pupils are equally round and reactive to light. Extraocular movements are intact. . Extremities: No deformities, edema, skin discoloration, clubbing or cyanosis. Good capillary refill. . Neurologic: Gait normal. Lower extremities equal or nearly equal in bulk and tone. No redness or increased warmth. No axial deformity. No evidence of swelling or ballottable effusion in either knee. Little puffiness of the inferior medial knee, but suspect more fatty tissue. Full flexion to 130+ degrees, full extension, negative bounce test. No pain or laxity with varus or valgus stress. No pain with patellar pressure or abnormal tracking. Anterior drawer, Arias, and Yoshi test all negative. Scar on the lateral right knee. ASSESSMENT/PLAN: 1. Acute pain of right knee - ICD9: 719.46, ICD10: M25.561 Will go ahead and get xray of the knee. Pain is improved, but not completely resolved. Can consider nsaids prn pain. Notify provider if no continued improvement/worsening pain. Can continue topicals and compression. - XR KNEE GENERAL 4V AP BOTH/PA BOTH/LAT/MERC RIGHT Discussed treatment plan and patient voices understanding. Patient's questions answered appropriately. Medications and potential side effects were discussed and patient voices understanding. Return to the office as scheduled or as needed for worsening/no improvement. Salena Diaz APRN.[employer] documented in this encounter [facility] 04-22-2022 History of Presen t illness Narrative Erich Michael MD Department of Orthopaedics Orthopaedics [address] [facility] [address] Dept: [phone] Dept April 22, 2022 CHIEF COMPLAINT: Established Patient and Results - Mri of the Left Forearm HPI Patient here today for MRI results of the left forearm. ASSESSMENT: R22.31 Localized swelling, mass, or lump of right upper extremity (primary encounter diagnosis) PLAN: We discussed her MRI findings. She is actually having less pain along the ulnar border of the forearm as she did last time. She does not feel surgery is necessary at this time but certainly she is going to think about it and report any changes or any other concerns with the issue. Ms. Nasim Rodarte was advised as to contrast therapies and/or to take analgesics/anti-inflammatories as needed and all contraindications were reviewed. OBJECTIVE: Ms. Nasim Rodarte is a pleasant 61 year old in no apparent distress. Gen:LMP 01/24/2013 nl development, non obese, no deformities ENT: Normocephalic, normal hearing, moist mucosa CV: Pulses:Radial= 2+ and symmetric, capillary refill < 2 secs, no peripheral edema/varicosities Skin: no rash, bruising or lesions. Good turgor. Psych: cooperative and appropriate, alert and oriented x 3, good mood and affect. Musculoskeletal: Stable exam from prior visit Imaging: IMPRESSION: NONENCAPSULATED SUBCUTANEOUS LIPOMA CORRESPONDING TO AREA OF CLINICAL CONCERN WITH CENTRAL AREAS OF FAT NECROSIS. Biophysics Teacher: ROCCO Transcribe Date/Time: Mar 28 2022 12:47P Dictated by : VALERIE LEE MD This examination was interpreted and the report reviewed and electronically signed by: VALERIE LEE MD on Mar 28 2022 12:53PM EST Results-Findings * * *Final Report* * * DATE OF EXAM: Mar 28 2022 12:07PM WRM [id number] - MRI LOWER ARM WO IVCON RT / PROCEDURE REASON: multiple diagnoses * * * * Physician Interpretation * * * * RIGHT FOREARM MRI: CLINICAL HISTORY: Pain of right upper arm Localized swelling, mass, or lump of right upper extremity TECHNIQUE: Routine MR imaging of right forearm was performed. A marker was placed in the region of palpable abnormality. COMPARISON:None. RESULT: NERVES: The visualized nerves normal in caliber and signal intensity. There is no mass or mass effect. BONE MARROW: Bone marrow signal intensity is maintained without acute fractures or marrow infiltrating neoplasm. MUSCLES: Visualized muscles appear normal in bulk and signal intensity. TENDONS: Visualized tendons are grossly intact. SUBCUTANEOUS TISSUES: There is an approximately 3.2 x 0.7 x 2.3 cm focal area of fatty prominence in the subcutaneous tissues overlying the mid radial diaphysis indicated by a marker. 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 Centrally within this lipoma, small area of ill-defined increased STIR/T2 signal suggestive of fatty necrosis. JOINTS: Shoulder and wrist joints are not visualized. OTHER: None. Supporting Subjective Information Below: Past Surgical History: PAST SURGICAL HISTORY Procedure Laterality Date COLONOSCOP W/ OR W/O BRSH SPEC 09/24/2011 Repeat in 5 years (-2016) COLONOSCOPY FLX DX W/COLLJ SPEC WHEN PFRMD 02/10/2017 repeat 5 yrs. COLONOSCOPY GEN ANES 10/19/2020 FRACTURE SURGERY PAST SURGICAL HISTORY OF 2001 REMOVAL OF FATTY TUMOR LEFT ARM. PAST SURGICAL HISTORY OF Right 03/2016 ORIF tibia fx PAST SURGICAL HISTORY OF kidney stone removed TONSILLECTOMY HX TONSILLECTOMY PRIMARY/SECONDARY <AGE 13 Tonsillectomy Medications: Current Outpatient Medications Medication Sig levothyroxine (LEVOXYL) 100 mcg tablet Take 1 tablet by mouth once daily. Skip one day weekly. Take on empty stomach. For Thyroid. CHOLECALCIFEROL, VITAMIN D3, ORAL Take by mouth. Taking daily. Pt unsure of dosage. clobetasol (TEMOVATE) 0.05 % cream Apply 1 application to affected area twice daily. (Patient taking differently: Apply 1 application to affected area as needed.) No current facility-administered medications for this visit. Allergies: Fosamax [Alendronate Sodium] ROS: General (negative for fatigue, malaise, weight loss/gain) HEENT (negative for headache, earache, recent vision changes, sinus pain, sore throat) Respiratory (no recent shortness of breath, hemoptysis) CV (negative for chest tightness, palpitations) Musculoskeletal (see HPI) Psych (no depression, anxiety) Erich Michael MD documented in this encounter [facility] 03-28-2022 History of Presen t illness Narrative Radiology Service Progress Note PATIENT NAME: Nasim Rodarte DATE OF SERVICE: March 28, 2022 TIME: 12:06 PM PATIENT IDENTITY VERIFICATION COMPLETED USING TWO (2) IDENTIFIERS: Name and Date of confirmed by patient verbally. FALL SCREENING: Has the patient had 2 falls in the last year or 1 fall with injury or currently using an Ambulatory Assistive Device (Walker, Cane, Wheelchair, Crutches, etc.)? No PATIENT GENDER DATA: Female. status: : No status: NO. PATIENT RELEVANT IMPLANT DATA REVIEWED: Yes RADIOLOGY DEPARTMENT: MR; Exam(s) Completed: Upper MSK: Forearm, right PERIPHERAL IV DATA: Not applicable SIGNED BY: RT Iron(R) March 28, 2022 12:06 PM documented in this encounter [facility] 02-25-2022 History of Presen t illness Narrative Radiology Service Progress Note PATIENT NAME: Nasim Rodarte DATE OF SERVICE: February 25, 2022 TIME: 9:23 AM PATIENT IDENTITY VERIFICATION COMPLETED USING TWO (2) IDENTIFIERS: Name and Date of confirmed by patient verbally. FALL SCREENING: Has the patient had 2 falls in the last year or 1 fall with injury or currently using an Ambulatory Assistive Device (Walker, Cane, Wheelchair, Crutches, etc.)? No PATIENT GENDER DATA: Female. status: : No status: NO. PATIENT RELEVANT IMPLANT DATA REVIEWED: Not Applicable RADIOLOGY DEPARTMENT: General X-ray: Exam(s) Completed: Upper Extremity X-Ray(s): Forearm, right PERIPHERAL IV DATA: Not applicable SIGNED BY: RT Jori(R) February 25, 2022 9:23 AM documented in this encounter [facility] 02-25-2022 History of Presen t illness Narrative Erich Michael MD Department of Orthopaedics Orthopaedics [address] [facility] [address] Dept: [phone] Dept February 25, [address] Garnett for an opinion regarding right arm, soft tissue mass. My final recommendations will be communicated back to the requesting physician by way of shared Medical record or letter to requesting physician via US mail. CHIEF COMPLAINT: New and Pain of the Right Arm (Lipoma right arm ) HPI Patient is here today for right forearm pain and multiple masses. The one mass on her lower forearm has been there for almost 20 years per patient statement, but she has noticed a couple other masses forming in the last couple months and has subsequently been having some pain in the forearm and elbow area now also. ASSESSMENT: R22.31 Localized swelling, mass, or lump of right upper extremity (primary encounter diagnosis) M79.621 Pain of right upper arm PLAN: \\She has an area of obvious soft tissue swelling in the forearm but she feels like it has "spread" a bit more proximal in the forearm. She also has tenderness without specific etiology on the superficial border of the proximal ulna. For all these reasons, and like to get an MRI to evaluate the proximal forearm. FOLLOW UP INSTRUCTIONS: We will see her back after imaging Ms. Nasim Rodarte was advised as to contrast therapies and/or to take analgesics/anti-inflammatories as needed and all contraindications were reviewed. OBJECTIVE: Ms. Nasim Rodarte is a pleasant 61 year old in no apparent distress. Gen:LMP 01/24/2013 nl development, thin appearing , no deformities ENT: Normocephalic, normal hearing, moist mucosa CV: Pulses:DP/PT= 2+ and symmetric, capillary refill < 2 secs, no peripheral edema/varicosities Skin: no rash, bruising or lesions. Good turgor. Psych: cooperative and appropriate, alert and oriented x 3, good mood and affect. Musculoskeletal: Mid forearm with 3x3cm soft tissue mass. At soft and very minimally tender, apparently mobile and appears to be separate from the underlying fascia. Slight irregularity proximal to it over the extensor muscles. Tender over the proximal 1/3 ulna on palpation, no mass felt on the bone. IMAGING: IMPRESSION: Underlying soft tissue lump which appears to be related to the subcutaneous tissues with no abnormality of underlying muscle and bone appreciated. Biophysics Teacher: ROCCO Transcribe Date/Time: Feb 25 2022 11:28A Dictated by : SADIA TANG MD This examination was interpreted and the report reviewed and electronically signed by: SADIA TANG MD on Feb 25 2022 11:31AM EST Results-Findings * * *Final Report* * * DATE OF EXAM: Feb 16 2022 12:00AM [id number] - XR FOREARM 2V AP/LAT RT / PROCEDURE REASON: Pain of right forearm * * * * Physician Interpretation * * * * History: Right forearm pain FINDINGS: AP and lateral views of the right forearm have been obtained. Air was placed over the area of interest. Underlying the marked area is seen a mild soft tissue lump. This appears to be of fat density. Underlying musculature soft tissue and osseous structures are unremarkable. There appears to be lateral bowing of the midshaft of the radius and proximal ulna, the appearance possibly related to positioning. There is no joint effusion within the elbow region. Patient has had prior trapezium ectomy. Supporting Subjective Information Below: Past Medical History: PAST MEDICAL HISTORY Diagnosis Date Generalized headaches Kidney stone 2019 lithotripsy Unspecified hypothyroidism Past Surgical History: PAST SURGICAL HISTORY Procedure Laterality Date COLONOSCOP W/ OR W/O BRSH SPEC 09/24/2011 Repeat in 5 years (-2016) COLONOSCOPY FLX DX W/COLLJ SPEC WHEN PFRMD 02/10/2017 repeat 5 yrs. COLONOSCOPY GEN ANES 10/19/2020 FRACTURE SURGERY PAST SURGICAL HISTORY OF 2001 REMOVAL OF FATTY TUMOR LEFT ARM. PAST SURGICAL HISTORY OF Right 03/2016 ORIF tibia fx PAST SURGICAL HISTORY OF kidney stone removed TONSILLECTOMY HX TONSILLECTOMY PRIMARY/SECONDARY <AGE 13 Tonsillectomy Family History: FAMILY HISTORY Problem Relation Age of Onset Arthritis Mother Diabetes Mother Diabetes Father Hypertension Father Colon Cancer Father Age 73 Thyroid Father other (Alzheimers) Father other (Parkinsons Disease) Father Diabetes Sister Asthma Brother Diabetes Paternal Grandfather Cancer Maternal Grandmother Social History: Social History Tobacco Use Smoking status: Every Day Packs/day: 0.50 Years: 21.00 Pack years: 10.50 Types: Cigarettes Smokeless tobacco: Never Vaping Use Vaping Use: Never used Substance Use Topics Alcohol use: Never Comment: RARELY Drug use: No Medications: Current Outpatient Medications Medication Sig levothyroxine (LEVOXYL) 100 mcg tablet Take 1 tablet by mouth once daily. Skip one day weekly. Take on empty stomach. For Thyroid. CHOLECALCIFEROL, VITAMIN D3, ORAL Take by mouth. Taking daily. Pt unsure of dosage. clobetasol (TEMOVATE) 0.05 % cream Apply 1 application to affected area twice daily. (Patient taking differently: Apply 1 application to affected area as needed.) No current facility-administered medications for this visit. Allergies: Fosamax [Alendronate Sodium] ROS: General (negative for fatigue, malaise, weight loss/gain) HEENT (negative for headache, earache, recent vision changes, sinus pain, sore throat) Respiratory (no recent shortness of breath, hemoptysis) CV (negative for chest tightness, palpitations) Musculoskeletal (see HPI) Psych (no depression, anxiety) REFERRING PHYSICIAN: Ms. Nasim Rodarte was referred to me for consultation by the following physician. This consultation note will be sent to the following physician by either mail or electronic medical record. Andrea Garnett III [address] [facility] [id number] Olga Amato MD [address] [facility] [address] Erich Michael MD documented in this encounter [facility] 02-04-2022 Nurse Note REVIEW OF SYSTEMS: General: The patient denies fatigue, denies weight loss, notes weight gain, denies feeling hot, and denies feelings of cold. Eyes: The patient denies glaucoma, denies eye injury/surgery, wears glasses or contacts. Ear/Nose/Throat: The patient denies allergies, denies hayfever, denies ear infections, and denies bloody noses. Cardiovascular: The patient denies chest pain, denies heart disease, denies high blood pressure,denies cardiac stent, denies prior heart attack, denies irregular heart beat, notes high cholesterol, denies poor circulation, denies heart failure, other cardiac issues, denies claudication, denies cold feet, denies peripheral arterial stent. Respiratory: The patient denies tuberculosis, denies pneumonia, denies frequent cough, denies pulmonary embolism, denies shortness of breath, and denies coughing up blood. Gastrointestinal: The patient denies difficulty swallowing, notes acid reflux, denies ulcers, denies vomiting, denies jaundice/hepatitis, denies gallbladder problems, denies black or tarry stools, denies hemorrhoids, denies bleeding from rectum, denies diverticulitis, denies constipation, denies diarrhea, denies loss of stool control, and denies hernias. Kidney/Bladder: The patient notes kidney stones, denies urine infections, and denies bloody urine. Skin: The patient denies a history of skin cancer, denies bleeding/changing moles, and denies a history of skin rash. Neurologic: The patient denies a history of epilepsy/convulsions, denies headaches, denies head/spinal injuries, and denies stroke/TIA. Psychiatric: The patient denies psychiatric medications, denies depression, and denies voices, denies substance abuse. Endocrine: The patient notes thyroid disorders, denies diabetes, and denies hormonal problems. Hematologic: The patient denies a history of bruising, denies bleeding, and denies anemia, denies blood clots. Infections: The patient denies a history of measles and mumps, denies rheumatic fever, and denies sexually transmitted diseases. Musculoskeletal: The patient denies back pain/injury, denies back problems, denies sciatica, denies knee/foot trouble, denies arthritis, or denies gout. When was patient's last Mammogram screening? 2021 Last Colonoscopy: 2020 Cecy Vaughn LPN documented in this encounter [facility] 02-04-2022 History of Presen t illness Narrative HISTORY AND PHYSICAL Nasim Sales Aster 1960 REFERRING PHYSICIAN: Talha Fernandez* CHIEF COMPLAINT: No chief complaint on file. HPI: The patient is a 61 year old female with a complaint of complaint of pain and her right forearm as well as some subcutaneous lesions. Patient has had a subcutaneous lesion removed from her left axilla by myself in the past. Patient states that over the last several months she has noticed some discomfort in her right forearm area it is sporadic in nature there is no [id number] that she can pinpoint. She has noticed that she has had lipomas in the past and is difficult to ascertain whether or not these are truly the source of her discomfort given the sporadic nature of her discomfort. Patient states that she has had a subcutaneous lesion in her mid right forearm for better than 20 years and has never caused discomfort. She states that she is also noticed some asymmetry in her antecubital fossa area.. The patient is being seen by me today at the request of Dr. Quyen Monahan for my opinion and advice regarding Lesion of subcutaneous tissue (primary encounter diagnosis). PAST MEDICAL HISTORY Diagnosis Date Generalized headaches Kidney stone 2020 lithotripsy Unspecified hypothyroidism PAST SURGICAL HISTORY Procedure Laterality Date COLONOSCOP W/ OR W/O BRSH SPEC 09/24/2011 Repeat in 5 years (-2016) COLONOSCOPY FLX DX W/COLLJ SPEC WHEN PFRMD 02/10/2017 repeat 5 yrs. COLONOSCOPY GEN ANES 10/19/2020 FRACTURE SURGERY PAST SURGICAL HISTORY OF 2001 REMOVAL OF FATTY TUMOR LEFT ARM. PAST SURGICAL HISTORY OF Right 03/2016 ORIF tibia fx TONSILLECTOMY HX TONSILLECTOMY PRIMARY/SECONDARY <AGE 13 Tonsillectomy Current Outpatient Medications Medication Sig levothyroxine (LEVOXYL) 100 mcg tablet Take 1 tablet by mouth once daily. Skip one day weekly. Take on empty stomach. For Thyroid. CHOLECALCIFEROL, VITAMIN D3, ORAL Take by mouth. Taking daily. Pt unsure of dosage. clobetasol (TEMOVATE) 0.05 % cream Apply 1 application to affected area twice daily. No current facility-administered medications for this visit. ALLERGIES: Fosamax [Alendronate Sodium] PERSONAL HISTORY: Social History Tobacco Use Smoking status: Every Day Packs/day: 0.50 Years: 21.00 Pack years: 10.50 Types: Cigarettes Smokeless tobacco: Never Vaping Use Vaping Use: Never used Substance Use Topics Alcohol use: Never Comment: RARELY Drug use: No FAMILY HISTORY: FAMILY HISTORY Problem Relation Age of Onset Arthritis Mother Diabetes Mother Diabetes Father Hypertension Father Colon Cancer Father Age 73 Thyroid Father other (Alzheimers) Father other (Parkinsons Disease) Father Diabetes Sister Asthma Brother Diabetes Paternal Grandfather Cancer Maternal Grandmother REVIEW OF SYMPTOMS: The review of systems data was entered by the nurse and reviewed by me There are no exam notes on file for this visit. PHYSICAL EXAMINATION: General: The patient is 61 year old female, well nourished, well hydrated in no acute distress. The patient is oriented to time, place, and person. VITALS: Last menstrual period 01/24/2013. Rectal exam: exam deferred Extremities: no clubbing, cyanosis or edema. No adenopathy. Other: In her right mid forearm there is a approximately a 2-1/2 cm soft subcutaneous lesion consistent with a lipoma. There is no abnormal features to it such as firmness no signs of infection. Patient go cephalad towards her antecubital fossa area get the sense that there could be a subcutaneous lesion but it is difficult to ascertain whether or not this could actually also be an intramuscular lipoma. It is not appreciably tender to touch there is no signs of any inflammation in the area. Cranial nerves within the forearms are all intact she has normal motor function of her hands normal sensations in her hands forearms and shoulder area. LABORATORY VALUES: As Noted RADIOLOGIC STUDIES: As Noted Assessment IMPRESSION: Lesion of subcutaneous tissue (primary encounter diagnosis) PLAN: At this point I do not think there is anything for me to do here I think her pain needs to be evaluated by orthopedics. And orthopedics needs to also evaluate her if they think that this is an intramuscular lipoma which I do not do these in the forearm. With regards to the subcutaneous lesion in the mid forearm that is been there for 20 years I think is stable at helping there is anything we need to do to it at this time. 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 Quyen Monahan via shared medical record. This note will be forwarded to Dr. Olga Amato MD. Return to Clinic: The patient is instructed to follow-up with me as needed. Andrea Garnett III, MD documented in this encounter [facility] 01-23-2022 History of Presen t illness Narrative Radiology Service Progress Note PATIENT NAME: Nasim Rodarte DATE OF SERVICE: January 23, 2022 TIME: 8:57 AM PATIENT IDENTITY VERIFICATION COMPLETED USING TWO (2) IDENTIFIERS: Name and Date of confirmed by patient verbally. FALL SCREENING: Has the patient had 2 falls in the last year or 1 fall with injury or currently using an Ambulatory Assistive Device (Walker, Cane, Wheelchair, Crutches, etc.)? No PATIENT GENDER DATA: Female. status: : No status: NO. PATIENT RELEVANT IMPLANT DATA REVIEWED: Not Applicable RADIOLOGY DEPARTMENT: Bone Density PERIPHERAL IV DATA: Not applicable SIGNED BY: RT Dontae(R) January 23, 2022 8:57 AM documented in this encounter [facility] 10-29-2021 Miscellaneous Notes OK to refill as ordered Olga Amato MD Patient calling regarding the request for medication. Read message to patient and patient says that the bottle says 0 refills. Patient has been identified by name and date of : Yes Pending Prescriptions Disp Refills LEVOTHYROXINE 100 MCG TABLET 30 tablet 3 Sig: Take 1 tablet by mouth once daily. Skip one day weekly. Take on empty stomach. For Thyroid. DEONTE: No RX INSTRUCTIONS: Patient aware RX will be sent to pharmacy. No need to notify patient. Cristela Hernandez Pss documented in this encounter [facility] 09-28-2021 Miscellaneous Notes 1st attempt left VM.Naina Howard Pss PSS: Please contact patient to schedule annual exam AND mammogram. Thank you. Bia Shahid RN ordered Patient last seen for annual exam and mammogram on 09/13/20. Please file pended mammogram. Will need to call patient to schedule both. Bia Shahid RN Please place order for mammogram. Patient received Recall letter for annual and mamogram. Once placed, please call patient to schedule. Thank you documented in this encounter [facility] 09-25-2021 Instructions Salena Diaz APRN.MARCELINO - 09/25/2021 3:49 PM EDT 1. Get labs. 2. Schedule bone density. 3. Check with insurance re: shingrix. 4. Consider smoking cessation. 5. Schedule mammogram. 6. Schedule w/ PHYSICAL BIOCHEMIST. Health Promotion: - Eat healthy go to [employer] to get started - Have a yearly physical - Mammogram yearly after age 40 - Get at least 30 minutes of physical activity daily - Get at least 7 to 8 hours of sleep each night - Reach and maintain a healthy weight - Get help to quit or don't start smoking - Limit alcohol use to one drink or less - Do not use illegal drugs or misuse prescription drugs - Wear a helmet when riding a bike and wear protective gear for sports - Wear a seatbelt in cars and not text and drive - Wear sunscreen BONE MINERAL DENSITY PATIENT INSTRUCTIONS ========= Bone mineral density testing measures the amount of calcium in certain parts of your bones. This information determines how strong your bones are. The test is used to detect osteoporosis, a disease in which the bone's mineral content and density are low, increasing a person's risk of fractures. The lumbar spine (lower back) and the hip are the skeletal sites usually examined. For the test, remember that: 1. You cannot take this test if you are . 2. Eat a normal diet on the day of the test. 3. Take your medications as you normally would. 4. DO NOT take calcium supplements (such as Tums) for 24 hours before the test. 5. On the day of the test, leave valuables (jewelry or credit cards) at home. 6. The test should be performed prior to oral, rectal or IV contrast studies, or at least 7 days after any of these studies. For the test, you may be asked to wear a hospital gown. You will lie on your back, on a padded table, in a comfortable position. Generally, you can resume your usual activities immediately. documented in this encounter [facility] 09-25-2021 History of Presen t illness Narrative This is a 61 year old female who presents today with: Patient presents with: Yearly Exam HISTORY OF PRESENT ILLNESS: Nasim Rodarte is a 61 year old female. Patient presents with: Yearly Exam Pt presents for yearly exam. No problems/concerns. REVIEW OF SYSTEMS GENERAL: No weight loss, malaise or fevers/chills. + fatigue. HEENT: Negative for frequent or significant headaches, No changes in hearing or vision. Wears reading glasses, now. NECK: Negative for lumps, goiter, pain and significant neck swelling RESPIRATORY: Negative for cough, hemoptysis, wheezing, dyspnea or shortness of breath CARDIOVASCULAR: Negative for chest pain, leg swelling, orthopnea, or palpitations GI: No nausea, vomiting, or diarrhea/constipation. No hematochezia/melena. occ heartburn. : No history of dysuria, frequency or incontinence MUSCULOSKELETAL: Negative for joint pain or swelling. Still gets some pain where she fractured tibia previously. SKIN: Negative for lesions, rash, and itching. + ford angiomas on arms and chest wall. ENDOCRINE: Negative for cold or heat intolerance, polyuria, polydipsia and goiter. Has noticed more hot flashes. NEURO: No history of headaches, syncope, paralysis, seizures or tremors HYPOTHYROID: Patient is compliant with medications: Yes Patient has changes in energy: No Patient has changes in hair or skin: Some ford angiomas. Patient has temperature intolerance: No Patient has weight changes: No Depression Screening 11/29/2016 12/08/2017 01/15/2019 09/25/2021 PHQ-2 Score 0 0 0 0 Depression screening tool completed and reviewed. Based on score and interview, patient is not at risk for depression. Screening tool discussed with patient, and I recommended no further intervention at this time. PAST MEDICAL HISTORY: PAST MEDICAL HISTORY Diagnosis Date Generalized headaches Kidney stone 2020 lithotripsy Unspecified hypothyroidism PAST SURGICAL HISTORY Procedure Laterality Date COLONOSCOP W/ OR W/O BRSH SPEC 09/24/2011 Repeat in 5 years (-2016) COLONOSCOPY FLX DX W/COLLJ SPEC WHEN PFRMD 02/10/2017 repeat 5 yrs. COLONOSCOPY GEN ANES 10/19/2020 FRACTURE SURGERY PAST SURGICAL HISTORY OF 2001 REMOVAL OF FATTY TUMOR LEFT ARM. PAST SURGICAL HISTORY OF Right 03/2016 ORIF tibia fx TONSILLECTOMY HX TONSILLECTOMY PRIMARY/SECONDARY <AGE 13 Tonsillectomy ALLERGIES Fosamax [Alendronate Sodium] MEDICATIONS Current Outpatient Medications Medication Sig levothyroxine (LEVOXYL) 100 mcg tablet Take 1 tablet by mouth once daily. One day a week; take only 1/2 pill. Take on empty stomach. For Thyroid. CHOLECALCIFEROL, VITAMIN D3, ORAL Take by mouth. Taking daily. Pt unsure of dosage. clobetasol (TEMOVATE) 0.05 % cream Apply 1 application to affected area twice daily. No current facility-administered medications for this visit. FAMILY HISTORY Problem Relation Age of Onset Arthritis Mother Diabetes Mother Diabetes Father Hypertension Father Colon Cancer Father Age 73 Thyroid Father other (Alzheimers) Father other (Parkinsons Disease) Father Diabetes Sister Asthma Brother Diabetes Paternal Grandfather Cancer Maternal Grandmother Social History Tobacco Use Smoking status: Current Every Day Smoker Packs/day: 0.50 Years: 21.00 Pack years: 10.50 Types: Cigarettes Smokeless tobacco: Never Used Vaping Use Vaping Use: Never used Substance Use Topics Alcohol use: Never Comment: RARELY Drug use: No EXAM: BP 138/86 Pulse 77 Resp 18 Ht 165 cm (5' 4.96") Wt 63.5 kg (140 lb) LMP 01/24/2013 SpO2 98% BMI 23.33 kg/m PHYSICAL EXAM: General Appearance: Well appearing, alert, in no acute distress, well-hydrated, well nourished.. Skin: Skin color, texture, turgor normal, no suspicious rashes or lesions. Some small ford angiomas on the arms/chest wall. Two lipomas right forearm. Head: Normocephalic, no masses, lesions, tenderness or abnormalities. Eyes: Anicteric sclera. Pupils are equally round and reactive to light. Extraocular movements are intact. . Ears: External ears normal, canals clear, Normal TMs bilaterally. Oropharynx: Lips, mucosa, and tongue normal, teeth and gums normal, oropharynx normal. Neck: Supple, no adenopathy; thyroid symmetric, normal size, no bruits. Lungs: Lungs clear to auscultation. No wheezing, rhonchi, rales.. Heart: RRR without murmur, gallop, or rubs. No ectopy. Abdomen: Normal abdominal exam, Abdomen soft, non-tender. Bowel sounds normal. No masses, organomegaly. Extremities: No deformities, edema, skin discoloration, clubbing or cyanosis. Good capillary refill. . Neurologic: Gait normal. ASSESSMENT/PLAN: 1. Wellness examination - ICD9: V70.0, ICD10: Z00.00 (primary diagnosis) - Bone mineral density ordered - Smoking cessation encouraged; discussed risks to health and quitting strategies. Patient is not ready to quit - Follow up for annual exam in one year Discussed Shingrix vaccine. She will check with insurance regarding coverage. Declines COVID-vaccine. She already has mammogram order placed, she just needs to schedule. Health Promotion: - Eat healthy go to [employer] to get started - Have a yearly physical - Mammogram yearly after age 40 - Get at least 30 minutes of physical activity daily - Get at least 7 to 8 hours of sleep each night - Reach and maintain a healthy weight - Get help to quit or don't start smoking - Limit alcohol use to one drink or less - Do not use illegal drugs or misuse prescription drugs - Wear a helmet when riding a bike and wear protective gear for sports - Wear a seatbelt in cars and not text and drive - Wear sunscreen 2. Acquired hypothyroidism - ICD9: 244.9, ICD10: E03.9 - Instructed patient on importance of taking on an empty stomach either first thing in the morning or at bedtime. - LEVOTHYROXINE 100 MCG TABLET - TSH BLD - T4 FREE/FREE THYROX 3. Hyperlipidemia, mixed - ICD9: 272.2, ICD10: E78.2 - to be determined upon return of lab results - Encouraged following a low fat, low cholesterol diet. - LIPID PANEL, NONFASTING - COMP METABOLIC PANEL 4. Vitamin D deficiency - ICD9: 268.9, ICD10: E55.9 - VITAMIN D 25 HYDROXY 5. Fatigue, unspecified type - ICD9: 780.79, ICD10: R53.83 - TSH BLD - T4 FREE/FREE THYROX - CBC + DIFF 6. Asymptomatic postmenopausal status - ICD9: V49.81, ICD10: Z78.0 - DXA-AXIAL SKELETON Discussed treatment plan and patient voices understanding. Patient's questions answered appropriately. Medications and potential side effects were discussed and patient voices understanding. Return to the office as scheduled or as needed for worsening/no improvement. Salena Diaz APRN.[employer] The patient indicates understanding of these issues and agrees with the plan. This note was partially generated using [employer] voice recognition system. Note was reviewed for accuracy. There may be minor misspellings or grammar miscues with Dragon voice recognition. documented in this encounter [facility] 10-19-2020 History of Past i llness Narrative Problem Noted Date Resolved Date History of colonic polyps 10/19/20202020 Premenopausal menorrhagia 06/10/20082011 documented as of this encounter (statuses as of 09/25/2021) [facility] History of Past illness Narrative* Problem Noted Date Resolved Date History of colonic polyps 10/19/20202020 Premenopausal menorrhagia 06/10/20082011 documented as of this encounter (statuses as of 09/28/2021) [facility] History of Past illness Narrative* Problem Noted Date Resolved Date History of colonic polyps 10/19/20202020 Premenopausal menorrhagia 06/10/20082011 documented as of this encounter (statuses as of 10/29/2021) [facility] History of Past illness Narrative* Problem Noted Date Resolved Date History of colonic polyps 10/19/20202020 Premenopausal menorrhagia 06/10/20082011 documented as of this encounter (statuses as of 01/24/2022) [facility] History of Past illness Narrative* Problem Noted Date Resolved Date History of colonic polyps 10/19/20202020 Premenopausal menorrhagia 06/10/20082011 documented as of this encounter (statuses as of 02/06/2022) [facility] History of Past illness Narrative* Problem Noted Date Resolved Date History of colonic polyps 10/19/20202020 Premenopausal menorrhagia 06/10/20082011 documented as of this encounter (statuses as of 02/25/2022) [address]27-2021 History of Past illness Narrative* Problem Noted Date Resolved Date History of colonic polyps 10/19/20202020 Premenopausal menorrhagia 06/10/20082011 documented as of this encounter (statuses as of 02/25/2022) [address]21 History of Past illness Narrative* Problem Noted Date Resolved Date History of colonic polyps 10/19/20202020 Premenopausal menorrhagia 06/10/20082011 documented as of this encounter (statuses as of 02/26/2022) [address]27-2021 History of Past illness Narrative* Problem Noted Date Resolved Date History of colonic polyps 10/19/20202020 Premenopausal menorrhagia 06/10/20082011 documented as of this encounter (statuses as of 04/22/2022) [address]27-2021 History of Past illness Narrative* Problem Noted Date Resolved Date History of colonic polyps 10/19/20202020 Premenopausal menorrhagia 06/10/20082011 documented as of this encounter (statuses as of 04/29/2022) [address]27-2021 History of Past illness Narrative* Problem Noted Date Resolved Date History of colonic polyps 10/19/20202020 Premenopausal menorrhagia 06/10/20082011 documented as of this encounter (statuses as of 07/04/2022) [address]2021 History of Past illness Narrative* Problem Noted Date Resolved Date History of colonic polyps 10/19/20202020 Premenopausal menorrhagia 06/10/20082011 documented as of this encounter (statuses as of 07/04/2022) [address]2021 History of Past illness Narrative* Problem Noted Date Resolved Date History of colonic polyps 10/19/20202020 Premenopausal menorrhagia 06/10/20082011 documented as of this encounter (statuses as of 07/25/2022) [facility]-27-2021 History of Past illness Narrative* Problem Noted Date Resolved Date History of colonic polyps 10/19/20202020 Premenopausal menorrhagia 06/10/20082011 documented as of this encounter (statuses as of 08/01/2022) [address]27-2021 History of Past illness Narrative* Problem Noted Date Resolved Date History of colonic polyps 10/19/20202020 Premenopausal menorrhagia 06/10/20082011 documented as of this encounter (statuses as of 08/01/2022) [facility]27-2021 History of Past illness Narrative* Problem Noted Date Resolved Date History of colonic polyps 10/19/20202020 Premenopausal menorrhagia 06/10/20082011 documented as of this encounter (statuses as of 08/19/2022) [facility]-2021 History of Past illness Narrative* Problem Noted Date Resolved Date History of colonic polyps 10/19/20202020 Premenopausal menorrhagia 06/10/20082011 documented as of this encounter (statuses as of 09/05/2022) [facility]-2021 History of Past illness Narrative* Problem Noted Date Resolved Date History of colonic polyps 10/19/20202020 Premenopausal menorrhagia 06/10/20082011 documented as of this encounter (statuses as of 11/11/2022) [facility]2021 History of Past illness Narrative* Problem Noted Date Resolved Date History of colonic polyps 10/19/20202020 Premenopausal menorrhagia 06/10/20082011 documented as of this encounter (statuses as of 11/12/2022) [address]27-2021 History of Past illness Narrative* Problem Noted Date Resolved Date History of colonic polyps 10/19/20202020 Premenopausal menorrhagia 06/10/20082011 documented as of this encounter (statuses as of 11/18/2022) [address]27-2021 History of Past illness Narrative* Problem Noted Date Diagnosed Date Resolved Date History of colonic polyps 10/19/2020 Premenopausal menorrhagia 06/10/2008 documented as of this encounter (statuses as of 12/26/2022) [address]27-2021 History of Past illness Narrative* Problem Noted Date Diagnosed Date Resolved Date History of colonic polyps 10/19/2020 Premenopausal menorrhagia 06/10/2008 documented as of this encounter (statuses as of 01/02/2023) [address]27-2021 History of Past illness Narrative* Problem Noted Date Diagnosed Date Resolved Date History of colonic polyps 10/19/2020 Premenopausal menorrhagia 06/10/2008 documented as of this encounter (statuses as of 01/10/2023) [address]27-2021 History of Past illness Narrative* Problem Noted Date Diagnosed Date Resolved Date History of colonic polyps 10/19/2020 Premenopausal menorrhagia 06/10/2008 documented as of this encounter (statuses as of 01/15/2023) [address]27-2021 History of Past illness Narrative* Problem Noted Date Diagnosed Date Resolved Date History of colonic polyps 10/19/2020 Premenopausal menorrhagia 06/10/2008 documented as of this encounter (statuses as of 01/23/2023) [address]27-2021 History of Past illness Narrative* Problem Noted Date Diagnosed Date Resolved Date History of colonic polyps 10/19/2020 Premenopausal menorrhagia 06/10/2008 documented as of this encounter (statuses as of 02/14/2023) [address]27-2021 History of Past illness Narrative* Problem Noted Date Diagnosed Date Resolved Date History of colonic polyps 10/19/2020 Premenopausal menorrhagia 06/10/2008 documented as of this encounter (statuses as of 02/27/2023) [address]27-2021 History of Past illness Narrative* Problem Noted Date Diagnosed Date Resolved Date History of colonic polyps 10/19/2020 Premenopausal menorrhagia 06/10/2008 documented as of this encounter (statuses as of 03/17/2023) [address]27-2021 History of Past illness Narrative* Problem Noted Date Diagnosed Date Resolved Date History of colonic polyps 10/19/2020 Premenopausal menorrhagia 06/10/2008 documented as of this encounter (statuses as of 03/26/2023) [address]27-2021 History of Past illness Narrative* Problem Noted Date Diagnosed Date Resolved Date History of colonic polyps 10/19/2020 Premenopausal menorrhagia 06/10/2008 documented as of this encounter (statuses as of 03/30/2023) [address]27-2021 History of Past illness Narrative* Problem Noted Date Diagnosed Date Resolved Date History of colonic polyps 10/19/2020 Premenopausal menorrhagia 06/10/2008 documented as of this encounter (statuses as of 03/30/2023) [address]27-2021 History of Past illness Narrative* Problem Noted Date Diagnosed Date Resolved Date History of colonic polyps 10/19/2020 Premenopausal menorrhagia 06/10/2008 documented as of this encounter (statuses as of 03/30/2023) [address]27-2021 History of Past illness Narrative* Problem Noted Date Diagnosed Date Resolved Date History of colonic polyps 10/19/2020 Premenopausal menorrhagia 06/10/2008 documented as of this encounter (statuses as of 05/02/2023) [address]27-2021 History of Past illness Narrative* Problem Noted Date Diagnosed Date Resolved Date History of colonic polyps 10/19/2020 Premenopausal menorrhagia 06/10/2008 documented as of this encounter (statuses as of 07/04/2023) [facility] Diagnosis Wellness examination- Primary Acquired hypothyroidism Unspecified hypothyroidism Hyperlipidemia, mixed Mixed hyperlipidemia Vitamin D deficiency Unspecified vitamin D deficiency Fatigue, unspecified type Asymptomatic postmenopausal status documented in this encounter [facility] Diagnosis Encounter for screening mammogram for malignant neoplasm of breast- Primary Other screening [facility] Diagnosis Acquired hypothyroidism Unspecified hypothyroidism documented in this encounter [facility] note* Diagnosis Asymptomatic postmenopausal status documented in this encounter [facility] note* Diagnosis Lesion of subcutaneous tissue- Primary Unspecified disorder of skin and subcutaneous tissue Pain of right upper arm Pain in limb documented in this encounter [facility] note* Diagnosis Pain of right forearm- Primary Pain in limb documented in this encounter [facility] note* Diagnosis Localized swelling, mass, or lump of right upper extremity- Primary Pain of right upper arm Pain in limb documented in this encounter [facility] note* Diagnosis Pain of right forearm Pain in limb documented in this encounter [facility] note* Diagnosis Localized swelling, mass, or lump of right upper extremity- Primary documented in this encounter [facility] note* Diagnosis Acute pain of right knee- Primary documented in this encounter [facility] note* Diagnosis Right flank pain- Primary Abdominal pain, unspecified site documented in this encounter [facility] note* Diagnosis Acquired cyst of kidney- Primary documented in this encounter [facility] note* Diagnosis Adrenal adenoma, unspecified laterality- Primary Hepatic cyst Other specified disorders of liver documented in this encounter [facility] note* Diagnosis Adenoma of right adrenal gland- Primary documented in this encounter [facility] note* Diagnosis Adenoma of right adrenal gland- Primary Right flank pain Abdominal pain, unspecified site documented in this encounter [facility] note* Diagnosis Acquired hypothyroidism Unspecified hypothyroidism documented in this encounter [facility] note* Diagnosis Adrenal nodule (HCC)- Primary Unspecified disorder of adrenal glands documented in this encounter [facility] note* Diagnosis Wellness examination- Primary Acquired hypothyroidism Unspecified hypothyroidism Benign neoplasm of adrenal cortex, unspecified laterality Hepatic cyst Other specified disorders of liver Hyperlipidemia, mixed Mixed hyperlipidemia Screening for diabetes mellitus documented in this encounter [facility] note* Diagnosis Lipoma of right upper extremity- Primary Lipoma of other specified sites Knee swelling Effusion of lower leg joint documented in this encounter [facility] note* Diagnosis Acquired hypothyroidism Unspecified hypothyroidism [facility] Diagnosis Lipoma of right forearm- Primary Lipoma of right forearm documented in this encounter [facility] note* Diagnosis Pre-operative examination- Primary Preoperative examination, unspecified Adrenal nodule (HCC) Unspecified disorder of adrenal glands Osteoporosis without current pathological fracture, unspecified osteoporosis type Hyperlipidemia, mixed Mixed hyperlipidemia Acquired hypothyroidism Unspecified hypothyroidism Tobacco use disorder Gastroesophageal reflux disease, unspecified whether esophagitis present Lipoma of right forearm documented in this encounter [facility] note* Diagnosis Lipoma of right forearm- Primary documented in this encounter [facility] note* Diagnosis Lipoma of right forearm- Primary documented in this encounter [facility] note* Diagnosis Encounter for gynecological examination (general) (routine) without abnormal findings- Primary Encounter for screening mammogram for breast cancer documented in this encounter [facility] note* Diagnosis Right flank pain Abdominal pain, unspecified site documented in this encounter [facility] note* Diagnosis Encounter for screening mammogram for malignant neoplasm of breast Other screening mammogram documented in this encounter [facility] note* Diagnosis Acquired cyst of kidney documented in this encounter [facility] note* Diagnosis Hepatic cyst Other specified disorders of liver documented in this encounter [facility] note* Diagnosis Hepatic cyst- Primary Other specified disorders of liver documented in this encounter [facility] note* Diagnosis Adrenal adenoma, unspecified laterality- Primary Congenital cystic disease of liver documented in this encounter [facility] note* Diagnosis Wellness examination- Primary Benign neoplasm of adrenal cortex, unspecified laterality Acquired hypothyroidism Unspecified hypothyroidism Hyperlipidemia, mixed Mixed hyperlipidemia Contact dermatitis due to other chemical product, unspecified contact dermatitis type Bilateral impacted cerumen Impacted cerumen Soft tissue swelling Localized superficial swelling, mass, or lump Screening for diabetes mellitus documented in this encounter [facility] note* Diagnosis Contact dermatitis due to other chemical product, unspecified contact dermatitis type documented in this encounter [facility] note* Diagnosis Hypercalcemia- Primary documented in this encounter [facility] note* Diagnosis Pre-operative examination- Primary Preoperative examination, unspecified Adrenal nodule (HCC) Unspecified disorder of adrenal glands Osteoporosis without current pathological fracture, unspecified osteoporosis type Hyperlipidemia, mixed Mixed hyperlipidemia Acquired hypothyroidism Unspecified hypothyroidism Tobacco use disorder Gastroesophageal reflux disease, unspecified whether esophagitis present Acquired hypothyroidism Unspecified hypothyroidism documented in this encounter [facility] note* Diagnosis Acute pain of right knee Pre-operative examination- Primary Preoperative examination, unspecified Adrenal nodule (HCC) Unspecified disorder of adrenal glands Osteoporosis without current pathological fracture, unspecified osteoporosis type Hyperlipidemia, mixed Mixed hyperlipidemia Acquired hypothyroidism Unspecified hypothyroidism Tobacco use disorder Gastroesophageal reflux disease, unspecified whether esophagitis present documented in this encounter [facility] note* Diagnosis Pre-operative examination- Primary Preoperative examination, unspecified Adrenal nodule (HCC) Unspecified disorder of adrenal glands Osteoporosis without current pathological fracture, unspecified osteoporosis type Hyperlipidemia, mixed Mixed hyperlipidemia Acquired hypothyroidism Unspecified hypothyroidism Tobacco use disorder Gastroesophageal reflux disease, unspecified whether esophagitis present Encounter for screening mammogram for breast cancer documented in this encounter [facility] note* Diagnosis Pre-operative examination- Primary Preoperative examination, unspecified Adrenal nodule (HCC) Unspecified disorder of adrenal glands Osteoporosis without current pathological fracture, unspecified osteoporosis type Hyperlipidemia, mixed Mixed hyperlipidemia Acquired hypothyroidism Unspecified hypothyroidism Tobacco use disorder Gastroesophageal reflux disease, unspecified whether esophagitis present Adrenal adenoma, unspecified laterality- Primary Congenital cystic disease of liver documented in this encounter [facility] note* Diagnosis Pre-operative examination- Primary Preoperative examination, unspecified Adrenal nodule (HCC) Unspecified disorder of adrenal glands Osteoporosis without current pathological fracture, unspecified osteoporosis type Hyperlipidemia, mixed Mixed hyperlipidemia Acquired hypothyroidism Unspecified hypothyroidism Tobacco use disorder Gastroesophageal reflux disease, unspecified whether esophagitis present Adrenal adenoma, unspecified laterality documented in this encounter [facility] note* Diagnosis Pre-operative examination- Primary Preoperative examination, unspecified Adrenal nodule (HCC) Unspecified disorder of adrenal glands Osteoporosis without current pathological fracture, unspecified osteoporosis type Hyperlipidemia, mixed Mixed hyperlipidemia Acquired hypothyroidism Unspecified hypothyroidism Tobacco use disorder Gastroesophageal reflux disease, unspecified whether esophagitis present Adrenal adenoma, unspecified laterality- Primary Congenital cystic disease of liver documented in this encounter [facility] note* Diagnosis Pre-operative examination- Primary Preoperative examination, unspecified Adrenal nodule (HCC) Unspecified disorder of adrenal glands Osteoporosis without current pathological fracture, unspecified osteoporosis type Hyperlipidemia, mixed Mixed hyperlipidemia Acquired hypothyroidism Unspecified hypothyroidism Tobacco use disorder Gastroesophageal reflux disease, unspecified whether esophagitis present Adrenal adenoma, unspecified laterality- Primary documented in this encounter [facility] note* Diagnosis Pre-operative examination- Primary Preoperative examination, unspecified Adrenal nodule (HCC) Unspecified disorder of adrenal glands Osteoporosis without current pathological fracture, unspecified osteoporosis type Hyperlipidemia, mixed Mixed hyperlipidemia Acquired hypothyroidism Unspecified hypothyroidism Tobacco use disorder Gastroesophageal reflux disease, unspecified whether esophagitis present Bilateral impacted cerumen- Primary Impacted cerumen documented in this encounter [facility] note* Diagnosis Pre-operative examination- Primary Preoperative examination, unspecified Adrenal nodule (HCC) Unspecified disorder of adrenal glands Osteoporosis without current pathological fracture, unspecified osteoporosis type Hyperlipidemia, mixed Mixed hyperlipidemia Acquired hypothyroidism Unspecified hypothyroidism Tobacco use disorder Gastroesophageal reflux disease, unspecified whether esophagitis present Hypertension, essential- Primary Unspecified essential hypertension Acquired hypothyroidism Unspecified hypothyroidism Hypercalcemia Hyperlipidemia, mixed Mixed hyperlipidemia Fatigue, unspecified type Gastroesophageal reflux disease, unspecified whether esophagitis present documented in this encounter [facility] note* Diagnosis Pre-operative examination- Primary Preoperative examination, unspecified Adrenal nodule (HCC) Unspecified disorder of adrenal glands Osteoporosis without current pathological fracture, unspecified osteoporosis type Hyperlipidemia, mixed Mixed hyperlipidemia Acquired hypothyroidism Unspecified hypothyroidism Tobacco use disorder Gastroesophageal reflux disease, unspecified whether esophagitis present Wellness examination- Primary Asymptomatic postmenopausal status Age-related osteoporosis without current pathological fracture Senile osteoporosis History of Cabral's esophagus Hypertension, essential Unspecified essential hypertension Hyperlipidemia, mixed Mixed hyperlipidemia documented in this encounter [facility] note* Diagnosis Pre-operative examination- Primary Preoperative examination, unspecified Adrenal nodule (HCC) Unspecified disorder of adrenal glands Osteoporosis without current pathological fracture, unspecified osteoporosis type Hyperlipidemia, mixed Mixed hyperlipidemia Acquired hypothyroidism Unspecified hypothyroidism Tobacco use disorder Gastroesophageal reflux disease, unspecified whether esophagitis present Acquired hypothyroidism Unspecified hypothyroidism documented in this encounter [facility] noteNo assessment information availableRed Wing Coltello Ristorante Services Work Phone: Reason for referral (narrative)* Diagnostic Procedure Only (Routine) - Pending Review Specialty Diagnoses / Procedures Referred By Mirtha t Referred To Contact [facility] IMAG[facility] Diagnoses Encounter for screening mammogram for malignant neoplasm of breast Procedures STEFAN SCREENING W DALE SCREENING DIGITAL BREAST TOMOSYNTHESIS BI SCREENING MAMMOGRAPHY BI 2-VIEW BREAST INC CAD Josefina Fernandez MD [address] [place] [address] [facility] [address] [place] [id number] Referral ID Status Reason Start Date Expiration Date Visits Requested Visits Authorized [id number] Pending Review Auto-Generat ed Referral 09/18/2021 10/18/2022 1 1 [facility] for referral (narrative)* Diagnostic Procedure Only (Routine) - Closed Specialty Diagnoses / Procedures Referred By Contac t Referred To Contact XR IMAGING Diagnoses Pain of right forearm Procedures XR FOREARM GENERAL 2V AP/LAT RIGHT RADEX FOREARM 2 VIEWS Erich Michael MD [address] [place] [address] Xr Imaging Referral ID Status Reason Start Date Expiration Date V isits Requested Visits Authorized [id number] Closed Auto-Generate d Referral 02/25/2022 03/27/2023 1 1 [facility] for referral (narrative)* Diagnostic Procedure Only (Routine) - Closed Specialty Diagnoses / Procedures Referred By Contac t Referred To Contact XR IMAGING Diagnoses Pain of right forearm Procedures XR FOREARM GENERAL 2V AP/LAT RIGHT RADEX FOREARM 2 VIEWS Erich Michael MD [address] [place] [address] Xr Imaging Referral ID Status Reason Start Date Expiration Date V isits Requested Visits Authorized [id number] Closed Auto-Generate d Referral 02/25/2022 03/27/2023 1 1 [facility] for referral (narrative)* Diagnostic Procedure Only (Routine) - Closed Specialty Diagnoses / Procedures Referred By Contac t Referred To Contact XR IMAGING Diagnoses Acute pain of right knee Procedures XR KNEE GENERAL 4V AP BOTH/PA BOTH/LAT/MERC RIGHT RADIOLOGIC EXAM KNEE COMPLETE 4/MORE VIEWS Salena Diaz, ACTIVITIES LEADER.[employer] [address] [place] [address] Xr Imaging Referral ID Status Reason Start Date Expiration Date V isits Requested Visits Authorized [id number] Closed Auto-Generate d Referral 04/29/2022 05/29/2023 [address] [facility] for referral (narrative)* Diagnostic Procedure Only (Urgent) - Authorized Specialty Diagnoses / Procedures Referred By Contac t Referred To Contact US IMAGING Diagnoses Right flank pain Procedures US KIDNEY/BLADDER US RETROPERITONEAL REAL TIME W/IMAGE COMPLETE Debby Olivera APRN.[employer] [address] [place] [address] [facility] Referral ID Status Reason Start Date Expiration Date Visits Requested Visits Authorized [id number] Authorized Auto-Generat ed Referral 07/03/2022 08/02/2023 1 1 [facility] for referral (narrative)* Diagnostic Procedure Only (Routine) - Pending Review Specialty Diagnoses / Procedures Referred By Mirtha t Referred To Contact US IMAGING Diagnoses Hepatic cyst Procedures US ABD RT UPPER QUADRANT US ABDOMINAL REAL TIME W/IMAGE LIMITED Debby Olivera APRN.CNP [address] [place] [address] Us Imaging Referral ID Status Reason Start Date Expiration Date Visits Requested Visits Authorized [id number] Pending Review Auto-Generat ed Referral 01/24/2023 08/23/2023 1 1 [facility] for referral (narrative)* Diagnostic Procedure Only (Routine) - Pending Review Specialty Diagnoses / Procedures Referred By Mirtha t Referred To Contact [facility] Diagnoses Encounter for screening mammogram for breast cancer Procedures STEFAN SCREENING W DALE SCREENING DIGITAL BREAST TOMOSYNTHESIS BI SCREENING MAMMOGRAPHY BI 2-VIEW BREAST INC CAD Josefina Fernandez MD [address] [place] [address] [facility] [address] [facility] [place] [address] Referral ID Status Reason Start Date Expiration Date Visits Requested Visits Authorized [id number] Pending Review Auto-Generat ed Referral 03/26/2023 04/24/2024 1 1 [facility] for referral (narrative)* Diagnostic Procedure Only (Urgent) - Closed Specialty Diagnoses / Procedures Referred By Contac t Referred To Contact US IMAGING Diagnoses Right flank pain Procedures US KIDNEY/BLADDER US RETROPERITONEAL REAL TIME W/IMAGE COMPLETE Debby Olivera APRN.[employer] [address] [place] [address] [place] [address] Referral ID Status Reason Start Date Expiration Date V isits Requested Visits Authorized [id number] Closed Auto-Generate d Referral 07/04/2022 07/23/2022 [address] [facility] for referral (narrative)* Diagnostic Procedure Only (Routine) - Closed Specialty Diagnoses / Procedures Referred By Contac t Referred To Contact [facility] Diagnoses Encounter for screening mammogram for malignant neoplasm of breast Procedures STEFAN SCREENING W DALE SCREENING DIGITAL BREAST TOMOSYNTHESIS BI SCREENING MAMMOGRAPHY BI 2-VIEW BREAST INC CAD Josefina Fernandez MD [address] [id number] [facility] [address] [place] [address] Referral ID Status Reason Start Date Expiration Date V isits Requested Visits Authorized [id number] Closed Auto-Generate d Referral 01/23/2022 02/22/2023 1 1 [facility] for referral (narrative)* Diagnostic Procedure Only (Routine) - Closed Specialty Diagnoses / Procedures Referred By Contac t Referred To Contact US IMAGING Diagnoses Hepatic cyst Procedures US ABD RT UPPER QUADRANT US ABDOMINAL REAL TIME W/IMAGE LIMITED Debby Olivera APRN.[employer] [address] [place] [address] [place] [address] Referral ID Status Reason Start Date Expiration Date V isits Requested Visits Authorized [id number] Closed Auto-Generate d Referral 01/24/2023 08/23/2023 1 1 [facility] for referral (narrative)* Diagnostic Procedure Only (Routine) - Closed Specialty Diagnoses / Procedures Referred By Namrataac t Referred To Contact XR IMAGING Diagnoses Acute pain of right knee Procedures XR KNEE GENERAL 4V AP BOTH/PA BOTH/LAT/MERC RIGHT RADIOLOGIC EXAM KNEE COMPLETE 4/MORE VIEWS Salena Diaz APRN.CNP [address] [place] [address] [place] [address] Referral ID Status Reason Start Date Expiration Date V isits Requested Visits Authorized [id number] Closed Auto-Generate d Referral 04/29/2022 05/29/2023 1 1 [facility] for referral (narrative)No reason for referral information availableF[facility] Work Phone: [facility] Narrative* Diagnostic Procedure Only (Routine) - Closed Specialty Diagnoses / Procedures Referred By Namrataac t Referred To Contact XR IMAGING Diagnoses Pain of right forearm Procedures XR FOREARM GENERAL 2V AP/LAT RIGHT RADEX FOREARM 2 VIEWS Erich Michael MD [address] [place] [address] Xr Imaging Referral ID Status Reason Start Date Expiration Date V isits Requested Visits Authorized [id number] Closed Auto-Generate d Referral 02/25/2022 03/27/2023 1 1 [facility] for visit Narrative* Diagnostic Procedure Only (Routine) - Closed Specialty Diagnoses / Procedures Referred By Contac t Referred To Contact BR IMAGING Diagnoses Encounter for screening mammogram for malignant neoplasm of breast Procedures STEFAN SCREENING W DALE SCREENING DIGITAL BREAST TOMOSYNTHESIS BI SCREENING MAMMOGRAPHY BI 2-VIEW BREAST INC CAD Josefina Fernandez MD [address] [place] [address] [facility] [address] [place] [address] Referral ID Status Reason Start Date Expiration Date V isits Requested Visits Authorized [id number] Closed Auto-Generate d Referral 01/23/2022 02/22/2023 1 1 [facility] for visit Narrative* Diagnostic Procedure Only (Routine) - Closed Specialty Diagnoses / Procedures Referred By Namrataac t Referred To Contact XR IMAGING Diagnoses Acute pain of right knee Procedures XR KNEE GENERAL 4V AP BOTH/PA BOTH/LAT/MERC RIGHT RADIOLOGIC EXAM KNEE COMPLETE 4/MORE VIEWS Salena Diaz, CHUCK.[employer] [address] [place] [address] [place] [address] Referral ID Status Reason Start Date Expiration Date V isits Requested Visits Authorized [id number] Closed Auto-Generate d Referral 04/29/2022 05/29/2023 1 1 [facility] for visit Narrative* Diagnostic Procedure Only (Routine) - Closed Specialty Diagnoses / Procedures Referred By Mirtha t Referred To Contact BR IMAGING Diagnoses Encounter for screening mammogram for breast cancer Procedures STEFAN SCREENING W DALE SCREENING DIGITAL BREAST TOMOSYNTHESIS BI SCREENING MAMMOGRAPHY BI 2-VIEW BREAST INC CAD Josefina Fernandez MD [address] [place] [address] [facility] [address] [place] [address] Referral ID Status Reason Start Date Expiration Date V isits Requested Visits Authorized [id number] Closed Auto-Generate d Referral 03/26/2023 04/24/2024 1 1 [facility] Advance Directives No Advanced Directives Records FoundDocuments on File Type Date Recorded 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 Advance Directive(s) 10/19/2020 7:53 AM Advance Directive(s) 10/19/2020 7:55 AM Advance Directive(s) 09/30/2020 9:51 AM Advance Directive(s) 02/10/2017 8:27 AM Documents on File Type Date Recorded 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 Advance Directive(s) 10/19/2020 7:53 AM Advance Directive(s) 10/19/2020 7:55 AM Advance Directive(s) 09/30/2020 9:51 AM Advance Directive(s) 02/10/2017 8:27 AM Advance Directive Response Recorded Date/ Time Advance Directives No August 27 6:44am Reason for Referral Specialty Diagnoses / Procedures Referred By Contac t Referred To Contact Orthopedics Diagnoses Pain of right upper arm Procedures CONSULT TO ORTHOPAEDICS OFFICE/OUTPATIENT [facility] 60-74 MINUTES Andrea Garnett MD [address] [place] [address] Referral ID Status Reason Start Date Expiration Date Visits Requested Visits Authorized [id number] Authorized PCP Requested Referral 02/04/2022 02/04/2023 1 1 Specialty Diagnoses / Procedures Referred By Contac t Referred To Contact MR IMAGING Diagnoses Pain of right upper arm Localized swelling, mass, or lump of right upper extremity Procedures MRI LOWER ARM WO IVCON RT MRI UPPER EXTREMITY OTH THAN JT W/O CONTR Erich Orozco MD [address] [place] [address] Mr Imaging Referral ID Status Reason Start Date Expiration Date Visits Requested Visits Authorized [id number] Pending Review Auto-Generat ed Referral 02/25/2022 03/27/2023 1 1 Specialty Diagnoses / Procedures Referred By Contac t Referred To Contact CT IMAGING Diagnoses Acquired cyst of kidney Procedures CT KIDNEY WO/W IVCON CT ABDOMEN W & W/O CONTRAST Debby Olivera APRN.[employer] [address] [place] [address] Ct Imaging Referral ID Status Reason Start Date Expiration Date Visits Requested Visits Authorized [id number] Pending Review Auto-Generat ed Referral 07/04/2022 08/03/2023 1 1 Specialty Diagnoses / Procedures Referred By Contac t Referred To Contact Diagnoses Adenoma of right adrenal gland Right flank pain Procedures CONSULT TO ENDOCRINE SURGERY OFFICE/OUTPATIENT [facility] MDM 60-74 MINUTES Debby Olivera APRN.[employer] [address] [place] [address] Referral ID Status Reason Start Date Expiration Date Visits Requested Visits Authorized [id number] Authorized PCP Requested Referral 08/01/2022 08/01/2023 1 1 Specialty Diagnoses / Procedures Referred By Contac t Referred To Contact Gastroenterology Diagnoses Hepatic cyst Procedures CONSULT TO GASTROENTEROLOGY OFFICE/OUTPATIENT [facility] 60-74 MINUTES Debby Olivera APRN.[employer] [address] [place] [address] Referral ID Status Reason Start Date Expiration Date Visits Requested Visits Authorized [id number] Authorized PCP Requested Referral 11/11/2022 11/11/2023 1 1 Specialty Diagnoses / Procedures Referred By Contac t Referred To Contact CT IMAGING Diagnoses Acquired cyst of kidney Procedures CT KIDNEY WO/W IVCON CT ABDOMEN W & W/O CONTRAST Debby Olivera, CHUCK.[employer] [address] [place] [address] [place] [address] Referral ID Status Reason Start Date Expiration Date V isits Requested Visits Authorized [id number] Closed Auto-Generate d Referral 07/05/2022 09/02/2022 1 1 Specialty Diagnoses / Procedures Referred By Contac t Referred To Contact General Surgery Diagnoses Hepatic cyst Procedures CONSULT TO GENERAL SURGERY OFFICE/OUTPATIENT [facility] MDM 60-74 MINUTES Camille Todd PA-C [address] [place] [address] Marisa Spencer MD [address] [place] [address] Referral ID Status Reason Start Date Expiration Date Visits Requested Visits Authorized [id number] Authorized PCP Requested Referral 05/02/2023 05/01/2024 1 1 Specialty Diagnoses / Procedures Referred By Contac t Referred To Contact CT IMAGING Diagnoses Adrenal adenoma, unspecified laterality Procedures CT ADRENAL WO/W IVCON CT ABDOMEN W & W/O CONTRAST Marisa Spencer MD [address] [address] [place] [address] Referral ID Status Reason Start Date Expiration Date Visits Requested Visits Authorized [id number] Pending Review Auto-Generat ed Referral 07/01/2023 07/30/2024 1 1 Summary Purpose Family History No Family History Records FoundNo Family History Records FoundNo Family History Records FoundNo Family History Records Found Chief Complaint and Reason for Visit Chief Complaint Admit Date 6 M FU February 01, 2025 3:17pm Additional Source Comments Source Comments (unrecognize d section and content) In the event this informatio n is protected by the Federal Confidentiality of Alcohol and Drug Abuse Patient Records regulations: The Federal rules restrict any use of the information to criminally investigate or prosecute any alcohol or drug abuse patient.[facility] HospitalIn the event this information is protected by the Federal Confidentiality of Alcohol and Drug Abuse Patient Records regulations: The Federal rules restrict any use of the information to criminally investigate or prosecute any alcohol or drug abuse patient.[facility] HospitalIn the event this information is protected by the Federal Confidentiality of Alcohol and Drug Abuse Patient Records regulations: The Federal rules restrict any use of the information to criminally investigate or prosecute any alcohol or drug abuse patient.[facility] HospitalIn the event this information is protected by the Federal Confidentiality of Alcohol and Drug Abuse Patient Records regulations: The Federal rules restrict any use of the information to criminally investigate or prosecute any alcohol or drug abuse patient.[facility] HospitalIn the event this information is protected by the Federal Confidentiality of Alcohol and Drug Abuse Patient Records regulations: The Federal rules restrict any use of the information to criminally investigate or prosecute any alcohol or drug abuse patient.[facility] HospitalIn the event this information is protected by the Federal Confidentiality of Alcohol and Drug Abuse Patient Records regulations: The Federal rules restrict any use of the information to criminally investigate or prosecute any alcohol or drug abuse patient.[facility] HospitalIn the event this information is protected by the Federal Confidentiality of Alcohol and Drug Abuse Patient Records regulations: The Federal rules restrict any use of the information to criminally investigate or prosecute any alcohol or drug abuse patient.[facility] HospitalIn the event this information is protected by the Federal Confidentiality of Alcohol and Drug Abuse Patient Records regulations: The Federal rules restrict any use of the information to criminally investigate or prosecute any alcohol or drug abuse patient.[facility] HospitalIn the event this information is protected by the Federal Confidentiality of Alcohol and Drug Abuse Patient Records regulations: The Federal rules restrict any use of the information to criminally investigate or prosecute any alcohol or drug abuse patient.[facility] HospitalIn the event this information is protected by the Federal Confidentiality of Alcohol and Drug Abuse Patient Records regulations: The Federal rules restrict any use of the information to criminally investigate or prosecute any alcohol or drug abuse patient.[facility] HospitalIn the event this information is protected by the Federal Confidentiality of Alcohol and Drug Abuse Patient Records regulations: The Federal rules restrict any use of the information to criminally investigate or prosecute any alcohol or drug abuse patient.[facility] HospitalIn the event this information is protected by the Federal Confidentiality of Alcohol and Drug Abuse Patient Records regulations: The Federal rules restrict any use of the information to criminally investigate or prosecute any alcohol or drug abuse patient.[facility] HospitalIn the event this information is protected by the Federal Confidentiality of Alcohol and Drug Abuse Patient Records regulations: The Federal rules restrict any use of the information to criminally investigate or prosecute any alcohol or drug abuse patient.[facility] HospitalIn the event this information is protected by the Federal Confidentiality of Alcohol and Drug Abuse Patient Records regulations: The Federal rules restrict any use of the information to criminally investigate or prosecute any alcohol or drug abuse patient.[facility] HospitalIn the event this information is protected by the Federal Confidentiality of Alcohol and Drug Abuse Patient Records regulations: The Federal rules restrict any use of the information to criminally investigate or prosecute any alcohol or drug abuse patient.[facility] HospitalIn the event this information is protected by the Federal Confidentiality of Alcohol and Drug Abuse Patient Records regulations: The Federal rules restrict any use of the information to criminally investigate or prosecute any alcohol or drug abuse patient.[facility] HospitalIn the event this information is protected by the Federal Confidentiality of Alcohol and Drug Abuse Patient Records regulations: The Federal rules restrict any use of the information to criminally investigate or prosecute any alcohol or drug abuse patient.[facility] HospitalIn the event this information is protected by the Federal Confidentiality of Alcohol and Drug Abuse Patient Records regulations: The Federal rules restrict any use of the information to criminally investigate or prosecute any alcohol or drug abuse patient.[facility] HospitalIn the event this information is protected by the Federal Confidentiality of Alcohol and Drug Abuse Patient Records regulations: The Federal rules restrict any use of the information to criminally investigate or prosecute any alcohol or drug abuse patient.[facility] HospitalIn the event this information is protected by the Federal Confidentiality of Alcohol and Drug Abuse Patient Records regulations: The Federal rules restrict any use of the information to criminally investigate or prosecute any alcohol or drug abuse patient.[facility] HospitalIn the event this information is protected by the Federal Confidentiality of Alcohol and Drug Abuse Patient Records regulations: The Federal rules restrict any use of the information to criminally investigate or prosecute any alcohol or drug abuse patient.[facility] HospitalIn the event this information is protected by the Federal Confidentiality of Alcohol and Drug Abuse Patient Records regulations: The Federal rules restrict any use of the information to criminally investigate or prosecute any alcohol or drug abuse patient.[facility] HospitalIn the event this information is protected by the Federal Confidentiality of Alcohol and Drug Abuse Patient Records regulations: The Federal rules restrict any use of the information to criminally investigate or prosecute any alcohol or drug abuse patient.[facility] HospitalIn the event this information is protected by the Federal Confidentiality of Alcohol and Drug Abuse Patient Records regulations: The Federal rules restrict any use of the information to criminally investigate or prosecute any alcohol or drug abuse patient.[facility] HospitalIn the event this information is protected by the Federal Confidentiality of Alcohol and Drug Abuse Patient Records regulations: The Federal rules restrict any use of the information to criminally investigate or prosecute any alcohol or drug abuse patient.[facility] HospitalIn the event this information is protected by the Federal Confidentiality of Alcohol and Drug Abuse Patient Records regulations: The Federal rules restrict any use of the information to criminally investigate or prosecute any alcohol or drug abuse patient.[facility] HospitalIn the event this information is protected by the Federal Confidentiality of Alcohol and Drug Abuse Patient Records regulations: The Federal rules restrict any use of the information to criminally investigate or prosecute any alcohol or drug abuse patient.[facility] HospitalIn the event this information is protected by the Federal Confidentiality of Alcohol and Drug Abuse Patient Records regulations: The Federal rules restrict any use of the information to criminally investigate or prosecute any alcohol or drug abuse patient.[facility] HospitalIn the event this information is protected by the Federal Confidentiality of Alcohol and Drug Abuse Patient Records regulations: The Federal rules restrict any use of the information to criminally investigate or prosecute any alcohol or drug abuse patient.[facility] HospitalIn the event this information is protected by the Federal Confidentiality of Alcohol and Drug Abuse Patient Records regulations: The Federal rules restrict any use of the information to criminally investigate or prosecute any alcohol or drug abuse patient.[facility] HospitalIn the event this information is protected by the Federal Confidentiality of Alcohol and Drug Abuse Patient Records regulations: The Federal rules restrict any use of the information to criminally investigate or prosecute any alcohol or drug abuse patient.[facility] HospitalIn the event this information is protected by the Federal Confidentiality of Alcohol and Drug Abuse Patient Records regulations: The Federal rules restrict any use of the information to criminally investigate or prosecute any alcohol or drug abuse patient.[facility] HospitalIn the event this information is protected by the Federal Confidentiality of Alcohol and Drug Abuse Patient Records regulations: The Federal rules restrict any use of the information to criminally investigate or prosecute any alcohol or drug abuse patient.[facility] HospitalIn the event this information is protected by the Federal Confidentiality of Alcohol and Drug Abuse Patient Records regulations: The Federal rules restrict any use of the information to criminally investigate or prosecute any alcohol or drug abuse patient.[facility] HospitalIn the event this information is protected by the Federal Confidentiality of Alcohol and Drug Abuse Patient Records regulations: The Federal rules restrict any use of the information to criminally investigate or prosecute any alcohol or drug abuse patient.[facility] HospitalIn the event this information is protected by the Federal Confidentiality of Alcohol and Drug Abuse Patient Records regulations: The Federal rules restrict any use of the information to criminally investigate or prosecute any alcohol or drug abuse patient.[facility] HospitalIn the event this information is protected by the Federal Confidentiality of Alcohol and Drug Abuse Patient Records regulations: The Federal rules restrict any use of the information to criminally investigate or prosecute any alcohol or drug abuse patient.[facility] HospitalIn the event this information is protected by the Federal Confidentiality of Alcohol and Drug Abuse Patient Records regulations: The Federal rules restrict any use of the information to criminally investigate or prosecute any alcohol or drug abuse patient.[facility] HospitalIn the event this information is protected by the Federal Confidentiality of Alcohol and Drug Abuse Patient Records regulations: The Federal rules restrict any use of the information to criminally investigate or prosecute any alcohol or drug abuse patient.[facility] HospitalIn the event this information is protected by the Federal Confidentiality of Alcohol and Drug Abuse Patient Records regulations: The Federal rules restrict any use of the information to criminally investigate or prosecute any alcohol or drug abuse patient.[facility] HospitalIn the event this information is protected by the Federal Confidentiality of Alcohol and Drug Abuse Patient Records regulations: The Federal rules restrict any use of the information to criminally investigate or prosecute any alcohol or drug abuse patient.[facility] HospitalIn the event this information is protected by the Federal Confidentiality of Alcohol and Drug Abuse Patient Records regulations: The Federal rules restrict any use of the information to criminally investigate or prosecute any alcohol or drug abuse patient.[facility] HospitalIn the event this information is protected by the Federal Confidentiality of Alcohol and Drug Abuse Patient Records regulations: The Federal rules restrict any use of the information to criminally investigate or prosecute any alcohol or drug abuse patient.[facility] HospitalIn the event this information is protected by the Federal Confidentiality of Alcohol and Drug Abuse Patient Records regulations: The Federal rules restrict any use of the information to criminally investigate or prosecute any alcohol or drug abuse patient.[facility] HospitalIn the event this information is protected by the Federal Confidentiality of Alcohol and Drug Abuse Patient Records regulations: The Federal rules restrict any use of the information to criminally investigate or prosecute any alcohol or drug abuse patient.[facility] HospitalIn the event this information is protected by the Federal Confidentiality of Alcohol and Drug Abuse Patient Records regulations: The Federal rules restrict any use of the information to criminally investigate or prosecute any alcohol or drug abuse patient.[facility] HospitalIn the event this information is protected by the Federal Confidentiality of Alcohol and Drug Abuse Patient Records regulations: The Federal rules restrict any use of the information to criminally investigate or prosecute any alcohol or drug abuse patient.[facility] HospitalIn the event this information is protected by the Federal Confidentiality of Alcohol and Drug Abuse Patient Records regulations: The Federal rules restrict any use of the information to criminally investigate or prosecute any alcohol or drug abuse patient.[facility] HospitalIn the event this information is protected by the Federal Confidentiality of Alcohol and Drug Abuse Patient Records regulations: The Federal rules restrict any use of the information to criminally investigate or prosecute any alcohol or drug abuse patient.[facility] HospitalIn the event this information is protected by the Federal Confidentiality of Alcohol and Drug Abuse Patient Records regulations: The Federal rules restrict any use of the information to criminally investigate or prosecute any alcohol or drug abuse patient.[facility] HospitalIn the event this information is protected by the Federal Confidentiality of Alcohol and Drug Abuse Patient Records regulations: The Federal rules restrict any use of the information to criminally investigate or prosecute any alcohol or drug abuse patient.[facility] HospitalIn the event this information is protected by the Federal Confidentiality of Alcohol and Drug Abuse Patient Records regulations: The Federal rules restrict any use of the information to criminally investigate or prosecute any alcohol or drug abuse patient.[facility] HospitalIn the event this information is protected by the Federal Confidentiality of Alcohol and Drug Abuse Patient Records regulations: The Federal rules restrict any use of the information to criminally investigate or prosecute any alcohol or drug abuse patient.[facility] HospitalIn the event this information is protected by the Federal Confidentiality of Alcohol and Drug Abuse Patient Records regulations: The Federal rules restrict any use of the information to criminally investigate or prosecute any alcohol or drug abuse patient.[facility] Reason for Visit (unrecogniz ed section and content) Reason Comments Yearly Exam Reason Comments Orders Reason Onset Date Comments Refill Request 09/27/2021 Refill Request 10/29/2021 Reason Comments Consult Lipoma on right fore arm Specialty Diagnoses / Procedures Referred By Contac t Referred To Contact General Surgery Diagnoses Benign lipomatous neoplasm of skin and subcutaneous tissue of right arm Procedures CONSULT TO GENERAL SURGERY OFFICE/OUTPATIENT [facility] 60-74 MINUTES Josefina Fernandez MD [address] [place] [address] Referral ID Status Reason Start Date Expiration Date V isits Requested Visits Authorized [id number] Closed PCP Requested Referral 01/23/2022 01/23/2023 1 1 Reason Comments New Lipoma right arm Pain Lipoma right arm Specialty Diagnoses / Procedures Referred By Contac t Referred To Contact Orthopedics Diagnoses Pain of right upper arm Procedures CONSULT TO ORTHOPAEDICS OFFICE/OUTPATIENT [facility] 60-74 MINUTES Andrea Garnett MD [address] [place] [address] Referral ID Status Reason Start Date Expiration Date V isits Requested Visits Authorized [id number] Closed PCP Requested Referral 02/04/2022 02/04/2023 1 1 Reason Comments Established Patient Results - Mri Reason Comments Acute Visit right knee pain Reason Comments Acute Visit Left flank pain Reason Comments Results Orders Ultrasound Kidney Reason Comments results Reason Comments Follow Up Reason Comments Results Dexamethasone suppre ssion test Reason Onset Date Comments Refill Request 08/19/2022 Reason Comments Adrenal Reason Comments Physical Reason Comments Consult Reason Comments Results Labs Reason Comments Established Patient Knee Pain Last seen 04/22/22 mass right upper arm Reason Onset Date Comments Refill Request 01/01/2023 Reason Comments Schedule Surgery Reason Comments Established Patient 2 week post op right forearm soft tissue mass excision Follow Up 2 week post op right forearm soft tissue mass excision Reason Comments Results RUQ US Reason Comments Post Op Reason Comments Yearly Exam Reason Comments Radiology US Specialty Diagnoses / Procedures Referred By Contac t Referred To Contact US IMAGING Diagnoses Right flank pain Procedures US KIDNEY/BLADDER US RETROPERITONEAL REAL TIME W/IMAGE COMPLETE Debby Olivera APRN.[employer] [address] [place] [address] [place] [address] Referral ID Status Reason Start Date Expiration Date V isits Requested Visits Authorized [id number] Closed Auto-Generate d Referral 07/04/2022 07/23/2022 [address] Specialty Diagnoses / Procedures Referred By Contac t Referred To Contact CT IMAGING Diagnoses Acquired cyst of kidney Procedures CT KIDNEY WO/W IVCON CT ABDOMEN W & W/O CONTRAST Debby Olivera APRN.[employer] [address] [place] [address] [place] [address] Referral ID Status Reason Start Date Expiration Date V isits Requested Visits Authorized [id number] Closed Auto-Generate d Referral 07/05/2022 09/02/2022 1 1 Specialty Diagnoses / Procedures Referred By Contac t Referred To Contact MR IMAGING Diagnoses Pain of right upper arm Localized swelling, mass, or lump of right upper extremity Procedures MRI LOWER ARM WO IVCON RT MRI UPPER EXTREMITY OTH THAN JT W/O CONTR MATRErich Barragan MD [address] [place] [address] [place] [address] Referral ID Status Reason Start Date Expiration Date V isits Requested Visits Authorized [id number] Closed Auto-Generate d Referral 02/25/2022 03/27/2023 1 1 Specialty Diagnoses / Procedures Referred By Contac t Referred To Contact US IMAGING Diagnoses Hepatic cyst Procedures US ABD RT UPPER QUADRANT US ABDOMINAL REAL TIME W/IMAGE LIMITED Debby Olivera APRN.[employer] [address] [place] [address] [place] [address] Referral ID Status Reason Start Date Expiration Date V isits Requested Visits Authorized [id number] Closed Auto-Generate d Referral 01/24/2023 08/23/2023 1 1 Reason Comments New Patient New Patient referral from GI for Hepatic Cyst Reason Comments Wellness Reason Comments need more information on rx Reason Onset Date Comments Refill Request 01/27/2024 Reason Comments Appointment Specialty Diagnoses / Procedures Referred By Mirtha t Referred To Contact CT IMAGING Diagnoses Adrenal adenoma, unspecified laterality Procedures CT ADRENAL WO/W IVCON CT ABDOMEN W & W/O CONTRAST Marisa Spencer MD 1 [facility] [address] [place] [address] Phone: tel: fax:[phone] [place] [id number] Referral ID Status Reason Start Date Expiration Date V isits Requested Visits Authorized [id number] Closed Auto-Generate d Referral 06/10/2024 08/08/2024 1 1 Reason Comments Follow Up Tests Results Reason Comments Ear Problem R ear clogged, inter mittent pain Reason Comments Recheck 1 month follow up Yearly Exam Reason Onset Date Comments Refill Request 01/16/2025 Care Teams (unrecognized sec tion and content) Degreasing Wheel Operator Relationship Specialty Start Date End Date Olga Amato MD [address] [place] [address] PCP - General Family Practice 07/17/10 Degreasing Wheel Operator Relationship Specialty Start Date End Date Olga Amato MD [address] [place] [address] PCP - General Family Practice 07/17/10 Degreasing Wheel Operator Relationship Specialty Start Date End Date Olga Amato MD [address] [place] [address] PCP - General Family Practice 07/17/10 Degreasing Wheel Operator Relationship Specialty Start Date End Date Olga Amato MD [address] [place] [address] PCP - General Family Practice 07/17/10 Degreasing Wheel Operator Relationship Specialty Start Date End Date Olga Amato MD [address] [place] [address] PCP - General Family Medicine 07/17/10 Degreasing Wheel Operator Relationship Specialty Start Date End Date Olga Amato MD [address] [place] [address] PCP - General Family Medicine 07/17/10 Degreasing Wheel Operator Relationship Specialty Start Date End Date Olga Amato MD [address] [facility] [place] [address] PCP - General Family Medicine 07/17/10 Degreasing Wheel Operator Relationship Specialty Start Date End Date Olga Amato MD [address] [facility] [place] [address] PCP - General Family Medicine 07/17/10 Degreasing Wheel Operator Relationship Specialty Start Date End Date Olga Amato MD [address] [place] [place] [address] PCP - General Family Medicine 07/17/10 Degreasing Wheel Operator Relationship Specialty Start Date End Date Olga Amato MD [address] [place] [place] [address] PCP - General Family Medicine 07/17/10 Degreasing Wheel Operator Relationship Specialty Start Date End Date Olga Amato MD [address] [place] [place] [address] PCP - General Family Medicine 07/17/10 Degreasing Wheel Operator Relationship Specialty Start Date End Date Olga Amato MD [address] [place] [place] [address] PCP - General Family Medicine 07/17/10 Degreasing Wheel Operator Relationship Specialty Start Date End Date Olga Amato MD [address] [place] [place] [address] PCP - General Family Medicine 07/17/10 Degreasing Wheel Operator Relationship Specialty Start Date End Date Olga Amato MD [address] [place] [place] [address] PCP - General Family Medicine 07/17/10 Degreasing Wheel Operator Relationship Specialty Start Date End Date Olga Amato MD [address] [place] [place] [address] PCP - General Family Medicine 07/17/10 Degreasing Wheel Operator Relationship Specialty Start Date End Date Olga Amato MD [address] [place] [place] [address] PCP - General Family Medicine 07/17/10 Degreasing Wheel Operator Relationship Specialty Start Date End Date Olga Amato MD [address] [place] [place] [address] PCP - General Family Medicine 07/17/10 Degreasing Wheel Operator Relationship Specialty Start Date End Date Olga Amato MD [address] [place] [address] PCP - General Family Medicine 07/17/10 Degreasing Wheel Operator Relationship Specialty Start Date End Date Olga Amato MD [address] [place] [place] [address] PCP - General Family Medicine 07/17/10 Degreasing Wheel Operator Relationship Specialty Start Date End Date Olga Amato MD [address] [place] [place] [address] PCP - General Family Medicine 07/17/10 Degreasing Wheel Operator Relationship Specialty Start Date End Date Olga Amato MD [address] [facility] [place] [address] PCP - General Family Medicine 07/17/10 Degreasing Wheel Operator Relationship Specialty Start Date End Date Olga Amato MD [address] [facility] [place] [place] [address] PCP - General Family Medicine 07/17/10 Degreasing Wheel Operator Relationship Specialty Start Date End Date Olga Amato MD [address] [facility] [place] [address] PCP - General Family Medicine 07/17/10 Degreasing Wheel Operator Relationship Specialty Start Date End Date Olga Amato MD [address] [facility] [place] [address] PCP - General Family Medicine 07/17/10 Degreasing Wheel Operator Relationship Specialty Start Date End Date Olga Amato MD [address] [place] [address] PCP - General Family Medicine 07/17/10 Degreasing Wheel Operator Relationship Specialty Start Date End Date Olga Amato MD [address] [facility] [place] [address] PCP - General Family Medicine 07/17/10 Degreasing Wheel Operator Relationship Specialty Start Date End Date Olga Amato MD [address] [place] [address] PCP - General Family Medicine 07/17/10 Degreasing Wheel Operator Relationship Specialty Start Date End Date Olga Amato MD [address] [place] [address] PCP - General Family Medicine 07/17/10 Degreasing Wheel Operator Relationship Specialty Start Date End Date Olga Amato MD [address] [place] [address] PCP - General Family Medicine 07/17/10 Degreasing Wheel Operator Relationship Specialty Start Date End Date Olga Amato MD [address] [place] [address] PCP - General Family Medicine 07/17/10 Degreasing Wheel Operator Relationship Specialty Start Date End Date Olga Amato MD [address] [place] [address] PCP - General Family Medicine 07/17/10 Degreasing Wheel Operator Relationship Specialty Start Date End Date Olga Amato MD [address] [place] [address] PCP - General Family Medicine 07/17/10 Degreasing Wheel Operator Relationship Specialty Start Date End Date Olga Amato MD [address] [place] [address] PCP - General Family Medicine 07/17/10 Debby Olivera APRN.[employer] [address] [place] [address] Evaluation Specialist Family Medicine 05/02/24 Mateo Ochoa APRN.[employer] [address] [place] [address] Evaluation Specialist Family Medicine 05/11/24 Degreasing Wheel Operator Relationship Specialty Start Date End Date Olga Amato MD [address] [place] [address] PCP - General Family Medicine 07/17/10 Debby Olivera APRN.[employer] [address] [place] [address] Evaluation Specialist Family Medicine 05/02/24 Mateo Ochoa APRN.[employer] [address] [place] [address] Evaluation Specialist Family Medicine 05/11/24 Degreasing Wheel Operator Relationship Specialty Start Date End Date Olga Amato MD [address] [place] [place] [address] PCP - General Family Medicine 07/17/10 Debby Olivera APRN.[employer] [address] [facility] [place] [address] Evaluation Specialist Family Medicine 05/02/24 Mateo Ochoa APRN.[employer] [address] [facility] [place] [address] [facility] Degreasing Wheel Operator Relationship Specialty Start Date End Date Olga Amato MD [address] [facility] [place] [address] PCP - General Family Medicine 07/17/10 Debby Olivera APRN.[employer] [address] [place] [address] Evaluation Specialist Family Medicine 05/02/24 Mateo Ochoa APRN.[employer] [address] [place] [place] [address] [facility] 05/11/24 Degreasing Wheel Operator Relationship Specialty Start Date End Date Olga Amato MD [address] [place] [place] [address] PCP - General Family Medicine 07/17/10 Debby Olivera APRN.[employer] [address] [place] [address] Evaluation Specialist Family Medicine 05/02/24 Mateo Ochoa APRN.[employer] [address] [place] [address] Evaluation Specialist Family Medicine 05/11/24 Degreasing Wheel Operator Relationship Specialty Start Date End Date Olga Amato MD [address] [place] [place] [address] PCP - General Family Medicine 07/17/10 Debby Olivera, ACTIVITIES LEADER.[employer] [address] [place] [place] [address] Evaluation Specialist Family Medicine 05/02/24 Mateo Ochoa ACTIVITIES LEADER.[employer] [address] [place] [address] Evaluation Specialist Family Medicine 05/11/24 Degreasing Wheel Operator Relationship Specialty Start Date End Date Olga Amato MD [address] [place] [address] PCP - General Family Medicine 07/17/10 Mateo Ochoa ACTIVITIES LEADER.[employer] [address] [place] [address] Evaluation Specialist Family Medicine 05/11/24 Degreasing Wheel Operator Relationship Specialty Start Date End Date Olga Amato MD [address] [place] [address] PCP - General Family Medicine 07/17/10 Mateo Ochoa ACTIVITIES LEADER.[employer] [address] [place] [address] Evaluation Specialist Family Medicine 05/11/24 Degreasing Wheel Operator Relationship Specialty Start Date End Date Olga Amato MD [address] [place] [address] PCP - General Family Medicine 07/17/10 Mateo Ochoa APRN.[employer] [address] [place] [address] Evaluation Specialist Family Medicine 05/11/24 Degreasing Wheel Operator Relationship Specialty Start Date End Date Olga Amato MD [address] [place] [address] PCP - General Family Medicine 07/17/10 Mateo Ochoa APRN.[employer] [address] [place] [address] Evaluation Specialist Family [facility] 05/11/24 Degreasing Wheel Operator Relationship Specialty Start Date End Date Olga Amato MD [address] [place], [place] [address] PCP - General Family Medicine 07/17/10 Mateo Ochoa APRN.[employer] [address] [place] [address] Evaluation Specialist Family [facility] 05/11/24 Team Status: Active Member Role/Relationship Status Dates Dr. Olga Amato MD Primary Care Provider Active Team Status: Inactive Member Role/Relationship Status Dates Dr. Olga Amato MD Primary Care Provider Active Start: February 01, 2025 End: February 01, 2025 Dr. Olga Amato MD Referring Provider Active Start: February 01, 2025 End: February 01, 2025 FAITH Lee Attending Provider Active Start: February 01, 2025 End: February 01, 2025 INFORMATION SOURCE (unrecogn ized section and content) DATE CREATED AUTHOR 02/05/2023 [facility] DATE CREATED AUTHOR [facility]/08/2024 [facility] DATE CREATED AUTHOR AUTHOR'S ORGANIZ ATION 04/05/2025 [facility] DATE CREATED AUTHOR AUTHOR'S ORGANIZ ATION 04/06/2025 [facility] Goals (unrecognized section and content) Goals may be documented in a n alternate section FOR RECORDS PERTAINING TO PATIENTS WHO ARE OR HAVE BEEN ENROLLED IN A CHEMICAL DEPENDENCY/SUBSTANCEABUSE PROGRAM, SOME INFORMATION MAY BE OMITTED. This clinical summary was aggregated from multiple sources. Caution should be exercised in using it in the provision of clinical care. This summary normalizes information from multiple sources, and as a consequence, information in this document may materially change the coding, format and clinical context of patient data. In addition, data may be omitted in some cases. CLINICAL DECISIONS SHOULD BE BASED ON THE PRIMARY CLINICAL RECORDS. [employer] provides no warranty or guarantee of the accuracy or completeness of information in this document.
[2025-04-07] MEDS: Lactated Ringers 1,000 ML 15 ML IV (05:52)
--- NOTE | 2025-04-07 06:22 | PRE.ANES_ITS ---
ASA Classification* ASA Classification ASA Classification: 2 Assessment & Plan Anesthesia* Anesthesia Assessment Anesthesia Assessment: Discussed sedation and/or anesthesia options, risks, benefits, and alternatives with patient/parents/legal guardian/POA. Questions invited. The patient/parents/legal guardian/POA seems to understand and agrees to proceed with anesthesia plan. Reviewed the physical assessment, medical history, allergy history and patient home medications list prior to surgery/procedure/anesthetic and documented any changes. Performed airway and anesthesia risk assessments. Anesthesia Type Anesthesia Type: MAC History Source History Obtained from:: Patient and Chart Anesthesia Focused Assessment* Temperature: 97.8 F Pulse Rate: 67 Blood Pressure: 147/82 Respiratory Rate: 16 Pulse Ox: 99 Oxygen Delivery Method: Room Air Airway Assessment Mouth opens: >3 cm Mallampati Score: I Teeth Condition: Dentures (Patient has full upper dentures.) and Lower (Lower teeth are intact.) Neck Range of motion (ROM): Limited ROM (Slight Decrease) Labs Anesthesia Preop lab: CBC WBC, (4.4-11.0) 5.6 K/mm3 02/04/24, 08:26 RBC, (4.2-5.4) 4.56 M/mm3 02/04/24, 08:26 Hgb, (12.0-15.0) 14.7 g/dL 02/04/24, 08:26 Hct, (37-47) 42.6 % 02/04/24, 08:26 Plt Count, (150-450) 298 K/mm3 02/04/24, 08:26 CHEMISTRY Potassium, (3.5-5.1) 4.0 mmol/L 02/04/24, 08:26 Sodium, (136-145) 141 mmol/L 02/04/24, 08:26 BUN, (7-18) 16 mg/dL 02/04/24, 08:26 Creatinine, (0.55-1.02) 1.01 mg/dL 02/04/24, 08:26 Glucose, (74-106) 102 mg/dL 02/04/24, 08:26 TSH, (0.358-3.74) 11.70 uIU/mL H 04/09/16, 08:18 COAG Pre-Assessment Diagnosis/Proposed Procedure Planned Operative Procedure(s): EGD Anesthesia History Anesthesia History - instructional material director: Anesthesia History - instructional material director Hx Hospitalization No 04/06/25 11:46 Any Problems With Anesthesia No 04/06/25 11:46 Cholinesterase deficiency No 04/06/25 11:46 You/Your Family Experience No 04/06/25 11:46 fever (hyperthermia) with Relationship Recent Exposure to Contagious No 04/07/25 05:48 Disease Does patient have nerve No 04/06/25 11:46 stimulator Patient instructed to have device shut off --Does patient have Pacemaker No 04/07/25 05:48 or ICD? When Was Last Pacemaker Check QUESTION #4 FULL TEXT: You/Your Family Experience fever (hyperthermia) with Anesthesia Last Oral Intake Last Oral intake: Last Oral Intake NPO since 04:30 04/07/25 05:48 Meds taken in AM with sips of Yes 04/07/25 05:48 water? Meds patient instructed to PANTOPRAZOLE, LOSARTAN, 04/07/25 05:48 take am of surgery LEVOTHYROXINE Any additional information?: Yes Meds taken in AM with sips of water?: Yes PONV PONV - instructional material director: PONV - instructional material director Female Yes 04/06/25 11:46 HX of Motion Sickness Yes 04/06/25 11:46 HX of N/V After Surgery No 04/06/25 11:46 Non-Smoker No 04/06/25 11:46 Duration of Surgery greater No 04/06/25 11:46 than 60 minutes Number of Risk Factors 2 04/06/25 11:46 PONV Score Moderate Risk 04/06/25 11:46 Height & Weight Height & Weight: Anesthesia: Height & Weight Height 5 ft 6 in 04/07/25 05:48 Weight: 65 kg 04/07/25 05:48 Body Mass Index (BMI) 23.1 04/07/25 05:48 Respiratory Assessment Respiratory Assessment - instructional material director: Respiratory Tract Infection Hx - instructional material director Hx Respiratory Tract Infection No 04/06/25 11:46 STOP Sleep Apnea STOP Sleep Apnea - instructional material director: STOP Sleep Apnea - instructional material director Hx Hypertension Yes: CONTROLLED WITH MED 04/06/25 11:46 Hx Sleep Apnea No 04/06/25 11:46 CPAP BIPAP Do you snore loudly (louder No 04/06/25 11:46 than talking or can be heard Do you often feel tired/ No 04/06/25 11:46 fatigued/ sleepy during daytime? Has anyone observed you stop No 04/06/25 11:46 breathing during sleep? STOP Results Negative 04/06/25 11:46 QUESTION #5 FULL TEXT : Do you snore loudly (louder than talking or can be heard through closed doors)? Tobacco Use History Tobacco Use History - instructional material director: Tobacco Use History - instructional material director Tobacco Use Smoking Status Current every day smoker 04/06/25 11:46 Hx Tobacco Use Yes 04/06/25 11:46 Years Smoking Packs Smoked per Day 0.5 04/06/25 11:46 Smoking Cessation Date was within the last 15 years Hx Smoking Cessation Date Hx Smoking Cessation Counseling Any additional information?: Yes Smoking Status: Current every day smoker (Patient did smoke today.) Hematologic Medial History Hematologic Hx - instructional material director: Hematologic Medical Hx - documentation billing clerk Hx of Blood Transfusion No 04/06/25 11:46 Hx of Transfusion in last 3 No 04/06/25 11:46 Months Date of Last Transfusion (if within last 3 months) Ever experience any problems No 04/06/25 11:46 with transfusion(s)? Specify any problems Hx of Preganancy in last 3 N/A 04/06/25 11:46 Months Nurse Filling Out Transfusion NBUCHER 04/06/25 11:46 & Questions: Date: 04/06/25 04/06/25 11:46 Time: 11:47 04/06/25 11:46 Patient unable to answer at this time (ie. confused, unrespo /Reproduction History /Reproductive History - instructional material director: /Reproductive Hx- instructional material director Hx Now No 04/06/25 11:46 Gestational Age (in weeks): EDC: Hx Hx Para Hx Section SAB No 04/06/25 11:46 Does the father of the baby or his family experience fever w Father of the baby Malignant Hypertension history comment Active Medications Active Medications: Current Medications Generic Name Dose Route Start Last Admin Trade Name Freq PRN Reason Stop Dose Admin Lactated Ringer's 1,000 mls @ 15 mls/hr 04/07/25 05:45 04/07/25 05:52 IV 15 mls/hr .Q48H MARIE Administration PFSH Medical History Hypertension Wears glasses Wears dentures Post-menopausal Thyroid disease History of diverticulitis Heartburn Shortness of breath on exertion Smoker History of edema Hx of fracture of leg Adrenal nodule Osteoporosis without pathological fracture GERD (gastroesophageal reflux disease) Hepatic cyst Home Medications Medication Instructions Recorded Last Taken Type cholecalciferol (vitamin D3) 25 1,000 unit PO DAILY 03/03/24 History mcg (1,000 unit) tablet clobetasol 0.05 % topical cream 1 applic topical DAILY PRN HANDS 08/01/23 Unknown History levothyroxine 100 mcg capsule 100 mcg PO DAILY 4 04/07/25 03:30 History omega-3 fatty acids 1,000 mg 1,000 mg PO QDAY 02/04/24 03/03/24 History capsule pantoprazole 40 mg tablet,delayed 40 mg PO BID #180 TA BLETS 03/04/25 04/07/25 04:30 Rx release losartan 25 mg tablet 25 mg PO DAILY 04/06/2503/26 04:30 History Allergy/AdvReac Type Severity Reaction Status Date / Time alendronate sodium (From AdvReac Intermediate Other Verified 04/07/25 05:47 Fosamax) Surgical History History of esophagogastroduodenoscopy (EGD) Hx of colonoscopy History of lithotripsy Social History Smoking Status: Current every day smoker tobacco type: cigarettes alcohol intake: never substance use type: does not use Review of Systems (Anesthesia) ROS Narrative System reviewed and no additional complaints, except as documented.
--- NOTE | 2025-04-07 06:30 | EGD_PTH ---
PATIENT: NASIM RODARTE LOC: EN U#:[id number] AGE/SX: 64/F ROOM: RE04/07/[address]: Dr. Vicente Lomas DO : 1960 BED: DIS: 04/07/2025 SPEC #: [id number] RECD: 04/07/25 09:38 STATUS: VERONICA REAliyah #: [id number] JOSE: 04/07/25 06:[address]: Vicente Lomas DEPT: SURGICAL PATHOLOGY RECD BY: Rickey Montoya ENTERED: 04/07/25 10:20 SP TYPE: EGD BIOPSY OTHR DR: Salena Diaz, LOBBY PORTER-Darshan Tissues: A - Esophagus, NOS Procedures: Surgery Specimen Level IV HEADER OPERATION: EGD with biopsy PRE-OP DIAGNOSIS: Constipation, Cabral's esophagus TISSUE SUBMITTED: A- Distal esophagus biopsy MICROSCOPIC DIAGNOSIS A. Distal esophagus, biopsy: - Benign squamous epithelium - Oxynto-cardiac mucosa with chronic inflammation - No goblet cell metaplasia is identified MICROSCOPIC DESCRIPTION Slides are reviewed. GROSS DESCRIPTION A. Received in fixative is one container labeled with the patient's name and designated "Distal esophagus biopsy." The specimen consists of multiple irregular fragments of laurent tissue that in aggregate measure 1.3 x 0.7 x 0.2 cm. The specimen is totally submitted in one cassette. [place] 04/07/2025 CPT:86344
--- NOTE | 2025-04-07 06:53 | PCM.HP.STD ---
HPI - General General Date of Admission: 04/07/25 Date of Service: 04/07/25 Chief Complaint: Cabral's esophagus HPI Narrative CLARISSA RODARTE, is a 64 F who presents [ Chief Complaint: f/u heartburn Details: CLARISSA RODARTE, is a 64 F who presents to the office today for follow-up. [facility] established 02.04.24 for heptaic cyst, heartburnand family hc of colon cnacer in her father. Pt taking apple cider vinegar for heartbrun. CT abdomen/pelvis 12.12.19; There is a 5.4 x 5.3 x 4.0 cm cyst in the left lobe of the liver. This is a benign lesion and no further follow-up is recommended. The liver otherwise demonstrates an unremarkable unenhanced appearance Colonoscopy; 03.08.24 One 3 mm polyp in the sigmoid colon, removed with a jumbo cold forceps. Resected and retrieved. - Diverticulosis in the recto-sigmoid colon, in the sigmoid colon and in the descending colon. - The examination was otherwise normal on direct and retroflexion view EGD 03.08.24; - Esophageal mucosal changes suspicious for short-segment Cabral's esophagus. Biopsied. - LA Grade B reflux esophagitis with no bleeding. - Hiatal hernia. - Bilious gastric fluid. - Chronic gastritis. Biopsied. - Chronic duodenitis. Biopsied. Liver US 02.16.24; Multiple hepatic cysts. The largest cyst measures 5.2 cm x 4.7 cm x 3.6 cm. This is in the left lobe of the liver. Last OV 05.04.24; Continues with heartburn and globus sensation. She feels being on PPI has worsened her symptoms. OV 08.03.24 Pt has been doing well. She started to have some heartburn yesterday. She took TUMs which helped. She continues with pantoprazole 40 mg twice a day. She does not endorse any diet changes or medication changes that could have resulted in this increase in pain. For three days now she has felt constipated with smaller stools. She is still going daily. She is trying to stop smoking and has been able to cut back to three a day. SHe does not smoke at work just when she gets home. OV 02.01.25 patient doing well today. She has some intermittent episodes of heartburn maybe once per week. It is not related to oral intake and happens on random occasions. Constipation is getting better with the bowel movement daily. She did not end up taking any MiraLAX. She continues with pantoprazole 40 mg daily. [facility] Medical History Hypertension Wears glasses Wears dentures Post-menopausal Thyroid disease History of diverticulitis Heartburn Shortness of breath on exertion Smoker History of edema Hx of fracture of leg Adrenal nodule Osteoporosis without pathological fracture GERD (gastroesophageal reflux disease) Hepatic cyst Home Medications Medication Instructions Recorded Last Taken Type cholecalciferol (vitamin D3) 25 1,000 unit PO DAILY 12/14/19 03/03/24 History mcg (1,000 unit) tablet clobetasol 0.05 % topical cream 1 applic topical DAILY PRN HANDS 08/01/23 Unknown History levothyroxine 100 mcg capsule 100 mcg PO DAILY 08/01/23 04/07/25 03:30 History omega-3 fatty acids 1,000 mg 1,000 mg PO QDAY 02/04/24 03/03/24 History capsule pantoprazole 40 mg tablet,delayed 40 mg PO BID #180 TABLETS 03/04/25 04/07/25 04:30 Rx release losartan 25 mg tablet 25 mg PO DAILY 04/06/25 04/07/25 04:30 History Allergy/AdvReac Type Severity Reaction Status Date / Time alendronate sodium (From AdvReac Intermediate Other Verified 04/07/25 05:47 Fosamax) Surgical History History of esophagogastroduodenoscopy (EGD) Hx of colonoscopy History of lithotripsy Social History Smoking Status: Current every day smoker (Patient did smoke today.) tobacco type: cigarettes alcohol intake: never substance use type: does not use ROS Constitutional Constitutional: Denies fatigue, fever(s), poor appetite, weight gain or weight loss Gastrointestinal Gastrointestinal: Denies belching, bloating, change in bowel habits, change in stool character, chewing difficulty, coffee ground emesis, constipation, cramping, diarrhea, dyspepsia, dysphagia, early satiety, excessive flatus, fecal incontinence, heartburn, hematemesis, hematochezia, hemorrhoids, loose stools, melena, nausea, odynophagia, rectal bleeding, tenesmus, vomiting or weight changes Vital Signs Vital Signs Vital Signs: 04/07/25 05:48 04/07/25 05:48 04/07/25 06:26 Temperature 97.8 F 97.8 F Temperature Source Temporal Pulse Rate 67 67 Respiratory Rate 16 16 Respiratory Pattern Normal Blood Pressure 147/82 H 147/82 H Blood Pressure Mean 103 Blood Pressure Source Monitor Blood Pressure Position Sitting Blood Pressure Location Left Arm Pulse Ox 99 99 Oxygen Delivery Method Room Air Room Air Weight Weight: 143 lb 4.807 oz Body Mass Index (BMI) 23.1 Physical Exam Const alert, oriented x3, no apparent distress and healthy appearing General Appearance: cooperative GI normal to inspection, nondistended, normoactive bowel sounds, soft to palpation, non-tender and non-distended Percussion: normal to percussion Rectal Exam: deferred Assessment & Plan Assessment/Plan (1) Cabral esophagus: PLAN: Assessment and Plan Assessment and Plan (1) Constipation: Status: Acute Plan: Clarissa is a 64-year-old female patient here today for follow-up regarding her constipation and Cabral's esophagus. Patient continues with pantoprazole 40 mg daily which controls her heartburn. EGD from February 2024 showing Cabral's esophagus with recommendation for repeat in 1 year. Patient was scheduled for this today. She will continue with PPI therapy. I counseled on smoking cessation which is a risk factor for Cabral's esophagus. Patient's constipation has gotten better since her last visit. She did not end up taking MiraLAX. She has bowel movements daily. Last colonoscopy from February 2024 with a hyperplastic polyp with recommendation for repeat in 5 years. - EGD for monitoring of her Cabral's esophagus - Continue PPI - Smoking cessation - Colonoscopy in 4 years - Follow-up after EGD (2) Cabral esophagus: Status: Acute ] D/C Safety Score for UGIB Assessment Trufant-Blatchford Bleeding Score (GBS): Stratifies upper GI bleeding patients who are "low-risk" and candidates for outpatient management. Hemoglobin, BUN, Recent Vital Signs: Pulse Rate 67 Blood Pressure 147/82 Score Interpretation: Score of 0: A GBS of 0 is a “Low Risk” GI bleed, and is highly sensitive (99.6% in a 2007 retrospective study) for predicting which patients did not require any “medical intervention”: blood transfusion, endoscopy, or surgery. This was confirmed in a 2009 [facility] study where patients with a score of 0 were actually discharged and had no GI bleeding mortality at 6 month followup Score above 0: A GBS greater than zero suggests a “High Risk” GI bleed that is likely to require “medical intervention”: transfusion, endoscopy, or surgery. A higher GBS also correlated with a higher likelihood of needing intervention Scores >/= 6 are associated with >50% risk of needing intervention D/C Safety Score for LGIB Assessment Assessment Tool: Readmission and adverse event risk in patients with acute lower GI bleeding. Hemoglobin and Recent Vital Signs: Pulse Rate 67 04/07/25 06:26 Blood Pressure 147/82 04/07/25 06:26 Score Interpretation: Probability Percentage of safe discharge (absence of rebleeding, blood transfusion, therapeutic intervention, 28 day readmission, or ) Score of 8 or below: Consider discharge, with appropriate precautions. Score of 9 or above: Discharge NOT recommended. Consider admission with further workup and resuscitation as necessary.
--- NOTE | 2025-04-07 07:13 | PCM.POST.ANE ---
Anesthesia: Postop Eval I Current Vital Signs Temperature: 97.4 F Pulse Rate: 74 Blood Pressure: 80/57 Respiratory Rate: 16 Pulse Ox: 97 Oxygen Delivery Method: Room Air Assessment Airway patent: Yes Spontaneous unlabored respirations: Yes Mental status: Asleep nausea: No Vomiting: No Anesthesia Complication: No Fluid Hydration Crystalloid volume administer (ml): 400 Total IV fluid infused: 400 Progress Note Anesthesia document: Postop Eval 1 completed: Yes
--- NOTE | 2025-04-07 07:14 | OP.PROVAT_ITS ---
04/07/2025 Salena Diaz Re : Upper GI endoscopy procedure for Clarissa Mckeon Dear Emily This procedure was performed on March. My impressions and recommendations are as follows: Impressions : - Esophageal mucosal changes secondary to established short-segment Cabral's disease. Biopsied. - No gross lesions in the entire stomach. - No gross lesions in the entire examined duodenum. Recommendations : - Discharge patient to home. - Resume previous diet. - Continue present medications. - Await pathology results. - Repeat upper endoscopy in 1 year for surveillance. My findings are described in the full procedure note, which is enclosed. If I can be of further assistance, please feel free to contact me at . Sincerely, Vicente Lomas, 04/07/2025 7:13:32 AM This report has been signed electronically.
--- NOTE | 2025-04-07 07:14 | OP.EGD_ITS ---
Patient Name: Clarissa Mckeon Procedure Date: 04/07/2025 6:28 AM Date of : 1960 Age: 64 Procedure: Upper GI endoscopy Indications: Heartburn, Follow-up of Cabral's esophagus Providers: Vicente Lomas DO Referring MD: Salena Diaz Medicines: Monitored Anesthesia Care Patient Profile: This is a 64 year old female. Refer to note in patient chart for documentation of history and physical. Patient has symptoms of chronic heartburn. Complications: No immediate complications. Procedure: Pre-Anesthesia Assessment: - Prior to the procedure, a History and Physical was performed, and patient medications and allergies were reviewed. The patient is competent. The risks and benefits of the procedure and the sedation options and risks were discussed with the patient. All questions were answered and informed consent was obtained. Patient identification and proposed procedure were verified by the physician in the pre-procedure area. Mental Status Examination: alert and oriented. Airway Examination: normal oropharyngeal airway and neck mobility. Respiratory Examination: clear to auscultation. CV Examination: normal. Prophylactic Antibiotics: The patient does not require prophylactic antibiotics. Prior Anticoagulants: The patient has taken no anticoagulant or antiplatelet agents except for NSAID medication. ASA Grade Assessment: II - A patient with mild systemic disease. After reviewing the risks and benefits, the patient was deemed in satisfactory condition to undergo the procedure. The anesthesia plan was to use monitored anesthesia care (MAC). Immediately prior to administration of medications, the patient was re-assessed for adequacy to receive sedatives. The heart rate, respiratory rate, oxygen saturations, blood pressure, adequacy of pulmonary ventilation, and response to care were monitored throughout the procedure. The physical status of the patient was re-assessed after the procedure. After obtaining informed consent, the endoscope was passed under direct vision. Throughout the procedure, the patient's blood pressure, pulse, and oxygen saturations were monitored continuously. The Endoscope was introduced through the mouth, and advanced to the second part of duodenum. The upper GI endoscopy was accomplished without difficulty. The patient tolerated the procedure well. Scope In: 7:02:22 AM Scope Out: 7:05:44 AM Total Procedure Duration Time 0 hours 3 minutes 22 seconds Findings: There were esophageal mucosal changes secondary to established short-segment Cabral's disease present in the lower third of the esophagus. The maximum longitudinal extent of these mucosal changes was 2 cm in length. Mucosa was biopsied with a cold forceps for histology in 4 quadrants at intervals of 1 cm in the lower third of the esophagus. One specimen bottle was sent to pathology. Verification of patient identification for the specimen was done. Estimated blood loss was minimal. No gross lesions were noted in the entire examined stomach. No gross lesions were noted in the entire examined duodenum. Impression: - Esophageal mucosal changes secondary to established short-segment Cabral's disease. Biopsied. - No gross lesions in the entire stomach. - No gross lesions in the entire examined duodenum. Recommendation: - Discharge patient to home. - Resume previous diet. - Continue present medications. - Await pathology results. - Repeat upper endoscopy in 1 year for surveillance. Procedure Code(s): --- Professional --- 58114, Esophagogastroduodenoscopy, flexible, transoral; with biopsy, single or multiple CPT copyright 2021 [employer]. All rights reserved. The codes documented in this report are preliminary and upon alpaca farmer review may be revised to meet current compliance requirements. Vicente Lomas DO 04/07/2025 7:13:32 AM This report has been signed electronically. Number of Addenda: 0 Note Initiated On: 04/07/2025 6:28 AM
--- NOTE | 2025-04-07 13:00 | PCM.POSTANE2 ---
Anesthesia Postop Eval I Sum Postop Eval Completion status Anesthesia document: Postop Eval 1 completed: Yes Anesthesia Postop Eval I Summary Anesthesia Postop Eval I Summary: Anesthesia Postop Eval I: Assessment Summary Airway patent Yes 04/07/25 07:14 [email or web address] Spontaneous unlabored Yes 04/07/25 07:14 [email or web address] respirations Mental status Asleep 04/07/25 07:14 [email or web address] nausea No 04/07/25 07:14 [email or web address] Vomiting No 04/07/25 07:14 [email or web address] Anesthesia Postop Eval I: Fluid Summary Crystalloid volume administer 400 04/07/25 07:14 [email or web address] (ml) Colloids volume administered ( ml) Blood Product volume administered (ml) Total IV fluid infused 400 04/07/25 07:14 [email or web address] Anesthesia Postop Eval I: Summary Notes Anesthesia Complication No 04/07/25 07:14 [email or web address] Anesthesia Complication Comment: Post-operative progress note Anesthesia: Postop Eval II Evaluation Mental status: Awake Pain Level: 0 nausea: No Vomiting: No Complications Anesthesia Complication: No
== END 2025-04-07 07:58 | disposition home or self-care (01) ==
LOC: EN 05:17 → AC 05:19
PROVIDERS: PCP Registered Nurse; Referring Provider Registered Nurse; Visit Provider Internal Medicine Gastroenterology
DX: K21.00 Gastro-esophageal reflux disease with esophagitis, without bleeding (principal); K22.70 Barrett's esophagus without dysplasia; E07.9 Disorder of thyroid, unspecified; Z79.890 Hormone replacement therapy; Z79.899 Other long term (current) drug therapy; F17.210 Nicotine dependence, cigarettes, uncomplicated; I10 Essential (primary) hypertension
CPT/HCPCS: 43239; 88305; J2405